=== PATIENT | male | born 1955 | race Caucasian/White ===

== ENCOUNTER 2022-04-21 12:39 | Outpatient (REF) | payer MEDICARE, SELFPAY ==
[2022-04-21 13:05] LABS: MANUAL DIFF FLAG NO
[2022-04-21 13:15] LABS: Basophils Percent Auto 0.6 % (0-2); Eosinophils Absolute Auto 0.2 X10*3/uL (0.0-0.4); Eosinophils Percent Auto 2.7 % (0-4); Hematocrit 45.9 % (42.0-52.0); Hemoglobin 15.6 g/dl (14.0-18.0); Imm Gran Abs Auto 0.03 X10*3/uL (0.00-0.03); Imm Gran Pct Auto 0.4 % (0.0-0.4); Lymphocytes Absolute Auto 1.9 X10*3/uL (1.2-4.9); Lymphocytes Percent Auto 27.5 % (20-40); Mean Corpuscular Hemoglobin 31.9 pg (27.0-33.0); Mean Corpuscular Volume 93.9 fL (80.0-98.0); Monocytes Absolute Auto 0.7 X10*3/uL (0.1-1.2); Monocytes Percent Auto 10.5 % (2-11); Neutrophils Absolute Auto 4.1 x10*3/uL (2.0-8.3); Neutrophils Percent Auto 58.3 % (45-73); Platelet Count 181 X10*3/uL (160-400); Red Blood Count 4.89 X10*6/uL (4.60-5.80)
[2022-04-21 13:58] LABS: Appearance Urine CLEAR; Color Urine YELLOW; Glucose Urine UA NEG (NEG); Leukocyte Esterase Urine NEG (NEG); Nitrite Urine NEG (NEG); UACC Culture Trigger NO; Urine Blood 2+ (NEG); Urine Ketones NEG (NEG); Urine Protein NEG (NEG-TRACE)
[2022-04-21 14:40] LABS: Squamous Epithelial Cell Urine 1+ /LPF
[2022-04-21 14:41] LABS: WBC Urine 0-2 /HPF (0-4)
[2022-04-21 14:42] LABS: Bacteria Urine TRACE /LPF
[2022-04-21 14:48] LABS: Vitamin B12 496 pg/mL (200-900)
[2022-04-21 16:07] LABS: Alanine Aminotransferase 44 U/L (0-40); Albumin Level 4.4 g/dL (3.5-5.0); Alkaline Phosphatase 78 U/L (39-117); Anion Gap 11 (12-20); Aspartate Amino Transferase 30 U/L (5-37); Bilirubin Total 0.7 mg/dL (0.0-1.0); Blood Urea Nitrogen 21 mg/dL (9-16); Calcium 9.1 mg/dL (8.4-10.2); Carbon Dioxide 23 mmol/L (22-29); Chloride 108 mmol/L (96-108); Cholesterol 191 mg/dL; Estimated Glomerular Filt Rate > 60; Glucose Fasting 98 mg/dL (60-99); HDL Cholesterol 37 mg/dL; LDL Cholesterol Calculated 129 mg/dl; Potassium 4.1 mmol/L (3.3-5.1); Sodium 138 mmol/L (135-145); Total Protein 7.1 g/dL (6.5-8.0); Triglycerides 126 mg/dL
[2022-04-21 16:20] LABS: Prostate Specific Antigen 36.33 ng/mL (<0.05-4.0); TSH reflex Free T4 2.73 uIU/mL (0.32-4.0); Vitamin D 25-OH Total 18.3 ng/mL (>30)
[2022-04-22 06:52] LABS: Cortisol Random 9.5 ug/dL
[2022-04-23 00:08] LABS: DHEA Sulfate 71 mcg/dL (20-217)
[2022-04-27 15:47] LABS: Testosterone, Free 52.8 pg/mL (35.0-155.0); Testosterone, Total 372 ng/dL (250-1100)
[2022-04-27 19:41] LABS: Progesterone 0.1 ng/mL
[2022-04-28 23:01] LABS: Dihydrotestosterone 31 ng/dL (12-65)
[2022-05-01 05:16] LABS: Estradiol Free 0.62 pg/mL; Estradiol, Ultrasensitive 29 pg/mL (< OR = 29)
== END 2022-04-21 12:40 | disposition home or self-care (01) ==
LOC: HO.LAB 12:39
PROVIDERS: Visit Provider Nurse Practitioner Family
DX: Z13.220 Encounter for screening for lipoid disorders (principal); Z13.29 Encounter for screening for other suspected endocrine disorder; Z12.5 Encounter for screening for malignant neoplasm of prostate; C61 Malignant neoplasm of prostate; E55.9 Vitamin D deficiency, unspecified; R31.9 Hematuria, unspecified; Z76.89 Persons encountering health services in other specified circumstances
CPT/HCPCS: 36415; 80053; 80061; 81001; 81003; 82306; 82533; 82607; 82627; 82642; 82670; 82681; 82746; 84144; 84153; 84402; 84403; 84443; 85025

== ENCOUNTER → 2022-05-21 12:43 | Outpatient (BNVA) | payer MEDICARE, SELFPAY | PROVIDERS: PCP Internal Medicine; Visit Provider Urology | DX: C61 Malignant neoplasm of prostate (principal) | CPT/HCPCS: 99202 ==

== ENCOUNTER → 2022-06-11 15:09 | Outpatient (BNVA) | payer MEDICARE, SELFPAY | PROVIDERS: PCP Internal Medicine; Visit Provider Urology | DX: C61 Malignant neoplasm of prostate (principal) | CPT/HCPCS: Q3014 ==

== ENCOUNTER 2022-10-29 11:00 | Outpatient (REF) | payer MEDICARE, SELFPAY ==
[2022-10-29 14:45] LABS: Prostate Specific Antigen 36.34 ng/mL (<0.05-4.0)
== END 2022-10-29 11:01 | disposition home or self-care (01) ==
LOC: HO.HMGCLDS 11:00
PROVIDERS: PCP Nurse Practitioner Family; Visit Provider Nurse Practitioner Primary Care
DX: Z12.5 Encounter for screening for malignant neoplasm of prostate (principal); C61 Malignant neoplasm of prostate
CPT/HCPCS: 36415; 84153

== ENCOUNTER 2022-12-01 09:32 | Outpatient (REF) | payer MEDICARE, SELFPAY ==
[2022-12-01 12:54] LABS: Prostate Specific Antigen 34.88 ng/mL (<0.05-4.0)
== END 2022-12-01 09:33 | disposition home or self-care (01) ==
LOC: HO.HMGCLDS 09:32
PROVIDERS: PCP Nurse Practitioner Family; Visit Provider Family Medicine
DX: Z12.5 Encounter for screening for malignant neoplasm of prostate (principal); C61 Malignant neoplasm of prostate
CPT/HCPCS: 36415; 84153

== ENCOUNTER 2023-01-01 10:37 | Outpatient (REF) | payer MEDICARE, SELFPAY ==
[2023-01-01 12:36] LABS: Prostate Specific Antigen 40.01 ng/mL (<0.05-4.0)
== END 2023-01-01 10:38 | disposition home or self-care (01) ==
LOC: HO.HMGCLR 10:37
PROVIDERS: PCP Family Medicine; Visit Provider Family Medicine
DX: Z12.5 Encounter for screening for malignant neoplasm of prostate (principal); C61 Malignant neoplasm of prostate
CPT/HCPCS: 36415; 84153

== ENCOUNTER 2023-02-01 10:38 | Outpatient (REF) | payer MEDICARE, SELFPAY ==
[2023-02-01 15:45] LABS: Prostate Specific Antigen 38.38 ng/mL (<0.05-4.0)
== END 2023-02-01 10:39 | disposition home or self-care (01) ==
LOC: HO.HMGCLR 10:38
PROVIDERS: PCP Family Medicine; Visit Provider Family Medicine
DX: Z12.5 Encounter for screening for malignant neoplasm of prostate (principal); C61 Malignant neoplasm of prostate
CPT/HCPCS: 36415; 84153

== ENCOUNTER 2023-03-08 11:45 | Outpatient (REF) | payer MEDICARE, SELFPAY ==
[2023-03-08 14:33] LABS: Prostate Specific Antigen 45.72 ng/mL (<0.05-4.0)
== END 2023-03-08 11:46 | disposition home or self-care (01) ==
LOC: HO.HMGCLR 11:45
PROVIDERS: PCP Family Medicine; Visit Provider Family Medicine
DX: Z12.5 Encounter for screening for malignant neoplasm of prostate (principal); C61 Malignant neoplasm of prostate
CPT/HCPCS: 36415; 84153

== ENCOUNTER 2023-04-08 11:00 | Outpatient (REF) | payer MEDICARE, MEDICAID, SELFPAY ==
[2023-04-08 14:13] LABS: Prostate Specific Antigen 46.35 ng/mL (<0.05-4.0)
== END 2023-04-08 11:01 | disposition home or self-care (01) ==
LOC: HO.HMGCLR 11:00
PROVIDERS: PCP Family Medicine; Visit Provider Family Medicine
DX: Z12.5 Encounter for screening for malignant neoplasm of prostate (principal); C61 Malignant neoplasm of prostate
CPT/HCPCS: 36415; 84153

== ENCOUNTER 2023-08-17 13:35 | Outpatient (REF) | payer OTHER, MEDICARE, SELFPAY ==
[2023-08-17 15:56] LABS: MANUAL DIFF FLAG NO
[2023-08-17 16:05] LABS: Basophils Percent Auto 0.3 % (0-2); Eosinophils Absolute Auto 0.2 X10*3/uL (0.0-0.4); Eosinophils Percent Auto 2.7 % (0-4); Hematocrit 44.6 % (42.0-52.0); Hemoglobin 15.1 g/dl (14.0-18.0); Imm Gran Abs Auto 0.04 X10*3/uL (0.00-0.03); Imm Gran Pct Auto 0.5 % (0.0-0.4); Lymphocytes Absolute Auto 2.3 X10*3/uL (1.2-4.9); Lymphocytes Percent Auto 26.4 % (20-40); Mean Corpuscular HGB Conc 33.9 g/dl (31.0-36.0); Mean Corpuscular Hemoglobin 32.2 pg (27.0-33.0); Mean Corpuscular Volume 95.1 fL (80.0-98.0); Mean Platelet Volume 9.9 fL (9.4-12.4); Monocytes Absolute Auto 0.8 X10*3/uL (0.1-1.2); Monocytes Percent Auto 9.2 % (2-11); Neutrophils Absolute Auto 5.2 x10*3/uL (2.0-8.3); Neutrophils Percent Auto 60.9 % (45-73); Platelet Count 182 X10*3/uL (160-400); Red Blood Count 4.69 X10*6/uL (4.60-5.80); Red Cell Distribution Width 12.2 % (11.0-16.0); White Blood Count 8.6 X10*3/uL (4.8-10.8)
[2023-08-17 16:12] LABS: Alanine Aminotransferase 17 U/L (0-40); Alkaline Phosphatase 60 U/L (39-117); Anion Gap 9 (12-20); Aspartate Amino Transferase 16 U/L (5-37); Bilirubin Total 0.4 mg/dL (0.0-1.0); Blood Urea Nitrogen 30 mg/dL (9-16); Calcium 9.6 mg/dL (8.4-10.2); Carbon Dioxide 28 mmol/L (22-29); Chloride 107 mmol/L (96-108); Estimated Glomerular Filt Rate > 60; Glucose Random 103 mg/dL (60-115); Phosphorus 3.2 mg/dL (2.7-4.5); Potassium 3.9 mmol/L (3.3-5.1); Sodium 140 mmol/L (135-145); Total Protein 6.8 g/dL (6.5-8.0); Uric Acid 6.3 mg/dL (3.4-7.0)
== END 2023-08-17 13:36 | disposition home or self-care (01) ==
LOC: HO.HMGCLDS 13:35
PROVIDERS: PCP Family Medicine; Visit Provider Nurse Practitioner Primary Care
DX: C61 Malignant neoplasm of prostate (principal)
CPT/HCPCS: 36415; 80053; 84100; 84550; 85025

== ENCOUNTER 2023-08-27 10:24 | Outpatient (AMB) | payer OTHER, SELFPAY ==
--- NOTE | 2023-08-27 10:31 | MHC.OFFVIS ---
Intake Intake Visit Reasons: Prostate cancer- follow up Intake Note: Patient is Present for Follow Up Prostate Cancer/Bladder Disorder? Urology Medication:None Antibiotic Allergies:none Blood Thinners: None Compliants: PSA Current 03/2023 46.35 Patient states that there is a growth/mass in bladder that has been seen in Imaging done my primary physician Allergies Seasonal Allergies Allergy (Verified 08/27/23 10:41) Runny Nose HPI HPI Comments History of Present Illness Details Víctor is a pleasant male. He is a patient of Dr. Roman. He seen for the following urologic conditions - prostate cancer - bladder lesion Patient had received treatment in [place] with targeted chemotherapy. Apparently this is based on response determined by blood test panel run against susceptibilities. I discussed with the patient that this was a strategy used to chemotherapy in the 1960s to give high-dose single agent therapy. Bladder scan studies showed this was inferior to combination chemotherapy at sub maximal dosage. Subsequent trials have not shown superiority to standard combination care. He has subsequently started SOT therapy - this is a form of oligonucleotide therapy using antisense RNA derived from circulating DNA fragments. Recent imaging 04/18 prostate MRI prostate manages 65 mL. Diffusely heterogeneous transitional zone with median lobe hypertrophy projecting into the bladder. 3.8 cm T2 hypointense lesion left lateral peripheral zone from base to apex. Daily arterial enhancement. Lesions stable compared to last year. No extracapsular extension. PI-RADS 5. Increased polypoid inferior bladder mass now measuring 4.5 cm in maximal sagittal dimension. On discussion with patient would recommend cystoscopy with TURBT of bladder lesion as well as prostate biopsy it to see if this treatment effect. 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 Large median lobe prostate. 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 [facility] Medical History Encounter to establish care Screening for diabetes mellitus Screening for hyperlipidemia Screening for hypothyroidism Surgical History No pertinent past surgical history Family History Mother Heart valve problem Father Medical history unknown Social History Housing: House Alcohol intake: never Patient Tobacco Use Status: Current everyday Tobacco user Tobacco use type: Cigarette Cigarette Packs Per Day: 0.5 Cigarettes Per Day: 10 e-Cigarette/Vaping Use: Never Used Second Hand Smoke Exposure: Yes service: Yes Current occupational status: employed Cognitive needs: No Hearing needs: No Vision needs: Yes (reading) Review of Systems Const Denies chills and Denies fever(s) Card Reports no additional complaints and Denies syncope Resp Denies cough GI Denies abdominal pain and Denies heartburn Reports as per HPI and Denies change in libido Neuro Denies syncope Psych Denies change in libido Endo Denies change in libido Physical Exam Const General: cooperative, healthy appearing, comfortable and no acute distress Orientation/consciousness: patient oriented x3 HEENT Face and sinus: Yes normal facial exam Mouth: moist mucous membranes Neck Neck: Yes normal visual inspection, Yes full ROM and Yes trachea midline Chest Chest palpation & inspection: normal inspection of the chest Resp Effort & Inspection: normal respiratory effort, able to speak in complete sentences and no respiratory distress GI Inspection: Yes normal to inspection Back/Spine/Pelvis Cervical Spine: normal cervical lordosis Thoracic/Lumbar Spine: thoracic and lumbar spine normal to inspection Skin General skin exam: no rashes or lesions noted Neuro General: patient oriented x3, gait normal, tone normal and moves all extremities Extrem General: Yes normal to inspection and Yes capillary refill normal Assessment & Plan Assessment & Plan (1) Prostate cancer: Comment: Followed by Dr. Brown - [facility] (cancer center) in [facility], will have immunotherapy and chemotherapy - Grade Group 4 Code(s): C61 - Malignant neoplasm of prostate (2) Bladder mass: Code(s): N32.89 - Other specified disorders of bladder Plan Risks, benefits and alternatives to therapy were discussed. These include but are not limited to infection, bleeding, damage to local organs and tissues, need for further interventions. Anesthetic risks regarding cardiac arrhythmia, blood clots, and potential mortality were discussed. The patient understands the typical recovery time and the outpatient nature of the procedure. After consideration of these risks the patient gives full informed consent and they wish to move ahead with the procedure. With TURBT and prostate biopsy Patient Instructions: Imaging studies, laboratory and physical exam results were discussed and reviewed in detail. No major barriers to patient understanding were identified. An opportunity to ask questions regarding the treatment plan was provided. All questions were answered. The patient expressed understanding and agreement with the above treatment plan. The patient is aware they should contact our office by phone for worsening of their current condition or the appearance of new urologic symptoms. Compliance is encouraged with any medications and followup testing that is ordered. It is a privilege to participate in the urologic care of your patient. If you have any questions or concerns regarding treatment for the above conditions, or other urologic issues, please do not hesitate to contact me. The office telephone contact is [phone]. This note is constructed using voice recognition software. While every effort has been made to ensure accuracy journal entry audit clerk errors may have been included. Yours sincerely, Dr Javier Collins MD, [facility] - Urology Providers of Expert, Compassionate Care for the Genitourinary System Coding Level of Care Code Est Pt Level 4 (83707) Diagnoses Prostate cancer C61 Bladder mass N32.89
== END 2023-08-27 11:18 | disposition home or self-care (01) ==
PROVIDERS: PCP Family Medicine; Visit Provider Urology
DX: C61 Malignant neoplasm of prostate (principal); N32.89 Other specified disorders of bladder
CPT/HCPCS: 99214

== ENCOUNTER → 2023-08-27 10:24 | Outpatient (BNVA) | payer OTHER, MEDICARE, SELFPAY | PROVIDERS: PCP Family Medicine; Visit Provider Urology | DX: C61 Malignant neoplasm of prostate (principal); N32.89 Other specified disorders of bladder | CPT/HCPCS: 99212 ==

== ENCOUNTER 2023-12-22 09:56 | Outpatient (AMB) | payer OTHER, SELFPAY ==
--- NOTE | 2023-12-22 09:58 | A.OFFVIS_ITS ---
Intake Intake Visit Reasons: H&P TURBT w Fulguration/Prostate bx Allergies Seasonal Allergies Allergy (Verified 08/27/23 10:41) Runny Nose Medication List - Last Reconciled 12/22/23 by Javier Collins MD cholecalciferol (vitamin D3) 25 mcg PO DAILY HPI HPI Comments History of Present Illness Details Víctor is a pleasant male. He is a patient of Dr. Roman. He seen for the following urologic conditions - prostate cancer - bladder lesion Telemedicine Evaluation 15 min Consultation [employer] Miranda Video attempted On discussion today recommended was repeat biopsy. He states he has improved symptoms and does not think a procedure would be helpful Repeat imaging is suggested and he does want to proceed with this He understands that his non standard management may have significant impact on life expectancy Patient had received experimental treatment in [place] with targeted chemotherapy. Apparently this is based on response determined by blood test panel run against susceptibilities. I discussed with the patient that this was a strategy used to chemotherapy in the 1960s to give high-dose single agent therapy. He has subsequently started SOT therapy - this is a form of oligonucleotide therapy using antisense RNA derived from circulating DNA fragments. This is a highly experimental treatment with low probability for management. Bladder scan studies showed this was inferior to combination chemotherapy at sub maximal dosage. Subsequent trials have not shown superiority to standard combination care. Recent imaging 04/18 prostate MRI prostate manages 65 mL . Diffusely heterogeneous transitional zone with median lobe hypertrophy projecting into the bladder. 3.8 cm T2 hypointense lesion left lateral peripheral zone from base to apex. Daily arterial enhancement. Lesions stable compared to last year. No extracapsular extension. PI-RADS 5. Increased polypoid inferior bladder mass now measuring 4.5 cm in maximal sagittal dimension. 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 Large median lobe prostate. 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 [facility] Medical History Encounter to establish care Screening for diabetes mellitus Screening for hyperlipidemia Screening for hypothyroidism Surgical History No pertinent past surgical history Family History Mother Heart valve problem Father Medical history unknown Social History Housing: House Alcohol intake: never Patient Tobacco Use Status: Current everyday Tobacco user Tobacco use type: Cigarette Cigarette Packs Per Day: 0.5 Cigarettes Per Day: 10 e-Cigarette/Vaping Use: Never Used Second Hand Smoke Exposure: Yes service: Yes Current occupational status: employed Cognitive needs: No Hearing needs: No Vision needs: Yes (reading) Review of Systems Const All systems reviewed & are unremarkable except as noted in HPI and below Reports no additional complaints Resp Reports no additional complaints GI Reports no additional complaints Reports as per HPI Musc Reports no additional complaints Physical Exam Telemedicine evaluation Appropriate responses Regular breathing rate and rhythm HEENT Head: Yes normal to inspection Ears: hearing grossly normal bilaterally Eyes General: appearance normal, both eyes and all related structures Neck Neck: Yes normal visual inspection Chest Chest palpation & inspection: normal inspection of the chest Resp Effort & Inspection: normal respiratory effort and able to speak in complete sentences Assessment & Plan Assessment & Plan (1) Prostate cancer: Comment: Followed by Dr. Brown - [facility] (cancer center) in [facility], will have immunotherapy and chemotherapy - Grade Group 4 Code(s): C61 - Malignant neoplasm of prostate Plan MRI Three-month follow-up Orders: Orders Creatinine Today C61 - Malignant neoplasm of prostate, R39.15 - Urgency of urination Blood Urea Nitrogen Today C61 - Malignant neoplasm of prostate, R39.15 - Urgency of urination MR pelvis wo/w con Today C61 - Malignant neoplasm of prostate Patient Instructions: Imaging studies, laboratory and physical exam results were discussed and reviewed in detail. No major barriers to patient understanding were identified. An opportunity to ask questions regarding the treatment plan was provided. All questions were answered. The patient expressed understanding and agreement with the above treatment plan. The patient is aware they should contact our office by phone for worsening of their current condition or the appearance of new urologic symptoms. Compliance is encouraged with any medications and followup testing that is ordered. It is a privilege to participate in the urologic care of your patient. If you have any questions or concerns regarding treatment for the above conditions, or other urologic issues, please do not hesitate to contact me. The office telephone contact is [phone]. This note is constructed using voice recognition software. While every effort has been made to ensure accuracy utilities equipment repairer errors may have been included. Yours sincerely, Dr Javier Collins MD, [facility] - Urology Providers of Expert, Compassionate Care for the Genitourinary System Telehealth Telehealth Location of provider rendering services: practice address Location of patient: address on file Patient Identification confirmed using: Name, : Yes Telehealth method: video Patient verbally consented to treatment: Yes Patient verbally consented to billing insurance company: Yes Patient informed of any privacy concerns related to visit: Yes Coding Level of Care Code Tele Est Pt Level 3 (08981) Diagnoses Prostate cancer C61
== END 2023-12-22 10:16 | disposition home or self-care (01) ==
LOC: HO.HUSH 09:56
PROVIDERS: PCP Family Medicine; Visit Provider Urology
DX: C61 Malignant neoplasm of prostate (principal)
CPT/HCPCS: 99213

== ENCOUNTER → 2023-12-22 09:56 | Outpatient (BNVA) | payer OTHER, SELFPAY | PROVIDERS: PCP Family Medicine; Visit Provider Urology ==

== ENCOUNTER 2024-02-28 09:59 | Outpatient (REF) | payer OTHER, SELFPAY ==
[2024-02-28 12:17] LABS: Basophils Percent Auto 0.5 % (0-2); Eosinophils Absolute Auto 0.2 X10*3/uL (0.0-0.4); Eosinophils Percent Auto 3.2 % (0-4); Hematocrit 47.4 % (42.0-52.0); Imm Gran Abs Auto 0.03 X10*3/uL (0.00-0.03); Imm Gran Pct Auto 0.5 % (0.0-0.4); Lymphocytes Absolute Auto 1.9 X10*3/uL (1.2-4.9); Lymphocytes Percent Auto 31.1 % (20-40); MANUAL DIFF FLAG NO; Mean Corpuscular HGB Conc 33.8 g/dl (31.0-36.0); Mean Corpuscular Hemoglobin 32.9 pg (27.0-33.0); Mean Corpuscular Volume 97.3 fL (80.0-98.0); Mean Platelet Volume 10.1 fL (9.4-12.4); Monocytes Absolute Auto 0.6 X10*3/uL (0.1-1.2); Monocytes Percent Auto 9.6 % (2-11); Neutrophils Absolute Auto 3.4 x10*3/uL (2.0-8.3); Neutrophils Percent Auto 55.1 % (45-73); Platelet Count 158 X10*3/uL (160-400); Red Blood Count 4.87 X10*6/uL (4.60-5.80); White Blood Count 6.2 X10*3/uL (4.8-10.8)
[2024-02-28 12:20] LABS: Appearance Urine Clear; Color Urine Yellow; Glucose Urine UA Negative (Negative); Leukocyte Esterase Urine Negative (Negative); Nitrite Urine Negative (Negative); PH 6.5 (5.0-9.0); Urine Blood Negative (Negative); Urine Ketones Negative (Negative); Urine Protein Negative (Neg-Trace)
[2024-02-28 12:21] LABS: Fibrinogen 553 MG/DL (259-690)
[2024-02-28 12:23] LABS: D Dimer High Sensitivity 201 NG/ML
[2024-02-28 12:29] LABS: Estimated Average Glucose 103 mg/dL; Hemoglobin A1c % 5.2 % (<6.0)
[2024-02-28 12:55] LABS: Alanine Aminotransferase 17 U/L (0-40); Albumin Level 4.4 g/dL (3.5-5.0); Alkaline Phosphatase 65 U/L (39-117); Anion Gap 14 (12-20); Aspartate Amino Transferase 19 U/L (5-37); Bilirubin Total 0.6 mg/dL (0.0-1.0); Blood Urea Nitrogen 29 mg/dL (9-16); C Reactive Protein 0.45 mg/dL (< or = 0.50); Calcium 9.8 mg/dL (8.4-10.2); Carbon Dioxide 24 mmol/L (22-29); Chloride 108 mmol/L (96-108); Cholesterol 180 mg/dL (<200); Estimated Glomerular Filt Rate > 60; Glucose Random 90 mg/dL (60-115); HDL Cholesterol 39 mg/dL (>40); Iron 99 mcg/dL (45-160); LDL Cholesterol Calculated 125 mg/dL (<100); Percent Iron Saturation 37 % (15-50); Potassium 3.8 mmol/L (3.3-5.1); Sodium 142 mmol/L (135-145); Total Iron Binding Capacity 265 mcg/dL (228-428); Total Protein 7.4 g/dL (6.5-8.0); Triglycerides 84 mg/dL (<150); Unsaturated Iron Binding 166 ug/dL; Uric Acid 6.5 mg/dL (3.4-7.0)
[2024-02-28 13:06] LABS: Cortisol Random 8.6 ug/dL
[2024-02-28 13:13] LABS: Ferritin 325 ng/mL (20-250); Insulin 7 uU/mL (2-29); Thyroid Stimulating Hormone 2.22 uIU/mL (0.32-4.0); Vitamin D 25-OH Total 53.1 ng/mL (>30)
[2024-02-28 13:21] LABS: Folate 13.1 ng/mL (> or = 4.0); Vitamin B12 820 pg/mL (200-900)
[2024-03-01 01:58] LABS: Triiodothyronine T3 Free 3.3 pg/mL (2.3-4.2)
[2024-03-01 03:53] LABS: Thyroid Peroxidase Antibodies 1 IU/mL (<9)
[2024-03-02 15:19] LABS: Iodine, Serum/Plasma 403 mcg/L (52-109)
[2024-03-02 16:13] LABS: Copper, serum 80 mcg/dL (70-175)
[2024-03-03 04:49] LABS: Apolipoprotein B 101 mg/dL (<90)
[2024-03-03 15:43] LABS: IGF-1 (Somatomedin C) 106 ng/mL (34-245)
[2024-03-03 15:54] LABS: Triiodothyronine T3 Reverse 23 ng/dL (8-25)
[2024-03-03 16:58] LABS: Testosterone, Free 35.8 pg/mL (30.0-135.0); Testosterone, Total 328 ng/dL (250-1100)
[2024-03-06 01:18] LABS: Estradiol Ultra Sensitive 27 pg/mL (< OR = 29)
[2024-03-06 01:59] LABS: Progesterone <0.1 ng/mL
[2024-03-06 23:52] LABS: Lipoprotein A 241 nmol/L (<75)
[2024-03-07 03:13] LABS: Dihydrotestosterone 28 ng/dL (12-65)
[2024-03-07 06:28] LABS: Thyroglobulin Antibodies 1 IU/mL (< or = 1)
[2024-03-07 10:38] LABS: DHEA Sulfate 59 mcg/dL (3-225)
[2024-03-07 20:54] LABS: Homocysteine 8.3 umol/L (<11.4)
[2024-03-08 12:57] LABS: Ceruloplasmin 23 mg/dL (14-30)
== END 2024-02-28 10:00 | disposition home or self-care (01) ==
LOC: HO.HMGCLDS 09:59
PROVIDERS: Visit Provider Family Medicine
DX: Z00.00 Encounter for general adult medical examination without abnormal findings (principal); C61 Malignant neoplasm of prostate; E78.5 Hyperlipidemia, unspecified; Z92.21 Personal history of antineoplastic chemotherapy
CPT/HCPCS: 36415; 80053; 80061; 81003; 82172; 82306; 82390; 82525; 82533; 82607; 82627; 82642; 82670; 82728; 82746; 83036; 83090; 83525; 83540; 83695; 83789; 84144; 84305; 84402; 84403; 84436; 84443; 84481; 84482; 84550; 85025; 85379; 85384; 86140; 86376; 86800

== ENCOUNTER 2024-03-23 10:24 | Outpatient (AMB) | payer OTHER, SELFPAY ==
--- NOTE | 2024-03-23 11:21 | MHC.OFFVIS ---
Intake Visit Reasons: 3m/MRI(02/09) Intake Note: Patient is present for 3 month f/u Urology Medication:none Antibiotic Allergy:none Blood Thinner:none Prospecting Driller Required: No Allergies Seasonal Allergies Allergy (Verified 03/23/24 11:26) Runny Nose HPI Comments Details: Víctor is a pleasant male. He is a patient of Dr. Roman. He seen for the following urologic conditions - prostate cancer - bladder lesion Discussed imaging findings All things considered progression of disease on imaging appears to be relatively slow PSA not done on last blood work Will do today and in 4 months 03/20 T 325 No PSA done Imaging MRI - irregular region of decreased signal in left lateral and posterior lateral peripheral zone. Region is expanded from prior imaging. Maximal dimension 3.0 x 1.7 cm. Slight increase from evaluation 04/15/2023. Region shows avid enhancement PI-RADS 5. Irregular frondlike mass extending along lateral base of anterior bladder. 12/18 On discussion today recommended was repeat biopsy. He states he has improved symptoms and does not think a procedure would be helpful Repeat imaging is suggested and he does want to proceed with this He understands that his non standard management may have significant impact on life expectancy Patient had received experimental treatment in [place] with targeted chemotherapy. Apparently this is based on response determined by blood test panel run against susceptibilities. I discussed with the patient that this was a strategy used to target chemotherapy in the 1960s to give high-dose single agent therapy. He has subsequently started SOT therapy - this is a form of oligonucleotide therapy using antisense RNA derived from circulating DNA fragments. This is a highly experimental treatment with low probability for management- there is little data supporting the correlation between circulating DNA and actual predominant tumor DNA Bladder scan studies showed this was inferior to combination chemotherapy at sub maximal dosage. Subsequent trials have not shown superiority to standard combination care. 04/18 PSA 46 prostate MRI prostate manages 65 mL. Diffusely heterogeneous transitional zone with median lobe hypertrophy projecting into the bladder. 3.8 cm T2 hypointense lesion left lateral peripheral zone from base to apex. Daily arterial enhancement. Lesions stable compared to last year. No extracapsular extension. PI-RADS 5. Increased polypoid inferior bladder mass now measuring 4.5 cm in maximal sagittal dimension. 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 Large median lobe prostate. 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 [facility] Medical History Encounter to establish care Screening for diabetes mellitus Screening for hyperlipidemia Screening for hypothyroidism Surgical History No pertinent past surgical history Family History Mother Heart valve problem Father Medical history unknown Social History Housing: House Alcohol intake: never Patient Tobacco Use Status: Current everyday Tobacco user Tobacco use type: Cigarette Cigarette Packs Per Day: 0.5 Cigarettes Per Day: 10 e-Cigarette/Vaping Use: Never Used Second Hand Smoke Exposure: Yes service: Yes Current occupational status: employed Cognitive needs: No Hearing needs: No Vision needs: Yes (reading) Review of Systems Const Denies chills and Denies fever(s) Card Reports no additional complaints and Denies syncope Resp Denies cough GI Denies abdominal pain and Denies heartburn Reports as per HPI and Denies change in libido Neuro Denies syncope Psych Denies change in libido Endo Denies change in libido Physical Exam Const General: cooperative, healthy appearing, comfortable and no acute distress Orientation/consciousness: patient oriented x3 HEENT Face and sinus: Yes normal facial exam Mouth: moist mucous membranes Neck Neck: Yes normal visual inspection, Yes full ROM and Yes trachea midline Chest Chest palpation & inspection: normal inspection of the chest Resp Effort & Inspection: normal respiratory effort, able to speak in complete sentences and no respiratory distress GI Inspection: Yes normal to inspection Back/Spine/Pelvis Cervical Spine: normal cervical lordosis Thoracic/Lumbar Spine: thoracic and lumbar spine normal to inspection Skin General skin exam: no rashes or lesions noted Neuro General: patient oriented x3, gait normal, tone normal and moves all extremities Extrem General: Yes normal to inspection and Yes capillary refill normal Assessment & Plan Assessment & Plan (1) Prostate cancer: Comment: Followed by Dr. Brown - [facility] (cancer center) in [facility], will have immunotherapy and chemotherapy - Grade Group 4 Code(s): C61 - Malignant neoplasm of prostate Category: Medical Plan Four month follow-up PSA Orders: Orders PSA,Total (Free>4and<10) 4 Months C61 - Malignant neoplasm of prostate PSA,Total (Free>4and<10) Today C61 - Malignant neoplasm of prostate, E11.69 - Type 2 diabetes mellitus with other specified complication, N52.1 - Erectile dysfunction due to diseases classified elsewhere Patient Instructions: Imaging studies, laboratory and physical exam results were discussed and reviewed in detail. No major barriers to patient understanding were identified. An opportunity to ask questions regarding the treatment plan was provided. All questions were answered. The patient expressed understanding and agreement with the above treatment plan. The patient is aware they should contact our office by phone for worsening of their current condition or the appearance of new urologic symptoms. Compliance is encouraged with any medications and followup testing that is ordered. It is a privilege to participate in the urologic care of your patient. If you have any questions or concerns regarding treatment for the above conditions, or other urologic issues, please do not hesitate to contact me. The office telephone contact is [phone]. This note is constructed using voice recognition software. While every effort has been made to ensure accuracy double end tenoner setter errors may have been included. Yours sincerely, Dr Javier Collins MD, [facility] - Urology Providers of Expert, Compassionate Care for the Genitourinary System Coding Level of Care Code Est Pt Level 3 (27138) Diagnoses Prostate cancer C61
== END 2024-03-23 11:39 | disposition home or self-care (01) ==
PROVIDERS: PCP Family Medicine; Referring Provider Family Medicine; Visit Provider Urology
DX: C61 Malignant neoplasm of prostate (principal)
CPT/HCPCS: 99213

== ENCOUNTER 2024-03-23 10:24 | Outpatient (REF) | payer OTHER, SELFPAY ==
[2024-03-23 13:29] LABS: Blood Urea Nitrogen 33 mg/dL (9-16); Estimated Glomerular Filt Rate > 60
[2024-03-23 13:38] LABS: PSA,Total (Free>4and<10) 46.37 ng/mL (0.00-4.00)
== END 2024-03-23 10:25 | disposition home or self-care (01) ==
LOC: HO.LAB 10:24
PROVIDERS: PCP Family Medicine; Visit Provider Urology
DX: C61 Malignant neoplasm of prostate (principal); E11.69 Type 2 diabetes mellitus with other specified complication; N52.1 Erectile dysfunction due to diseases classified elsewhere; R39.15 Urgency of urination; Z12.5 Encounter for screening for malignant neoplasm of prostate
CPT/HCPCS: 36415; 82565; 84153; 84520; 99212

== ENCOUNTER 2024-07-14 12:25 | Outpatient (REF) | payer OTHER, SELFPAY ==
[2024-07-14 17:07] LABS: Prostate Specific Antigen 51.99 ng/mL (<0.05-4.0)
== END 2024-07-14 12:26 | disposition home or self-care (01) ==
LOC: HO.HMGCLDS 12:25
PROVIDERS: PCP Internal Medicine; Visit Provider Urology
DX: C61 Malignant neoplasm of prostate (principal); Z12.5 Encounter for screening for malignant neoplasm of prostate
CPT/HCPCS: 36415; 84153

== ENCOUNTER 2024-10-26 11:27 | Outpatient (REF) | payer OTHER, SELFPAY ==
[2024-10-26 13:03] LABS: MANUAL DIFF FLAG NO
[2024-10-26 13:10] LABS: Basophils Percent Auto 0.4 % (0-2); Eosinophils Absolute Auto 0.3 X10*3/uL (0.0-0.4); Eosinophils Percent Auto 3.5 % (0-4); Hematocrit 42.8 % (42.0-52.0); Hemoglobin 14.4 g/dl (14.0-18.0); Imm Gran Abs Auto 0.03 X10*3/uL (0.00-0.03); Imm Gran Pct Auto 0.4 % (0.0-0.4); Lymphocytes Absolute Auto 1.6 X10*3/uL (1.2-4.9); Lymphocytes Percent Auto 21.7 % (20-40); Mean Corpuscular HGB Conc 33.6 g/dl (31.0-36.0); Mean Corpuscular Hemoglobin 32.4 pg (27.0-33.0); Mean Corpuscular Volume 96.4 fL (80.0-98.0); Mean Platelet Volume 9.9 fL (9.4-12.4); Monocytes Absolute Auto 0.9 X10*3/uL (0.1-1.2); Monocytes Percent Auto 12.4 % (2-11); Neutrophils Absolute Auto 4.4 x10*3/uL (2.0-8.3); Neutrophils Percent Auto 61.6 % (45-73); Platelet Count 161 X10*3/uL (160-400); Red Blood Count 4.44 X10*6/uL (4.60-5.80); Red Cell Distribution Width 12.1 % (11.0-16.0); White Blood Count 7.2 X10*3/uL (4.8-10.8)
[2024-10-26 13:57] LABS: Alanine Aminotransferase 19 U/L (0-40); Albumin Level 3.9 g/dL (3.5-5.0); Alkaline Phosphatase 59 U/L (39-117); Anion Gap 8 (12-20); Aspartate Amino Transferase 25 U/L (5-37); Bilirubin Total 0.5 mg/dL (0.0-1.0); Blood Urea Nitrogen 28 mg/dL (9-16); Calcium 8.8 mg/dL (8.4-10.2); Carbon Dioxide 24 mmol/L (22-29); Chloride 113 mmol/L (96-108); Estimated Glomerular Filt Rate > 60; Glucose Random 94 mg/dL (60-115); Phosphorus 2.9 mg/dL (2.7-4.5); Potassium 4.4 mmol/L (3.3-5.1); Sodium 141 mmol/L (135-145); Total Protein 6.9 g/dL (6.5-8.0)
[2024-10-26 14:09] LABS: Uric Acid 8.2 mg/dL (3.4-7.0)
--- OUTSIDE RECORDS SUMMARY | 2024-10-26 15:30 | XMS_ITS | Encounter Summary ---
Author Name [facility] [place] [facility] [place] [facility] [place] Address [address] [place] [id number] Care Team Providers Care Speech Language Pathologist Name Role Phone MO ALMARAZ Primary Care Provider Unavailab le Insurance Providers: All historical and current Section Date Range: From patient's date of to the date document was created. This section includes the names of all active insurance providers for the patient. Insurance Provider Type of Coverage Plan Name Start of Policy Coverage End of Policy Coverage Group Number Member ID Insurance Provider's Telephone Number Policy Rucker's Name Patient's Relationship to Policy Rucker MEDICAID MEDICAID MYRIAM JONNY LILIAM ANIRUDH Nov 30, 2019 MEDICAI D [id number] Catrina LEE PATIENT MEDICARE (WNR) MEDICARE (M) PART A January 25, 2018 PART A [id number] Catrina LEE PATIENT MEDICARE (WNR) MEDICARE (M) PART B January 25, 2018 PART B [id number] Catrina LEE PATIENT Selected Encounter This section includes the information on record at [place] for the Encounter. Date/Time Encounter Type Encounter Description Reason Provider Source Nov 08, 2023 02:00 PM OFFICE O/P EST MOD 30 MIN PRIMARY CARE/MEDICINE ICD-10-CM I10 Essential (primary) hypertension MARVIN,APOL INARIO IHE Encounter Template Text not used by [place] Assessments - Encounter Diagnoses This section includes the primary and secondary diagnoses documented for the Encounter. Date/Time Primary/Secondary Diagnosis Diagnosis Name Provider Source Nov 17, 2023 08:21 AM PRIMARY Essential (primary) hypertension JOVANA WONG [facility] Nov 17, 2023 08:21 AM SECONDARY Other sleep apnea JOVANA WONG [place] Plan of Treatment: Future Appointments (+ 6 months) and Future Tests (+/- 45 days) The Plan of Treatment section includes future care activities for the patient from all [place] treatmentfacilities. This section includes future appointments and future orders which are active, pending or scheduled. Future Appointments This section includes appointments that were scheduled to occur 6 months from the date of the Encounter, up to a maximum of 20 appointments. The data comes from all [place] treatment facilities. Appointment Date/Time Appointment Type Appointme nt Facility Name Nov 17, 2023 02:00 PM AMBULATORY - REHAB MEDICIN [facility] [place] [facility] Dec 08, 2023 09:20 AM AMBULATORY - MEDICINE [place] [facility] [place] [facility] February 01, 2024 03:00 PM AMBULATORY - MEDICINE [place] [facility] [place] [facility] February 15, 2024 01:00 PM AMBULATORY - MEDICINE [place] [facility] [place] [facility] Feb 28, 2024 09:00 AM AMBULATORY - MEDICINE [place] [facility] [place] [facility] Mar 17, 2024 11:00 AM AMBULATORY - PSYCHIATRY [facility] Mar 23, 2024 10:30 AM AMBULATORY - MEDICINE [place] [facility] [place] [facility] Mar 24, 2024 09:30 AM AMBULATORY - MEDICINE [place] [facility] [place] [facility] Mar 29, 2024 11:00 AM AMBULATORY - PSYCHIATRY [facility] Apr 17, 2024 11:00 AM AMBULATORY - MEDICINE [place] [facility] [place] [facility] Apr 24, 2024 11:00 AM AMBULATORY - MEDICINE [place] [facility] [place] [facility] Apr 28, 2024 01:00 PM AMBULATORY - MEDICINE [place] [facility] [place] [facility] May 01, 2024 11:00 AM AMBULATORY - MEDICINE [place] [facility] [place] [facility] Lab Results: +/- 30 days of the encounter This section includes the Chemistry and Hematology Lab Results on record with [place] for the patient. Radiology Reports and Pathology Reports are provided separately, in subsequent sections. Lab Results This section contains the Chemistry/Hematology Results that were resulted 30 days before or 30 daysafter the date of the Encounter. Date/Time Source Result Type Result - Unit Interpretation Reference Range Comment Nov 11, 2023 09:08 AM [facility] [employer] [facility] LIPOPROTEIN (a) Specimen Type: SERUM Comment: REFERENCE RANGE: <75 nmol/L THIS RESULT HAS BEEN VERIFIED BY REPEAT ANALYSIS. Risk Category Optimal < 75 nmol/L Moderate 75 - 125 nmol/L High > 125 nmol/L Cardiovascular event risk category cut points (optimal, moderate, high) are based on Gary Musa [facility] 2017;69:692-711 . Test Performed by [email or web address], [facility], [address] [place] [address] Danielito Harris M.D., Ph.D., Director of Laboratories , [place] [id number] TEST PERFORMED AT: , Ordering Provider: BLANCA WONG Report Released Date/Time: Nov 08, 2023 02:37 PM Reporting Lab: [facility] [address] [address] Performing Lab: [facility] [place] [id number] [address] LIPOPROTEIN (a) 213 nmol/L H SEE BELOW Nov 11, 2023 09:08 AM [facility] LIPID PANEL FASTING Specimen Type: SERUM No comment entered. Ordering Provider: BLANCA WONG Report Released Date/Time: Nov 08, 2023 02:37 PM Reporting Lab: [facility] [address] [address] Performing Lab: [facility] [address] [address] CHOLESTEROL 189 mg/dL TRIGLYCERIDE 127 mg/dL 0-150 LDL calculated 120 mg/dL 0-129 CHOL/HDL 4.3 HDL CHOLESTEROL 44 mg/dL 40-60 Nov 11, 2023 09:08 AM [facility] LIVER FUNCTION Specimen Type: SERUM No comment entered. Ordering Provider: BLANCA WONG Report Released Date/Time: Nov 08, 2023 02:37 PM Reporting Lab: [address] [address] Performing Lab: [address] [address] PROTEIN,TOTAL 7.0 g/dL 6.0-8.3 ALBUMIN 4.1 g/dL 3.5-5.0 ALKALINE PHOSPHATASE 65 U/L 40-150 AST 15 U/L 5-34 ALT 20 U/L BILIRUBIN, TOTAL 0.7 mg/dL 0.2-1.2 Nov 11, 2023 09:08 AM [facility] BASIC METABOLIC PANEL (fasting) Specimen Type: SERUM No comment entered. Ordering Provider: BLANCA WONG Report Released Date/Time: Nov 08, 2023 02:37 PM Reporting Lab: [address] [address] Performing Lab: [address] [address] UREA NITROGEN 26 mg/dL H 7-25 GLUCOSE 100 mg/dL 65-100 SODIUM 144 mmol/L 135-145 POTASSIUM 4.0 mmol/L 3.5-5.0 CHLORIDE 107 mmol/L 100-110 CO2 29 meq/L 20-30 CREATININE, Serum 1.11 mg/dL 0.50-1.40 eGFR(CKD-EPI 2020) 71 mL/min >60 Nov 11, 2023 09:08 AM [facility] HEMOGLOBIN A1C PANEL Specimen Type: BLOOD Comment: Values obtained from A1C measurements can vary. For atypical A1C assays, a reported value of 7.0 could actually be between 6.72 and 7.28 if measured by a reference method. A reported value of 9.0 could actually be between 8.73 and 9.27. Ref: http://www.ngsp .org/CAPdata.as p Ordering Provider: BLANCA WONG Report Released Date/Time: Nov 08, 2023 02:37 PM Reporting Lab: [facility] [place] [facility] [address] [address] Performing Lab: [facility] [address] [address] HEMOGLOBIN A1C 5.1 4.0-5.6 Nov 11, 2023 09:08 AM [facility] TSH Specimen Type: SERUM No comment entered. Ordering Provider: BLANCA WONG Report Released Date/Time: Nov 08, 2023 02:37 PM Reporting Lab: [facility] [address] [address] Performing Lab: [facility] [address] [address] TSH 3.02 u[IU]/mL 0.35-5.00 Nov 11, 2023 09:08 AM [facility] MICROALBUMIN CREATININE RATIO PANEL Specimen Type: URINE No comment entered. Ordering Provider: BLANCA WONG Report Released Date/Time: Nov 08, 2023 02:37 PM Reporting Lab: [facility] [address] [address] Performing Lab: [facility] [address] [address] MICROALBUMIN/ CREATININE RATIO 54.6 mg/g H 0-29.9 MICROALBUMIN, QUANTITATIVE 4.1 mg/dL RR UNAVAIL CREATININE URINE 75.10 mg/dL Nov 11, 2023 09:08 AM [facility] PSA Specimen Type: SERUM No comment entered. Ordering Provider: BLANCA WONG Report Released Date/Time: Nov 08, 2023 02:37 PM Reporting Lab: [facility] [address] [address] Performing Lab: [facility] [address] PSA 47.97 ng/mL H 0.00-4.00 Nov 11, 2023 09:08 AM [facility] CBC AND DIFF (AUTO) Specimen Type: BLOOD No comment entered. Ordering Provider: BLANCA WONG Report Released Date/Time: Nov 08, 2023 02:37 PM Reporting Lab: [facility] [address] [address] Performing Lab: [facility] [address] [address] WBC 6.88 10*3/uL 4.50-11.00 RBC 4.91 10*6/uL 4.23-5.66 HGB 15.8 g/dL 12.8-17 HCT 47.0 39.2-50.4 MCV 95.7 fL 82-99 MCHC 33.6 g/dL 30.8-35.1 PLT 146 10*3/uL 140-360 RDW-CV 12.4 12.0-16.0 Buchanan, Abs 0.67 10*3/uL 0.30-1.10 MCH 32.2 pg 26.2-32.6 Neut % 60.4 43.7-75.8 Lymph % 25.9 14.0-42.3 Buchanan % 9.7 5.1-13.7 Eos % 3.2 0.4-6.8 Baso % 0.4 0.1-2.0 Neut, Abs 4.15 10*3/uL 2.20-7.60 Lymph, Abs 1.78 10*3/uL 1.00-3.20 Eos, Abs 0.22 10*3/uL 0.03-0.44 Baso, Abs 0.03 10*3/uL 0.01-0.13 Immature Gran % 0.4 0.0-0.7 Immature Gran, Abs 0.03 10*3/uL 0.00-0.06 Nov 11, 2023 09:08 AM [facility] VITAMIN B12 Specimen Type: SERUM No comment entered. Ordering Provider: BLANCA WONG Report Released Date/Time: Nov 08, 2023 02:37 PM Reporting Lab: [facility] [address] [address] Performing Lab: [address] [address] VITAMIN B12 664 pg/mL 200-900 Social History: Smoking Status (Most current) and Tobacco Use (All prior to encounter date) This section includes the most current, and the historical, smoking and tobacco- related health factors from the [place] facility where the Encounter took place. Current Smoking Status This section includes the most current smoking, or tobacco-related health factor, from the [place] facility where the Encounter took place. Date/Time Current Smoking Status Comment Facil ity Apr 27, 2023 01:30 PM VA-TOBACCO USER EVERY DAY [place] Tobacco Use History This section includes a history of the smoking, or tobacco-related health factors, that were collected on or before the date of the Encounter. The data comes from the [place] facility where the Encounter took place. 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 Apr 27, 2023 01:30 PM VA-TOBACCO USE MED 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 Jan 23, 2021 10:30 AM VA-TOBACCO USE MED [facility] Jan 23, 2021 10:30 AM VA-TOBACCO USE WI 30 MIN OF WAKEUP [place] Jan 23, 2021 10:30 AM VA-TOBACCO USER EVERY DAY [place] Oct 25, 2017 03:23 PM CUR[facility] Oct 25, 2017 03:23 PM V1-PT NOT INTEREST ED IN QUIT TOBACCO USE [place] Dec 15, 2016 10:59 AM CURRENT SMOKER [facility] Dec 15, 2016 10:59 AM V1-PT DECLINES REF TO TOBACCO CESS [facility] Dec 15, 2016 10:59 AM V1-PT THINKING ABO UT QUIT TOBACCO USE [place] Jun 16, 2016 08:30 AM V1-PT DECLINES REF TO TOBACCO CESS [facility] Jun 16, 2016 08:30 AM V1-PT DECLINES TOB ACCO CESSATION MEDS [place] Jun 16, 2016 08:30 AM V1-PT THINKING ABO UT QUIT TOBACCO USE [place] Dec 17, 2015 09:00 AM CURRENT SMOKER smokes about one ppd of cigaretts. [place] Dec 17, 2015 09:00 AM V1-PT THINKING ABO UT QUIT TOBACCO USE [place] Encounter Notes: All associated encounter notes This section contains the clinical notes associated to the Encounter. Date/Time Encounter Note(s) Provider Source Nov 08, 2023 02:14 PM PREVENTIVE MEDICIN E NURSING NOTE: LOCAL TITLE: CLINICAL REMINDERS/NURSING STANDARD TITLE: PREVENTIVE MEDICINE NURSING NOTE DATE OF NOTE: NOV 08, 2023@14:14 ENTRY DATE: NOV 08, 2023@14:14:57 AUTHOR: ALAN ALONSO EXP COSIGNER: URGENCY: STATUS: COMPLETED Pneumococcal Conjugate Vaccine (PCV15/PCV20): Refuses PCV vaccine Immunization: PNEUMOCOCCAL CONJUGATE, UNSPECIFIED FORMULATION Refusal Reason: PATIENT DECISION Patient refuses all immunization(s) in the PneumoPCV group Date Documented: 11/08/23 14:19 Influenza Immunization: The patient declines to receive the recommended dose of seasonal influenza vaccine. Immunization: INFLUENZA, UNSPECIFIED FORMULATION Refusal Reason: PATIENT DECISION Patient refuses the INFLUENZA, UNSPECIFIED FORMULATION immunization Date Documented: 11/08/23 14:19 COVID-19 Immunization: Refused Moderna Monovalent COVID-19 vaccine Immunization: COVID-19 (MODERNA), MRNA, LNP-S, PF, 50 MCG/0.5 ML (AGES 12 + YEARS) Refusal Reason: PATIENT DECISION Patient refuses the COVID-19 (MODERNA), MRNA, LNP-S, PF, 50 MCG/0.5 ML (AGES 12+ YEARS) immunization Date Documented: 11/08/23 14:19 Tdap Immunization: The patient declines to receive the recommended dose of Tdap vaccine. Immunization: TDAP Refusal Reason: PATIENT DECISION Patient refuses the TDAP immunization Date Documented: 11/08/23 14:20 Herpes Zoster (Shingles) Vaccine: The patient declines to receive the recommended dose of zoster (shingles) vaccine. Immunization: ZOSTER RECOMBINANT Refusal Reason: PATIENT DECISION Patient refuses the ZOSTER RECOMBINANT immunization Date Documented: 11/08/23 14:20 RHS Screen: RHS Screen Session Format: Face to Face Environmental Check Upon inquiry, the individual reports that the environment is safe to proceed. Informed Consent to Screen and Document The individual consents to proceed with screening. RHS screen was conducted with the individual's consent utilizing a standardized copyrighted tool. Education and resources/referrals provided as needed. EDUCATION: The individual indicated readiness to learn. Education offered during this session as noted above. The individual indicated understanding by asking relevant questions and making appropriate comments. No barriers to learning were observed or identified. 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 Discussed risk factors and mitigation measures including BP control, LSM. Followed by [facility] prostate CA and bladder tumour, HCM Patient has disenrolled from [facility] drug protocol for prostate CA Patient stopped taking BP medication; Problem list and medications reviewed. Last Labs: March 2023; recommended to update labs Active problems - Computerized Problem List is the source for the followin. Prostate cancer [facility] Drug protocol 2. HT - Hypertension change to Lis/HCTZ 21 Nov 2020 3. Osteoarthritis 4. Nicotine dependence 5. Tobacco user PPD 6. Anxiety 7. Sleep apnea (November 2021) trial on APAP 11-18 cm H2 8. Elevated PSA PSA 8.February2013 had negative prostate biopsy 9. 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 Interim removal of bladder mass (he cannot recall dx), with no treatment for HTN in setting of findngs of retinal artery occlusion. Patient amenable to discuss more with vascular surgery. HTN - discussed various determinants ncluding sleep, stress, tobacco. Wants to self monitor for now. Will call if he decides to restart medications. Hyperlipidemia - recommend recheck with LpA Collection DT Spec CHOL HDL CHO/HDL LDL-c TRIG 04/22/2023 08:24 SERUM 190 44 4.3 130 H 81 03/23/2017 11:10 SERUM 178 37 L 4.8 118 117 03/05/2016 08:41 SERUM 165 34 L 4.9 99 161 H GERTRUDIS on PAP; requesting assistance with equipment Smoker h/o prostate CA Chronic issues reviewed briefly; no changes to management unless specified above. RTC on completion of labs, 6mo as requested TIME ATTESTATION: Time spent directly with the patient was ( x ) 30 minutes More than 50% of the time spent with the patient included counselling regarding the admission Medical Review, History and Physical Examination, discussion of the findings, both remote and local data in the medical record, management, and patient education for the annotated medical conditions above. Discussed with patient and agrees to plan. VA and Non VA meds were reconciled. Today's documentation was made using voice recognition software. This note may contain spelling/grammatical errors secondary to this software. Patient provided copies of labs/studies and medication list. Upcoming Appointments: 11/08/2023 14:00 CWM/SO/PACT 9 11/17/2023 14:00 CWM/NO/AUDIOLOGY/HAF D 04/28/2024 13:00 CWM/SO/PACT 9 07/31/2024 13:30 NHM/OPTOMETRY/[place] Med Reconciliation: Active Outpatient Medications (including Supplies): Active Outpatient Medications (including Supplies): No Medications Found Medication (Local) Status No local medications found. Medication (Remote) Status No remote medications found. /alfred/ CATHIE WONG MD PHYSICIAN Signed: 11/17/2023 08:21 CATHIE WONG [place]
--- OUTSIDE RECORDS SUMMARY | 2024-10-26 15:31 | XMS_ITS | Encounter Summary ---
Author Name [facility] [place] Organization [facility] [place] Address [address] [place] [address] Care Team Providers Care Precision Lens Technician Name Role Phone MO ALMARAZ Primary Care Provider Unavail le Insurance Providers: All historical and current [...] Relationship to Policy R[place] MEDICAID MEDICAID MYRIAM LILIYA OLEARY Nov 30, 2019 MEDICAI D [id number] Catrina LEE PATIENT MEDICARE (WNR) MEDICARE (M) PART A January 25, 2018 PART A [id number] Catrina LEE PATIENT MEDICARE (WNR) MEDICARE (M) PART B January 25, 2018 PART B [id number] Catrina LEE PATIENT Selected Encounter This section includes the information on record at [place] for the Encounter. Date/Time Encounter Type Encounter Description Reason Provider Source Oct 24, 2024 03:00 PM CASE MANAGEMENT [facility] - IND ICD-10-CM F41.9 Anxiety disorder, unspecified TIERNEY ADKINS Encounter Template Text not used by [place] Assessments - Encounter Diagnoses This section includes the primary and secondary diagnoses documented for the Encounter. Date/Time Primary/Secondary Diagnosis Diagnosis Name Provider Source Oct 24, 2024 03:12 PM PRIMARY Anxiety disorder, unspecified LUCILLE,KHALIF RHYS Oct 24, 2024 03:12 PM SECONDARY Insomnia, unspecified LUCILLE,WENDY RHYS Plan of Treatment: Future Appointments (+ 6 months) and Future Tests (+/- 45 days) The Plan of Treatment section includes future care activities for the patient from all [place] treatmentfacilst[facility]. This section includes future appointments and future orders which are active, pending or scheduled. Future Appointments This section includes appointments that were scheduled to occur 6 months from the date of the Encounter, up to a maximum of 20 appointments. The data comes from all [place] treatment facilities. Appointment Date/Time Appointment Type Appointme nt Facility Name Oct 30, 2024 09:00 AM AMBULATORY - PSYCHIATRY [facility] Nov 14, 2024 11:30 AM AMBULATORY - MEDICINE [facility] Mar 23, 2025 09:00 AM AMBULATORY - MEDICINE [place] [facility] [place] [facility] Active, Pending, and Scheduled Orders This section includes a listing of several types of active, pending, and scheduled orders, including clinic medications orders, diagnostic test orders, procedure orders and consult orders; where the start date of the order is 45 days before the date of the Encounter or 45 days after the date of theEncounter. The data comes from all [place] treatment facilities. Test Date/Time Test Type Test Details Facility Name Oct 04, 2024 01:16 PM Consult Order MENTAL HEA LTH SERVICES BHIP/SPOPC OUTPT Cons Electromechanical Equipment Assembler's Choice [facility] Oct 04, 2024 01:19 PM Consult Order PSYCHIATRI C MEDICATION SOPC OUTPT Cons Electromechanical Equipment Assembler[facility] Social History: Smoking Status (Most current) and Tobacco Use (All prior to encounter date) This section includes the most current, and the historical, smoking and tobacco- related health factors from the [place] facility where the Encounter took place. Current Smoking Status This section includes the most current smoking, or tobacco-related health factor, from the VA facility where the Encounter took place. Date/Time Current Smoking Status Comment Dannie negrete Apr 28, 2024 01:00 PM VA-TOBACCO USER EVERY DAY [facility] Tobacco Use History This section includes a history of the smoking, or tobacco-related health factors, that were collected on or before the date of the Encounter. The data comes from the [place] facility where the Encounter took place. 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 PROCESSING SUPERVISOR NO [facility] Apr 27, 2023 01:30 PM VA-TOBACCO USE MED NO [facility] Apr 27, 2023 01:30 PM VA-TOBACCO USER EVERY DAY [facility] Jan 23, 2021 10:30 AM VA-TOBACCO USE 30 YEARS OR MORE [facility] Jan 23, 2021 10:30 AM VA-TOBACCO USE ADVICE [facility] Jan 23, 2021 10:30 AM VA-TOBACCO USE 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 PROCESSING 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 NO [facility] Jan 23, 2021 10:30 AM VA-TOBACCO USE MED NO [facility] Jan 23, 2021 10:30 AM VA-TOBACCO USE WI 30 MIN OF [facility] Jan 23, 2021 10:30 AM VA-TOBACCO USER EVERY DAY [facility] Oct 25, 2017 03:23 PM CURRENT SMOKER [facility] Oct 25, 2017 03:23 PM V1-PT NOT INTEREST ED IN QUIT TOBACCO USE [facility] Dec 15, 2016 10:59 AM CURRENT SMOKER [facility] Dec 15, 2016 10:59 AM V1-PT DECLINES REF TO TOBACCO CESS [facility] Dec 15, 2016 10:59 AM V1-PT THINKING ABO UT QUIT TOBACCO USE [facility] Jun 16, 2016 08:30 AM V1-PT DECLINES REF TO TOBACCO CESS [facility] Jun 16, 2016 08:30 AM V1-PT DECLINES TOB ACCO CESSATION [facility] Jun 16, 2016 08:30 AM V1-PT THINKING ABO UT QUIT TOBACCO USE [facility] Dec 17, 2015 09:00 AM CURRENT SMOKER smokes about one ppd of cigaretts. [facility] Dec 17, 2015 09:00 AM V1-PT THINKING ABO UT QUIT TOBACCO USE [facility] Encounter Notes: All associated encounter notes This section contains the clinical notes associated to the Encounter. Date/Time Encounter Note(s) Provider Source Oct 24, 2024 03:07 PM MENTAL HEALTH CONS ULT: LOCAL TITLE: CONSULT REPORT/CRANIAL ELECTROTHERAPY STIMULATION STANDARD TITLE: MENTAL HEALTH CONSULT DATE OF NOTE: OCT 24, 2024@15:07 ENTRY DATE: OCT 24, 2024@15:07:12 AUTHOR: KHALIF ADKINS EXP COSIGNER: URGENCY: STATUS: COMPLETED F: Alpha-Stim Trial arrived at clinic re: Alpha-Stim Trial # 2 and issued his personal Alpha-Stim. [place] is known to brief writer and identified himself by name and date of . Eva is alert and oriented to person, place, time, and situation. Eva denies SI/HI, and or the use of any alcohol or illicit drugs. Blood Pressure: 170/80 (10/02/2024 15:31) Pain: 0 (08/21/2024 14:34) Patient Height: 65 in [165.1 cm] (10/02/2024 15:31) Patient Weight: 174 lb. [78.93 kg] (10/02/2024 15:31) Pulse: 60 (10/02/2024 15:31) Respiration: 17 (10/02/2024 15:31) Temperature: 96.8 F [36.0 C] (08/21/2024 14:34) D: Active problems - Computerized Problem List is the source for the followin. Diverticular disease of colon 2. History of polyp of colon 3. Prostate cancer 4. HT - Hypertension 5. Osteoarthritis 6. Nicotine dependence 7. Tobacco user 8. Anxiety 9. Sleep apnea Active Outpatient Medications (including Supplies): Active Outpatient Medications Status ====== 1) BETAMETHASONE DIPROPIONATE 0.05% OINT APPLY SMALL AMOUNT ACTIVE TOPICALLY TWICE DAILY NEEDED FOR ITCHING/RASH Indication: FOR ATOPIC DERMATITIS 2) METOPROLOL SUCCINATE 25MG SA TAB TAKE ONE TABLET BY MOUTH ACTIVE ONCE DAILY FOR BLOOD PRESSURE/HEART Indication: FOR HIGH BLOOD PRESSURE A/P: [place] is utilizing Alpha-Stim for the diagnoses of anxiety and insomnia. Eva reports finding benefit after his utilization of the Alpha-Stim and is hopeful that daily use will be even more beneficial. Eva was oriented to his personal Alpha-Stim and was observed setting it up without difficulty. Eva is excited by the potential for having reduced depression and anxiety as well as improved sleep in a non-pharmacological way with use of his own Alpha-Stim. Eva was encouraged to remain mindful of anything he notes good or bad after using the Alpha-Stim and is aware that he may contact brief writer to discuss as needed. Upcoming Appointments: 10/30/2024 09:00 CWM/SO/MHC/[facility] 11/14/2024 11:30 CWM/SO/VVC/PACT NURSING 03/23/2025 09:00 CWM/SO/PACT 9 07/31/2025 11:00 [facility] OPTOMETRY 4 [place] understands how to utilize the Veterans Crisis Line (9-8-8 option 1) and urged to call that number at any time if they have thoughts about suicide and, or to call 911 or go to nearest E.R. if they have suicidal thoughts. RTC 10/30/2024, however is aware that he can call or walk-in at anytime prior to next appointment. was provided with the date/time of next appointment as well as brief writer's contact information for use as needed. No barriers; Patient understands and agrees to current treatment plan. If [place] has any questions, concerns, or changes in current health status will call or come in to the VA. 15 minutes spent in patient care and education. /alfred/ KHALIF ADKINS, MSN, RN, CNL MENTAL HEALTH NURSE PARK AIDE Signed: 10/24/2024 15:12 KHALIF ADKINS
--- OUTSIDE RECORDS SUMMARY | 2024-10-26 15:31 | XMS_ITS | Encounter Summary ---
Author Name [facility] [place] Organization [facility] [place] Address [address] [place] [id number] Care Team Providers Care Brewery Technician Name Role Phone MO ALMARAZ Primary [...] Policy Rucker MEDICAID MEDICAID MYRIAM JONNY LILIAM OLEARY Nov 30, 2019 MEDICAI D [id number] Catrina LEE PATIENT MEDICARE (WNR) MEDICARE (M) PART A January 25, 2018 PART A [id number] Catrina LEE PATIENT MEDICARE (WNR) MEDICARE (M) PART B January 25, 2018 PART B [id number] Catrina LEE PATIENT Selected Encounter This section includes the information on record at [place] for the Encounter. Date/Time Encounter Type Encounter Description Reason Provider Source Aug 21, 2024 02:30 PM OFFICE O/P EST MOD 30 MIN PRIMARY CARE/MEDICINE ICD-10-CM I10 Essential (primary) hypertension MARVIN,APOL INARIO IHE Encounter Template Text not used by [place] Assessments - Encounter Diagnoses This section includes the primary and secondary diagnoses documented for the Encounter. Date/Time Primary/Secondary Diagnosis Diagnosis Name Provider Source Sep 22, 2024 03:30 PM PRIMARY Essential (primary) hypertension JOVANA WONG [place] Sep 22, 2024 03:30 PM SECONDARY Anxiety disorder, unspecified MARVIN,JOVANA RIOS [place] Sep 22, 2024 03:30 PM SECONDARY Other sleep apnea JOVANA WONG [facility] Plan of Treatment: Future Appointments (+ 6 months) and Future Tests (+/- 45 days) The Plan of Treatment section includes future care activities for the [facility] [place] [facility] This section includes future appointments and future orders which are active, pending or scheduled. Future Appointments This section includes appointments that were scheduled to occur 6 months from the date of the Encounter, up to a maximum of 20 appointments. The data comes from all [facility]. Appointment Date/Time Appointment Type Appointme nt Facility Name Sep 14, 2024 07:30 AM AMBULATORY - NONE [place] [facility] [place] [facility] Oct 02, 2024 10:00 AM AMBULATORY - MEDICINE [place] [facility] Oct 04, 2024 08:00 AM AMBULATORY - PSYCHIATRY [facility] Oct 17, 2024 03:00 PM AMBULATORY - PSYCHIATRY [facility] Oct 24, 2024 10:00 AM [facility] Oct 24, 2024 10:00 AM AMBULATORY - MEDICINE [facility] [place] [facility] Oct 24, 2024 03:00 PM AMBULATORY - PSYCHIATRY [facility] Oct 30, 2024 09:00 AM AMBULATORY - PSYCHIATRY [facility] Nov 14, 2024 11:30 AM AMBULATORY - MEDICINE [facility] Active, Pending, and Scheduled Orders This section includes a listing of several types of active, pending, and scheduled orders, including clinic medications orders, diagnostic test orders, procedure orders and consult orders; where the start date of the order is 45 days before the date of the Encounter or 45 days after the date of theEncounter. The data comes from all [facility]. Test Date/Time Test Type Test Details Facility Name Aug 16, 2024 10:18 AM Consult Order CVT HOME S LEEP STUDY IFC WHAV Cons Search Engine Marketing Specialist's Choice [facility] Oct 04, 2024 01:16 PM Consult Order MENTAL HEA LTH SERVICES BHIP/SPOPC OUTPT Cons [employer] Engine Marketing Specialist's Choice [place] Oct 04, 2024 01:19 PM Consult Order PSYCHIATRI C MEDICATION SOPC OUTPT Cons Search Engine Marketing Specialist's Choice [place] Social History: Smoking Status (Most current) and Tobacco Use (All prior to encounter date) This section includes the most current, and the historical, smoking and tobacco- related health factors from the [place] facility where the Encounter took place. Current Smoking Status This section includes the most current smoking, or tobacco-related health factor, from the [place] facility where the Encounter took place. Date/Time Current Smoking Status Comment Facil ity Apr 28, 2024 01:00 PM VA-TOBACCO USER EVERY DAY [place] Tobacco Use History This section includes a history of the smoking, or tobacco-related health factors, that were collected on or before the date of the Encounter. The data comes from the [place] facility where the Encounter took place. Date/Time Smoking Status/Tobacco Use Comment F acility Apr 28, 2024 01:00 PM VA-TOBACCO USE ADVICE [place] Apr 28, 2024 01:00 PM VA-TOBACCO USE BULK COOLER INSTALLER NO [place] Apr 28, 2024 01:00 PM VA-TOBACCO USE MED NO [place] Apr 28, 2024 01:00 PM VA-TOBACCO USE WI 30 MIN OF [place] Apr 28, 2024 01:00 PM VA-TOBACCO USER EVERY DAY [place] Apr 27, 2023 01:30 PM VA-TOBACCO DOESNT USE WI 30 MIN [facility] Apr 27, 2023 01:30 PM VA-TOBACCO USE 30 YEARS OR MORE [place] Apr 27, 2023 01:30 PM VA-TOBACCO USE ADVICE [place] Apr 27, 2023 01:30 PM VA-TOBACCO USE BULK COOLER INSTALLER NO [place] Apr 27, 2023 01:30 PM VA-TOBACCO USE MED NO [place] Apr 27, 2023 01:30 PM VA-TOBACCO USER EVERY DAY [place] Jan 23, 2021 10:30 AM VA-TOBACCO USE 30 YEARS OR MORE [place] Jan 23, 2021 10:30 AM VA-TOBACCO USE ADVICE [place] Jan 23, 2021 10:30 AM VA-TOBACCO USE BULK COOLER INSTALLER NO [place] Jan 23, 2021 10:30 AM VA-TOBACCO USE MED NO [place] Jan 23, 2021 10:30 AM VA-TOBACCO USE WI 30 MIN OF WAKEUP [place] Jan 23, 2021 10:30 AM VA-TOBACCO USER EVERY DAY [place] Oct 25, 2017 03:23 PM CURRENT SMOKER [facility] Oct 25, 2017 03:23 PM V1-PT NOT INTEREST ED IN QUIT TOBACCO USE [place] Dec 15, 2016 10:59 AM CURRENT SMOKER [facility] Dec 15, 2016 10:59 AM V1-PT DECLINES REF [facility] Dec 15, 2016 10:59 AM V1-PT THINKING ABO UT QUIT TOBACCO USE [place] Jun 16, 2016 08:30 AM V1-PT DECLINES REF TO [facility]ACCO CESS [facility] Jun 16, 2016 08:30 AM V1-PT DECLINES TOB ACCO CESSATION [facility] [place] Jun 16, 2016 08:30 AM V1-PT THINKING ABO UT QUIT TOBACCO USE [place] Dec 17, 2015 09:00 AM CURRENT SMOKER smokes about one ppd of cigaretts. [place] Dec 17, 2015 09:00 AM V1-PT THINKING ABO UT QUIT TOBACCO USE [place] Encounter Notes: All associated encounter notes This section contains the clinical notes associated to the Encounter. 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 Of note the patient has sought alternative care treatment for his prostate cancer (dire prognosis with intial diagnosist). He credits the alternative medicine clinic for helping it controlled and although still present doing chemotherapy he would like to continue with the immunotherapy related to the cancer. The patient has had improvements with his sleep with initiation over the modifications with his CPAP machine and he is quite happy with it. He denies any overt clinical symptoms but overall he feels that his stress levels still continue to be high. 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 He does still have pending legal issues with the [employer]. Problem list and medications reviewed. 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 Patient reports improvement in his disposition with use of medication. We did discuss the idea of quitting smoking for which he is now ready. A referral for hypnosis is made in behalf HTN -remains an issue given his active smoking GERTRUDIS -has stopped using his CPAP recently in the last year. Whether this set him up for increased anxiety is unclear. I did encourage him to work with respiratory to look into the mask if you. Smoker -referral to home health/hypnosis. Declines smoking cessation counseling. Active problems - Computerized Problem List is the source for the followin. Diverticular disease of colon 2. History of polyp of colon tubular adenomas with surveillance endoscopy by [facility] 3. Prostate cancer 4. HT - Hypertension change to Lis/HCTZ 21 Nov 2020 5. Osteoarthritis 6. Nicotine dependence 7. Tobacco user PPD 8. Anxiety 9. 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 The patient was initially thought that his sleep was a big factor as well as his other stressors for the change in his blood pressure control up. It does appear that even with initiation of CPAP the patient's blood pressure remains quite elevated. We did discuss other alternatives but certainly is prudent to just use the medicine in the short-term to manage the blood pressure. Because of the also anxiety generated by his stressors a beta-sammie was chosen to help with both issues. We will initiate a low-dose and titrate up. Team nurse will make an appointment in the months to check on the progress and if necessary adjust the dose up. He will be returning this soon to [place] to continue with his immunotherapy. He would like to coordinate his care to return here in 4 months. Plan of care discussed with patient who articulates understanding. Chronic issues reviewed briefly; no changes to management unless specified above. RTC 1 month with nurse; 3-4 months with new primary care TIME ATTESTATION: Time spent directly with the [...] of labs/studies and medication list. Upcoming Appointments: 09/14/2024 07:30 NHM DENTAL DMD 2 03/23/2025 09:00 CWM/SO/PACT 9 08/03/2025 11:00 NHM/OPTOMETRY/[place] Med Reconciliation: Active Outpatient Medications (including Supplies): No Medications Found Medication (Local) Status LORAZEPAM 1MG TAB Directions: TAKE ONE TABLET BY MOUTH TWICE DAILY NEEDED FOR ANXIETY Quantity: 12 for 30 days Provider: CATHIE WONG Expires: 05/28/24 Status: Medication (Remote) Status No remote medications found. /alfred/ CATHIE WONG MD PHYSICIAN Signed: 09/22/2024 15:30 CATHIE WONG [place] Aug 21, 2024 02:35 PM PREVENTIVE MEDICIN E NURSING NOTE: LOCAL TITLE: CLINICAL REMINDERS/NURSING STANDARD TITLE: PREVENTIVE MEDICINE NURSING NOTE DATE OF NOTE: AUG 21, 2024@14:35 ENTRY DATE: AUG 21, 2024@14:35:24 AUTHOR: ALAN ALONSO EXP COSIGNER: URGENCY: STATUS: COMPLETED Home Telehealth (CCHT) Referral: [facility]. Pneumococcal Conjugate Vaccine (PCV15/PCV20): Defer due to a PRECAUTION Influenza Immunization: Deferral / Refusal The patient declines to receive the recommended dose of seasonal influenza vaccine. Immunization: INFLUENZA, UNSPECIFIED FORMULATION Refusal Reason: PATIENT DECISION Patient refuses all immunization(s) in the FLU group Date Documented: 08/21/24 14:36 COVID-19 Immunization: Refused Moderna Monovalent COVID-19 vaccine Immunization: COVID-19 (MODERNA), MRNA, LNP-S, PF, 50 MCG/0.5 ML (AGES 12 + YEARS) Refusal Reason: PATIENT DECISION Patient refuses all immunization(s) in the COVID-19 group Date Documented: 08/21/24 14:37 Tdap Immunization: The patient declines to receive the recommended dose of Tdap vaccine. Immunization: TDAP Refusal Reason: PATIENT DECISION Patient refuses all immunization(s) in the TDAP group Date Documented: 08/21/24 14:37 Herpes Zoster (Shingles) Vaccine: The patient declines to receive the recommended dose of zoster (shingles) vaccine. Immunization: ZOSTER RECOMBINANT Refusal Reason: PATIENT DECISION Patient refuses all immunization(s) in the ZOSTER group Date Documented: 08/21/24 14:37 MED REC COMPLETED BY PROVIDER DURING THE VISIT. /alfred/ ALAN ALONSO LPN LPN Signed: 08/21/2024 14:38 ALAN ALONSO
--- OUTSIDE RECORDS SUMMARY | 2024-10-26 15:31 | XMS_ITS ---
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 Date/Time Encounter Type Encounter Description Reason Provider Source Jul 31, 2024 01:30 PM COMPRE OPH EXAM EST PT 1/> OPTOMETRY ICD-10-CM H25.813 Combined forms of age-related cataract, bilateral FRANCESCA BLAS E Encounter Template Text not used by [place] Assessments - Encounter Diagnoses This section includes the primary and secondary diagnoses documented for the Encounter. Date/Time Primary/Secondary Diagnosis Diagnosis Name Provider Source Jul 31, 2024 05:11 PM PRIMARY Combined forms of age-related cataract, bilateral FRANCESCA BLAS [place] [facility] [place] [facility] Jul 31, 2024 05:11 PM SECONDARY Presbyopia FRANCESCA BLAS [facility] [place] [facility] Plan of Treatment: Future Appointments (+ 6 months) and Future Tests (+/- 45 days) The Plan of Treatment section includes [facility] the [facility] [place] [facility] This section includes future appointments and future orders which are active, pending or scheduled. Future Appointments This section includes appointments that were scheduled to occur 6 months from the date of the Encounter, up to a maximum of 20 appointments. The data comes from all [place] treatment facilities. Appointment Date/Time Appointment Type Appointme nt Facility Name Aug 16, 2024 08:00 AM [facility] NONE [facility] [place] [facility] Aug 21, 2024 02:30 PM [facility]ULATORY [facility] [place] [facility] Sep 14, 2024 07:30 AM AMBULATORY - NONE [facility] [place] [facility] Oct 02, 2024 10:00 AM AMBULATORY [facility] [place] [facility] Oct 04, 2024 08:00 AM AMBULATORY - PSYCHIATRY [facility] Oct 17, 2024 03:00 PM AMBULATORY - PSYCHIATRY [facility] Oct 24, 2024 10:00 AM AMBULATORY - NONE [facility] [place] [facility] Oct 24, 2024 10:00 AM AMBULATORY - [facility]ICINE [facility] [place] [facility] Oct 24, 2024 03:00 PM AMBULATORY - PSYCHIATRY [facility] Oct 30, 2024 09:00 AM AMBULATORY - PSYCHIATRY [facility] Nov 14, 2024 11:30 AM AMBULATORY - MEDICINE [facility] Active, Pending, and Scheduled Orders This section includes a listing of several types of active, pending, and scheduled orders, including clinic medications orders, diagnostic test orders, procedure orders and consult orders; where the start date of the order is 45 days before the date of the Encounter or 45 days after the date of theEncounter. The data comes from all [place] treatment facilities. Test Date/Time Test Type Test Details Facility Name Aug 16, 2024 10:18 AM Consult Order CVT HOME S LEEP STUDY IFC WH[facility] Cons Social Service Agency Director's Choice [facility] [place] [facility] Encounter Notes: All associated encounter notes This section contains the clinical notes associated to the Encounter. 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 11/17/2023 MARVIN,CATHIE HT - Hypertension I10. 10/30/2021 MARVIN,CATHIE Osteoarthritis M19.049 03/29/2017 MARISSA-GRACE LY Nicotine dependence F17.210 01/09/2016 BRIDGETTE PHELAN Tobacco user Z72.0 12/17/2015 CHIP MONTEMAYOR Anxiety F41.9 12/17/2015 CHIP MONTEMAYOR Sleep apnea G47.39 12/14/2021 CHIP MONTEAMYOR Medications ([facility]): Active Outpatient Medications (including Supplies): No Medications Found Allergies: Patient has answered NKA S: 69-year-old male is in for annual follow-up with a history retinal tear OS S/P laser treatment. He wears reading glasses only and denies any eye injury or disease since his last exam. Family ocular health is negative for cataracts, glaucoma, macular degeneration, and lazy eyes. ABRAHAM: 07/26/2023 (-) Pain: (-) KIRKPATRICK: (-) Diplopia: (-) Flashes: (-) Floaters: (-) Amaurosis Fugax/Tia's: (-) Eye Injury: (-) Eye Surgery: (-) TBI O: Visual acuity without correction was 20/20 - OU. Pupils were equal and round and reactive to light with no afferent defect. Extraocular muscles were intact and facial confrontation schmid were full OU. Lids and lashes were clear both eyes. Corneas and conjunctiva were clear both eyes. Anterior chambers were deep clear and quiet with open angles. Iris was flat both eyes. Grade 2 nuclear sclerotic and cortical cataracts were seen both eyes. current Rx OD +1.00 -0.50 x 075 OS -0.50-0.50 x 085 +2.25 Intraocular pressures at 1:35 PM were 15 mmHg both eyes. Dilating Drops: 1GTT 1 % Tropicamide OU & 1GTT 2.5% Phenylephrine OU (Pt. ed. on side effects, dilation warning given and verbal consent obtained) Patient advised not to drive if they feel they have any symptoms which could affect their ability to drive safely. Patient advised not to engage in any activities which could put themselves or others at risk if they feel they have any symptoms which could affect their ability to perform those activities safely. Vitreous floaters both eyes. Approximately 40% horizontal and vertical cupping was seen OD and 50% horizontal and vertical cupping OS with healthy rims and margins and no notches or hemorrhages both eyes. Normal pigmentary architecture of the macula was seen with a two third artery to vein ratio. Retinal peripheries were intact in all quadrants both eyes. A: 1. Mixed cataracts OU 2. History of ocular migraine with visual aura 3. Posterior Vitreous Detachment OU 4. Hx of retinal tear OS 5. Presbyopia OU 6. 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 The patient will return in 12 months or sooner if any problems arise. [place] Education: After discussion and answering all 's questions, [place] demonstrated and verbalized understanding of diagnosis and treatment. Yes [x] No [ ] Education: Reemphasis and education of the patient regarding acute signs and symptoms of retinal tears or detachments by raising patient awareness on any new occurance of flashes of light or substantial new floaters in vision and necessity to seek immediate medical attention in such event. Monitor annualy otherwise. Medication Reconciliation: Outpatient: Has the patient been taking medications as documented in the EMLR? YES: The patient has been taking medications as documented in the EMLR. Essential Medication List for Review used to complete this medication reconciliation. INCLUDED IN THIS LIST: Alphabetical list of active outpatient prescriptions dispensed from this [facility] (local) and dispensed from another [place] or [facility] facility (remote) as well as inpatient orders (local, pending and active), local clinic medications, locally documented non-VA medications, and local prescriptions that have or been discontinued in the past 90 days. - All changes in medications, including all non-VA/Herbal/OTC medications were entered into CPRS. - If there were any medications the patient should no longer take, they were discontinued. - The patient/caregiver was instructed to update this list, discard old lists, and take this list to the next appointment, whether with a VA or non-VA provider. 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
--- OUTSIDE RECORDS SUMMARY | 2024-10-26 15:31 | XMS_ITS | Encounter Summary ---
Author Name [facility] [place] [facility] [place] Address [address] [place] [id number] Care Team Providers Care Archives Director Name Role Phone MO ALMARAZ Primary Care [...] Patient's Relationship to Policy Rucker MEDICAID MEDICAID MYRIAMChery OLEARY Nov 30, 2019 MEDICAI D [id number] Catrina LEE PATIENT MEDICARE (WNR) MEDICARE (M) PART A January 25, 2018 PART A [id number] Catrian LEE PATIENT MEDICARE (WNR) MEDICARE (M) PART B January 25, 2018 PART B [id number] Catrina LEE PATIENT Selected Encounter This section includes the information on record at [place] for the Encounter. Date/Time Encounter Type Encounter Description Reason Provider Source Apr 17, 2024 11:00 AM BIOFEEDBACK TRAIN ANY [facility] TREATMENT ICD-10-CM F41.9 Anxiety disorder, unspecified ALEM DELUNA Encounter Template Text not used by [facility] Assessments - Encounter Diagnoses This section includes the primary and secondary diagnoses documented for the Encounter. Date/Time Primary/Secondary Diagnosis Diagnosis Name Provider Source Apr 17, 2024 03:35 PM PRIMARY Anxiety disorder, unspecified DIANE DELUNA Plan of Treatment: Future Appointments (+ 6 months) and Future Tests (+/- 45 days) The Plan of Treatment section includes future care activities for the patient [facility] [place] [facility] This section includes future appointments and future orders which are active, pending or scheduled. Future Appointments This section includes appointments that were scheduled to occur 6 months from the date of the Encounter, up to a maximum of 20 appointments. The data comes from all [place] treatment facilities. Appointment Date/Time Appointment Type Appointme nt Facility Name Apr 24, 2024 11:00 AM AM[place]ATORY [place] [facility] [place] [facility] Apr 28, 2024 01:00 PM [facility]UL[facility] [place] [facility] [place] [facility] May 01, 2024 11:00 AM AM[place]ULATORY [place] [facility] [place] [facility] May 11, 2024 07:30 AM AMBULATORY - NONE [facility] [place] [facility] May 30, 2024 11:00 AM AMBULATORY [facility] [place] [facility] Jun 21, 2024 01:30 PM AM[place]UL[place]ORY [place] [facility] [place] [facility] Jun 29, 2024 07:30 AM AMBULATORY - NONE [facility] [place] [facility] Jul 31, 2024 01:30 PM AM[facility]ULATORY [facility] [place] [facility] [place] [facility] Aug 16, 2024 08:00 AM AMBULATORY - NONE [facility] [place] [facility] Aug 21, 2024 02:30 PM AM[place]ULATORY [place] [facility] [place] [facility] Sep 14, 2024 07:30 AM AMBULATORY - NONE [facility] [place] [facility] Oct 02, 2024 10:00 AM AM[place]ULATORY [place] [facility] [place] [facility] Oct 04, 2024 08:00 AM AMBULATORY - PSYCHIATRY [facility] Oct 17, 2024 03:00 PM AMBULATORY - PSYCHIATRY [facility] Social History: Smoking Status (Most current) and Tobacco Use (All prior to encounter date) This section includes the most current, and the historical, smoking and tobacco- related health factors from the [place] facility where the Encounter took place. Current Smoking Status This section includes the most current smoking, or tobacco-related health factor, from the [place] facility where the Encounter took place. Date/Time Current Smoking Status Comment Dannie ity Apr 27, 2023 01:30 PM VA-TOBACCO USER EVERY DAY [place] Tobacco Use History This section includes a history of the smoking, or tobacco-related health factors, that were collected on or before the date of the Encounter. The data comes from the [place] facility where the Encounter took place. 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 [place] Jan 23, 2021 10:30 AM VA-TOBACCO USE MED NO [place] Jan 23, 2021 10:30 AM VA-TOBACCO USE WI 30 MIN OF WAKEUP [place] Jan 23, 2021 10:30 AM VA-TOBACCO USER EVERY DAY [place] Oct 25, 2017 03:23 PM CURRENT SMOKER DENISE [facility] Oct 25, 2017 03:23 PM V1-PT NOT INTEREST ED IN QUIT TOBACCO USE [place] Dec 15, 2016 10:59 AM CURRENT SMOKER MUKESHI [facility] Dec 15, 2016 10:59 AM V1-PT DECLINES REF TO TOBACCO CESS [facility] Dec 15, 2016 10:59 AM V1-PT THINKING ABO UT QUIT TOBACCO USE [place] Jun 16, 2016 08:30 AM V1-PT [facility]CLINES [facility] Jun 16, 2016 08:30 AM V1-PT DECLINES TOB ACCO CESSATION MEDS [place] Jun 16, 2016 08:30 AM V1-PT THINKING ABO UT QUIT TOBACCO USE [place] Dec 17, 2015 09:00 AM CURRENT SMOKER smokes about one ppd of cigaretts. [place] Dec 17, 2015 09:00 AM V1-PT THINKING ABO UT QUIT TOBACCO USE [place] Encounter Notes: All associated encounter notes This section contains the clinical notes associated to the Encounter. Date/Time Encounter Note(s) Provider Source Apr 20, 2024 07:19 AM CONSULT: LOCAL TITLE: CONSULT/BIOFEEDBACK STANDARD TITLE: CONSULT DATE OF NOTE: APR 20, 2024@07:19:31 ENTRY DATE: APR 20, 2024@07:19:31 AUTHOR: LAINE DELUNA EXP COSIGNER: URGENCY: STATUS: COMPLETED Assessments were sent to the [place] via text/email. These assessments were completed by EVA LEE on their own device on 04/17/2024 10:26:01 AM. GENERAL ANXIETY DISORDER-7 (TIMOTHY-7) Patient reported being bothered by the following over the last two weeks: 1. Feeling nervous, anxious or on edge: More than half the days 2. Not being able to stop or control worrying: More than half the days 3. Worrying too much about different things: More than half the days 4. Trouble relaxing: Several days 5. Feeling restless (hard to sit still): Several days 6. Becoming easily annoyed or irritable: Several days 7. Afraid as if something awful might happen: Several days TIMOTHY-7 total score = 10 0-4=minimal symptoms 5-9=mild symptoms 10-14=moderate symptoms 15-21=severe symptoms The patient stated that the anxiety symptoms made it somewhat difficult to work, take care of things at home, or get along with others. PERCEIVED STRESS SCALE (PSS) The patient reported the following feelings and thoughts during the last month: 1. Upset because of something that happened unexpectedly: Almost never 2. Unable to control the important things in life: Fairly often 3. Nervous and stressed : Very often 4. Confident about ability to handle personal problems: Almost never 5. Rudolph that things were going your way: Sometimes 6. Could not cope with all the things you had to do: Fairly often 7. Able to control irritations in life: Sometimes 8. On top of things: Almost never 9. Angered by things outside your control: Fairly often 10. Difficulties piling up so high that could not overcome them: Fairly often PSS Total Score: 27 PSS scores range from 0-40. A higher score indicates more stress. DIFFICULTIES IN EMOTION REGULATION SCALE-36 (DERS-36) The patient reported that the following statements apply to them as indicated: 1. I am clear about my feelings: About half the time (36-65%) 2. I pay attention to how I feel: About half the time (36-65%) 3. I experience my emotions as overwhelming and out of control: About half the time (36-65%) 4. I have no idea how I am feeling: Sometimes (11-35%) 5. I have difficulty making sense out of my feelings: About half the time (36-65%) 6. I am attentive to my feelings: About half the time (36-65%) 7. I know exactly how I am feeling: About half the time (36-65%) 8. I care about what I am feeling: About half the time (36-65%) 9. I am confused about how I feel: About half the time (36-65%) 10. When I'm upset, I acknowledge my emotions: Most of the time (66 - 90%) 11. When I'm upset, I become angry with myself for feeling that way: About half the time (36-65%) 12. When I'm upset, I become embarrassed for feeling that way: Sometimes (11-35%) 13. When I'm upset, I have difficulty getting work done: About half the time (36-65%) 14. When I'm upset, I become out of control: Almost never (0-10%) 15. When I'm upset, I believe that I will remain that way for a long time: Almost never (0-10%) 16. When I'm upset, I believe that I'll end up feeling very depressed: Almost never (0-10%) 17. When I'm upset, I believe that my feelings are valid and important: Sometimes (11-35%) 18. When I'm upset, I have difficulty focusing on other things: Most of the time (66 - 90%) 19. When I'm upset, I feel out of control: Almost never (0-10%) 20. When I'm upset, I can still get things done: Sometimes (11-35%) 21. When I'm upset, I feel ashamed with myself for feeling that way: Almost never (0-10%) 22. When I'm upset, I know that I can find a way to eventually feel better: Almost never (0-10%) 23. When I'm upset, I feel like I am weak: Almost never (0-10%) 24. When I'm upset, I feel like I can remain in control of my behaviors: Most of the time (66 - 90%) 25. When I'm upset, I feel guilty for feeling that way: Almost never (0-10%) 26. When I'm upset, I have difficulty concentrating: About half the time (36-65%) 27. When I'm upset, I have difficulty controlling my behaviors: Almost never (0-10%) 28. When I'm upset, I believe there is nothing I can do to make myself feel better: About half the time (36-65%) 29. When I'm upset, I become irritated with myself for feeling that way: Sometimes (11-35%) 30. When I'm upset, I start to feel very bad about myself: Almost never (0-10%) 31. When I'm upset, I believe that wallowing in it is all I can do: Almost never (0-10%) 32. When I'm upset, I lose control over my behaviors: Almost never (0-10%) 33. When I'm upset, I have difficulty thinking about anything else: Sometimes (11-35%) 34. When I'm upset, I take time to figure out what I'm really feeling: Sometimes (11-35%) 35. When I'm upset, it takes me a long time to feel better: Sometimes (11-35%) 36. When I'm upset, my emotions feel overwhelming: Sometimes (11-35%) Total Score (range: 36-180): 84 Nonacceptance of emotional responses (6-30): 10 Difficulty engaging in Goal-directed behavior (5-25): 16 Impulse control difficulties (6-30): 9 Lack of emotional awareness (6-30): 19 Limited access to emotion regulation strategies (8-40): 16 Lack of emotional clarity (5-25): 14 Higher scores indicate greater problems with emotion regulation. /alfred/ Laine Deluna, PhD Clinical Psychologist Signed: 04/20/2024 08:32 LAINE DELUNA [place] Apr 17, 2024 03:40 PM ADDENDUM: LOCAL TITLE: Addendum STANDARD TITLE: ADDENDUM DATE OF NOTE: APR 17, 2024@15:40:50 ENTRY DATE: APR 17, 2024@15:40:50 AUTHOR: LAINE DELUNA EXP COSIGNER: URGENCY: STATUS: COMPLETED alerting amsa to rtc in chart. f2f /alfred/ Laine Deluna, PhD Clinical Psychologist Signed: 04/17/2024 15:41 Receipt Acknowledged By: 04/18/2024 09:05 /alfred/ PETE GIPSON AMSA --- Original Document --- 04/17/24 BEHAVIORAL MEDICINE - GROUP TREATMENT: Heart Math Biofeedback Group DATE: 04/17/24 LENGTH OF SESSION: 60 min NUMBER OF VETS IN GROUP: 5 CPT: 28762 MODALITY OF CARE: (x) Group visit In-person REASON FOR ENCOUNTER: attended session 1 of 5 of the biofeedback group. INFORMED CONSENT: Veterans were provided information about the purpose of psychophysiological training and that participation is voluntary. Risk and benefits and limits of confidentiality were discussed during the shared decision-making process, and [place] voluntarily agreed to group participation. Additional overview of biofeedback purpose, procedures, and techniques was provided, and [place] offered verbal consent. Orientation to equipment including placement of sensors was reviewed. MEDICAL NECESSITY: is actively engaged in healthcare treatment through this [place] and elects to engage in this group to support overall health improvement. understands this group is not intended to replace standard treatment practices. BIOFEEDBACK TRAINING EQUIPMENT: A portable biofeedback device and software was used to measure, analyze, and record biofeedback data from week to week. (x ) Inner Balance and HeartMath SESSION CONTENT: Session #1: The theme today is: Heart Health The purpose/agenda of the group was shared at the outset of the group. Veterans are given a chance to introduce themselves, describe their reasons for attending and what they hope to learn during this class. Empathy, validation of concerns, and supportive listening are offered. Veterans are introduced to the BFB equipment and use of technology for measurement of their psychophysiological state. Time was spent outlining course materials and the expectations for in- class and at-home practice using smart phone apps. [place] engaged in First Guided Practice in the inner balance indira. Risk Assessment: No report or indication of thoughts, intent, or plan of harming self or others today. No imminent risk identified. MSE: [place] sounded alert, oriented, and engaged. Euthymic with appropriate affect expression; Concentration appeared WNL x3, no perceptual, behavioral or thought concerns reported or observed. IMPRESSIONS: [place] was engaged in session. [place] engaged in breathing practice during session. PLAN: 1) [place] will attend Session 2 next week on 04/24. 2) At Home Practice: will engage in practicing with inner balance indira and aim for good coherence. DX: Anxiety /es/ Laine Deluna, PhD Clinical Psychologist Signed: 04/17/2024 15:37 04/18/2024 ADDENDUM STATUS: COMPLETED Supervisor [employer] sp appt on 04/24/24 @ 11:00 am 60 mins f2f. /alfred/ PETE GROSSEY ELIZA Signed: 04/18/2024 09:05 LAINE DELUNA MARIOLA [place] Apr 17, 2024 03:28 PM GROUP COUNSELING N OTE: LOCAL TITLE: BEHAVIORAL MEDICINE - GROUP TREATMENT STANDARD TITLE: GROUP COUNSELING NOTE DATE OF NOTE: APR 17, 2024@15:28 ENTRY DATE: APR 17, 2024@15:28:12 AUTHOR: LAINE DELUNA EXP COSIGNER: URGENCY: STATUS: COMPLETED BEHAVIORAL MEDICINE - GROUP TREATMENT Has ADDENDA Heart Math Biofeedback Group DATE: 04/17/24 LENGTH OF SESSION: 60 min NUMBER OF VETS IN GROUP: 5 CPT: 55488 MODALITY OF CARE: (x) Group visit In-person REASON FOR ENCOUNTER: attended session 1 of 5 of the biofeedback group. INFORMED CONSENT: Veterans were provided information about the purpose of psychophysiological training and that participation is voluntary. Risk and benefits and limits of confidentiality were discussed during the shared decision-making process, and voluntarily agreed to group participation. Additional overview of biofeedback purpose, procedures, and techniques was provided, and offered verbal consent. Orientation to equipment including placement of sensors was reviewed. MEDICAL NECESSITY: is actively engaged in healthcare treatment through this [place] and elects to engage in this group to support overall health improvement. [place] understands this group is not intended to replace standard treatment practices. BIOFEEDBACK TRAINING EQUIPMENT: A portable biofeedback device and software was used to measure, analyze, and record biofeedback data from week to week. (x ) Inner Balance and HeartMath SESSION CONTENT: Session #1: The theme today is: Heart Health The purpose/agenda of the group was shared at the outset of the group. Veterans are given a chance to introduce themselves, describe their reasons for attending and what they hope to learn during this class. Empathy, validation of concerns, and supportive listening are offered. Veterans are introduced to the BFB equipment and use of technology for measurement of their psychophysiological state. Time was spent outlining course materials and the expectations for in- class and at-home practice using smart phone apps. [place] engaged in First Guided Practice in the inner balance indira. Risk Assessment: No report or indication of thoughts, intent, or plan of harming self or others today. No imminent risk identified. MSE: [place] sounded alert, oriented, and engaged. Euthymic with appropriate affect expression; Concentration appeared WNL x3, no perceptual, behavioral or thought concerns reported or observed. IMPRESSIONS: was engaged in session. engaged in breathing practice during session. PLAN: 1) [place] will attend Session 2 next week on 04/24. 2) At Home Practice: [place] will engage in practicing with inner balance indira and aim for good coherence. DX: Anxiety /alfred/ Laine Deluna, PhD Clinical Psychologist Signed: 04/17/2024 15:37 04/17/2024 ADDENDUM STATUS: COMPLETED alerting eliza to rtc in chart. f2carlos /alfred/ Laine Deluna, PhD Clinical Psychologist Signed: 04/17/2024 15:41 Receipt Acknowledged By: 04/18/2024 09:05 /aaliyah KAY 04/18/2024 ADDENDUM STATUS: COMPLETED Supervisor [employer] sceduled appt on 04/24/24 @ 11:00 am 60 mins f2carlos. /aaliyah KAY Signed: 04/18/2024 09:05 LAINE DELUNA
--- OUTSIDE RECORDS SUMMARY | 2024-10-26 15:31 | XMS_ITS | Encounter Summary ---
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 Date/Time Encounter Type Encounter Description Reason Pro vider Source Oct 24, 2024 10:00 AM Outpatient Encounter SLEEP MEDICINE [facility] Encounter Template Text not used by [facility] Plan of Treatment: Future Appointments (+ 6 months) and Future Tests (+/- 45 days) The Plan of Treatment section includes [facility] This section includes future appointments and future orders which are active, pending or scheduled. Future Appointments This section includes appointments that were scheduled to occur 6 months from the date of the Encounter, up to a maximum of 20 appointments. The data comes from all [place] treatment facilities. Appointment Date/Time Appointment Type Appointme nt Facility Name Oct 30, 2024 09:00 AM AMBULATORY - [facility]ATRY [facility] Nov 14, 2024 11:30 AM AM[facility]ULATORY - MEDICINE [facility] Mar 23, 2025 09:00 AM [place] [facility] [place] [facility] Active, Pending, [...] of theEncounter. The data comes from all [place] treatment [facility]. Test Date/Time Test Type Test Details Facility Name Oct 04, 2024 01:16 PM Consult Order MENTAL HEA LTH SERVICES BHIP/SPOPC OUTPT Cons [facility] Oct 04, 2024 01:19 PM Consult Order PSYCHIATRI C MEDICATION [facility] OUTPT Cons [facility]
--- OUTSIDE RECORDS SUMMARY | 2024-10-26 15:31 | XMS_ITS | Encounter Summary ---
Author Name [facility] [place] [facility] [place] [facility] [place] Address [address] [place] [id number] Care Team Providers Care Stereotype Molder Name Role Phone [place] ALMARAZ Primary Care [...] Patient's Relationship to Policy [place] MEDICAID MEDICAID [facility] JONNY LILIAM OLEARY Nov 30, 2019 MEDICAI D [id number] Catrina LEE PATIENT MEDICARE (WNR) MEDICARE (M) PART A January 25, 2018 PART A [id number] Catrina LEE PATIENT MEDICARE (WNR) MEDICARE (M) PART B January 25, 2018 PART B [id number] Catrina LEE PATIENT Selected Encounter This section includes the information on record at [place] for the Encounter. Date/Time Encounter Type Encounter Description Reason Provider Source Mar 17, 2024 11:00 AM PSYTX W PT 45 MINUTES PCMHI INDIV ICD-10-CM F43.0 Acute stress reaction BRIDGETTE PHELAN Encounter Template Text not used by [facility] Assessments - Encounter Diagnoses This section includes the primary and secondary diagnoses documented for the Encounter. Date/Time Primary/Secondary Diagnosis Diagnosis Name Provider Source Apr 18, 2024 02:43 PM PRIMARY Acute stress reaction BRIDGETTE PHELAN [place] Apr 18, 2024 02:43 PM SECONDARY Anxiety disorder, unspecified BRIDGETTE PHELAN RHYS Apr 18, 2024 02:43 PM SECONDARY Malignant neoplasm of prostate BRIDGETTE PHELAN [place] Plan of Treatment: Future Appointments (+ 6 months) and Future Tests (+/- 45 days) The Plan of Treatment section includes future care activities for the patient from all [place] [facility] [place] This section includes future appointments and future orders which are active, pending or scheduled. Future Appointments This section includes appointments that were scheduled to occur 6 months from the date of the Encounter, up to a maximum of 20 appointments. The data comes from all [place] treatment facilities. Appointment Date/Time Appointment Type Appointme nt Facility Name Mar 23, 2024 10:30 AM AMBULATORY [facility] MEDICINE [facility] [place] [facility] Mar 24, 2024 09:30 AM AMBULATORY - MEDICINE [facility] [place] [facility] Mar 29, 2024 11:00 AM AMBULATORY - PSYCHIATRY [facility] Apr 17, 2024 11:00 AM AMBULATORY [facility] MEDICINE [facility] [place] [facility] Apr 24, 2024 11:00 AM AMBULATORY - MEDICINE [facility] [place] [facility] Apr 28, 2024 01:00 PM AMBULATORY - MEDICINE [facility] [place] [facility] May 01, 2024 11:00 AM AMBULATORY - MEDICINE [facility] [place] [facility] May 11, 2024 07:30 AM AMBULATORY - NONE [facility] [place] [facility] May 30, 2024 11:00 AM AMBULATORY - MEDICINE [facility] [place] [facility] Jun 21, 2024 01:30 PM AMBULATORY - MEDICINE [facility] [place] [facility] Jun 29, 2024 07:30 AM AMBULATORY - NONE [facility] [place] [facility] Jul 31, 2024 01:30 PM AMBULATORY - MEDICINE [facility] [place] [facility] Aug 16, 2024 08:00 AM AMBULATORY - NONE [facility] [place] [facility] Aug 21, 2024 02:30 PM AM[facility]UL[facility]ORY [facility] MEDICINE [facility] Sep 14, 2024 07:30 AM [facility] Social History: Smoking Status (Most current) and [...] 2023 01:30 PM VA-TOBACCO USER EVERY DAY [place] Tobacco Use History This section includes a history of the smoking, or tobacco-related health factors, that were collected on or before the date of the Encounter. The data comes from the [place] facility where the Encounter took place. 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 Oct 25, 2017 03:23 PM V1-PT NOT INTEREST ED IN QUIT TOBACCO USE [facility] Dec 15, 2016 10:59 AM CURRENT SMOKER [facility] Dec 15, 2016 10:59 AM V1-PT DECLINES REF TO TOBACCO CESS [facility] Dec 15, 2016 10:59 AM V1-PT THINKING ABO UT QUIT TOBACCO USE [facility] Jun 16, 2016 08:30 AM V1-PT DECLINES REF TO TOBACCO CESS [facility] Jun 16, 2016 08:30 AM V1-PT DECLINES TOB ACCO CESSATION MEDS [facility] Jun 16, 2016 08:30 AM V1-PT THINKING ABO UT QUIT TOBACCO USE [facility] Dec 17, 2015 09:00 AM CURRENT SMOKER smokes about one ppd of cigaretts. [facility] Dec 17, 2015 09:00 AM V1-PT THINKING ABO UT QUIT TOBACCO USE [facility] Encounter Notes: All associated encounter notes This section contains the clinical notes associated to the Encounter. Date/Time Encounter Note(s) Provider Source Mar 17, 2024 02:31 PM [facility] NOTE: LOCAL TITLE: PRIMARY MENTAL HEALTH OUTPATIENT FOLLOW UP NOTE STANDARD TITLE: MENTAL HEALTH OUTPATIENT NOTE DATE OF NOTE: MAR 17, 2024@14:31 ENTRY DATE: MAR 17, 2024@14:31:43 AUTHOR: BRIDGETTE PHELAN EXP COSIGNER: URGENCY: STATUS: COMPLETED VISIT DURATION: 45 min VISIT TYPE: Individual, [id number]-[id number]-ymqo, follow-up visit PCP: CATHIE WONG DIAGNOSIS: Acute Stress Prostate Cancer Anxiety Disorder, unspecified REASON FOR FOLLOW UP: Stress and Anxiety VET'S STATEMENT OF GOAL AND CONCERNS: I am super stressed . The [place] reports he has been having a difficult time and it feels like too much, too fast . 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 He is also worried about his health, as he is being treated for advanced prostate cancer and recently learned he has a brain aneurysm. He states his goal is to deal with these issues and buy a beach house in [place]. So much is out of my control . Symptoms: Jittery, panicked feeling, hypertensive, difficulty sleeping Coping: walking, self-guided meditation and breathing INTERVENTION: ACT interventions We discussed setting aside time to chip away at the things he can control, remembering that his sense of responsibility and efforts to control the problems around him is a choice and he can choose to acknowledge what is out of his control and let things go. Discussed referral to Biofeedback for Anxiety group - [place] is agreeable. Consult placed. DIAGNOSTIC IMPRESSIONS/PLAN: is a 69-year-old man self-referred back to [facility] for acute stress related to his health, family, and business. is open to ACT interventions and referral to Biofeedback for Anxiety Group. Plan for [facility] follow-up visit. CURRENT IMPRESSION OF LETHALITY RISK / PLAN FOR RISK MANAGEMENT: [place] presents at low risk of harm to self or others at this time. INTERDICIPLINARY TREATMENT PLANNING INVOLVING: PACT PLAN FOR FOLLOW-UP: Return to [facility] in 2 weeks, f2f. /alfred/ BRIDGETTE PHELAN PSYD CLINICAL PSYCHOLOGIST Signed: 04/18/2024 14:44 BRIDGETTE PHELAN
--- OUTSIDE RECORDS SUMMARY | 2024-10-26 15:31 | XMS_ITS ---
Author Name [facility] [place] [facility] [place] Address [address] [place] [address] Care Team Providers Care Client Development Director Name Role Phone [place] ALMARAZ Primary [...] Patient's Relationship to Policy Rucker MEDICAID MEDICAID [facility] [place] Nov 30, 2019 MEDICAI D [id number] Catrina LEE PATIENT MEDICARE (WNR) MEDICARE (M) PART A January 25, 2018 PART A [id number] Catrina LEE PATIENT MEDICARE (WNR) MEDICARE (M) PART B January 25, 2018 PART B [id number] Catrina LEE PATIENT Selected Encounter This section includes the information on record at [place] for the Encounter. Date/Time Encounter Type Encounter Description Reason Provider Source February 01, 2024 03:00 PM OFFICE O/P EST SF 10 MIN GENERAL INTERNAL MEDICINE ICD-10-CM M54.50 Low back pain, unspecified JAIME ALEXANDER Encounter Template Text not used by [place] Assessments - Encounter Diagnoses This section includes the primary and secondary diagnoses documented for the Encounter. Date/Time Primary/Secondary Diagnosis Diagnosis Name Provider Source February 01, 2024 03:21 PM PRIMARY Low back pain, unspecified JAIME ALEXANDER [place] [facility] [place] [facility] Plan of Treatment: Future Appointments (+ 6 months) and Future Tests (+/- 45 days) The Plan of Treatment section includes future care activities for the patient from all [place] treatmentfacilities. This section includes future appointments and future orders which are active, pending or scheduled. Future Appointments This section includes appointments that were scheduled to occur 6 months from the date of the Encounter, up to a maximum of 20 appointments. The data comes from all [place] treatment facilities. Appointment Date/Time Appointment Type Appointme nt Facility Name February 15, 2024 01:00 PM AMBULATORY - MEDICINE [place] [facility] [place] [facility] Feb 28, 2024 09:00 AM AMBULATORY - MEDICINE [place] [facility] [place] [facility] Mar 17, 2024 11:00 AM AMBULATORY - PSYCHIATRY [facility] Mar 23, 2024 10:30 AM AMBULATORY - MEDICINE [place] [facility] [place] [facility] Mar 24, 2024 09:30 AM AMBULATORY - MEDICINE [place] [facility] [place] [facility] Mar 29, 2024 11:00 AM AMBULATORY - PSYCHIATRY [facility] Apr 17, 2024 11:00 AM AMBULATORY - MEDICINE [place] [facility] [place] [facility] Apr 24, 2024 11:00 AM AMBULATORY - MEDICINE [place] [facility] [place] [facility] Apr 28, 2024 01:00 PM AMBULATORY - MEDICINE [place] [facility] [place] [facility] May 01, 2024 11:00 AM AMBULATORY - MEDICINE [facility] [place] [facility] May 11, 2024 07:30 AM AMBULATORY - NONE [facility] [place] [facility] May 30, 2024 11:00 AM AMBULATORY - MEDICINE [place] [facility] [place] [facility] Jun 21, 2024 01:30 PM AMBULATORY - MEDICINE [facility] [place] [facility] Jun 29, 2024 07:30 AM AMBULATORY - NONE [facility] [place] [facility] Jul 31, 2024 01:30 PM AMBULATORY - MEDICINE [place] [facility] [place] [facility] Encounter Notes: All associated encounter notes This section contains the clinical notes associated to the Encounter. Date/Time Encounter Note(s) Provider Source February 01, 2024 02:53 PM TELEHEALTH NOTE: LOCAL TITLE: TELE EMERGENCY CARE NOTE STANDARD TITLE: TELEHEALTH NOTE DATE OF NOTE: FEBRUARY 01, 2024@14:53 ENTRY DATE: FEBRUARY 01, 2024@14:53:47 AUTHOR: JAIME ALEXANDER COSIGNER: URGENCY: STATUS: COMPLETED This is a tele-emergency care visit to address acute/urgent issues. Definitive care on chronic medical issues will be deferred to routine Primary Care appointment/provider. Consult Origin: Referral from the Clinical Contact Center/Call Center Type of Visit: Video Visit: Telehealth Disclosure: Visit conducted by synchronous telehealth. Patient verbal consent obtained. Location/emergency number confirmed. Environment surveyed and all participants identified. Virtual conference room locked. Emergency contact information was obtained as follows: Patient's current address [address] [place] [id number] Patient's Phone Number:PATIENT PHONE - PHONE NUMBER [CELLULAR] - Primary NOK: ROSACALLY Relation: UNRELATED FRIEND/ [address] [place] [address] [place], [place] [address] Subjective: low back pain x 7 days,constant dull pain ,more pain with certain movements at back.says today pain is a lot better.no fall or trauma. says he had h/o back issues 20 yrs ago and at that time seen by ortho and was given 3 cortisone shots.since then he used to get once a while mild low back pain,but this time it is different in severity. pain radiates down to left upper leg.no tingling or numbness.no incontinence. no weakness. no cp or sob.no problem walking. says took ibuprofen and it helped the pain,did not require it for past 2 days. using old back brace and it helps. 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 Prostate cancer ([facility] [id number]) I10. HT - Hypertension ([facility] [id number]) M19.049 Osteoarthritis ([facility] [id number]) F17.210 Nicotine dependence ([facility] [id number]) Z72.0 Tobacco user ([facility] [id number]) F41.9 Anxiety ([facility] [id number]) G47.39 Sleep apnea ([facility] [id number]) ALLERGIES/ADR: Patient has answered NKA Active Outpatient Medications (including Supplies): No Medications Found Current medications reviewed with patient/caregiver and reconciliation of medications related to today's visit completed, including non-VA medications and discrepancies, if identified, were addressed. Medication changes and the importance of medication management were reviewed with the patient/caregiver today based on individual needs. Patient/caregiver acknowledged understanding of instructions as stated. Objective: sitting comfortably,not in distress.tlaking full sentences. movements at back in normal range,says has mild discomfort at back with movements Reason for Referral: Musculoskeletal Assessment/Impression: chronic low back pain with exacerbation Plan: discussed about management. discussed about getting x-rays and PT etc. If pain do not improve completely,patient will call in the next 1-2 weeks to get x-rays and PT. told to go to ER if any worsening of hsi pain or any weakness etc.discussed about red flags - incontinence of BM or urine etc. patient has prostate cancer - told to inform his urologist and oncologist regarding his exacerbation of back pain(if any work up need to be done),patient agrees to inform them soon. Issue resolved with Tele Urgent Care appointment Discharge instructions were reviewed Patient verbalizes understanding of the care plan Time spent in telephone/video visit: Minutes: 15 minutes /alfred/ JAIME ALEXANDER MD ATTENDING, [facility] Signed: 02/01/2024 15:22 Receipt Acknowledged By: 02/29/2024 05:31 /alfred/ KALEB CHU MD Primary Care Physician for CATHIE MARVIN 02/01/2024 15:29 /alfred/ SAM CHAVEZN,RN-BC REGISTERED NURSE (RN) JAIME ALEXANDER [facility]
--- OUTSIDE RECORDS SUMMARY | 2024-10-26 15:31 | XMS_ITS | Continuity of Care Document ---
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 It does not include entries that were removed or entered in error. Problem Status Onset Date Problem Type Date of Resolution Comments Source Anxiety Active Condition [place] Diverticular disease of colon Active Condition [facility] History of polyp of colon Active Condition Nov 17, 2023 Entered By: BLANCA WONG Comment: tubular adenomas with surveillance endoscopy by ORAL Mauro [place] HT - Hypertension Active Condition 2021 Entered By: BLANCA WONG Comment: change to Lis/HCTZ 21 Nov 2020 [facility] Nicotine dependence Active Condition [facility] Osteoarthritis Active Condition [facility] Prostate cancer Active Condition Nov 17, 2023 Entered By: BLANCA WONG Comment: [facility] Sleep apnea Active Condition Dec 14, 2021 Entered By: BLANCA WONG Comment: (November 2021) trial on APAP 11-18 cm H2 [place] Tobacco user Active Condition Dec 17, 2015 Entered By: FARHAD MONTEMAYOR Comment: PPD [place] Diagnosis: ICD-10-CM F41.9 Anxiety disorder, unspecified Active Diagnosis [place] Diagnosis: ICD-10-CM Z71.89 Other specified counseling Active Diagnosis [place] Diagnosis: ICD-10-CM I10 Essential (primary) hypertension Active Diagnosis [place] Diagnosis: ICD-10-CM K08.421 Partial loss of teeth due to periodontal diseases, class I Active Diagnosis [facility] Diagnosis: ICD-10-CM G47.39 Other sleep apnea Active Diagnosis [facility] Diagnosis: ICD-10-CM Z46.0 Encounter for fit/adjst of spectacles and contact lenses Active Diagnosis [facility] Diagnosis: ICD-10-CM H25.813 Combined forms of age-related cataract, bilateral Active Diagnosis [facility] Diagnosis: ICD-10-CM K03.1 Abrasion of teeth Active Diagnosis [facility] Diagnosis: ICD-10-CM Z63.79 Other stressful life events affecting family and household Active Diagnosis [place] Diagnosis: ICD-10-CM F43.0 Acute stress reaction Active Diagnosis [place] Diagnosis: ICD-10-CM G47.33 Obstructive sleep apnea (adult) (pediatric) Active Diagnosis [facility] Diagnosis: ICD-10-CM M54.50 Low back pain, unspecified Active Diagnosis [facility] Diagnosis: ICD-10-CM Z46.1 Encounter for fitting and adjustment of hearing aid Active Diagnosis [facility] Diagnosis: ICD-10-CM H90.3 Sensorineural hearing loss, bilateral Active Diagnosis [facility] Diagnosis: ICD-10-CM F43.89 Other reactions to severe stress Active Diagnosis [facility] Diagnosis: ICD-10-CM Z00.01 Encounter for general adult medical exam w abnormal findings Active Diagnosis [place] Medications Combined list of outpatient medications from Department of Defense and Veterans Affairs facilities.Medications provided include 1) outpatient medications from the last 15 months, and 2) patient-reported medications. Medication Details Route Status Patient Instructions Prescription Expires Prescription Number Last Dispense Date Ordering Provider Order Date Order Qty Source BETAMETHASO NE DIPROPIONAT E 0.05% OINT,TOP APPLY SMALL AMOUNT TOPICALL Y TWICE DAILY NEEDED FOR ITCHING/ RASH TOPICA L ACTIVE 08/22/2025 [id number] 5 MARVIN APOLINARI O 2023 15 IELD LORAZEPAM 1MG TAB TAKE ONE TABLET BY MOUTH TWICE DAILY NEEDED FOR ANXIETY ORAL 05/28/2024 [id number] 4 MARVIN, APOLINARI O 2023 12 IELD METOPROLOL SUCCINATE 25MG TAB,SA TAKE ONE TABLET BY MOUTH ONCE DAILY FOR BLOOD PRESSURE /HEART ORAL ACTIVE 08/22/2025 [id number] 5 ASHLYN WONGSHILOHARI O 2023 60 [place] Immunizations Combined list of available immunizations from the Department of Defense and Veterans Affairs facilities. Immunization Series Date Given Administered By Site Reaction Lot Number CVX Code Drug Retail Loan Originator Assistant Status Comments Source COVID-19 (MODERNA), MRNA, LNP-S, PF, 100 MCG/0.5 ML DOSE 2 2020 207 complet ed MOD; [id number]; 1 [place] COVID-19 (MODERNA), MRNA, LNP-S, PF, 100 MCG/0.5 ML DOSE 1 2020 207 complet ed MOD; [id number]; 1 [place] PNEUMOCOCCAL POLYSACCHARID E PPV23 2015 33 complet ed [place] (HISTORICAL) 2015 121 complet ed [place] Results Combined list of recent chemistry, hematology and other laboratory results from Department of Defense and Veterans Affairs, ranging from 15 months to all on record, depending upon the facility. Order Name Results Value Reference Range Date Interpretation Specimen Comments Source BASIC METABOLIC PANEL (fasting) UREA NITROGEN [MASS/VOLUM E] IN SERUM OR PLASMA 26 mg/dL 7 - 25 11/11 H Specimen Type: SERUM No comment entered. Ordering Provider: MAGO WONG Report Released Date/Time: Nov 08, 2023 02:37 PM Reporting Lab: [facility] [address] [facility] [address] Performing Lab: [facility] KiptronicUSENY[facility] [address] [facility] [address] [facility] BASIC METABOLIC PANEL (fasting) GLUCOSE [MASS/VOLUM E] IN SERUM OR PLASMA 100 mg/dL 65 - 100 11/11 Specimen Type: SERUM No comment entered. Ordering Provider: MAGO WONG Report Released Date/Time: Nov 08, 2023 02:37 PM Reporting Lab: [facility] [address] [facility] [address] Performing Lab: [facility] [address]USE[address] [address] [facility] [place] [facility] BASIC METABOLIC PANEL (fasting) SODIUM [MOLES/VOLU ME] IN SERUM OR PLASMA 144 mmol/L 135 - 145 11/11 Specimen Type: SERUM No comment entered. Ordering Provider: MAGO WONG Report Released Date/Time: Nov 08, 2023 02:37 PM Reporting Lab: [facility] [place] [address] [address] Performing Lab: [facility] [place] [facility] [address] [facility] [address] [facility] [place] [facility] BASIC METABOLIC PANEL (fasting) POTASSIUM [MOLES/VOLU ME] IN SERUM OR PLASMA 4.0 mmol/L 3.5 - 5.0 11/11 Specimen Type: SERUM No comment entered. Ordering Provider: MAGO WONG Report Released Date/Time: Nov 08, 2023 02:37 PM Reporting Lab: [facility] [place] [address] [address] Performing Lab: [facility] [place] [address] [address] [facility] [place] [facility] BASIC METABOLIC PANEL (fasting) CHLORIDE [MOLES/VOLU ME] IN SERUM OR PLASMA 107 mmol/L 100 - 110 11/11 Specimen Type: SERUM No comment entered. Ordering Provider: MAGO WONG Report Released Date/Time: Nov 08, 2023 02:37 PM Reporting Lab: [facility] [place] [facility] [address] [facility] [address] Performing Lab: [facility] [place] [address] [address] [facility] [place] [facility] BASIC METABOLIC PANEL (fasting) CARBON DIOXIDE, TOTAL [MOLES/VOLU ME] IN SERUM OR PLASMA 29 meq/L 20 - 30 11/11 Specimen Type: SERUM No comment entered. Ordering Provider: MAGO WONG Report Released Date/Time: Nov 08, 2023 02:37 PM Reporting Lab: [facility] [place] [facility] [address] [facility] [address] Performing Lab: [facility] [place] [facility] [address] [facility] [address] [facility]ITALRL W[facility]N [facility] BASIC METABOLIC PANEL (fasting) CREATININE [MASS/VOLUM E] IN SERUM OR PLASMA 1.11 mg/dL 0.50 - 1.40 11/11 Specimen Type: SERUM No comment entered. Ordering Provider: MAGO WONG Report Released Date/Time: Nov 08, 2023 02:37 PM Reporting Lab: [facility]N [facility] [address] [facility] [address] Performing Lab: [place] [facility] [address] [facility] [address] [facility]OSPITALRL TRN [facility]ITALSUSE [facility] BASIC METABOLIC PANEL (fasting) GLOMERULAR FILTRATION RATE/1.73 SQ M.PREDICTED [VOLUME RATE/AREA] IN SERUM, PLASMA OR BLOOD BY CREATININE- BASED FORMULA (CKD-EPI 2020) 71 mL/min 60 11/11 Specimen Type: SERUM No comment entered. Ordering Provider: MAGO WONG Report Released Date/Time: Nov 08, 2023 02:37 PM Reporting Lab: [facility]ITALRL W[facility]N [facility] [address] [facility] [address] Performing Lab: [facility]ITALRL WSTRN [facility]ITALSUSE[address] [address] [facility]ITALRL [facility]N [facility]ITALSU[facility] CBC AND DIFF (AUTO) LEUKOCYTES [#/VOLUME] IN BLOOD BY AUTOMATED COUNT 6.88 10*3/u L 4.50 - 11.00 11/11 Specimen Type: BLOOD No comment entered. Ordering Provider: MAGO WONG Report Released Date/Time: Nov 08, 2023 02:37 PM Reporting Lab: [facility] [place] [facility] [address] [facility] [address] Performing Lab: [place] [facility] [address] [address] [facility]ITALRL [facility]N [facility]ITALSUSE [facility] CBC AND DIFF (AUTO) ERYTHROCYTE S [#/VOLUME] IN BLOOD BY AUTOMATED COUNT 4.91 10*6/u L 4.23 - 5.66 11/11 Specimen Type: BLOOD No comment entered. Ordering Provider: MAGO WONG Report Released Date/Time: Nov 08, 2023 02:37 PM Reporting Lab: [facility] [place] [facility] [address] [facility] [address] Performing Lab: [facility] [place] [facility] [address] [facility] [address] [facility] [place] [facility] CBC AND DIFF (AUTO) HEMOGLOBIN [MASS/VOLUM E] IN BLOOD 15.8 g/dL 12.8 - 17 11/11 Specimen Type: BLOOD No comment entered. Ordering Provider: MAGO WONG Report Released Date/Time: Nov 08, 2023 02:37 PM Reporting Lab: [facility] [place] [address] [address] Performing Lab: [facility] [place] [address] [address] [facility]ITALRL W[facility]N [place] [facility] CBC AND DIFF (AUTO) HEMATOCRIT [VOLUME FRACTION] OF BLOOD BY AUTOMATED COUNT 47.0 39.2 - 50.4 11/11 Specimen Type: BLOOD No comment entered. Ordering Provider: MAGO WONG Report Released Date/Time: Nov 08, 2023 02:37 PM Reporting Lab: [facility] [place] [address] [address] Performing Lab: [place] [facility] [place] [facility] [address] [facility] [address] [facility]ITALRL [facility]N [place] [facility] CBC AND DIFF (AUTO) MCV [ENTITIC VOLUME] BY AUTOMATED COUNT 95.7 fL 82 - 99 11/11 Specimen Type: BLOOD No comment entered. Ordering Provider: MAGO WONG Report Released Date/Time: Nov 08, 2023 02:37 PM Reporting Lab: [facility] [place] [address] [address] Performing Lab: [facility] [address] [facility] [address] [facility] [place] [facility] CBC AND DIFF (AUTO) MCHC [MASS/VOLUM E] BY AUTOMATED COUNT 33.6 g/dL 30.8 - 35.1 11/11 Specimen Type: BLOOD No comment entered. Ordering Provider: MAGO WONG Report Released Date/Time: Nov 08, 2023 02:37 PM Reporting Lab: [facility] [place] [facility] [address] [facility] [address] Performing Lab: [facility] [place] [facility] [address] [facility] [address] [facility] [place] [facility] CBC AND DIFF (AUTO) PLATELETS [#/VOLUME] IN BLOOD BY AUTOMATED COUNT 146 10*3/u L 140 - 360 11/11 Specimen Type: BLOOD No comment entered. Ordering Provider: MAGO WONG Report Released Date/Time: Nov 08, 2023 02:37 PM Reporting Lab: [facility] [place] [facility] [address] [facility] [address] Performing Lab: [facility] [place] [facility] [address] [facility] [address] [facility]ITALRL TRN [place] [facility] CBC AND DIFF (AUTO) ERYTHROCYTE DISTRIBUTIO N WIDTH [RATIO] BY AUTOMATED COUNT 12.4 12.0 - 16.0 11/11 Specimen Type: BLOOD No comment entered. Ordering Provider: MAGO WONG Report Released Date/Time: Nov 08, 2023 02:37 PM Reporting Lab: [facility] [place] [facility] [address] [facility] [address] Performing Lab: [facility] [place] [facility] [address] [facility] [address] [facility] [place] [facility] CBC AND DIFF (AUTO) MONOCYTES [#/VOLUME] IN BLOOD BY AUTOMATED COUNT 0.67 10*3/u L 0.30 - 1.10 11/11 Specimen Type: BLOOD No comment entered. Ordering Provider: MAGO WONG Report Released Date/Time: Nov 08, 2023 02:37 PM Reporting Lab: [facility] [address] [facility] [address] Performing Lab: [facility] [address] [facility] [address] [facility] CBC AND DIFF (AUTO) MCH [ENTITIC MASS] BY AUTOMATED COUNT 32.2 pg 26.2 - 32.6 11/11 Specimen Type: BLOOD No comment entered. Ordering Provider: MAGO WONG Report Released Date/Time: Nov 08, 2023 02:37 PM Reporting Lab: [facility] [place] [facility] [address] [facility] [address] Performing Lab: [facility] [place] [facility] [address] [facility] [address] [facility] [place] [facility] CBC AND DIFF (AUTO) NEUTROPHILS /100 LEUKOCYTES IN BLOOD BY AUTOMATED COUNT 60.4 43.7 - 75.8 11/11 Specimen Type: BLOOD No comment entered. Ordering Provider: MAGO WONG Report Released Date/Time: Nov 08, 2023 02:37 PM Reporting Lab: [facility] [place] [facility] [address] [facility] [address] Performing Lab: [facility] [place] [facility] [address] [facility] [address] [facility] [place] [facility] CBC AND DIFF (AUTO) LYMPHOCYTES /100 LEUKOCYTES IN BLOOD BY AUTOMATED COUNT 25.9 14.0 - 42.3 11/11 Specimen Type: BLOOD No comment entered. Ordering Provider: MAGO WONG Report Released Date/Time: Nov 08, 2023 02:37 PM Reporting Lab: [facility] [address] [facility] [address] Performing Lab: [facility] [address] [facility] [address] [facility] [place] [facility] CBC AND DIFF (AUTO) MONOCYTES/1 00 LEUKOCYTES IN BLOOD BY AUTOMATED COUNT 9.7 5.1 - 13.7 11/11 Specimen Type: BLOOD No comment entered. Ordering Provider: MAGO WONG Report Released Date/Time: Nov 08, 2023 02:37 PM Reporting Lab: [facility] [address] [facility] [address] Performing Lab: [facility] [address] [facility] [address] [facility] [place] CBC AND DIFF (AUTO) EOSINOPHILS /100 LEUKOCYTES IN BLOOD BY AUTOMATED COUNT 3.2 0.4 - 6.8 11/11 Specimen Type: BLOOD No comment entered. Ordering Provider: MAGO WONG Report Released Date/Time: Nov 08, 2023 02:37 PM Reporting Lab: [facility] [address] [facility] [address] Performing Lab: [facility] [place] [address] [address] [facility] [place] [facility] CBC AND DIFF (AUTO) BASOPHILS/1 00 LEUKOCYTES IN BLOOD BY AUTOMATED COUNT 0.4 0.1 - 2.0 11/11 Specimen Type: BLOOD No comment entered. Ordering Provider: MAGO WONG Report Released Date/Time: Nov 08, 2023 02:37 PM Reporting Lab: [facility] [place] [facility] [address] [facility] [address] Performing Lab: [facility] [place] [address] [address] [facility] CBC AND DIFF (AUTO) NEUTROPHILS [#/VOLUME] IN BLOOD BY AUTOMATED COUNT 4.15 10*3/u L 2.20 - 7.60 11/11 Specimen Type: BLOOD No comment entered. Ordering Provider: MAGO WONG Report Released Date/Time: Nov 08, 2023 02:37 PM Reporting Lab: [facility] [place] [facility] [address] [facility] [address] Performing Lab: [facility] [address] [place] [address] [facility] [place] [facility] CBC AND DIFF (AUTO) LYMPHOCYTES [#/VOLUME] IN BLOOD BY AUTOMATED COUNT 1.78 10*3/u L 1.00 - 3.20 11/11 Specimen Type: BLOOD No comment entered. Ordering Provider: MAGO WONG Report Released Date/Time: Nov 08, 2023 02:37 PM Reporting Lab: [facility] [place] [address] [address] Performing Lab: [facility] [address] [facility] [address] [facility] [place] CBC AND DIFF (AUTO) EOSINOPHILS [#/VOLUME] IN BLOOD BY AUTOMATED COUNT 0.22 10*3/u L 0.03 - 0.44 11/11 Specimen Type: BLOOD No comment entered. Ordering Provider: MAGO WONG Report Released Date/Time: Nov 08, 2023 02:37 PM Reporting Lab: [facility] [place] [address] [address] Performing Lab: [facility] [place] [facility] [address] [facility] [address] [facility] [place] [facility] CBC AND DIFF (AUTO) BASOPHILS [#/VOLUME] IN BLOOD BY AUTOMATED COUNT 0.03 10*3/u L 0.01 - 0.13 11/11 Specimen Type: BLOOD No comment entered. Ordering Provider: AMGO WONG Report Released Date/Time: Nov 08, 2023 02:37 PM Reporting Lab: [facility] [place] [address] [address] Performing Lab: [facility] [place] [address] [address] [facility] CBC AND DIFF (AUTO) IMMATURE GRANULOCYTE S/100 LEUKOCYTES IN BLOOD BY AUTOMATED COUNT 0.4 0.0 - 0.7 11/11 Specimen Type: BLOOD No comment entered. Ordering Provider: MAGO WONG Report Released Date/Time: Nov 08, 2023 02:37 PM Reporting Lab: [facility] [address] [facility] [address] Performing Lab: [facility] HOSPITALRRED BAY HOSPITALTRN [facility]ALSUSETS [facility] [address] [facility] [address] [facility] HOSPITALRSEARCY HOSPITALN [facility]ITALSUSE [facility] CBC AND DIFF (AUTO) IMMATURE GRANULOCYTE S [#/VOLUME] IN BLOOD 0.03 10*3/u L 0.00 - 0.06 11/11 Specimen Type: BLOOD No comment entered. Ordering Provider: MAGO WONG Report Released Date/Time: Nov 08, 2023 02:37 PM Reporting Lab: [facility]ITALRL TRN [facility]ITALSUSENY[facility] [address] [facility] [address] Performing Lab: [facility] HOSPITALRRED BAY HOSPITALTRN [facility]ITALSUSE[address] [address] [facility]N [facility]ITALSUSE [facility] HEMOGLOBI N A1C PANEL HEMOGLOBIN A1C/HEMOGLO BIN.TOTAL IN BLOOD BY HPLC 5.1 4.0 - 5.6 11/11 Specimen Type: BLOOD Comment: Values obtained from A1C measurement s can vary. For atypical A1C assays, a reported value of 7.0 could actually be between 6.72 and 7.28 if measured by a reference method. A reported value of 9.0 could actually be between 8.73 and 9.27. Ref: http://www. ngsp.org/[place] Pdata.asp Ordering Provider: MAGO WONG Report Released Date/Time: Nov 08, 2023 02:37 PM Reporting Lab: [facility] HOSPITALRSEARCY HOSPITALN [facility] [address] Performing Lab: [facility] HOSPITALRSEARCY HOSPITALN [facility] [address] [facility] LIPID PANEL FASTING CHOLESTEROL [MASS/VOLUM E] IN SERUM OR PLASMA 189 mg/dL 11/11 Specimen Type: SERUM No comment entered. Ordering Provider: MAGO WONG Report Released Date/Time: Nov 08, 2023 02:37 PM Reporting Lab: [facility] HOSPITALRSEARCY HOSPITALN [facility] [address] Performing Lab: [facility] [place] [facility] [address] [facility] [address] [facility] HOSPITALRL WSTRN MASSUSE [facility] LIPID PANEL FASTING TRIGLYCERID E [MASS/VOLUM E] IN SERUM OR PLASMA 127 mg/dL 0 - 150 11/11 Specimen Type: SERUM No comment entered. Ordering Provider: MAGO WONG Report Released Date/Time: Nov 08, 2023 02:37 PM Reporting Lab: [facility]OSPITALRL WSTRN [place] [facility] [address] [facility] [address] Performing Lab: [facility]ITALRL WSTRN [facility] [address] [facility] [address] [facility]RL TRN [facility]ITALSUSE [facility] LIPID PANEL FASTING CHOLESTEROL IN LDL [MASS/VOLUM E] IN SERUM OR PLASMA BY CALCULATION 120 mg/dL 0 - 129 11/11 Specimen Type: SERUM No comment entered. Ordering Provider: MAGO WONG Report Released Date/Time: Nov 08, 2023 02:37 PM Reporting Lab: [facility]OSPITALRL TRN [place] [facility] [address] [facility] [address] Performing Lab: [facility]ITALRL WSTRN [facility]ITALSUSETS [facility] [address] [facility] [address] [facility]RL TRN [facility]ITALSUSE [facility] LIPID PANEL FASTING CHOLESTEROL .TOTAL/CHOL ESTEROL IN HDL [MASS RATIO] IN SERUM OR PLASMA 4.3 11/11 Specimen Type: SERUM No comment entered. Ordering Provider: MAGO WONG Report Released Date/Time: Nov 08, 2023 02:37 PM Reporting Lab: [facility]ITALRL [facility]N [place] [facility] [address] [facility] [address] Performing Lab: [facility]PITALRL WSTRN [facility]ITALSUSETS [facility] [address] [facility] [address] [facility]RL TRN [facility]ITALSUSE [facility] LIPID PANEL FASTING CHOLESTEROL IN HDL [MASS/VOLUM E] IN SERUM OR PLASMA 44 mg/dL 40 - 60 11/11 Specimen Type: SERUM No comment entered. Ordering Provider: MAGO WONG Report Released Date/Time: Nov 08, 2023 02:37 PM Reporting Lab: [facility] [address] [facility] [address] Performing Lab: [facility] W[facility]N [facility] [address] [facility] [address] [facility] LIPOPROTE IN (a) LIPOPROTEIN FRACTIONS [INTERPRETA TION] IN SERUM OR PLASMA 213 nmol/L 11/11 H Specimen Type: SERUM Comment: REFERENCE RANGE: <75 nmol/L THIS RESULT HAS BEEN VERIFIED BY REPEAT ANALYSIS. Risk Category Optimal < 75 nmol/L Moderate 75 - 125 nmol/L High > 125 nmol/L Cardiovascu lar event risk category cut points (optimal, moderate, high) are based on Gary Musa [facility] 2017;[id number]. Test Performed by [facility], [facility], [address] [place] [address] Danielito Harris M.D., Ph.D., Director of Laboratorie s , CLIA [id number] TEST PERFORMED AT: , Ordering Provider: MAGO WONG Report Released Date/Time: Nov 08, 2023 02:37 PM Reporting Lab: [facility] [address] [facility] [address] Performing Lab: [facility] [facility] [address] [address] [facility] LIVER FUNCTION PROTEIN [MASS/VOLUM E] IN SERUM OR PLASMA 7.0 g/dL 6.0 - 8.3 11/11 Specimen Type: SERUM No comment entered. Ordering Provider: MAGO WONG Report Released Date/Time: Nov 08, 2023 02:37 PM Reporting Lab: [facility] [place] [address] [facility] [address] Performing Lab: [facility]N [facility] [place] [address] [facility] [address] [facility] LIVER FUNCTION ALBUMIN [MASS/VOLUM E] IN SERUM OR PLASMA 4.1 g/dL 3.5 - 5.0 11/11 Specimen Type: SERUM No comment entered. Ordering Provider: MAGO WONG Report Released Date/Time: Nov 08, 2023 02:37 PM Reporting Lab: [facility] [address] [facility] [address] Performing Lab: [facility] [address] [facility] [address] [facility] LIVER FUNCTION ALKALINE PHOSPHATASE [ENZYMATIC ACTIVITY/VO LUME] IN SERUM OR PLASMA 65 U/L 40 - 150 11/11 Specimen Type: SERUM No comment entered. Ordering Provider: MAGO WONG Report Released Date/Time: Nov 08, 2023 02:37 PM Reporting Lab: [facility] [place] [facility] [address] [facility] [address] Performing Lab: [facility] [address] [address] [facility] [facility] LIVER FUNCTION ASPARTATE AMINOTRANSF ERASE [ENZYMATIC ACTIVITY/VO LUME] IN SERUM OR PLASMA 15 U/L 5 - 34 11/11 Specimen Type: SERUM No comment entered. Ordering Provider: MAGO WONG Report Released Date/Time: Nov 08, 2023 02:37 PM Reporting Lab: [facility] [place] [facility] [address] [facility] [address] Performing Lab: [facility] [place] [facility] [address] [facility] [address] [facility] [facility] LIVER FUNCTION ALANINE AMINOTRANSF ERASE [ENZYMATIC ACTIVITY/VO LUME] IN SERUM OR PLASMA 20 U/L 11/11 Specimen Type: SERUM No comment entered. Ordering Provider: MAGO WONG Report Released Date/Time: Nov 08, 2023 02:37 PM Reporting Lab: [facility] [place] [facility] [address] [facility] [address] Performing Lab: [facility] [place] [facility] [address] [facility] [address] [facility] [place] [facility] LIVER FUNCTION BILIRUBIN.T OTAL [MASS/VOLUM E] IN SERUM OR PLASMA 0.7 mg/dL 0.2 - 1.2 11/11 Specimen Type: SERUM No comment entered. Ordering Provider: MAGO WONG Report Released Date/Time: Nov 08, 2023 02:37 PM Reporting Lab: [facility] [address] [address] Performing Lab: [facility] [address] [address] [facility] [place] [facility] MICROALBU MIN CREATININ E RATIO PANEL MICROALBUMI N/CREATININ E [MASS RATIO] IN URINE 54.6 mg/g 0 - 29.9 11/11 H Specimen Type: URINE No comment entered. Ordering Provider: MAGO WONG Report Released Date/Time: Nov 08, 2023 02:37 PM Reporting Lab: [facility] [address] [address] Performing Lab: [facility] [address] [address] [place] [facility] [place] [facility] MICROALBU MIN CREATININ E RATIO PANEL MICROALBUMI N [MASS/VOLUM E] IN URINE 4.1 mg/dL 11/11 Specimen Type: URINE No comment entered. Ordering Provider: MAGO WONG Report Released Date/Time: Nov 08, 2023 02:37 PM Reporting Lab: [facility] [address] [address] Performing Lab: [facility] [place] [address] [address] [facility] [place] [facility] MICROALBU MIN CREATININ E RATIO PANEL CREATININE [MASS/VOLUM E] IN URINE 75.10 mg/dL 11/11 Specimen Type: URINE No comment entered. Ordering Provider: MAGO WONG Report Released Date/Time: Nov 08, 2023 02:37 PM Reporting Lab: [facility] [address] [address] Performing Lab: [facility] [place] [facility] [address] [facility] [address] [facility] PSA PROSTATE SPECIFIC AG [MASS/VOLUM E] IN SERUM OR PLASMA 47.97 ng/mL 0.00 - 4.00 11/11 H Specimen Type: SERUM No comment entered. Ordering Provider: MAGO WONG Report Released Date/Time: Nov 08, 2023 02:37 PM Reporting Lab: [facility] [place] [facility] [address] [facility] [address] Performing Lab: [facility] [place] [facility] [address] [facility] [address] [facility] [place] [facility] TSH THYROTROPIN [UNITS/VOLU ME] IN SERUM OR PLASMA 3.02 u[IU]/ mL 0.35 - 5.00 11/11 Specimen Type: SERUM No comment entered. Ordering Provider: MAGO WONG Report Released Date/Time: Nov 08, 2023 02:37 PM Reporting Lab: [facility] [place] [facility] [address] [facility] [address] Performing Lab: [facility] [place] [facility] [address] [facility] [address] [facility] VITAMIN B12 COBALAMIN (VITAMIN B12) [MASS/VOLUM E] IN SERUM OR PLASMA 664 pg/mL 200 - 900 11/11 Specimen Type: SERUM No comment entered. Ordering Provider: MAGO WONG Report Released Date/Time: Nov 08, 2023 02:37 PM Reporting Lab: [facility] [place] [facility] [address] [facility] [address] Performing Lab: [place] [facility] [place] [facility] [address] [facility] [address] [facility] Vital Signs Combined list of inpatient and outpatient Vital Signs from Department of Defense and Veterans Affairs, ranging from 12 months to all on record, depending upon the facility. Vital Sign Value Date Comments Source SYSTOLIC BLOOD PRESSURE 168 10/02/19 25 15:26:00 [facility] DIASTOLIC BLOOD PRESSURE 79 025 15:26:00 [facility] SYSTOLIC BLOOD PRESSURE 157 08/21/20 24 14:34:16 [facility] DIASTOLIC BLOOD PRESSURE 72 024 14:34:16 [facility] PULSE OXIMETRY 96 08/21/2024 14:34:16 [facility] WEIGHT 170 08/21/2024 14:34:16 [facility] BMI 28kg/m2 08/21/2024 14:34:16 [facility] PAIN 0 08/21/2024 14:34:16 [facility] HEIGHT 65 08/21/2024 14:34:16 [facility] TEMPERATURE 96.8 08/21/2024 14:34:16 [facility] PULSE 76 08/21/2024 14:34:16 [facility] RESPIRATION 20 08/21/2024 14:34:16 [facility] SYSTOLIC BLOOD PRESSURE 169 06/21/20 24 13:35:14 [facility] DIASTOLIC BLOOD PRESSURE 71 024 13:35:14 [facility] WEIGHT 166.8 06/21/2024 13:35:14 [facility] BMI 28kg/m2 06/21/2024 13:35:14 [facility] PAIN 0 06/21/2024 13:35:14 [facility] HEIGHT 65 06/21/2024 13:35:14 [facility] RESPIRATION 20 06/21/2024 13:35:14 [facility] SYSTOLIC BLOOD PRESSURE 151 04/28/20 24 13:21:35 [facility] DIASTOLIC BLOOD PRESSURE 80 024 13:21:35 [facility] PULSE OXIMETRY 95 04/28/2024 13:21:35 [facility] WEIGHT 168.4 04/28/2024 13:21:35 [facility] BMI 28kg/m2 04/28/2024 13:21:35 [facility] PAIN 0 04/28/2024 13:21:35 [facility] HEIGHT 65 04/28/2024 13:21:35 [facility] TEMPERATURE 96.6 04/28/2024 13:21:35 [facility] PULSE 72 04/28/2024 13:21:35 [facility] RESPIRATION 20 04/28/2024 13:21:35 [facility] SYSTOLIC BLOOD PRESSURE 196 03/24/20 09:41:58 [facility] DIASTOLIC BLOOD PRESSURE 67 024 09:41:58 [facility] PULSE OXIMETRY 97 03/24/2024 09:41:58 [facility] WEIGHT 169.2 03/24/2024 09:41:58 [facility] BMI 28kg/m2 03/24/2024 09:41:58 [facility] PAIN 0 03/24/2024 09:41:58 [facility] HEIGHT 65 03/24/2024 09:41:58 [facility] TEMPERATURE 97.3 03/24/2024 09:41:58 [facility] PULSE 63 03/24/2024 09:41:58 [facility] RESPIRATION 20 03/24/2024 09:41:58 [facility] [place] [facility] Encounters Combined list of: 1) Encounters from Department of Veterans Affairs facilities going back up to thelast 18 months. 2) Encounters from the Department of Defense facilities going back up to 280 months. Location Location Details Encounter Type Encounter Number Reason For Visit Attending Provider ADM Date DC Date Status Disposition Source [facility] OFFICE O/P EST MOD 30-39 MIN [id number] Diagnos is: ICD-10- CM Z00.01 Encount er for general adult medical exam w abnorma l finding s
Cammie WONG POLINARIO 04/27 [facility] [place] [facility] [facility] Outpatient Encounter [id number] 05/06 [place] [facility] [facility] PSYTX W PT 30 MINUTES [id number] Diagnos is: ICD-10- CM F43.89 Other reactio ns to severe stress< br/> Princess PHELAN ILL M 05/12 [facility] [place] [facility] [place] [facility] Outpatient Encounter [id number] 06/21 [facility] [place] [place] [facility] Outpatient Encounter [id number] 06/22 [place] [facility] [facility] [place] [facility] EYE EXAM&TX ESTAB PT 1/>VST [id number] Diagnos is: ICD-10- CM H25.813 Combine d forms of age-rel ated catarac t, bilater al
EVA BLAS 07/26 [place] [facility] [place] [facility] [place] [facility] FIT SPECTACLES MONOFOCAL [id number] Diagnos is: ICD-10- CM Z46.0 Encount er for fit/adj st of spectac les and contact lenses< br/> EVA BLAS 07/26 [facility] En[facility] [id number] 08/27 [facility] [place] Encounter [id number] 09/09 [facility] [place] Outpatient Encounter [id number] 09/30 [place] [facility] HEARING AID EXAM BOTH EARS [id number] Diagnos is: ICD-10- CM H90.3 Sensori neural hearing loss, bilater al
SENIOR,ADRIA OLE L 10/21 [facility] En[facility] [id number] 11/01 [facility] [place] Encounter [id number] 11/04 [facility] [place]P EST MOD 30 MIN [id number] Diagnos is: ICD-10- CM I10 Essenti al (primar y) hyperte nsion<b r/> Cammie WONG 11/08 [place] [facility] Out[facility] Encounter [id number] 11/11 [facility] HEARING SERVICE [id number] Diagnos is: ICD-10- CM Z46.1 Encount er for fitting and adjustm ent of hearing aid<br/ > RAS KONG 11/17 [facility] Out[facility] Encounter [id number] Cammie WONG 11/17 [facility] [place] Encounter [id number] 12/07 [facility] [place] Encounter [id number] 12/27 [facility] [place] Out[facility] Encounter [id number] 01/26 [facility] [place] Out[facility] Encounter [id number] JASE ACEVEDO 01/30 [facility] [place] Encounter [id number] JOHNNY SWANN 01/31 [facility] OFFICE O/P EST SF 10 MIN [id number] Diagnos is: ICD-10- CM M54.50 Low back pain, unspeci fied
JAIME ALEXANDER 01/31 [facility] En[facility] [id number] 02/14 [facility] [place] Encounter [id number] 02/14 [facility] SELF-MGMT EDUC & TRAIN 1 [place] [id number] Diagnos is: ICD-10- CM G47.33 Obstruc tive sleep apnea (adult) ([facility])
EVERETT,FREDE ABBY 02/27 [facility] [place] [facility] [place] [facility] SLEEP STUDY UNATT&RESP EFFT [id number] Diagnos is: ICD-10- CM G47.33 Obstruc tive sleep apnea (adult) ([facility])
EVERETT,FREDE ABBY 03/08 [facility] [place] [facility] [place] [facility] Outpatient Encounter [id number] [facility] [place] [facility] [place] [facility] Outpatient Encounter [id number] [facility] [place] [facility] [place] PSYTX W PT 45 MINUTES [id number] Diagnos is: ICD-10- CM F43.0 Acute stress reactio n
VINASIM,J ILL M 03/17 [facility] UNATT&RESP EFFT [id number] Diagnos is: ICD-10- CM G47.33 Obstruc tive sleep apnea (adult) ([facility])
CURIOSO-UY ,MELANIE 03/17 [facility] [place] [facility] Outpatient Encounter [id number] 03/23 [facility] [place] [place] [facility] [place] [facility] Outpatient Encounter [id number] 03/24 [facility] [place] [facility] [place] OFFICE O/P EST MOD 30 MIN [id number] Diagnos is: ICD-10- CM I10 Essenti al (primar y) hyperte nsion<b r/> MARVIN,A POLINARIO 03/24 [place] [facility] [place] [facility] Outpatient Encounter [id number] 03/24 [facility] [place] [facility] [place] PSYTX W PT 30 MINUTES [id number] Diagnos is: ICD-10- CM F43.0 Acute stress reactio n
VINOCOUR,J ILL M 03/29 [place] BIOFEEDBAC K TRAIN ANY METH [id number] Diagnos is: ICD-10- CM F41.9 Anxiety disorde r, unspeci fied
LAINE DELUNAN 04/17 [place] BIOFEEDBAC K TRAIN ANY METH [id number] Diagnos is: ICD-10- CM F41.9 Anxiety disorde r, unspeci fied
LAINE DELUNAN 04/24 [place] OFFICE O/P EST MOD 30 MIN [id number] Diagnos is: ICD-10- CM I10 Essenti al (primar y) hyperte nsion<b r/> MARVIN,A POLINARIO 04/28 [place] BIOFEEDBAC K TRAIN ANY METH [id number] 1BY. 80 Diagnos is: ICD-10- CM F41.9 Anxiety disorde r, unspeci fied
LAINE DELUNAN 05/01 [place] [facility] [place] [facility] Outpatient Encounter [id number] 05/10 [facility] [place] [place] [facility] [place] [facility] INTRAORAL FULL IMAGE SERIES [id number] 1. Diagnos is: ICD-10- CM K08.421 Partial loss of teeth due to periodo ntal disease s, class I
SONIA BARCLAY 05/11 [place] [facility] [place] [place] [facility] Outpatient Encounter [id number] [facility] EST MOD 30 MIN [id number] Diagnos is: ICD-10- CM Z63.79 Other stressf ul life events affecti ng family and househo
MARVIN,A POLINARIO 06/21 [place] [facility] En[facility] [id number] 1.06/28 [facility] REMOVABLE PROSTHODON TIC PROC [id number] 1. Diagnos is: ICD-10- CM K03.1 Abrasio n of teeth<b r/> GEOFFREYZIBRANDONSONIA 06/29 [facility] [place] En[facility] [id number] 1.07/14 [facility] [place] Encounter [id number] 07/26 [facility] [place] Out[facility] Encounter [id number] 07/26 [facility] [place] [id number] Diagnos is: ICD-10- CM H25.813 Combine d forms of age-rel ated catarac t, bilater al
EVA BLAS WILL E 07/31 [facility] FIT SPECTACLES MONOFOCAL [id number] Diagnos is: ICD-10- CM Z46.0 Encount er for fit/adj st of spectac les and contact lenses< br/> EVA BLAS E 07/31 [facility] [place] [facility] [place] [facility] Outpatient Encounter [id number] 08/14 [facility] [place] [facility] PT EDUCATION NOC INDIVID [id number] 1BY. Diagnos is: ICD-10- CM G47.39 Other sleep apnea<b r/> ST AMTYRNOE E P 08/16 [facility] O[facility]P EST MOD 30 MIN [id number] Diagnos is: ICD-10- CM I10 Essenti al (primar y) hyperte nsion<b r/> Cammie WONG 08/21 [facility] [place] [facility] [place] [facility] COLLJ & INTERPJ DATA EA 30 D [id number] Diagnos is: ICD-10- CM G47.39 Other sleep apnea<b r/> ST AMTYRONE ROUSE E P 09/06 [facility] [place] [place] [facility] Out[facility] En[facility] [id number] 09/10 [facility] En[facility] [id number] 09/13 [facility] [place] [place] [facility] [place] [facility] MANDIBULAR PART DENTURE FLEX [id number] 1. Diagnos is: ICD-10- CM K08.421 Partial loss of teeth due to periodo ntal disease s, class I
SONIA BARCLAY 09/14 [facility] [place] [place] [facility] [place] [facility] Outpatient Encounter [id number] 09/22 [facility] [place] [place] [facility] [place] OFF/OP EST JANUARY X REQ PHY/QHP [id number] 1BY. 72 Diagnos is: ICD-10- CM I10 Essenti al (primar y) hyperte nsion<b r/> VIRIL CHARISMA H 10/02 [facility]OP EST JANUARY X REQ PHY/QHP [id number] Diagnos is: ICD-10- CM Z71.89 Other specifi ed work counselor ing<br/ > AILIN ABERNATHY 10/04 [facility] CASE MANAGEMENT [id number] Diagnos is: ICD-10- CM F41.9 Anxiety disorde r, unspeci fied
LUCILLE,W REGINA 10/17 [facility] En[facility] [id number] 10/24 [facility] CASE MANAGEMENT [id number] Diagnos is: ICD-10- CM F41.9 Anxiety disorde r, unspeci fied
LUCILLE,W REGINA 10/24 [facility] Social History Combined list of available smoking, tobacco, and other social history from Department of Defense and Veterans Affairs facilities. Social History Type Response Date Comment Sourc e Tobacco smoking status NHIS VA-TOBACCO USER EVERY DAY 04/28/2024 [facility] History of tobacco use VA-TOBACCO USE WI 30 MIN OF WAKEUP 04/28/2024 [facility] History of tobacco use VA-TOBACCO USER EVERY DAY 04/27/2023 [facility] History of tobacco use VA-TOBACCO USER EVERY DAY 01/23/2021 [facility] History of tobacco use CURRENT SMOKER 10/25/2017 [facility] History of tobacco use CURRENT SMOKER 12/15/2016 [facility] History of tobacco use V1-PT DECLINES TOBACCO CESSATION MEDS 06/16/2016 [facility] History of tobacco use CURRENT SMOKER 12/17/2015 smokes about one ppd of cigaretts. [facility] Plan of Care List of future care activities from [facility] facilities. Additional future care activities may be listed in the Assessment and Plan section. Date/Time Care Activity Care Activity Detail Facili ty 10/30/2024 AMBULATORY - PSYCHIATRY AMBULATORY - PSYC HIATRY [facility] 11/14/2024 AMBULATORY - MEDICINE AMBULATORY - MEDICI NE [facility] 03/23/2025 AMBULATORY - MEDICINE AMBULATORY - [place]ICI [place] [facility] [place] [facility] 10/04/2024 Consult Order MENTAL HEALTH SE RVICES BHIP/SPOPC OUTPT Cons Multimedia Teacher's Choice [facility] 10/04/2024 Consult Order PSYCHIATRIC MEDI CATION [facility] OUTPT Cons Multimedia Teacher's Choice [facility]
--- OUTSIDE RECORDS SUMMARY | 2024-10-26 15:32 | XMS_ITS | Encounter Summary ---
Author Name [facility] [place] [facility] [place] Address [address] [place] [id number] Care Team Providers Care Facilities Engineer Name Role Phone MO ALMARAZ Primary Care [...] Relationship to Policy [place] MEDICAID MEDICAID [facility] LILIAM ANIRUDH Nov 30, 2019 MEDICAI D [id number] Catrina LEE PATIENT MEDICARE (WNR) MEDICARE (M) PART A January 25, 2018 PART A [id number] Catrina LEE PATIENT MEDICARE (WNR) MEDICARE (M) PART B January 25, 2018 PART B [id number] Catrina LEE PATIENT Selected Encounter This section includes the information on record at [place] for the Encounter. Date/Time Encounter Type Encounter Description Reason Provider Source Oct 02, 2024 10:00 AM OFF/OP EST JANUARY X REQ PHY/QHP PRIMARY CARE/MEDICINE ICD-10-CM I10 Essential (primary) hypertension VIRI,MINA A H IHE Encounter Template Text not used by [place] Assessments - Encounter Diagnoses This section includes the primary and secondary diagnoses documented for the Encounter. Date/Time Primary/Secondary Diagnosis Diagnosis Name Provider Source Oct 02, 2024 03:59 PM PRIMARY Essential (primary) hypertension SHIRIN MEREDITH [place] Plan of Treatment: Future Appointments (+ 6 months) and Future Tests (+/- 45 days) The Plan of Treatment section includes future care activities for the patient from all [place] [facility] This section includes future appointments and future orders which are active, pending or scheduled. Future Appointments This section includes appointments that were scheduled to occur 6 months from the date of the Encounter, up to a maximum of 20 appointments. The data comes from all [facility]. Appointment Date/Time Appointment Type Appointme nt Facility Name Oct 04, 2024 08:00 AM AMBULATORY - PSYCHIATRY [facility] Oct 17, 2024 03:00 PM AMBULATORY - PSYCHIATRY [facility] Oct 24, 2024 10:00 AM AMBULATORY - NONE [place] [facility] [place] [facility] Oct 24, 2024 10:00 AM AM[facility]ULATORY - MEDICINE [facility] Oct 24, 2024 03:00 PM AMBULATORY - PSYCHIATRY [facility] Oct 30, 2024 09:00 AM AMBULATORY - PSYCHIATRY [facility] Nov 14, 2024 11:30 AM AMBULATORY - MEDICINE [facility] Mar 23, 2025 09:00 AM AM[place]ULATORY - [place]ICINE [place] [facility] Active, Pending, and Scheduled Orders This section includes a listing of several types of active, pending, and scheduled orders, including clinic medications orders, diagnostic test orders, procedure orders and consult orders; where the start date of the order is 45 days before the date of the Encounter or 45 days after the date of theEncounter. The data comes from all [facility]. Test Date/Time Test Type Test Details Facility Name Oct 04, 2024 01:16 PM Consult Order MENTAL HEA LTH SERVICES BHIP/SPOPC OUTPT Cons Gravity Prospecting Operator [facility] Choice [place] Oct 04, 2024 01:19 PM Consult Order PSYCHIATRI C MEDICATION SOPC OUTPT Cons [employer] Operator [facility] Social History: Smoking Status (Most current) and Tobacco Use (All prior to encounter date) This section includes the most current, and the historical, smoking and tobacco- related health factors from the [place] facility where the Encounter took place. Current Smoking Status This section includes the most current smoking, or tobacco-related health factor, from the [place] facility where the Encounter took place. Date/Time Current Smoking Status Comment Dannie ity Apr 28, 2024 01:00 PM VA-TOBACCO USER EVERY DAY [place] Tobacco Use History This section includes a history of the smoking, or tobacco-related health factors, that were collected on or before the date of the Encounter. The data comes from the [place] facility where the Encounter took place. Date/Time Smoking Status/Tobacco Use Comment F acility Apr 28, 2024 01:00 PM VA-TOBACCO USE ADVICE [place] Apr 28, 2024 01:00 PM VA-TOBACCO USE SYSTEM SUPPORT TECHNICIAN NO [place] Apr 28, 2024 01:00 PM VA-TOBACCO USE MED NO [place] Apr 28, 2024 01:00 PM VA-TOBACCO USE WI 30 MIN OF WAKEUP [place] Apr 28, 2024 01:00 PM VA-TOBACCO USER EVERY DAY [place] Apr 27, 2023 01:30 PM VA-TOBACCO DOESNT USE WI 30 MIN ELBERTAUP [place] Apr 27, 2023 01:30 PM VA-TOBACCO USE 30 YEARS OR MORE [place] Apr 27, 2023 01:30 PM VA-TOBACCO USE ADVICE [place] Apr 27, 2023 01:30 PM VA-TOBACCO USE SYSTEM SUPPORT TECHNICIAN NO [place] Apr 27, 2023 01:30 PM VA-TOBACCO USE MED NO [place] Apr 27, 2023 01:30 PM VA-TOBACCO USER EVERY DAY [place] Jan 23, 2021 10:30 AM VA-TOBACCO USE 30 YEARS OR MORE [place] Jan 23, 2021 10:30 AM VA-TOBACCO USE ADVICE [place] Jan 23, 2021 10:30 AM VA-TOBACCO USE SYSTEM SUPPORT TECHNICIAN NO [place] Jan 23, 2021 10:30 AM VA-TOBACCO USE MED NO [place] Jan 23, 2021 10:30 AM VA-TOBACCO USE WI 30 MIN OF ELBERTAUP [place] Jan 23, 2021 10:30 AM VA-TOBACCO USER EVERY DAY [place] Oct 25, 2017 03:23 PM CURRENT SMOKER DENISE [facility] Oct 25, 2017 03:23 PM V1-PT NOT INTEREST ED IN QUIT TOBACCO USE [place] Dec 15, 2016 10:59 AM CURRENT SMOKER MUKESHI [facility] Dec 15, 2016 10:59 AM V1-PT DECLINES REF TO TOBACCO CESS PRGM [place] Dec 15, 2016 10:59 AM V1-PT THINKING ABO UT QUIT TOBACCO USE [place] Jun 16, 2016 08:30 AM V1-PT DECLINES REF TO TOBACCO CESS PRGM [place] Jun 16, 2016 08:30 AM V1-PT DECLINES TOB ACCO CESSATION MEDS [place] Jun 16, 2016 08:30 AM V1-PT THINKING ABO UT QUIT TOBACCO USE [place] Dec 17, 2015 09:00 AM CURRENT SMOKER smokes about one ppd of cigaretts. [place] Dec 17, 2015 09:00 AM V1-PT THINKING ABO UT QUIT TOBACCO USE [place] Encounter Notes: All associated encounter notes This section contains the clinical notes associated to the Encounter. Date/Time Encounter Note(s) Provider Source Oct 02, 2024 03:23 PM NURSING NOTE: LOCAL TITLE: PRIMARY CARE NURSE NOTE STANDARD TITLE: NURSING NOTE DATE OF NOTE: OCT 02, 2024@15:23 ENTRY DATE: OCT 02, 2024@15:23:12 AUTHOR: SHIRIN MEREDITH EXP COSIGNER: URGENCY: STATUS: COMPLETED F: ===== EVA LEE is a 69 yo who presents to the clinic for a BP check per MO ALMARAZ for diagnosis of HTN. Pt states takes blood pressure medications every morning. D: ===== Pt. has a history of: Active problems - Computerized Problem List is the source for the followin. Diverticular disease of colon 2. History of polyp of colon 3. Prostate cancer 4. HT - Hypertension 5. Osteoarthritis 6. Nicotine dependence 7. Tobacco user 8. Anxiety 9. Sleep apnea Issue Date Status Last Fill Active Outpatient Medications Refills Expiration 1) BETAMETHASONE DIPROPIONATE 0.05% OINT Qty: ACTIVE Issue: 08/21/24 15 for 30 days Sig: APPLY SMALL AMOUNT Refills: 1 Last: 08/21/24. TOPICALLY TWICE DAILY NEEDED FOR Expr: 08/22/25. ITCHING/RASH Indication: FOR ATOPIC DERMATITIS 2) METOPROLOL SUCCINATE 25MG SA TAB Qty: 60 for ACTIVE Issue: 08/21/24 60 days Sig: TAKE ONE TABLET BY MOUTH ONCE Refills: 1 Last: 08/21/24. DAILY FOR BLOOD PRESSURE/HEART Expr: 08/22/25 Indication: FOR HIGH BLOOD PRESSURE HTN MANAGEMENT Date Vital Measurement Qualifiers 10/02/2024 15:31 Pulse 60 Respir 17 BP 170/80 Ht in (cm) 65 (165.10) Wt. lbs. (kg)[BMI] 174 (78.93) [29*] POx (L/Min) (%) 97 At Rest Manual BP: Left Arm 168/79 HR 55 Symptoms REPORTED: None Symptoms DENIED: CP, SOB, KIRKPATRICK, DZ, or palpitations, Edema, visual changes, fatigue, cough, Orthostasis, syncope Chest pain/pressure, Orthopnea, Palpitations, Racing heart, Lower extremity swelling, Sudden weight gain, Diaphoresis. Arm Pain and Jaw Pain Educated re: alcohol use, diet, physical activity, tobacco use/cessation, weight management (lose) and Disease process/procedures. Methods: Verbal and [place] High Blood pressure and your Health handout A/P: ===== Entered consults for: Prosthetic for Blood pressure cuff and monitor. Patient declined MOVE and Nutrition consult. The patient has been under a lot of stress because of his stage 4 prostate cancer and states he gets anxiety when he comes in for his doctor's visits. The patient reports experiencing anxiety related to his disease, in addition to difficulty sleeping. According to the , he plans to request medicine for anxiety and sleep aids during his Wednesday appointment with mental health. 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 is currently eating Paleo diet which was recommended by his oncologist. He endorse eating a lot of salt. Patient was advised he can do many things to help control his blood pressure at home, including potassium and fiber, and drinking plenty of water, exercise regularly at least 30 minutes of aerobic exercise a day to help ease his stress, limiting the amount of sodium he eats and encouraged him to aim for less than 2000 mg per day. The patient currently consumes 1-2 cups of wine twice a week and smokes roughly five cigarettes per day. Dr. Abraham and I talked about the case. We won't be changing any medications at this time. We'll wait until meets with on Wednesday to see if he will be prescribed anxiety and sleeping medications. Patient will monitor blood pressure and internal communications writer will discuss readings during our VVC appt. on 11/14/2023. R: RTC 1 month, Visit Type: VVC Upcoming Appointments: 10/04/2024 08:00 CWM/SO/MHC/MICHELA 10/24/2024 10:00 CWM/NO/VVC/SLEEP STUDY/AD 11/14/2024 11:30 CWM/SO/VVC/PACT NURSING 03/23/2025 09:00 CWM/SO/PACT 9 07/31/2025 11:00 NHM/OPTOMETRY/BORASKI No barriers: Patient understands and agrees to current treatment plan. If pt. has any questions, concerns, or changes in current health status he will call or come into the [facility]. 30 minutes spent in patient care and education. CLINICAL REMINDERS Home Telehealth (CCHT) Referral: Patient declines participation in CCHT Program currently. Influenza Immunization: Deferral / Refusal The patient declines to receive the recommended dose of seasonal influenza. vaccine. Immunization: INFLUENZA, UNSPECIFIED FORMULATION Refusal Reason: PATIENT DECISION Patient refuses all immunization(s) in the FLU group. Date Documented: 10/02/24 15:23 COVID-19 Immunization: Refused Moderna Monovalent COVID-19 vaccine. Immunization: COVID-19 (MODERNA), MRNA, LNP-S, PF, 50 MCG/0.5 ML (AGES 12+ YEARS) Refusal Reason: PATIENT DECISION Patient refuses all immunization(s) in the COVID-19 group. Date Documented: 10/02/24 15:24 Tdap Immunization: The patient declines to receive the recommended dose of Tdap vaccine. Immunization: TDAP Refusal Reason: PATIENT DECISION Patient refuses all immunization(s) in the TDAP group. Date Documented: 10/02/24 15:24 Herpes Zoster (Shingles) Vaccine: The patient declines to receive the recommended dose of zoster (shingles) vaccine. Immunization: ZOSTER RECOMBINANT Refusal Reason: PATIENT DECISION Patient refuses all immunization(s) in the ZOSTER group. Date Documented: 10/02/24 15:26 HTN Assess for Elevated BP>=140/90: Repeat blood pressure: 168/79 The patient was counseled on the importance of regular exercise and/or physical activity in the control of blood pressure. The patient was instructed to try to participate in 120 minutes of aerobic exercise per week if possible and that any increase in physical activity may be useful in controlling blood pressure. The patient was counseled on the importance of diet and weight loss/ control in the regulation of blood pressure. The patient was counseled to reduce their weight to within 10 percent. of their ideal body weight. The possible improvement in blood pressure control with even 5 to 10 pounds of weight loss was reviewed. The contribution of dietary sodium to elevated blood pressure was. reviewed. The patient was counseled to have a goal sodium intake of 1500mg per day, with no more than 2300mg per day. The patient was counseled that a diet low in dietary saturated and trans fats are beneficial in lowering blood pressure. The patient was counseled that a diet rich in fresh fruits, vegetables. and whole grains is beneficial in lowering blood pressure. The patient was counseled to limit alcohol intake to no more than 2 drinks per day for men and 1 drink per day for women. /alfred/ CAROLINA CHAVEZ,RN-BC REGISTERED NURSE (RN) Signed: 10/02/2024 16:00 SHIRIN MEREDITH
--- OUTSIDE RECORDS SUMMARY | 2024-10-26 15:32 | XMS_ITS | Encounter Summary ---
Author Name [facility] [place] Organization [place] Address [address] [place] [address] Care Team Providers Care Car Repossessor Name Role Phone MO ALMARAZ Primary Care [...] LILIYA OLEARY Nov 30, 2019 MEDICAI D [id number] Catrina LEE PATIENT MEDICARE (WNR) MEDICARE ([place]) PART A January 25, 2018 PART A [id number] Catrina LEE PATIENT MEDICARE (WNR) MEDICARE (M) PART B January 25, 2018 PART B [id number] Catrina LEE PATIENT Selected Encounter This section includes the information on record at [place] for the Encounter. Date/Time Encounter Type Encounter Description Reason Provider Source Oct 17, 2024 03:00 PM CASE MANAGEMENT [facility] - [place] ICD-10-CM F41.9 Anxiety disorder, unspecified TIERNEY ADKINS Encounter Template Text not used by [place] Assessments - Encounter Diagnoses This section includes the primary and secondary diagnoses documented for the Encounter. Date/Time Primary/Secondary Diagnosis Diagnosis Name Provider Source Oct 17, 2024 03:36 PM PRIMARY Anxiety disorder, unspecified KHALIF ADKINS [facility] Oct 17, 2024 03:36 PM SECONDARY Insomnia, unspecified KHALIF ADKINS [place] Plan of Treatment: Future Appointments (+ 6 months) and Future Tests (+/- 45 days) The Plan of Treatment section includes future care activities for the patient from all [place] treatmentfacilities. This section includes future appointments and future orders which are active, pending or scheduled. Future Appointments This section includes appointments that were scheduled to occur 6 months from the date of the Encounter, up to a maximum of 20 appointments. The data comes from all [place] treatment facilities. Appointment Date/Time Appointment Type Appointme nt Facility Name Oct 24, 2024 10:00 AM AMBULATORY - NONE [place] [facility] [place] [place] [facility] Oct 24, 2024 10:00 AM [facility] Oct 24, 2024 03:00 PM AMBULATORY - PSYCHIATRY [facility] Oct 30, 2024 09:00 AM AMBULATORY - PSYCHIATRY [facility] Nov 14, 2024 11:30 AM AMBULATORY - MEDICINE [facility] Mar 23, 2025 09:00 AM [facility] Active, Pending, and Scheduled Orders This section includes a listing of several types of active, pending, and scheduled orders, including clinic medications orders, diagnostic test orders, procedure orders and consult orders; where the start date of the order is 45 days before the date of the Encounter or 45 days after the date of theEncounter. The data comes from all [place] treatment [facility]. Test Date/Time Test Type Test Details Facility Name Oct 04, 2024 01:16 PM Consult Order MENTAL HEA LT SERVICES BHIP/SPOPC OUTPT Cons [facility] Oct 04, 2024 01:19 PM Consult Order PSYCHIATRI C MEDICATION SOPC OUTPT Cons [facility] Social History: Smoking Status (Most current) and Tobacco Use (All prior to encounter date) This section includes the most current, and the historical, smoking and tobacco- related health factors from the [place] facility where the Encounter took place. Current Smoking Status This section includes the most current smoking, or tobacco-related health factor, from the [place] facility where the Encounter took place. Date/Time Current Smoking Status Comment Dannie ity Apr 28, 2024 01:00 PM VA-TOBACCO USER EVERY DAY [place] Tobacco Use History This section includes a history of the smoking, or tobacco-related health factors, that were collected on or before the date of the Encounter. The data comes from the [place] facility where the Encounter took place. Date/Time Smoking Status/Tobacco Use Comment F acility Apr 28, 2024 01:00 PM VA-TOBACCO USE ADVICE [place] Apr 28, 2024 01:00 PM VA-TOBACCO USE SAUSAGE GRINDER NO [place] Apr 28, 2024 01:00 PM VA-TOBACCO USE MED NO [facility] Apr 28, 2024 01:00 PM VA-TOBACCO USE WI 30 MIN OF [facility] Apr 28, 2024 01:00 PM VA-TOBACCO USER EVERY DAY [facility] Apr 27, 2023 01:30 PM VA-TOBACCO DOESNT USE WI 30 MIN [facility] Apr 27, 2023 01:30 PM VA-TOBACCO USE 30 YEARS OR MORE [facility] Apr 27, 2023 01:30 PM VA-TOBACCO USE ADVICE [facility] Apr 27, 2023 01:30 PM VA-TOBACCO USE SAUSAGE GRINDER NO [place] Apr 27, 2023 01:30 PM VA-TOBACCO USE MED NO [facility] 01, 2023 01:30 PM VA-TOBACCO USER EVERY DAY [facility] Jan 23, 2021 10:30 AM VA-TOBACCO USE 30 YEARS OR MORE [facility] Jan 23, 2021 10:30 AM VA-TOBACCO USE ADVICE [facility] Jan 23, 2021 10:30 AM VA-TOBACCO USE SAUSAGE GRINDER [facility] Jan 23, 2021 10:30 AM VA-TOBACCO USE MED [facility] Jan 23, 2021 10:30 AM VA-TOBACCO USE WI 30 MIN OF [facility] Jan 23, 2021 10:30 AM VA-TOBACCO USER EVERY DAY [facility] Oct 25, 2017 03:23 PM CURRENT SMOKER SPR[facility] Oct 25, 2017 03:23 PM V1-PT NOT INTEREST ED IN QUIT TOBACCO USE [facility] Dec 15, 2016 10:59 AM CURRENT [facility]ER [facility] Dec 15, 2016 10:59 AM V1-PT DECLINES REF TO TOBACCO CESS [facility] Dec 15, 2016 10:59 AM V1-PT THINKING ABO UT QUIT TOBACCO USE [facility] Jun 16, 2016 08:30 AM V1-PT DECLINES REF TO TOBACCO CESS [facility] Jun 16, 2016 08:30 AM V1-PT DECLINES TOB ACCO CESSATION MEDS [facility] Jun 16, 2016 08:30 AM V1-PT THINKING ABO UT QUIT TOBACCO USE [facility] Dec 17, 2015 09:00 AM CURRENT SMOKER smokes about one ppd of cigaretts. [facility] Dec 17, 2015 09:00 AM V1-PT THINKING ABO UT QUIT TOBACCO USE [facility] Encounter Notes: All associated encounter notes This section contains the clinical notes associated to the Encounter. Date/Time Encounter Note(s) Provider Source Oct 17, 2024 03:23 PM MENTAL HEALTH CONS ULT: LOCAL TITLE: CONSULT REPORT/CRANIAL ELECTROTHERAPY STIMULATION STANDARD TITLE: MENTAL HEALTH CONSULT DATE OF NOTE: OCT 17, 2024@15:23 ENTRY DATE: OCT 17, 2024@15:23:59 AUTHOR: KHALIF ADKINS COSIGNER: URGENCY: STATUS: COMPLETED CONSULT REPORT/CRANIAL ELECTROTHERAPY STIMULATION Has ADDENDA F: Alpha-Stim Trial [place] arrived at clinic re: Alpha-Stim Trial # 1 identified himself by name and date of [...] PRESSURE/HEART Indication: FOR HIGH BLOOD PRESSURE A/P: is utilizing Alpha-Stim for the diagnoses of anxiety and insomnia. Initial trial Jennifer Milind suggested that try the Alpha-Stim device for sleep. Eva was informed that the Alpha-Stim is an FDA indicated non-pharmacological therapy that could be helpful for managing/reducing anxiety and depression as well as promoting improved sleep. Eva was also informed that 3 trials are needed prior to being issued an Alpha-Stim device of his own, Eva agrees to trials. Assistant Accounting Manager explained what to expect, demonstrated how to set-up, and utilize the Alpha-Stim. Eva utilized the Alpha-Stim for 20 minutes and reports he noted almost instant benefit. Eva reports feeling more relaxed and experiencing a sense of calm while using the device. Eva is excited by the potential for having reduced depression and anxiety as well as improved sleep in a non-pharmacological way and made a second appointment with sheet writer to trial the Alpha-Stim again. Eva was encouraged to be mindful of anything he notes good or bad after using the Alpha-Stim and is aware that he may contact sheet writer to discuss and or we will discuss at next trial. Assistant Accounting Manager will order Eva his personal device if he continues to find therapeutic benefit and remains interest in acquiring his own Alpha-Stim after the second trial is completed. Eva will be contacted and oriented to his personal Alpha-Stim once it has arrived in the clinic. Upcoming Appointments: 10/24/2024 10:00 CWM/NO/VVC/SLEEP STUDY/AD 10/24/2023 15:00 CWM/SO/MHC/[place] 10/30/2024 09:00 CWM/SO/MHC/KERWIN 11/14/2024 11:30 CWM/SO/VVC/PACT NURSING 03/23/2025 09:00 CWM/SO/PACT 9 07/31/2025 11:00 NHM/OPTOMETRY/ITZASKI [place] understands how to utilize the Veterans Crisis Line (9-8-8 option 1) and urged to call that number at any time if they have thoughts about suicide and, or to call 911 or go to nearest E.R. if they have suicidal thoughts. RTC 10/24/2024, however [place] is aware that he can call or walk-in at anytime prior to next appointment. [place] was provided with the date/time of next appointment as well as sheet writer's contact information for use as needed. No barriers; Patient understands and agrees to current treatment plan. If has any questions, concerns, or changes in current health status will call or come in to the [facility]. 30 minutes spent in patient care and education. /alfred/ YOKO LARRY, RN, CNL MENTAL HEALTH NURSE VARNISH MIXER Signed: 10/17/2024 15:48 10/20/2024 ADDENDUM STATUS: COMPLETED [place] contacted sheet writer reporting finding the Alpha-Stim beneficial and is requesting to continue the process of obtaining his own Alpha-Stim. /alfred/ KHALIF ADKINS MSN, RN, CNL MENTAL HEALTH NURSE VARNISH MIXER Signed: 10/20/2024 09:17 KHALIF ADKINS
--- OUTSIDE RECORDS SUMMARY | 2024-10-26 15:32 | XMS_ITS | Encounter Summary ---
Author Name [facility] [place] [facility] [place] [facility] [place] Address [address] [place] [id number] Care Team Providers Care It Application Architect Name Role Phone MO ALMARAZ Primary Care [...] Patient's Relationship to Policy [place] MEDICAID MEDICAID [facility] JONNY LILIAM OLEARY Nov 30, 2019 MEDICAI D [id number] Catrina LEE PATIENT MEDICARE (WNR) MEDICARE (M) PART A January 25, 2018 PART A [id number] Catrina LEE PATIENT MEDICARE (WNR) MEDICARE (M) PART B January 25, 2018 PART B [id number] Catrina LEE PATIENT Selected Encounter This section includes the information on record at [place] for the Encounter. Date/Time Encounter Type Encounter Description Reason Provider Source Mar 29, 2024 11:00 AM PSYTX W PT 30 MINUTES PCMHI INDIV ICD-10-CM F43.0 Acute stress reaction BRIDGETTE PHELAN Encounter Template Text not used by [facility] Assessments - Encounter Diagnoses This section includes the primary and secondary diagnoses documented for the Encounter. Date/Time Primary/Secondary Diagnosis Diagnosis Name Provider Source Apr 25, 2024 10:03 PM PRIMARY Acute stress reaction BRIDGETTE PHELAN Apr 25, 2024 10:03 PM SECONDARY Anxiety disorder, unspecified BRIDGETTE PHELAN Apr 25, 2024 10:03 PM SECONDARY Malignant neoplasm of prostate BRIDGETTE PHELAN Plan of Treatment: Future Appointments (+ 6 months) and Future Tests (+/- 45 days) The Plan of Treatment section includes future care activities for the patient from [facility] [place] [facility] This section includes future appointments and future orders which are active, pending or scheduled. Future Appointments This section includes appointments that were scheduled to occur 6 months from the date of the Encounter, up to a maximum of 20 appointments. The data comes from all [place] treatment facilities. Appointment Date/Time Appointment Type Appointme nt Facility Name Apr 17, 2024 11:00 AM AM[place]ULATORY [place]ICINE [place] [facility] [place] [facility] Apr 24, 2024 11:00 AM AM[place]ULATORY [place]IC[place] [facility] [place] [facility] Apr 28, 2024 01:00 PM AMBULATORY - MEDICINE [facility] [place] [facility] May 01, 2024 11:00 AM AMBULATORY - MEDICINE [facility] [place] [facility] May 11, 2024 07:30 AM AMBULATORY - NONE [facility] [place] [facility] May 30, 2024 11:00 AM AMBULATORY - MEDICINE [place] [facility] [place] [facility] Jun 21, 2024 01:30 PM AMBULATORY - MEDICINE [facility] [place] [facility] Jun 29, 2024 07:30 AM AMBULATORY - NONE [facility] [place] [facility] Jul 31, 2024 01:30 PM AMBULATORY - MEDICINE [facility] [place] [facility] Aug 16, 2024 08:00 AM AMBULATORY - NONE [facility] [place] [facility] Aug 21, 2024 02:30 PM AMBULATORY - MEDICINE [facility] [place] [facility] Sep 14, 2024 07:30 AM AMBULATORY - NONE [facility] [place] [facility] Social History: Smoking Status (Most current) and Tobacco Use (All prior to encounter date) This section includes the most current, and the historical, smoking and tobacco- related health factors from the [place] facility where the Encounter took place. Current Smoking Status This section includes the most current smoking, or tobacco-related health factor, from the [place] facility where the Encounter took place. Date/Time Current Smoking Status Comment Dannie negrete Apr 27, 2023 01:30 PM VA-TOBACCO USER EVERY DAY [place] Tobacco Use History This section includes a history of the smoking, or tobacco-related health factors, that were collected on or before the date of the Encounter. The data comes from the [place] facility where the Encounter took place. Date/Time Smoking Status/Tobacco Use Comment F acility Apr 27, 2023 01:30 PM VA-TOBACCO USE 30 YEARS OR MORE [facility] Apr 27, 2023 01:30 PM VA-TOBACCO USE ADVICE [facility] Apr 27, 2023 01:30 PM VA-TOBACCO USE MANAGER STRATEGIC PARTNERSHIPS NO [facility] Apr 27, 2023 01:30 PM VA-TOBACCO USE MED NO [place] Apr 27, 2023 01:30 PM VA-TOBACCO USER EVERY DAY [facility] Jan 23, 2021 10:30 AM VA-TOBACCO USE 30 YEARS OR MORE [facility] Jan 23, 2021 10:30 AM VA-TOBACCO USE ADVICE [place] Jan 23, 2021 10:30 AM VA-TOBACCO USE MANAGER STRATEGIC PARTNERSHIPS NO [place] Jan 23, 2021 10:30 AM VA-TOBACCO USE MED NO [place] Jan 23, 2021 10:30 AM VA-TOBACCO USE WI 30 MIN OF WAKEUP [facility] Jan 23, 2021 10:30 AM VA-TOBACCO USER EVERY DAY [place] Oct 25, 2017 03:23 PM [facility] Oct 25, 2017 03:23 PM V1-PT NOT INTEREST ED IN QUIT TOBACCO USE [facility] Dec 15, 2016 10:59 AM [facility] Dec 15, 2016 10:59 AM V1-PT DECLINES REF TO TOBACCO CESS [facility] Dec 15, 2016 10:59 AM V1-PT THINKING ABO UT QUIT TOBACCO USE [facility] Jun 16, 2016 08:30 AM V1-PT DECLINES REF TO TOBACCO CESS [facility] Jun 16, 2016 08:30 AM V1-PT DECLINES TOB ACCO CESSATION MEDS [facility] Jun 16, 2016 08:30 AM V1-PT THINKING ABO UT QUIT TOBACCO USE [facility] Dec 17, 2015 09:00 AM CURRENT SMOKER smokes about one ppd of cigaretts. [facility] Dec 17, 2015 09:00 AM V1-PT THINKING ABO UT QUIT TOBACCO USE [facility] Encounter Notes: All associated encounter notes This section contains the clinical notes associated to the Encounter. Date/Time Encounter Note(s) Provider Source Mar 29, 2024 11:00 AM MENTAL HEALTH OUTP ATIENT NOTE: LOCAL TITLE: PRIMARY MENTAL HEALTH OUTPATIENT FOLLOW UP NOTE STANDARD TITLE: MENTAL HEALTH OUTPATIENT NOTE DATE OF NOTE: MAR 29, 2024@11:00 ENTRY DATE: MAR 29, 2024@11:18:33 AUTHOR: BRIDGETTE PHELAN EXP COSIGNER: URGENCY: STATUS: COMPLETED VISIT DURATION: 30 min VISIT TYPE: Individual, [id number], follow-up visit PCP: CATHIE WONG DIAGNOSIS: Acute Stress Prostate Cancer Anxiety Disorder, unspecified REASON FOR FOLLOW UP: Stress and Anxiety VET'S STATEMENT OF GOAL AND CONCERNS: The [place] reports that since previous [facility] visit he has done a lot of thinking. He shares that he received positive news at appointments with his PCP and his urologist and that has alleviated some of his concerns. The states he has been trying to remind himself of what he cannot control. When I get emotionally worked up, it affects me physically . The reports his sleep is somewhat improved, energy and motivation are okay . 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 INTERVENTION: Reviewed progress with use of mindful acceptance to let go of some of the stress related to his sense of responsibility and desire for control in situations that are beyond his control. Provided handouts on '5 Senses Grounding Exercise' and 'Challenging Negative Thoughts' The is scheduled to attend the biofeedback for anxiety group. He will call as needed for a future [facility] appt. DIAGNOSTIC IMPRESSIONS/PLAN: is a 69-year-old man self-referred back to [facility] for acute stress related to his health, family, and business. [place] appears to be benefitting from CBT interventions and is agreeable to referral to Biofeedback for Anxiety Group. CURRENT IMPRESSION OF LETHALITY RISK / PLAN FOR RISK MANAGEMENT: [place] presents at low risk of harm to self or others at this time. INTERDICIPLINARY TREATMENT PLANNING INVOLVING: PACT PLAN FOR FOLLOW-UP: [place] will follow-up with the Biofeedback for Anxiety group and call for [facility] follow-up visit as needed. /alfred/ BRIDGETTE PHELAN PSYD CLINICAL PSYCHOLOGIST Signed: 04/25/2024 22:03 BRIDGETTE PHELAN
--- OUTSIDE RECORDS SUMMARY | 2024-10-26 15:32 | XMS_ITS | Encounter Summary ---
Author Name [facility] [place] [facility] [place] Address [address] [place] [id number] Care Team Providers Care Resource Recovery Engineer Name Role Phone MO ALMARAZ Primary [...] LILIAM OLEARY Nov 30, 2019 MEDICAI D [id number] Catrina LEE PATIENT MEDICARE (WNR) MEDICARE (M) PART A January 25, 2018 PART A [id number] Catrina LEE PATIENT MEDICARE (WNR) MEDICARE (M) PART B January 25, 2018 PART B [id number] Catrina LEE PATIENT Selected Encounter This section includes the information on record at [place] for the Encounter. Date/Time Encounter Type Encounter Description Reason Provider Source Mar 24, 2024 09:30 AM OFFICE O/P EST MOD 30 MIN PRIMARY CARE/MEDICINE ICD-10-CM I10 Essential (primary) hypertension MARVIN,APOL INARIO IHE Encounter Template Text not used by [place] Assessments - Encounter Diagnoses This section includes the primary and secondary diagnoses documented for the Encounter. Date/Time Primary/Secondary Diagnosis Diagnosis Name Provider Source May 24, 2024 02:15 PM PRIMARY Essential (primary) hypertension JOVANA WONG [facility] [place] May 24, 2024 02:15 PM SECONDARY Tobacco use JOVANA WONG [place] Plan of Treatment: Future Appointments (+ 6 months) and Future Tests (+/- 45 days) The Plan of Treatment section includes future care activities for the patient from all [place] treatmentfacilities. This section includes future appointments and future orders which are active, pending or scheduled. Future Appointments This section includes appointments that were scheduled to occur 6 months from the date of the Encounter, up to a maximum of 20 appointments. The data comes from all [place] treatment facilities. Appointment Date/Time Appointment Type Appointme nt Facility Name Mar 29, 2024 11:00 AM AMBULATORY - PSYCHIATRY [facility] Apr 17, 2024 11:00 AM AM[facility]ORY [facility]IC[facility] [place] [facility] Apr 24, 2024 11:00 AM AMBULATORY - MEDICINE [facility] [place] [facility] Apr 28, 2024 01:00 PM AMBULATORY - MEDICINE [facility] [place] [facility] May 01, 2024 11:00 AM AMBULATORY - MEDICINE [facility] [place] [facility] May 11, 2024 07:30 AM AMBULATORY - NONE [facility] [place] [facility] May 30, 2024 11:00 AM AMBULATORY - MEDICINE [facility] [place] [facility] Jun 21, 2024 01:30 PM AMBULATORY - MEDICINE [facility] [place] [facility] Jun 29, 2024 07:30 AM AMBULATORY - NONE [facility] [place] [facility] Jul 31, 2024 01:30 PM AMBULATORY - MEDICINE [facility] [place] [facility] Aug 16, 2024 08:00 AM AMBULATORY - NONE [facility] [place] [facility] Aug 21, 2024 02:30 PM AMBULATORY - MEDICINE [facility] [place] [facility] Sep 14, 2024 07:30 AM AMBULATORY - NONE [facility] [place] [facility] Social History: Smoking Status (Most current) [...] 2023 01:30 PM VA-TOBACCO USER EVERY DAY [place] [place] Tobacco Use History This section includes a history of the smoking, or tobacco-related health factors, that were collected on or before the date of the Encounter. The data comes from the [place] facility where the Encounter took place. 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 [place] Jan 23, 2021 10:30 AM VA-TOBACCO USE MED NO [place] Jan 23, 2021 10:30 AM VA-TOBACCO USE WI 30 MIN OF WAKEUP [facility] [place] Jan 23, 2021 10:30 AM VA-TOBACCO USER EVERY DAY [place] [place] Oct 25, 2017 03:23 PM CURRENT SMOKER [facility] Oct 25, 2017 03:23 PM V1-PT NOT INTEREST ED IN QUIT TOBACCO USE [place] [place] Dec 15, 2016 10:59 AM CURRENT SMOKER [facility] Dec 15, 2016 10:59 AM V1-PT DECLINES REF TO TOBACCO CESS [facility] Dec 15, 2016 10:59 AM V1-PT THINKING ABO UT QUIT TOBACCO USE [facility] [place] Jun 16, 2016 08:30 AM V1-PT DECLINES REF TO TOBACCO CESS [facility] Jun 16, 2016 08:30 AM V1-PT DECLINES TOB ACCO CESSATION MEDS [place] Jun 16, 2016 08:30 AM V1-PT THINKING ABO UT QUIT TOBACCO USE [facility] [place] Dec 17, 2015 09:00 AM CURRENT SMOKER smokes about one ppd of cigaretts. [facility] Dec 17, 2015 09:00 AM V1-PT THINKING ABO UT QUIT TOBACCO USE [facility] [place] Encounter Notes: All associated encounter notes This section contains the clinical notes associated to the Encounter. Date/Time Encounter Note(s) Provider Source Mar 24, 2024 09:46 AM ADDENDUM: LOCAL TITLE: Addendum STANDARD TITLE: ADDENDUM DATE OF NOTE: MAR 24, 2024@09:46:42 ENTRY DATE: MAR 24, 2024@09:46:43 AUTHOR: ALAN ALONSO EXP COSIGNER: URGENCY: STATUS: COMPLETED Please request last visit note from: Dr. Trevon Brown M.D Address: [address] [place] [address] Thanks! /es/ ALAN ALONSO LPN LPN Signed: 03/24/2024 09:47 Receipt Acknowledged By: 03/24/2024 10:20 /es/ PETE GIPSON AMSA --- Original Document --- 03/24/24 CLINICAL REMINDERS/NURSING: Avg Risk Colorectal Cancer Screen: AVERAGE RISK colorectal cancer screening is due based on information available to this clinical reminder Patient declined screening/surveillance. REPORTS HIS CANCER DRKwaku RECOMMENDS NOT GETTING ANY MORE COLONOSCOPIES. RECORDS REQUESTED. Pneumococcal Conjugate Vaccine (PCV15/PCV20): Refuses PCV vaccine Immunization: PNEUMOCOCCAL CONJUGATE, UNSPECIFIED FORMULATION Refusal Reason: PATIENT DECISION Patient refuses all immunization(s) in the PneumoPCV group Date Documented: 03/24/24 09:43 Influenza Immunization: No influenza vaccination was received during the recent influenza season. COVID-19 Immunization: Refused Moderna Monovalent COVID-19 vaccine Immunization: COVID-19 (MODERNA), MRNA, LNP-S, PF, 50 MCG/0.5 ML (AGES 12+ YEARS) Refusal Reason: PATIENT DECISION Patient refuses all immunization(s) in the COVID-19 group Date Documented: 03/24/24 09:43 Tdap Immunization: The patient declines to receive the recommended dose of Tdap vaccine. Immunization: TDAP Refusal Reason: PATIENT DECISION Patient refuses all immunization(s) in the TDAP group Date Documented: 03/24/24 09:43 HTN Assess for Elevated BP>=140/90: The patient was counseled on the importance of regular exercise and/or physical activity in the control of blood pressure. The patient was counseled on the importance of diet and weight loss/ control in the regulation of blood pressure. Herpes Zoster (Shingles) Vaccine: The patient declines to receive the recommended dose of zoster (shingles) vaccine. Immunization: ZOSTER RECOMBINANT Refusal Reason: PATIENT DECISION Patient refuses all immunization(s) in the ZOSTER group Date Documented: 03/24/24 09:43 MED REC COMPLETED BY PROVIDER DURING VISIT. /alfred/ ALAN ALONSO LPN LPN Signed: 03/24/2024 09:46 03/24/2024 ADDENDUM STATUS: COMPLETED Supervisor [employer] requested last office note from Dr. Brown. /alfred/ [facility]SON [facility] Signed: 03/24/2024 10:20 ALAN ALONSO [facility] Mar 24, 2024 09:42 AM PREVENTIVE MEDICIN E NURSING NOTE: LOCAL TITLE: CLINICAL REMINDERS/NURSING STANDARD TITLE: PREVENTIVE MEDICINE NURSING NOTE DATE OF NOTE: MAR 24, 2024@09:42 ENTRY DATE: MAR 24, 2024@09:42:49 AUTHOR: ALAN ALONSO EXP COSIGNER: URGENCY: STATUS: COMPLETED CLINICAL REMINDERS/NURSING Has ADDENDA Avg Risk Colorectal Cancer Screen: AVERAGE RISK colorectal cancer screening is due based on information available to this clinical reminder Patient declined screening/surveillance. REPORTS HIS CANCER DRKwaku RECOMMENDS NOT GETTING ANY MORE COLONOSCOPIES. RECORDS REQUESTED. Pneumococcal Conjugate Vaccine (PCV15/PCV20): Refuses PCV vaccine Immunization: PNEUMOCOCCAL CONJUGATE, UNSPECIFIED FORMULATION Refusal Reason: PATIENT DECISION Patient refuses all immunization(s) in the PneumoPCV group Date Documented: 03/24/24 09:43 Influenza Immunization: No influenza vaccination was received during the recent influenza season. COVID-19 Immunization: Refused Moderna Monovalent COVID-19 vaccine Immunization: COVID-19 (MODERNA), MRNA, LNP-S, PF, 50 MCG/0.5 ML (AGES 12+ YEARS) Refusal Reason: PATIENT DECISION Patient refuses all immunization(s) in the COVID-19 group Date Documented: 03/24/24 09:43 Tdap Immunization: The patient declines to receive the recommended dose of Tdap vaccine. Immunization: TDAP Refusal Reason: PATIENT DECISION Patient refuses all immunization(s) in the TDAP group Date Documented: 03/24/24 09:43 HTN Assess for Elevated BP>=140/90: The patient was counseled on the importance of regular exercise and/or physical activity in the control of blood pressure. The patient was counseled on the importance of diet and weight loss/ control in the regulation of blood pressure. Herpes Zoster (Shingles) Vaccine: The patient declines to receive the recommended dose of zoster (shingles) vaccine. Immunization: ZOSTER RECOMBINANT Refusal Reason: PATIENT DECISION Patient refuses all immunization(s) in the ZOSTER group Date Documented: 03/24/24 09:43 MED REC COMPLETED BY PROVIDER DURING VISIT. /alfred/ ALAN ALONSO LPN LPN Signed: 03/24/2024 09:46 03/24/2024 ADDENDUM STATUS: COMPLETED Please request last visit note from: Dr. Trevon Brown M.D Address: [address] [place] [address] Thanks! /aaliyah ALNOSO LPN LPN Signed: 03/24/2024 09:47 Receipt Acknowledged By: 03/24/2024 10:20 /aaliyah KAY 03/24/2024 ADDENDUM STATUS: COMPLETED Supervisor [employer] requested last office note from Dr. Brown. 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 I am super stressed . The reports he has been having a difficult [...] issues and buy a beach house in [place]. So much is out of my control . Feeling much better abd receiving good supoprt and treatment with MH. Discussed results of last HST (severe GERTRUDIS). 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 Reviewed Dr. Collins (Urology) notes on plans for monitoring PSA in four months. Problem list and medications reviewed. 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 Continues to smoke, stressed. Continue to follow with . HTN - return in one week; discussed findings of sever GERTRUDIS as well as other factors which are contirbuting to higher elevations. Thus far asx. Plan of care discussed with patient who articulates understanding. Chronic issues reviewed briefly; no changes to management unless specified above. RTC one week TIME ATTESTATION: Time spent directly with the [...] of labs/studies and medication list. Upcoming Appointments: 04/28/2024 13:00 CWM/SO/PACT 9 05/01/2024 11:00 CWM/SO/BIOFEEDBACK GRP 05/11/2024 07:30 [facility] DMD 2 06/21/2024 13:30 CWM/SO/PACT 9 07/31/2024 13:30 [place]/OPTOMETRY/[place] 03/23/2025 09:00 CWM/SO/PACT 9 Med Reconciliation: Active Outpatient Medications (including Supplies): No Medications Found Medication (Local) Status No local medications found. Medication (Remote) Status No remote medications found. /alfred/ CATHIE WONG MD PHYSICIAN Signed: 05/24/2024 14:15 CATHIE WONG [facility] [place]
--- OUTSIDE RECORDS SUMMARY | 2024-10-26 15:32 | XMS_ITS | Encounter Summary ---
Author Name [facility] [facility] [place] [facility] [place] Address [address] [place] [address] Care Team Providers Care Betting Clerks Name Role Phone MO ALMARAZ Primary Care Provider [facility] Insurance Providers: All historical and current [...] Patient's Relationship to Policy Rucker MEDICAID MEDICAID [facility] LILIAM ANIRUDH Nov 30, 2019 MEDICAI D [id number] Catrina LEE PATIENT MEDICARE (WNR) MEDICARE (M) PART A January 25, 2018 PART A [id number] aCtrina LEE PATIENT MEDICARE (WNR) MEDICARE (M) PART B January 25, 2018 PART B [id number] Catrina LEE PATIENT Selected Encounter This section includes the information on record at [place] for the Encounter. Date/Time Encounter Type Encounter Description Reason Pro vider Source May 15, 2024 11:00 AM Outpatient Encounter [facility] TREATMENT IHE Encounter Template Text not used by VA Plan of Treatment: Future Appointments (+ 6 months) and Future Tests (+/- 45 days) The Plan of Treatment section includes future care activities for the patient from all VA treatmentfacilities. This section includes future appointments and future orders which are active, pending or scheduled. Future Appointments This section includes appointments that were scheduled to occur 6 months from the date of the Encounter, up to a maximum of 20 appointments. The data comes from all [place] treatment facilities. Appointment Date/Time Appointment Type Appointme nt Facility Name May 30, 2024 11:00 AM AMBULATORY - MEDICINE [place] [facility] [place] [facility] Jun 21, 2024 01:30 PM AMBULATORY - MEDICINE [place] [facility] [place] [facility] Jun 29, 2024 07:30 AM AMBULATORY - NONE [facility] [place] [facility] Jul 31, 2024 01:30 PM AMBULATORY - MEDICINE [place] [facility] [place] [facility] Aug 16, 2024 08:00 AM AMBULATORY - NONE [facility] [place] [facility] Aug 21, 2024 02:30 PM AMBULATORY - MEDICINE [place] [facility] [place] [facility] Sep 14, 2024 07:30 AM AMBULATORY - NONE [place] [facility] [place] [facility] Oct 02, 2024 10:00 AM AMBULATORY - MEDICINE [place] [facility] [place] [facility] Oct 04, 2024 08:00 AM AMBULATORY - PSYCHIATRY [facility] Oct 17, 2024 03:00 PM AMBULATORY - PSYCHIATRY [facility] Oct 24, 2024 10:00 AM AMBULATORY - NONE [place] [facility] [place] [facility] Oct 24, 2024 10:00 AM AMBULATORY - MEDICINE [facility] Oct 24, 2024 03:00 PM AMBULATORY - PSYCHIATRY [facility] Oct 30, 2024 09:00 AM AMBULATORY - PSYCHIATRY [facility] Nov 14, 2024 11:30 AM AMBULATORY - MEDICINE [facility] Social History: Smoking Status (Most current) and Tobacco Use (All prior to encounter date) This section includes the most current, and the historical, smoking and tobacco- related health factors from the [place] facility where the Encounter took place. Current Smoking Status This section includes the most current smoking, or tobacco-related health factor, from the [place] facility where the Encounter took place. Date/Time Current Smoking Status Simon negrete Apr 28, 2024 01:00 PM VA-TOBACCO USER EVERY DAY [facility] Tobacco Use History This section includes a history of the smoking, or tobacco-related health factors, that were collected on or before the date of the Encounter. The data comes from the [place] facility where the Encounter took place. Date/Time Smoking Status/Tobacco Use Comment F acility Apr 28, 2024 01:00 PM VA-TOBACCO USE ADVICE [facility] Apr 28, 2024 01:00 PM VA-TOBACCO USE IV RN NO [facility] Apr 28, 2024 01:00 PM VA-TOBACCO USE MED NO [facility] Apr 28, 2024 01:00 PM VA-TOBACCO USE [place] 30 MIN OF WAKEUP [facility] Apr 28, 2024 01:00 PM VA-TOBACCO USER EVERY DAY [facility] Apr 27, 2023 01:30 PM VA-TOBACCO DOES[place] [address] [facility] Apr 27, 2023 01:30 PM VA-TOBACCO USE 30 YEARS OR MORE [facility] Apr 27, 2023 01:30 PM VA-TOBACCO USE ADVICE [facility] Apr 27, 2023 01:30 PM VA-TOBACCO USE IV RN NO [facility] Apr 27, 2023 01:30 PM VA-TOBACCO USE MED NO [facility] Apr 27, 2023 01:30 PM VA-TOBACCO USER EVERY DAY [facility] Jan 23, 2021 10:30 AM VA-TOBACCO USE 30 YEARS OR MORE [facility] Jan 23, 2021 10:30 AM VA-TOBACCO USE ADVICE [facility] Jan 23, 2021 10:30 AM VA-TOBACCO USE IV RN NO [facility] Jan 23, 2021 10:30 AM VA-TOBACCO USE MED [facility] Jan 23, 2021 10:30 AM VA-TOBACCO [place] [address] [facility] Jan 23, 2021 10:30 AM VA-TOBACCO USER EVERY DAY [facility] Oct 25, 2017 03:23 PM CURRENT [facility]MOKER [facility] Oct 25, 2017 03:23 PM V1-PT NOT INTEREST ED IN QUIT TOBACCO USE [facility] Dec 15, 2016 10:59 AM CURRENT SMOKER [facility] Dec 15, 2016 10:59 AM V1-PT DECLINES REF TO TOBACCO CESS [facility] Dec 15, 2016 10:59 AM V1-PT THINKING ABO UT QUIT TOBACCO USE [facility] Jun 16, 2016 08:30 AM V1-PT DECLINES REF TO TOBACCO CESS [facility] Jun 16, 2016 08:30 AM V1-PT DECLINES TOB ACCO CESSATION MEDS [facility] Jun 16, 2016 08:30 AM V1-PT THINKING ABO UT QUIT TOBACCO USE [facility] Dec 17, 2015 09:00 AM CURRENT SMOKER smokes about one ppd of cigaretts. [facility] Dec 17, 2015 09:00 AM V1-PT THINKING ABO UT QUIT TOBACCO USE [facility] Encounter Notes: All associated encounter notes This section contains the clinical notes associated to the Encounter. Date/Time Encounter Note(s) Provider Source May 16, 2024 11:15 AM ADDENDUM: LOCAL TITLE: Addendum STANDARD TITLE: ADDENDUM DATE OF NOTE: MAY 16, 2024@11:15:40 ENTRY DATE: MAY 16, 2024@11:15:41 AUTHOR: LAINE DELUNA EXP COSIGNER: URGENCY: STATUS: COMPLETED Spoke with he can not make next group on Wednesday. Therefore will meet individually on 05/30 at 11am. alerting eliza to rtc in chart. /alfred/ Laine Deluna, PhD Clinical Psychologist Signed: 05/16/2024 12:25 Receipt Acknowledged By: 05/16/2024 12:40 /aaliyah KAY --- Original Document --- 05/15/24 ADMINISTRATIVE NOTE: ELIZA spoke with the . Appt for today 05/15/24 with Biofeedback group has been cancelled by the clinic. Informed that someone will be calling him back to reschedule. /alfred/ NICHOLAS KAY Signed: 05/15/2024 08:58 05/16/2024 ADDENDUM STATUS: COMPLETED Doctor Chiropractic scheduled appt on 05/30/24 f2f 60 mins @ 11:00 am. /alfred/ PETE KAY Signed: 05/16/2024 12:40 LAINE DELUNA [facility] May 15, 2024 08:57 AM ADMINISTRATIVE NOT E: LOCAL TITLE: ADMINISTRATIVE NOTE STANDARD TITLE: ADMINISTRATIVE NOTE DATE OF NOTE: MAY 15, 2024@08:57 ENTRY DATE: MAY 15, 2024@08:57:39 AUTHOR: NICHOLAS MONTERO EXP COSIGNER: URGENCY: STATUS: COMPLETED ADMINISTRATIVE NOTE Has ADDENDA ELIZA spoke with the . Appt for today 05/15/24 with Biofeedback group has been cancelled by the clinic. Informed that someone will be calling him back to reschedule. /alfred/ NICHOLAS KAY Signed: 05/15/2024 08:58 05/16/2024 ADDENDUM STATUS: COMPLETED Spoke with [facility] he can not make next group on Wednesday. Therefore will meet individually on 05/30 at 11am. alerting eliza to rtc in chart. /es/ Laine Deluna, PhD Clinical Psychologist Signed: 05/16/2024 12:25 Receipt Acknowledged By: 05/16/2024 12:40 /alfred/ PETE KAY 05/16/2024 ADDENDUM STATUS: COMPLETED Doctor Chiropractic scheduled appt on 05/30/24 f2f 60 mins @ 11:00 am. /alfred/ PETE KAY Signed: 05/16/2024 12:40 NICHOLAS MONTERO [facility]
--- OUTSIDE RECORDS SUMMARY | 2024-10-26 15:32 | XMS_ITS | Encounter Summary ---
Author Name [facility] [place] [facility] [place] Address [address] [place] [id number] Care Team Providers Care Facepiece Line Supervisor Name Role Phone MO ALMARAZ Primary Care [...] Rucker MEDICAID MEDICAID [facility] LILIAM ANIRUDH Nov 30, 2019 MEDICAI D [id number] Catrina LEE PATIENT MEDICARE (WNR) MEDICARE (M) PART A January 25, 2018 PART A [id number] Catrina LEE PATIENT MEDICARE (WNR) MEDICARE (M) PART B January 25, 2018 PART B [id number] Catrina LEE PATIENT Selected Encounter This section includes the information on record at [place] for the Encounter. Date/Time Encounter Type Encounter Description Reason Provider Source Oct 04, 2024 08:00 AM OFF/OP EST JANUARY X REQ PHY/QHP [facility] - IND ICD-10-CM Z71.89 Other specified counseling PRISCA ABERNATHY Encounter Template Text not used by [place] Assessments - Encounter Diagnoses This section includes the primary and secondary diagnoses documented for the Encounter. Date/Time Primary/Secondary Diagnosis Diagnosis Name Provider Source Oct 04, 2024 01:51 PM PRIMARY Other specified counseling PRISCA ABERNATHY Plan of Treatment: Future Appointments (+ 6 months) and Future Tests (+/- 45 days) The Plan of Treatment section includes future care activities for the patient from all [place] treatmentfacilities. This section includes future appointments and future orders which are active, pending or scheduled. Future Appointments This section includes appointments that were scheduled to occur 6 months from the date of the Encounter, up to a maximum of 20 appointments. The data comes from all [place] treatment [facility]. Appointment Date/Time Appointment Type Appointme nt Facility Name Oct 17, 2024 03:00 PM AMBULATORY - PSYCHIATRY [facility] Oct 24, 2024 10:00 AM AMBULATORY - NONE [place] [facility] [place] [place] [facility] Oct 24, 2024 10:00 AM AMBULATORY - MEDICINE [facility] Oct 24, 2024 03:00 PM AMBULATORY - PSYCHIATRY [facility] Oct 30, 2024 09:00 AM AMBULATORY - PSYCHIATRY [facility] Nov 14, 2024 11:30 AM AMBULATORY - MEDICINE [facility] Mar 23, 2025 09:00 AM AMBULATORY [facility] Active, Pending, and Scheduled Orders This section includes a listing of several types of active, pending, and scheduled orders, including clinic medications orders, diagnostic test orders, procedure orders and consult orders; where the start date of the order is 45 days before the date of the Encounter or 45 days after the date of theEncounter. The data comes from all [facility]. Test Date/Time Test Type Test Details Facility Name Oct 04, 2024 01:16 PM Consult Order MENTAL HEA LTH SERVICES BHIP/SPOPC OUTPT Cons [facility] Oct 04, 2024 01:19 PM Consult Order PSYCHIATRI C MEDICATION SOPC OUTPT Cons [facility] [employer] [facility] Social History: Smoking Status (Most current) and Tobacco Use (All prior to encounter date) This section includes the most current, and the historical, smoking and tobacco- related health factors from the [place] facility where the Encounter took place. Current Smoking Status This section includes the most current smoking, or tobacco-related health factor, from the [place] facility where the Encounter took place. Date/Time Current Smoking Status Comment Facil ity Apr 28, 2024 01:00 PM VA-TOBACCO USER EVERY DAY [place] Tobacco Use History This section includes a history of the smoking, or tobacco-related health factors, that were collected on or before the date of the Encounter. The data comes from the [place] facility where the Encounter took place. Date/Time Smoking Status/Tobacco Use Comment F acility Apr 28, 2024 01:00 PM VA-TOBACCO USE ADVICE [place] Apr 28, 2024 01:00 PM VA-TOBACCO USE DIRECTOR OF RETAIL OPERATIONS NO [place] Apr 28, 2024 01:00 PM VA-TOBACCO USE MED [facility] Apr 28, 2024 01:00 PM VA-TOBACCO USE [place] [facility] Apr 28, 2024 01:00 PM VA-TOBACCO USER EVERY DAY [place] Apr 27, 2023 01:30 PM VA-TOBACCO DOESNT USE WI 30 MIN [facility] Apr 27, 2023 01:30 PM VA-TOBACCO USE 30 YEARS OR MORE [place] Apr 27, 2023 01:30 PM VA-TOBACCO USE ADVICE [place] Apr 27, 2023 01:30 PM VA-TOBACCO USE DIRECTOR OF RETAIL OPERATIONS NO [place] Apr 27, 2023 01:30 PM VA-TOBACCO USE MED NO [place] Apr 27, 2023 01:30 PM VA-TOBACCO USER EVERY DAY [place] Jan 23, 2021 10:30 AM VA-TOBACCO USE 30 YEARS OR MORE [place] Jan 23, 2021 10:30 AM VA-TOBACCO USE ADVICE [place] Jan 23, 2021 10:30 AM VA-TOBACCO USE DIRECTOR OF RETAIL OPERATIONS NO [place] Jan 23, 2021 10:30 AM VA-TOBACCO USE MED NO [place] Jan 23, 2021 10:30 AM VA-TOBACCO USE WI 30 MIN OF [facility] Jan 23, 2021 10:30 AM VA-TOBACCO USER EVERY DAY [place] Oct 25, 2017 03:23 PM CURRENT [facility]ER [facility] Oct 25, 2017 03:23 PM V1-PT NOT INTEREST ED IN QUIT TOBACCO USE [place] Dec 15, 2016 10:59 AM CURRENT SMOKER [facility] Dec 15, 2016 10:59 AM V1-PT DECLINES REF TO TOBACCO CESS [facility] Dec 15, 2016 10:59 AM V1-PT THINKING ABO UT QUIT TOBACCO USE [place] Jun 16, 2016 08:30 AM V1-PT DECLINES REF TO TOBACCO CESS [facility] Jun 16, 2016 08:30 AM V1-PT DECLINES TOB ACCO CESSATION MEDS [place] Jun 16, 2016 08:30 AM V1-PT THINKING ABO UT QUIT TOBACCO USE [place] Dec 17, 2015 09:00 AM CURRENT SMOKER smokes about one ppd of cigaretts. [place] Dec 17, 2015 09:00 AM V1-PT THINKING ABO UT QUIT TOBACCO USE [place] Encounter Notes: All associated encounter notes This section contains the clinical notes associated to the Encounter. Date/Time Encounter Note(s) Provider Source Oct 04, 2024 01:21 PM SOCIAL WORK NOTE: LOCAL TITLE: SOCIAL WORK NOTE STANDARD TITLE: SOCIAL WORK NOTE DATE OF NOTE: OCT 04, 2024@13:21 ENTRY DATE: OCT 04, 2024@13:21:47 AUTHOR: PRISCA ABERNATHY EXP COSIGNER: URGENCY: STATUS: COMPLETED Avalon is seen at his initiation. 69 y/o, w/m, , retired, AF, VN . He is rated 100% for prostate cancer. He was diagnosed w prostate cancer , initially stage 4, aggressive type. He was evaluated by a few large institutions, including [facility]. He didn't agree w any of their treatment options, he then pursued holistic medicine. After extensive research he found a doctor in [place]. At this time he remains under the care of Dr Brown, he is on a maintenance chemotherapy and his cancer is in remission, I haven't felt this good in years . He estimates he has already spent about $75K for his treatments, he has no regrets. 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 He complains of poor sleep, difficulty staying asleep. His BP has become a concern, he wonders if this is related to his poor sleep, along w his anxiety. He wonders if he has PTSD. He would like to discuss medications w a prescriber. was informed of [facility], he is interested, consult placed. Denies any substance use, maintains a Paleo diet. Avalon was cooperative, friendly, slightly anxious, able to express himself well. consults placed. /alfred/ JANE Olvera QUARRY EXTRACTION WORKER Signed: 10/04/2024 13:51 PRISCA ABERNATHY [place]
--- OUTSIDE RECORDS SUMMARY | 2024-10-26 15:32 | XMS_ITS | Encounter Summary ---
Author Name [facility] Address [address] [place] [id number] Care Team Providers Care Front Desk Manager Name Role Phone MO ALMARAZ Primary Care [...] LILIAM OLEARY Nov 30, 2019 MEDICAI D [id number] Catrina LEE PATIENT MEDICARE (WNR) MEDICARE (M) PART A January 25, 2018 PART A [id number] Catrina LEE PATIENT MEDICARE (WNR) MEDICARE (M) PART B January 25, 2018 PART B [id number] Catrina LEE PATIENT Selected Encounter This section includes the information on record at [facility] for the Encounter. Date/Time Encounter Type Encounter Description Reason Provider Source Jun 21, 2024 01:30 PM OFFICE O/P EST MOD 30 MIN PRIMARY CARE/MEDICINE ICD-10-CM Z63.79 Other stressful life events affecting family and household JOVANA WONG Encounter Template Text not used by [facility] Assessments - Encounter Diagnoses This section includes the primary and secondary diagnoses documented for the Encounter. Date/Time Primary/Secondary Diagnosis Diagnosis Name Provider Source Jun 22, 2024 04:33 PM PRIMARY Other stressful life events affecting family and household JOVANA WONG [facility] Jun 22, 2024 04:33 PM SECONDARY Essential (primary) hypertension JOVANA WONG [place] Jun 22, 2024 04:33 PM SECONDARY Other sleep apnea JOVANA WONG [place] Jun 22, 2024 04:33 PM SECONDARY Tobacco use JOVANA WONG [facility] Plan of Treatment: Future Appointments (+ 6 months) and Future Tests (+/- 45 days) The Plan of Treatment section includes future care activities for the patient from all [facility]. This section includes future appointments and future orders which are active, pending or scheduled. Future Appointments This section includes appointments that were scheduled to occur 6 months from the date of the Encounter, up to a maximum of 20 appointments. The data comes from all [place] treatment facilities. Appointment Date/Time Appointment Type Appointme nt Facility Name Jun 29, 2024 07:30 AM AMBULATORY - NONE [facility] [place] [facility] Jul 31, 2024 01:30 PM AMBULATORY - MEDICINE [facility] [place] [facility] Aug 16, 2024 08:00 AM AMBULATORY - NONE [facility] [place] [facility] Aug 21, 2024 02:30 PM AMBULATORY - MEDICINE [facility] [place] [facility] Sep 14, 2024 07:30 AM AMBULATORY - NONE [facility] [place] [facility] Oct 02, 2024 10:00 AM AMBULATORY - MEDICINE [facility] [place] [facility] Oct 04, 2024 08:00 AM AMBULATORY - PSYCHIATRY [facility] Oct 17, 2024 03:00 PM AMBULATORY - PSYCHIATRY [facility] Oct 24, 2024 10:00 AM AMBULATORY - NONE [facility] [place] [facility] Oct 24, 2024 10:00 AM AMBULATORY - [place]IC[place] [facility] [place] [facility] Oct 24, 2024 03:00 PM AMBULATORY - PSYCHIATRY [facility] Oct 30, 2024 09:00 AM AMBULATORY - PSYCHIATRY [facility] Nov 14, 2024 11:30 AM AMBULATORY - MEDICINE [place] Social History: Smoking Status (Most current) and Tobacco Use (All prior to encounter date) This section includes the most current, and the historical, smoking and tobacco- related health factors from the [place] facility where the Encounter took place. Current Smoking Status This section includes the most current smoking, or tobacco-related health factor, from the [place] facility where the Encounter took place. Date/Time Current Smoking Status Comment Facil ity Apr 28, 2024 01:00 PM VA-TOBACCO USER EVERY DAY [facility] Tobacco Use History This section includes a history of the smoking, or tobacco-related health factors, that were collected on or before the date of the Encounter. The data comes from the [place] facility where the Encounter took place. Date/Time Smoking Status/Tobacco Use Comment F acility Apr 28, 2024 01:00 PM VA-TOBACCO USE ADVICE [facility] Apr 28, 2024 01:00 PM VA-TOBACCO USE SENIOR SECURITY ANALYST NO [facility] Apr 28, 2024 01:00 PM VA-TOBACCO USE MED NO [facility] Apr 28, 2024 01:00 PM VA-TOBACCO USE [place] 30 MIN OF [facility] Apr 28, 2024 01:00 PM VA-TOBACCO USER EVERY DAY [facility] Apr 27, 2023 01:30 PM VA-TOBACCO DOESNT USE WI 30 MIN [facility] Apr 27, 2023 01:30 PM VA-TOBACCO USE 30 YEARS OR MORE [facility] Apr 27, 2023 01:30 PM VA-TOBACCO USE ADVICE [facility] Apr 27, 2023 01:30 PM VA-TOBACCO USE SENIOR SECURITY ANALYST NO [facility] Apr 27, 2023 01:30 PM VA-TOBACCO USE MED NO [facility] Apr 27, 2023 01:30 PM VA-TOBACCO USER EVERY DAY [facility] Jan 23, 2021 10:30 AM VA-TOBACCO USE 30 YEARS OR MORE [facility] Jan 23, 2021 10:30 AM VA-TOBACCO USE ADVICE [facility] Jan 23, 2021 10:30 AM VA-TOBACCO USE SENIOR SECURITY ANALYST NO [facility] Jan 23, 2021 10:30 AM VA-TOBACCO USE MED NO [facility] Jan 23, 2021 10:30 AM VA-TOBACCO USE [place] 30 MIN OF [facility] Jan 23, 2021 10:30 AM VA-TOBACCO USER EVERY DAY [facility] Oct 25, 2017 03:23 PM CURRENT SMOKER DENISE ELIER Oct 25, 2017 03:23 PM V1-PT NOT INTEREST ED IN QUIT TOBACCO USE [facility] Dec 15, 2016 10:59 AM CURRENT SMOKER [facility] Dec 15, 2016 10:59 AM V1-PT DECLINES REF TO TOBACCO CESS [facility] Dec 15, 2016 10:59 AM V1-PT THINKING ABO UT QUIT TOBACCO USE [facility] Jun 16, 2016 08:30 AM V1-PT DECLINES REF TO TOBACCO CESS [facility] Jun 16, 2016 08:30 AM V1-PT DECLINES TOB ACCO CESSATION [facility]S [facility] Jun 16, 2016 08:30 AM V1-PT THINKING ABO UT QUIT TOBACCO USE [facility] Dec 17, 2015 09:00 AM CURRENT SMOKER smokes about one ppd of cigaretts. [facility] Dec 17, 2015 09:00 AM V1-PT THINKING ABO UT QUIT TOBACCO USE [facility] Encounter Notes: All associated encounter notes This section contains the clinical notes associated to the Encounter. Date/Time Encounter Note(s) Provider Source Jun 21, 2024 01:36 PM PREVENTIVE MEDICIN E NURSING NOTE: LOCAL TITLE: CLINICAL REMINDERS/NURSING STANDARD TITLE: PREVENTIVE MEDICINE NURSING NOTE DATE OF NOTE: JUN 21, 2024@13:36 ENTRY DATE: JUN 21, 2024@13:36:04 AUTHOR: ALAN ALONSO EXP COSIGNER: URGENCY: STATUS: COMPLETED Home Telehealth ([facility]) Referral: Patient declines participation [facility] at this time. Pneumococcal Conjugate Vaccine (PCV15/PCV20): Refuses PCV vaccine Immunization: PNEUMOCOCCAL CONJUGATE, UNSPECIFIED FORMULATION Refusal Reason: PATIENT DECISION Patient refuses the PNEUMOCOCCAL CONJUGATE, UNSPECIFIED FORMULATION immunization Date Documented: 06/21/24 13:36 Influenza Immunization: Deferral / Refusal The patient declines to receive the recommended dose of seasonal influenza vaccine. Immunization: INFLUENZA, UNSPECIFIED FORMULATION Refusal Reason: PATIENT DECISION Patient refuses all immunization(s) in the FLU group Date Documented: 06/21/24 13:36 COVID-19 Immunization: Refused Moderna Monovalent COVID-19 vaccine Immunization: COVID-19 (MODERNA), MRNA, LNP-S, PF, 50 MCG/0.5 ML (AGES 12 + YEARS) Refusal Reason: PATIENT DECISION Patient refuses the COVID-19 (MODERNA), MRNA, LNP-S, PF, 50 MCG/0.5 ML (AGES 12+ YEARS) immunization Date Documented: 06/21/24 13:36 Tdap Immunization: The patient declines to receive the recommended dose of Tdap vaccine. Immunization: TDAP Refusal Reason: PATIENT DECISION Patient refuses all immunization(s) in the TDAP group Date Documented: 06/21/24 13:37 Herpes Zoster (Shingles) Vaccine: The patient declines to receive the recommended dose of zoster (shingles) vaccine. Immunization: ZOSTER RECOMBINANT Refusal Reason: PATIENT DECISION Patient refuses all immunization(s) in the ZOSTER group Date Documented: 06/21/24 13:37 MED REC COMPLETED BY PROVIDER DURING THE VISIT. 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 Patient has been dealing with multiple stressors for which he reports have not changed but feels that he is able to management. In particular ascribes to change from medication music. Still smoking Problem list and medications reviewed. Last Labs: October 2023 Active problems - Computerized Problem List is the source for the followin. Diverticular disease of colon 2. History of polyp of colon tubular adenomas with surveillance endoscopy by ORAL Mauro 3. Prostate cancer 4. HT - Hypertension change to Lis/HCTZ 21 Nov 2020 5. Osteoarthritis 6. Nicotine dependence 7. Tobacco user PPD 8. Anxiety 9. 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 Patient [...] to home health/hypnosis. Declines smoking cessation counseling. Plan of care discussed with patient who articulates understanding. Chronic issues reviewed briefly; no changes to management unless specified above. RTC as per orders TIME ATTESTATION: Time spent directly with the [...] of labs/studies and medication list. Upcoming Appointments: 06/21/2024 13:30 CWM/SO/PACT 9 06/29/2024 07:30 NHM DENTAL DMD 2 07/27/2024 07:30 NHM DENTAL DMD 2 07/31/2024 13:30 NHM/OPTOMETRY/[place] 03/23/2025 09:00 CWM/SO/PACT 9 Med Reconciliation: Active Outpatient Medications (including Supplies): No Medications Found Medication (Local) Status LORAZEPAM 1MG TAB Directions: TAKE ONE TABLET BY MOUTH TWICE DAILY NEEDED FOR ANXIETY Quantity: 12 for 30 days Provider: CATHIE WONG Expires: 05/28/24 Status: Medication (Remote) Status No remote medications found. /alfred/ CATHIE WONG MD PHYSICIAN Signed: 06/22/2024 16:33 CATHIE WONG [facility]
== END 2024-10-26 11:28 | disposition home or self-care (01) ==
LOC: HO.HMGCLDS 11:27
PROVIDERS: Visit Provider Nurse Practitioner Primary Care
DX: C61 Malignant neoplasm of prostate (principal)
CPT/HCPCS: 36415; 80053; 84100; 84550; 85025

== ENCOUNTER 2024-11-02 09:17 | Outpatient (REF) | payer OTHER, SELFPAY ==
--- OUTSIDE RECORDS SUMMARY | 2024-11-02 09:22 | XMS_ITS | Encounter Summary ---
Author Name [facility] [place] [facility] [facility] [place] Address [address] [place] [id number] Care Team Providers Care Mud Analysis Well Logging Captain Name Role Phone MO ALMARAZ Primary Care [...] LILIAM ANIRUDH Nov 30, 2019 MEDICAI D [id number] Catrina LEE PATIENT MEDICARE (WNR) MEDICARE (M) PART A January 25, 2018 PART A [id number] Catrina LEE PATIENT MEDICARE (WNR) MEDICARE (M) PART B January 25, 2018 PART B [id number] Catrina LEE PATIENT Selected Encounter This section includes the information on record at [place] for the Encounter. Date/Time Encounter Type Encounter Description Reason Provider Source Apr 28, 2024 01:00 PM OFFICE O/P EST MOD 30 MIN PRIMARY CARE/MEDICINE ICD-10-CM I10 Essential (primary) hypertension MARVIN,APOL INARIO IHE Encounter Template Text not used by [place] Assessments - Encounter Diagnoses This section includes the primary and secondary diagnoses documented for the Encounter. Date/Time Primary/Secondary Diagnosis Diagnosis Name Provider Source May 24, 2024 02:21 PM PRIMARY Essential (primary) hypertension JOVANA BRUSH [facility] [facility] May 24, 2024 02:21 PM SECONDARY Anxiety disorder, unspecified MARVINJOVANA Bonds [place] May 24, 2024 02:21 PM SECONDARY Other sleep apnea JOVANA BRUSH [facility] Plan of Treatment: Future Appointments (+ 6 months) and Future Tests (+/- 45 days) The Plan of Treatment section includes future care activities for the patient from [facility] [place] [facility]. This section includes future appointments and future orders which are active, pending or scheduled. Future Appointments This section includes appointments that were scheduled to occur 6 months from the date of the Encounter, up to a maximum of 20 appointments. The data comes from all [place] treatment facilities. Appointment Date/Time Appointment Type Appointme nt Facility Name May 01, 2024 11:00 AM AMBULATORY - MEDICINE [facility] [place] [facility] May 11, 2024 07:30 AM AMBULATORY - NONE [facility] [place] [facility] May 30, 2024 11:00 AM AMBULATORY - MEDICINE [facility] [place] [facility] Jun 21, 2024 01:30 PM AMBULATORY - MEDICINE [facility] [place] [facility] Jun 29, 2024 07:30 AM AMBULATORY - NONE [facility] [place] [facility] Jul 31, 2024 01:30 PM AMBULATORY - MEDICINE [facility] [place] [facility] Aug 16, 2024 08:00 AM AMBULATORY - NONE [facility] [place] [facility] Aug 21, 2024 02:30 PM AMBULATORY - MEDICINE [facility] [place] [facility] Sep 14, 2024 07:30 AM AMBULATORY - NONE [facility] [place] [facility] Oct 02, 2024 10:00 AM AMBULATORY - MEDICINE [facility] [place] [facility] Oct 04, 2024 08:00 AM AMBULATORY - PSYCHIATRY [facility] Oct 17, 2024 03:00 PM AMBULATORY - PSYCHIATRY [facility] Oct 24, 2024 10:00 AM AMBULATORY - NONE [facility] [place] [facility] Oct 24, 2024 10:00 AM AM[facility]ULATORY - [facility]IC[facility] [place] [place] [facility] Oct 24, 2024 03:00 PM AMBULATORY - PSYCHIATRY [facility] Social History: Smoking Status (Most current) and Tobacco Use (All prior to encounter date) This section includes the most current, and the historical, smoking and tobacco- related health factors from the [place] facility where the Encounter took place. Current Smoking Status This section includes the most current smoking, or tobacco-related health factor, from the [place] facility where the Encounter took place. Date/Time Current Smoking Status Comment Facil ity Apr 28, 2024 01:00 PM VA-TOBACCO USER EVERY DAY [facility] Tobacco Use History This section includes a history of the smoking, or tobacco-related health factors, that were collected on or before the date of the Encounter. The data comes from the [place] facility where the Encounter took place. 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 [place] Apr 28, 2024 01:00 PM VA-TOBACCO USE MED [facility] Apr 28, 2024 01:00 PM VA-TOBACCO USE [place] 30 MIN OF [facility] Apr 28, 2024 01:00 PM VA-TOBACCO USER EVERY DAY [place] Apr 27, 2023 01:30 PM VA-TOBACCO DOESNT USE WI 30 MIN [facility] Apr 27, 2023 01:30 PM VA-TOBACCO USE 30 YEARS OR MORE [place] Apr 27, 2023 01:30 PM VA-TOBACCO USE ADVICE [place] Apr 27, 2023 01:30 PM VA-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 USE 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 [place] Apr 27, 2023 01:30 PM VA-TOBACCO USE MED [facility] Apr 27, 2023 01:30 PM VA-TOBACCO USER EVERY DAY [place] Jan 23, 2021 10:30 AM VA-TOBACCO USE 30 YEARS OR MORE [place] Jan 23, 2021 10:30 AM VA-TOBACCO USE ADVICE [place] Jan 23, 2021 10:30 AM VA-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 USE 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 [place] Jan 23, 2021 10:30 AM VA-TOBACCO USE MED [facility] Jan 23, 2021 10:30 AM VA-TOBACCO USE [place] 30 MIN OF [place] Jan 23, 2021 10:30 AM VA-TOBACCO USER EVERY DAY [place] Oct 25, 2017 03:23 PM CURRENT SMOKER DENISE THAPA Oct 25, 2017 03:23 PM V1-PT NOT INTEREST ED IN QUIT TOBACCO USE [place] Dec 15, 2016 10:59 AM CURRENT SMOKER DENISE [facility] Dec 15, 2016 10:59 AM V1-PT DECLINES REF TO TOBACCO CESS PRGM [place] Dec 15, 2016 10:59 AM V1-PT THINKING ABO UT QUIT TOBACCO USE [place] Jun 16, 2016 08:30 AM V1-PT DECLINES REF TO TOBACCO CESS PRGM [place] Jun 16, 2016 08:30 AM V1-PT DECLINES TOB ACCO CESSATION MEDS [place] Jun 16, 2016 08:30 AM V1-PT THINKING ABO UT QUIT TOBACCO USE [place] Dec 17, 2015 09:00 AM CURRENT SMOKER smokes about one ppd of cigaretts. [place] Dec 17, 2015 09:00 AM V1-PT THINKING ABO UT QUIT TOBACCO USE [place] Encounter Notes: All associated encounter notes This section contains the clinical notes associated to the Encounter. Date/Time Encounter Note(s) Provider Source Apr 28, 2024 01:47 PM ACCOUNTING OF DISC LOSURES NOTE: LOCAL TITLE: STATE PRESCRIPTION DRUG MONITORING PROGRAM STANDARD TITLE: ACCOUNTING OF DISCLOSURES NOTE DATE OF NOTE: APR 28, 2024@13:47:26 ENTRY DATE: APR 28, 2024@13:47:26 AUTHOR: CATHIE BRUSH EXP COSIGNER: URGENCY: STATUS: COMPLETED This PDMP query was submitted by Cathie Brush MD. The clinical justification for this PDMP query is to review controlled substances prescribed outside of the [facility], and any additional information that may become available, as an important component of standard clinical care, and in accordance with [facility] policy. Patient information was shared with the PDMP [place]. No prescription(s) for controlled substances outside the [facility] were found in the last 90 days. /alfred/ CATHIE BRUSH MD PHYSICIAN Signed: 04/28/2024 13:47 CATHIE BRUSH [place] Apr 28, 2024 01:22 PM PREVENTIVE MEDICIN E NURSING NOTE: LOCAL TITLE: CLINICAL REMINDERS/NURSING STANDARD TITLE: PREVENTIVE MEDICINE NURSING NOTE DATE OF NOTE: APR 28, 2024@13:22 ENTRY DATE: APR 28, 2024@13:23:06 AUTHOR: ALAN ALONSO EXP COSIGNER: URGENCY: STATUS: COMPLETED Advance Directive Screen MH AD: Patient does not have a completed advance directive on file at any facility, [place] or outside. S/he is not interested in completing one at this time. The patient received education about Advance Directives and written notification of his/her rights. Suicide Screen: C-SSRS Screening [place] Suicide Severity Rating Scale (C-SSRS) screener 1. Over the past month, have you wished you were or wished you could go to sleep and not wake up? No 2. Over the past month, have you had any actual thoughts of killing yourself? No 3. Over the past month, have you been thinking about how you might do this? Response not required due to responses to other questions. 4. Over the past month, have you had these thoughts and had some intention of acting on them? Response not required due to responses to other questions. 5. Over the past month, have you started to work out or worked out the details of how to kill yourself? Response not required due to responses to other questions. 6. If yes, at any time in the past month did you intend to carry out this plan? Response not required due to responses to other questions. 7. In your lifetime, have you ever done anything, started to do anything, or prepared to do anything to end your life (for example, collected pills, obtained a gun, gave away valuables, went to the roof but didn't jump)? No 8. If YES, was this within the past 3 months? Response not required due to responses to other questions. Homelessness/Food Insecurity Screen: In the past 2 months, have you been living in stable housing that you own, rent, or stay in as part of a household? Yes - Living in stable housing. Are you worried or concerned that in the next 2 months you may NOT have stable housing that you own, rent, or stay in as part of a household? No - Not worried about housing near future [facility] [place] reports the following: Within the past 12 months, you worried whether your food would run out before you got money to buy more. Never true Within the past 12 months, the food you bought just didn't last and you didn't have money to get more. Never true Depression Screening: Perform PHQ-2 A PHQ-2 screen was performed. The score was 0 which is a negative screen for depression. Over the past two weeks, how often have you been bothered by the following problems? 1. Little interest or pleasure in doing things Not at all 2. Feeling down, depressed, or hopeless Not at all Pneumococcal Conjugate Vaccine (PCV15/PCV20): Refuses PCV vaccine Immunization: PNEUMOCOCCAL CONJUGATE, UNSPECIFIED FORMULATION Refusal Reason: PATIENT DECISION Patient refuses all immunization(s) in the PneumoPCV group Date Documented: 04/28/24 13:27 Tobacco Use Screening: The patient uses tobacco every day. The patient uses tobacco within 30 minutes of waking up. The patient has been smoking or using tobacco for thirty years or more. Patient was advised to quit smoking and/or using tobacco. Discussion with patient included: - Quitting smoking or tobacco use is one of the most important things you can do to protect and improve your health and [place] has the resources to support you. - Set a quit date when you are ready to quit. - Get support from your family and friends. - Review any past quit attempts- What helped? What didn't? - On the day you plan to quit, get rid of all cigarettes and tobacco products from your home, car or work. - Using a combination of behavioral counseling or other support strategies and FDA-approved cessation medications is the most effective way to ensure success in quitting. Patient was offered Behavioral Counseling and other support strategies to assist with quitting. Discussion with patient included: - Behavioral counseling or other support strategies greatly increases your chances of successfully quitting smoking or tobacco use by helping you develop a quit plan and providing support and other strategies to make behavioral changes to help you quit. - [place] has a number of behavioral counseling options to help you with quitting, including: * Provide information about the facility smoking or tobacco use treatment options or clinics * [place]'s national quitline, 0-821-ASIL-VET, with counseling available Wednesday-Wednesday The patient was not interested in receiving additional information about how to use the treatment options discussed. Patient was offered FDA-approved cessation medications. Discussion with patient included: - Medications for Nicotine replacement therapy such as the patch, gum or lozenge, and other medications such as varenicline or bupropion, can play an important role in the initial weeks and months after you quit smoking or tobacco use. - Medications help with cravings and withdrawal symptoms and they greatly increase your chances of successfully quitting. The patient was not interested in a prescription for tobacco cessation medications. Alcohol Use Screen (AUDIT-C): Alcohol Screen: SCREEN FOR ALCOHOL (AUDIT-C) An alcohol screening test (AUDIT-C) was negative (score=1). 1. How often did you have a drink containing alcohol in the past year? Consider a drink to be a 12 ounce can or bottle of regular beer, 8 ounces of malt liquor, a 5 ounce glass of table wine, or a 1.5 ounce shot of liquor (like scotch, gin, or vodka). Monthly or less 2. How many drinks containing alcohol did you have on a typical day when you were drinking in the past year? One or two drinks 3. How often did you have six or more drinks on one occasion in the past year? Never COVID-19 Immunization: Refused Moderna Monovalent COVID-19 vaccine Immunization: COVID-19 (MODERNA), MRNA, LNP-S, PF, 50 MCG/0.5 ML (AGES 12+ YEARS) Refusal Reason: PATIENT DECISION Patient refuses all immunization(s) in the COVID-19 group Date Documented: 04/28/24 13:29 Tdap Immunization: The patient declines to receive the recommended dose of Tdap vaccine. Immunization: TDAP Refusal Reason: PATIENT DECISION Patient refuses all immunization(s) in the TDAP group Date Documented: 04/28/24 13:30 Herpes Zoster (Shingles) Vaccine: The patient declines to receive the recommended dose of zoster (shingles) vaccine. Immunization: ZOSTER RECOMBINANT Refusal Reason: PATIENT DECISION Patient refuses all immunization(s) in the ZOSTER group Date Documented: 04/28/24 13:30 Sexual Orientation: The patient thinks of their sexual orientation as: Straight or Heterosexual MED REC COMPLETED BY PROVIDER DURING VISIT. 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 Discussed need to contiue cutting back on smoking. HE seems to be doing better but he anticipates more stressful event to come. Discuss use of mild anxiolytics. Aware of potential for dependence. Other aspects of safety use discussed at [facility] on this TMEPORARY medication (not subject to refills). 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 As above use of anxiolytic with extreme stressful triggers and situations. Plan of care discussed with patient who articulates understanding. Chronic issues reviewed briefly; no changes to management unless specified above. RTC PRN TIME ATTESTATION: Time spent directly with the [...] of labs/studies and medication list. Upcoming Appointments: 05/30/2024 11:00 CWM/SO/BIOFEEDBACK 06/21/2024 13:30 CWM/SO/PACT 9 06/29/2024 07:30 NHM DENTAL DMD 2 07/27/2024 07:30 NHM DENTAL DMD 2 07/31/2024 13:30 NHM/OPTOMETRY/BORASKI 03/23/2025 09:00 CWM/SO/PACT 9 Med Reconciliation: Active Outpatient Medications (including Supplies): Active Outpatient Medications Status 1) LORAZEPAM 1MG TAB TAKE ONE TABLET BY MOUTH TWICE ACTIVE DAILY NEEDED FOR ANXIETY Medication (Local) Status No local medications found. Medication (Remote) Status No remote medications found. /alfred/ CATHIE BRUSH MD PHYSICIAN Signed: 05/24/2024 14:21 CATHIE BRUSH [place]
--- OUTSIDE RECORDS SUMMARY | 2024-11-02 09:22 | XMS_ITS | Continuity of Care Document ---
Author Name [facility] Organization 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 Unavailable Unavailable Problems Combined list of problems from Department of Defense and Veterans Affairs facilities. It does not include entries that were removed or entered in error. Problem Status Onset Date Problem Type Date of Resolution Comments Source Anxiety Active Condition [place] Diverticular disease of colon Active Condition [facility] History of polyp of colon Active Condition Nov 17, 2023 Entered By: BLANCA WONG Comment: tubular adenomas with surveillance endoscopy by ORAL Mauro [place] HT - Hypertension Active Condition 2021 Entered [...] 2021) trial on APAP 11-18 cm H2 [place] Tobacco user Active Condition Dec 17, 2015 Entered By: FARHAD MONTEMAYOR Comment: PPD [place] Diagnosis: ICD-10-CM F41.9 Anxiety disorder, unspecified Active Diagnosis [place] Diagnosis: ICD-10-CM Z71.89 Other specified counseling Active Diagnosis [place] Diagnosis: ICD-10-CM I10 Essential (primary) hypertension Active Diagnosis [place] Diagnosis: ICD-10-CM K08.421 Partial loss of teeth [...] cataract, bilateral [facility] Diagnosis: ICD-10-CM K03.1 Abrasion of teeth Active [facility] Diagnosis: ICD-10-CM Z63.79 Other stressful life events affecting family and household Active Diagnosis [place] Diagnosis: ICD-10-CM F43.0 Acute stress reaction Active Diagnosis [place] Diagnosis: ICD-10-CM G47.33 Obstructive sleep apnea (adult) (pediatric) Active Diagnosis [facility] Diagnosis: ICD-10-CM M54.50 Low back pain, unspecified Active Diagnosis [facility] Diagnosis: ICD-10-CM Z46.1 Encounter for fitting and adjustment of hearing aid Active Diagnosis [facility] Diagnosis: ICD-10-CM H90.3 Sensorineural hearing loss, bilateral Active Diagnosis [facility] Diagnosis: ICD-10-CM F43.89 Other reactions to severe stress Active Diagnosis [facility] Medications Combined list of outpatient medications from [...] FOR ITCHING/ RASH TOPICA L ACTIVE 08/22/2025 [id number] 5 MARVINASHLYNLINARI O 2023 15 [place] LORAZEPAM 1MG TAB TAKE ONE TABLET BY MOUTH TWICE DAILY NEEDED FOR ANXIETY ORAL 05/28/2024 [id number] 4 MARVINBLANCA WONGARI O 2023 12 [place] METOPROLOL SUCCINATE 25MG TAB,SA TAKE ONE TABLET BY MOUTH ONCE DAILY FOR BLOOD PRESSURE /HEART ORAL ACTIVE 08/22/2025 [id number] 5 MARVIN APOLINARI O 2023 60 [place] Immunizations Combined list of available immunizations from the Department of Defense and Veterans Affairs facilities. 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 Order Name Results Value Reference Range Date Interpretation Specimen Comments Source LIPOPROTE IN (a) LIPOPROTEIN FRACTIONS [INTERPRETA TION] IN SERUM OR PLASMA 213 nmol/L 11/11 H Specimen Type: SERUM Comment: REFERENCE RANGE: <75 nmol/L THIS RESULT HAS BEEN VERIFIED BY REPEAT ANALYSIS. Risk Category Optimal < 75 nmol/L Moderate 75 - 125 nmol/L High > 125 nmol/L Cardiovascu lar event risk category cut points (optimal, moderate, high) are based on Gary Musa [facility] 2017;[id number] -[id number]. Test Per[facility] by [facility], [facility], [address] [place] [address] Danielito Harris M.D., Ph.D., Director of Laboratorie s , CLIA [id number] TEST PERFORMED AT: , Ordering Provider: MAGO WNOG Report Released Date/Time: Nov 08, 2023 02:37 PM Reporting Lab: [facility] [address] [facility] [address] Performing Lab: [facility] [address] [address] [facility] [place] [facility] LIPID PANEL FASTING CHOLESTEROL [MASS/VOLUM E] IN SERUM OR PLASMA 189 mg/dL 11/11 Specimen Type: SERUM No comment entered. Ordering Provider: MAGO WONG Report Released Date/Time: Nov 08, 2023 02:37 PM Reporting Lab: [facility] [place] [facility] [address] [facility] [address] Performing Lab: [facility]ITALTRN [facility] [address] [facility] [address] [facility] TR[facility] [place] [facility] LIPID PANEL FASTING TRIGLYCERID E [MASS/VOLUM E] IN SERUM OR PLASMA 127 mg/dL 0 - 150 11/11 Specimen Type: SERUM No comment entered. Ordering Provider: MAGO WONG Report Released Date/Time: Nov 08, 2023 02:37 PM Reporting Lab: [facility] [address] Performing Lab: [facility]ITALTRN [facility] [address] [facility]ERRH[facility] SERVICESN [facility]OSPITALUSE [facility] LIPID PANEL FASTING CHOLESTEROL IN LDL [MASS/VOLUM E] IN SERUM OR PLASMA BY CALCULATION 120 mg/dL 0 - 129 11/11 Specimen Type: SERUM No comment entered. Ordering Provider: MAGO WONG Report Released Date/Time: Nov 08, 2023 02:37 PM Reporting Lab: [facility]ITALTRN [place] [address] [address] Performing Lab: [facility] TRN [place] [address] [address] [facility]ITALTR[facility] [place] [facility] LIPID PANEL FASTING CHOLESTEROL .TOTAL/CHOL ESTEROL IN HDL [MASS RATIO] IN SERUM OR PLASMA 4.3 11/11 Specimen Type: SERUM No comment entered. Ordering Provider: MAGO WONG Report Released Date/Time: Nov 08, 2023 02:37 PM Reporting Lab: [facility]PITALTRN [facility] [address] [facility] [address] Performing Lab: [facility]D.[facility]OSPITALTRN [facility] HOSPITALUSE10 [place] [address] [facility] WSTRN [place] [facility] LIPID PANEL FASTING CHOLESTEROL IN HDL [MASS/VOLUM E] IN SERUM OR PLASMA 44 mg/dL 40 - 60 11/11 Specimen Type: SERUM No comment entered. Ordering Provider: MAGO WONG Report Released Date/Time: Nov 08, 2023 02:37 PM Reporting Lab: [facility] WSTRN [facility]PITALUSETS [facility] [address] [facility] [address] Performing Lab: [facility]RL WSTRN [facility]OSPITALUSETS [address] [address] [facility]RL [facility]OSPITALSN [facility]OSPITALUSE [facility] BASIC METABOLIC PANEL (fasting) UREA NITROGEN [MASS/VOLUM E] IN SERUM OR PLASMA 26 mg/dL 7 - 25 11/11 H Specimen Type: SERUM No comment entered. Ordering Provider: MAGO WONG Report Released Date/Time: Nov 08, 2023 02:37 PM Reporting Lab: [facility] [place] [address] [address] Performing Lab: [facility]RL WSTRN [facility] [address] [facility]RL TRN [facility] HOSPITALUSE [facility] BASIC METABOLIC PANEL (fasting) GLUCOSE [MASS/VOLUM E] IN SERUM OR PLASMA 100 mg/dL 65 - 100 11/11 Specimen Type: SERUM No comment entered. Ordering Provider: MAGO WONG Report Released Date/Time: Nov 08, 2023 02:37 PM Reporting Lab: [facility] [place] [address] [address] Performing Lab: [facility] [place] [address] [address] [facility] WSTRN [place] [facility] BASIC METABOLIC PANEL (fasting) SODIUM [MOLES/VOLU ME] IN SERUM OR PLASMA 144 mmol/L 135 - 145 11/11 Specimen Type: SERUM No comment entered. Ordering Provider: MAGO WONG Report Released Date/Time: Nov 08, 2023 02:37 PM Reporting Lab: [facility]RL WSTRN MASSUSE[address] [place] [address] Performing Lab: [facility]RL [place] [facility] [address] [facility] [address] [facility]RL WSTRN [facility]OSPITALUSE [facility] BASIC METABOLIC PANEL (fasting) POTASSIUM [MOLES/VOLU ME] IN SERUM OR PLASMA 4.0 mmol/L 3.5 - 5.0 11/11 Specimen Type: SERUM No comment entered. Ordering Provider: MAGO WONG Report Released Date/Time: Nov 08, 2023 02:37 PM Reporting Lab: [facility] [place] [facility] [address] [facility] [address] Performing Lab: [facility]RL WSTRN [facility]PITALUSETS [facility] [address] [facility] [address] [facility] BASIC METABOLIC PANEL (fasting) CHLORIDE [MOLES/VOLU ME] IN SERUM OR PLASMA 107 mmol/L 100 - 110 11/11 Specimen Type: SERUM No comment entered. Ordering Provider: MAGO WONG Report Released Date/Time: Nov 08, 2023 02:37 PM Reporting Lab: [facility]RL TRN [facility]OSPITALUSETS [facility] [address] [facility] [address] Performing Lab: [facility]RL WSTRN [facility]OSPITALUSETS [address] [address] [facility]ERRH[facility] SERVICESN [facility]OSPITALUSE [facility] BASIC METABOLIC PANEL (fasting) CARBON DIOXIDE, TOTAL [MOLES/VOLU ME] IN SERUM OR PLASMA 29 meq/L 20 - 30 11/11 Specimen Type: SERUM No comment entered. Ordering Provider: MAGO WONG Report Released Date/Time: Nov 08, 2023 02:37 PM Reporting Lab: [facility]RL [place] [facility] [address] [facility] [address] Performing Lab: [facility]RL WSTRN [facility]OSPITALUSETS [address] [address] [facility]ENTERRD.[facility]. [facility]OSPITALTRN [facility]OSPITALUSE [facility] BASIC METABOLIC PANEL (fasting) CREATININE [MASS/VOLUM E] IN SERUM OR PLASMA 1.11 mg/dL 0.50 - 1.40 11/11 Specimen Type: SERUM No comment entered. Ordering Provider: MAGO WONG Report Released Date/Time: Nov 08, 2023 02:37 PM Reporting Lab: [address] [address] Performing Lab: [address] [address] [facility] BASIC METABOLIC PANEL (fasting) GLOMERULAR FILTRATION RATE/1.73 SQ M.PREDICTED [VOLUME RATE/AREA] IN SERUM, PLASMA OR BLOOD BY CREATININE- BASED FORMULA (CKD-EPI 2020) 71 mL/min 60 11/11 Specimen Type: SERUM No comment entered. Ordering Provider: MAGO WONG Report Released Date/Time: Nov 08, 2023 02:37 PM Reporting Lab: [address] [address] Performing Lab: [address] [address] [facility] HEMOGLOBI N A1C PANEL HEMOGLOBIN A1C/HEMOGLO BIN.TOTAL [...] Nov 08, 2023 02:37 PM Reporting Lab: [address] [address] Performing Lab: [address] [address] [facility] TSH THYROTROPIN [UNITS/VOLU ME] IN SERUM OR PLASMA 3.02 u[IU]/ mL 0.35 - 5.00 11/11 Specimen Type: SERUM No comment entered. Ordering Provider: MAGO WONG Report Released Date/Time: Nov 08, 2023 02:37 PM Reporting Lab: [facility] [place] [facility] [address] [facility] [address] Performing Lab: [facility] [place] [facility] [address] [facility] [address] [facility] [place] [facility] LIVER FUNCTION PROTEIN [MASS/VOLUM E] IN SERUM OR PLASMA 7.0 g/dL 6.0 - 8.3 11/11 Specimen Type: SERUM No comment entered. Ordering Provider: MAGO WONG Report Released Date/Time: Nov 08, 2023 02:37 PM Reporting Lab: [facility] [place] [facility] [address] [facility] [address] Performing Lab: [place] [facility] [place] [address] [address] [facility] [place] [facility] LIVER FUNCTION ALBUMIN [MASS/VOLUM E] IN SERUM OR PLASMA 4.1 g/dL 3.5 - 5.0 11/11 Specimen Type: SERUM No comment entered. Ordering Provider: MAGO WONG Report Released Date/Time: Nov 08, 2023 02:37 PM Reporting Lab: [facility] [place] [address] [address] Performing Lab: [facility] [place] [facility] [address] [facility] [address] [facility] [place] [facility] LIVER FUNCTION ALKALINE PHOSPHATASE [ENZYMATIC ACTIVITY/VO LUME] IN SERUM OR PLASMA 65 U/L 40 - 150 11/11 Specimen Type: SERUM No comment entered. Ordering Provider: MAGO WONG Report Released Date/Time: Nov 08, 2023 02:37 PM Reporting Lab: [facility] [place] [facility] [address] [facility] [address] Performing Lab: [facility] [place] [address] [address] [facility] [place] [facility] LIVER FUNCTION ASPARTATE AMINOTRANSF ERASE [ENZYMATIC ACTIVITY/VO LUME] IN SERUM OR PLASMA 15 U/L 5 - 34 11/11 Specimen Type: SERUM No comment entered. Ordering Provider: MAGO WONG Report Released Date/Time: Nov 08, 2023 02:37 PM Reporting Lab: [facility] [place] [place] [facility] [address] [facility] [address] Performing Lab: [facility] [place] [place] [address] [address] [facility] [place] [facility] LIVER FUNCTION ALANINE AMINOTRANSF ERASE [ENZYMATIC ACTIVITY/VO LUME] IN SERUM OR PLASMA 20 U/L 11/11 Specimen Type: SERUM No comment entered. Ordering Provider: MAGO WONG Report Released Date/Time: Nov 08, 2023 02:37 PM Reporting Lab: [facility] [place] [address] [address] Performing Lab: [facility] [place] [address] [address] [facility] [place] [facility] LIVER FUNCTION BILIRUBIN.T OTAL [MASS/VOLUM E] IN SERUM OR PLASMA 0.7 mg/dL 0.2 - 1.2 11/11 Specimen Type: SERUM No comment entered. Ordering Provider: MAGO WONG Report Released Date/Time: Nov 08, 2023 02:37 PM Reporting Lab: [facility] [place] [address] [address] Performing Lab: [facility] [place] [address] [address] [facility] [place] [facility] PSA PROSTATE SPECIFIC AG [MASS/VOLUM E] IN SERUM OR PLASMA 47.97 ng/mL 0.00 - 4.00 11/11 H Specimen Type: SERUM No comment entered. Ordering Provider: MAGO WONG Report Released Date/Time: Nov 08, 2023 02:37 PM Reporting Lab: [facility] [place] [place] [address] [address] Performing Lab: [facility] [place] [facility] [address] [facility] [address] [facility] [place] [facility] MICROALBU MIN CREATININ E RATIO PANEL MICROALBUMI N/CREATININ E [MASS RATIO] IN URINE 54.6 mg/g 0 - 29.9 11/11 H Specimen Type: URINE No comment entered. Ordering Provider: MAGO WONG Report Released Date/Time: Nov 08, 2023 02:37 PM Reporting Lab: [facility] [place] [facility] [address] [facility] [address] Performing Lab: [facility] [place] [facility] [address] [facility] [address] [facility] [place] [facility] MICROALBU MIN CREATININ E RATIO PANEL MICROALBUMI N [MASS/VOLUM E] IN URINE 4.1 mg/dL 11/11 Specimen Type: URINE No comment entered. Ordering Provider: MAGO WONG Report Released Date/Time: Nov 08, 2023 02:37 PM Reporting Lab: [facility] [place] [facility] [address] [facility] [address] Performing Lab: [facility] [place] [facility] [address] [facility] [address] [facility] [place] [facility] MICROALBU MIN CREATININ E RATIO PANEL CREATININE [MASS/VOLUM E] IN URINE 75.10 mg/dL 11/11 Specimen Type: URINE No comment entered. Ordering Provider: MAGO WONG Report Released Date/Time: Nov 08, 2023 02:37 PM Reporting Lab: [facility] [place] [facility] [address] [facility] [address] Performing Lab: [facility] [place] [address] [address] [facility] [place] [facility] CBC AND DIFF (AUTO) LEUKOCYTES [#/VOLUME] IN BLOOD BY AUTOMATED COUNT 6.88 10*3/u L 4.50 - 11.00 11/11 Specimen Type: BLOOD No comment entered. Ordering Provider: MARVIN,AP OLINARIO Report Released Date/Time: Nov 08, 2023 02:37 PM Reporting Lab: [facility] [place] [facility] [address] [facility] [address] Performing Lab: [facility] [place] [facility] [address] [facility] [address] [facility] [place] [facility] CBC AND DIFF (AUTO) ERYTHROCYTE S [#/VOLUME] IN BLOOD BY AUTOMATED COUNT 4.91 10*6/u L 4.23 - 5.66 11/11 Specimen Type: BLOOD No comment entered. Ordering Provider: MAGO WONG Report Released Date/Time: Nov 08, 2023 02:37 PM Reporting Lab: [facility] [place] [facility] [address] [facility] [address] Performing Lab: [facility] [place] [facility] [address] [facility] [address] [facility] [place] [facility] CBC AND DIFF (AUTO) HEMOGLOBIN [MASS/VOLUM E] IN BLOOD 15.8 g/dL 12.8 - 17 11/11 Specimen Type: BLOOD No comment entered. Ordering Provider: MAGO WONG Report Released Date/Time: Nov 08, 2023 02:37 PM Reporting Lab: [facility] [place] [facility] [address] [facility] [address] Performing Lab: [facility] [place] [place] [facility] [address] [facility] [address] [facility] [place] [facility] CBC AND DIFF (AUTO) HEMATOCRIT [VOLUME FRACTION] OF BLOOD BY AUTOMATED COUNT 47.0 39.2 - 50.4 11/11 Specimen Type: BLOOD No comment entered. Ordering Provider: MAGO WONG Report Released Date/Time: Nov 08, 2023 02:37 PM Reporting Lab: [facility] [place] [facility] [address] [facility] [address] Performing Lab: [facility] [place] [facility] [address] [facility] [address] [facility] [place] CBC AND DIFF (AUTO) MCV [ENTITIC VOLUME] BY AUTOMATED COUNT 95.7 fL 82 - 99 11/11 Specimen Type: BLOOD No comment entered. Ordering Provider: MAGO WONG Report Released Date/Time: Nov 08, 2023 02:37 PM Reporting Lab: [facility] [place] [facility] [address] [facility] [address] Performing Lab: [facility] [place] [facility] [address] [facility] [address] [facility] [place] [facility] CBC AND DIFF (AUTO) MCHC [MASS/VOLUM E] BY AUTOMATED COUNT 33.6 g/dL 30.8 - 35.1 11/11 Specimen Type: BLOOD No comment entered. Ordering Provider: MAGO WONG Report Released Date/Time: Nov 08, 2023 02:37 PM Reporting Lab: [facility] [place] [address] [address] Performing Lab: [facility] [place] [facility] [address] [facility] [address] [facility] [place] [facility] CBC AND DIFF (AUTO) PLATELETS [#/VOLUME] IN BLOOD BY AUTOMATED COUNT 146 10*3/u L 140 - 360 11/11 Specimen Type: BLOOD No comment entered. Ordering Provider: MAGO WONG Report Released Date/Time: Nov 08, 2023 02:37 PM Reporting Lab: [facility] [address] [address] Performing Lab: [facility] [place] [facility] [address] [facility] [address] [facility] [place] [facility] CBC AND DIFF (AUTO) ERYTHROCYTE DISTRIBUTIO N WIDTH [RATIO] BY AUTOMATED COUNT 12.4 12.0 - 16.0 11/11 Specimen Type: BLOOD No comment entered. Ordering Provider: MAGO WONG Report Released Date/Time: Nov 08, 2023 02:37 PM Reporting Lab: [facility] [place] [place] [address] [address] Performing Lab: [facility] [place] [address] [address] [facility] [place] [facility] CBC AND DIFF (AUTO) MONOCYTES [#/VOLUME] IN BLOOD BY AUTOMATED COUNT 0.67 10*3/u L 0.30 - 1.10 11/11 Specimen Type: BLOOD No comment entered. Ordering Provider: MAGO WONG Report Released Date/Time: Nov 08, 2023 02:37 PM Reporting Lab: [facility] [place] [facility] [address] [facility] [address] Performing Lab: [facility] [place] [facility] [address] [facility] [address] [facility] [place] [facility] CBC AND DIFF (AUTO) MCH [ENTITIC MASS] BY AUTOMATED COUNT 32.2 pg 26.2 - 32.6 11/11 Specimen Type: BLOOD No comment entered. Ordering Provider: MAGO WONG Report Released Date/Time: Nov 08, 2023 02:37 PM Reporting Lab: [facility] [place] [address] [address] Performing Lab: [facility] [place] [facility] [address] [facility] [address] [facility] [place] [facility] CBC AND DIFF (AUTO) NEUTROPHILS /100 LEUKOCYTES IN BLOOD BY AUTOMATED COUNT 60.4 43.7 - 75.8 11/11 Specimen Type: BLOOD No comment entered. Ordering Provider: MAGO WONG Report Released Date/Time: Nov 08, 2023 02:37 PM Reporting Lab: [facility] [place] [address] [address] Performing Lab: [facility] [place] [address] [address] [facility] CBC AND DIFF (AUTO) LYMPHOCYTES /100 LEUKOCYTES IN BLOOD BY AUTOMATED COUNT 25.9 14.0 - 42.3 11/11 Specimen Type: BLOOD No comment entered. Ordering Provider: MAGO WONG Report Released Date/Time: Nov 08, 2023 02:37 PM Reporting Lab: [facility] [place] [facility] [address] [facility] [address] Performing Lab: [facility] [place] [facility] [address] [facility] [address] [facility] CBC AND DIFF (AUTO) MONOCYTES/1 00 LEUKOCYTES IN BLOOD BY AUTOMATED COUNT 9.7 5.1 - 13.7 11/11 Specimen Type: BLOOD No comment entered. Ordering Provider: MAGO WONG Report Released Date/Time: Nov 08, 2023 02:37 PM Reporting Lab: [facility] [place] [facility] [address] [facility] [address] Performing Lab: [facility] [place] [facility] [address] [facility] [address] [facility] [place] [facility] CBC AND DIFF (AUTO) EOSINOPHILS /100 LEUKOCYTES IN BLOOD BY AUTOMATED COUNT 3.2 0.4 - 6.8 11/11 Specimen Type: BLOOD No comment entered. Ordering Provider: MAGO WONG Report Released Date/Time: Nov 08, 2023 02:37 PM Reporting Lab: [facility] [place] [facility] [address] [facility] [address] Performing Lab[facility] [place] [facility] [address] [facility] [address] [facility] [place] [facility] CBC AND DIFF (AUTO) BASOPHILS/1 00 LEUKOCYTES IN BLOOD BY AUTOMATED COUNT 0.4 0.1 - 2.0 11/11 Specimen Type: BLOOD No comment entered. Ordering Provider: MAGO WONG Report Released Date/Time: Nov 08, 2023 02:37 PM Reporting Lab: [facility] [place] [facility] [address] [facility] [address] Performing Lab: [facility] [place] [address] [address] [place] [facility] [place] [facility] CBC AND DIFF (AUTO) NEUTROPHILS [#/VOLUME] IN BLOOD BY AUTOMATED COUNT 4.15 10*3/u L 2.20 - 7.60 11/11 Specimen Type: BLOOD No comment entered. Ordering Provider: MAGO WONG Report Released Date/Time: Nov 08, 2023 02:37 PM Reporting Lab: [facility] [place] [facility] [address] [facility] [address] Performing Lab: [facility] [place] [facility] [address] [facility] [address] [facility] [place] [facility] CBC AND DIFF (AUTO) LYMPHOCYTES [#/VOLUME] IN BLOOD BY AUTOMATED COUNT 1.78 10*3/u L 1.00 - 3.20 11/11 Specimen Type: BLOOD No comment entered. Ordering Provider: MAGO WONG Report Released Date/Time: Nov 08, 2023 02:37 PM Reporting Lab: [facility] [place] [facility] [address] [facility] [address] Performing Lab: [facility] [place] [address] [address] [facility] [place] [facility] CBC AND DIFF (AUTO) EOSINOPHILS [#/VOLUME] IN BLOOD BY AUTOMATED COUNT 0.22 10*3/u L 0.03 - 0.44 11/11 Specimen Type: BLOOD No comment entered. Ordering Provider: MAGO WONG Report Released Date/Time: Nov 08, 2023 02:37 PM Reporting Lab: [facility] [place] [address] [address] Performing Lab: [facility] [place] [facility] [address] [facility] [address] [facility] [place] [facility] CBC AND DIFF (AUTO) BASOPHILS [#/VOLUME] IN BLOOD BY AUTOMATED COUNT 0.03 10*3/u L 0.01 - 0.13 11/11 Specimen Type: BLOOD No comment entered. Ordering Provider: MAGO WONG Report Released Date/Time: Nov 08, 2023 02:37 PM Reporting Lab: [facility] [place] [address] [address] Performing Lab: [facility] [place] [address] [address] [facility] [place] [facility] CBC AND DIFF (AUTO) IMMATURE GRANULOCYTE S/100 LEUKOCYTES IN BLOOD BY AUTOMATED COUNT 0.4 0.0 - 0.7 11/11 Specimen Type: BLOOD No comment entered. Ordering Provider: MAGO WONG Report Released Date/Time: Nov 08, 2023 02:37 PM Reporting Lab: [facility] [place] [facility] [address] [facility] [address] Performing Lab: [facility] [place] [facility] [address] [facility] [address] [facility] [place] [facility] CBC AND DIFF (AUTO) IMMATURE GRANULOCYTE S [#/VOLUME] IN BLOOD 0.03 10*3/u L 0.00 - 0.06 11/11 Specimen Type: BLOOD No comment entered. Ordering Provider: MAGO WONG Report Released Date/Time: Nov 08, 2023 02:37 PM Reporting Lab: [facility] [place] [facility] [address] [facility] [address] Performing Lab: [facility] [place] [facility] [address] [facility] [address] [facility] VITAMIN B12 COBALAMIN (VITAMIN B12) [MASS/VOLUM E] IN SERUM OR PLASMA 664 pg/mL 200 - 900 11/11 Specimen Type: SERUM No comment entered. Ordering Provider: MAGO WONG Report Released Date/Time: Nov 08, 2023 02:37 PM Reporting Lab: [facility] [place] [facility] [address] [facility] [address] Performing Lab: [facility]TR[facility] [address] [facility] Vital Signs Combined list of inpatient and outpatient Vital Signs from Department of Defense and Veterans Affairs, ranging from 12 months to all on record, depending upon the facility. Vital Sign Value Date Comments Source SYSTOLIC BLOOD PRESSURE 168 10/02/19 25 15:26:00 [facility] DIASTOLIC BLOOD PRESSURE 79 025 15:26:00 [facility] [place] [facility] SYSTOLIC BLOOD PRESSURE 148 08/21/20 14:42:39 [facility] [place] [facility] DIASTOLIC BLOOD PRESSURE 67 14:42:39 [facility] [place] [facility] SYSTOLIC BLOOD PRESSURE 169 06/21/20 24 13:35:14 [facility] [place] [facility] DIASTOLIC BLOOD PRESSURE 71 024 13:35:14 [facility] [place] [facility] WEIGHT 166.8 06/21/2024 13:35:14 [facility] [place] [facility] BMI 28 kg/m2 06/21/2024 13:35:14 [facility] [place] [facility] PAIN 0 06/21/2024 13:35:14 [facility] [place] [facility] HEIGHT 65 06/21/2024 13:35:14 [facility] [place] [facility] RESPIRATION 20 06/21/2024 13:35:14 [facility] [place] [facility] SYSTOLIC BLOOD PRESSURE 151 04/28/20 13:21:35 [facility] [place] [facility] DIASTOLIC BLOOD PRESSURE 80 024 13:21:35 [facility] [place] [facility] PULSE OXIMETRY 95 04/28/2024 13:21:35 [facility] [place] [facility] WEIGHT 168.4 04/28/2024 13:21:35 [facility] [place] [facility] BMI 28 kg/m2 04/28/2024 13:21:35 [facility] [place] [facility] PAIN 0 04/28/2024 13:21:35 [facility] [place] [facility] HEIGHT 65 04/28/2024 13:21:35 [facility] [place] [facility] TEMPERATURE 96.6 04/28/2024 13:21:35 [facility] [place] [facility] PULSE 72 04/28/2024 13:21:35 [facility] [place] [facility] RESPIRATION 20 04/28/2024 13:21:35 [facility] [place] [facility] SYSTOLIC BLOOD PRESSURE 196 03/24/20 24 09:41:58 [facility] [place] [facility] DIASTOLIC BLOOD PRESSURE 67 024 09:41:58 [facility] [place] [facility] PULSE OXIMETRY 97 03/24/2024 09:41:58 [facility] [place] [facility] WEIGHT 169.2 03/24/2024 09:41:58 [facility] [place] [facility] BMI 28 kg/m2 03/24/2024 09:41:58 [facility] [place] [facility] PAIN 0 03/24/2024 09:41:58 [facility] [place] [facility] HEIGHT 65 03/24/2024 09:41:58 [facility] [place] [facility] TEMPERATURE 97.3 03/24/2024 09:41:58 [facility] [place] [facility] PULSE 63 03/24/2024 09:41:58 [facility] [place] [facility] RESPIRATION 20 03/24/2024 09:41:58 [facility] [place] [facility] Encounters Combined list of: 1) Encounters from Department of Veterans Affairs facilities going backup to the last 18 months, not all VA inpatient encounters are included; 2) Encounters from the Department of Defense facilities going backup to 280 months. Location Location Details Encounter Type Encounter Number Reason For Visit Attending Provider ADM Date DC Date Status Disposition Source [facility] [place] [facility] Encounter [id number] 05/06 [facility] [place] [facility] [place] PS[place] W PT 30 MINUTES [id number] Diagnos is: ICD-10- CM F43.89 Other reactio ns to severe stress Princess PHELAN 05/12 [place] [facility] [place] [facility] Out[facility] Encounter [id number] 06/21 [facility] [place] [facility] [place] [facility] Encounter [id number] 06/22 [facility] [place] [facility] [place] [facility] EYE EXAM&TX ESTAB PT 1/>VST [id number] Diagnos is: ICD-10- CM H25.813 Combine d forms of age-rel ated catarac t, bilater EVA Ardon 07/26 [facility] [place] [facility] [place] FIT SPECTACLES MONOFOCAL [id number] Diagnos is: ICD-10- CM Z46.0 Encount er for fit/adj st of spectac les and contact lenses EVA BLAS 07/26 [facility] [place] [facility] [place] [facility] Out[facility] Encounter [id number] 08/27 [facility] [place] [facility] [place] [facility] Encounter [id number] 09/09 [facility] [place] [facility] [place] Out[place] Encounter [id number] 09/30 [place] [facility] [place] HEARING AID EXAM BOTH EARS [id number] Diagnos is: ICD-10- CM H90.3 Sensori neural hearing loss, quynh al SENIOR,ADRIA OLE L 10/21 [facility] [place] [facility] [place] Encounter [id number] 11/01 [facility] [place] [facility] [place] Out[facility] Encounter [id number] 11/04 [facility] [place] [place] OFF[place] O/P EST MOD 30 MIN [id number] Diagnos is: ICD-10- CM I10 Essenti al (primar y) hyperte nsion MARVIN,Cammie POLINARIO 11/08 [place] [facility] [place] Out[facility] Encounter [id number] 11/11 [facility] [place] [facility] [place] HEARING SERVICE [id number] Diagnos is: ICD-10- CM Z46.1 Encount er for fitting and adjustm ent of hearing aid RAS KONG 11/17 [facility] [place] [facility] [place] Out[facility] Encounter [id number] MARVINCammie POLINAR11/17 [facility] [place] [facility] [place] [facility] Encounter [id number] 12/07 [facility] [place] [facility] [place] [facility] Encounter [id number] 12/27 [facility] [place] [facility] [place] Out[facility] Encounter [id number] 01/26 [facility] [place] [facility] [place] [facility] Out[facility] Encounter [id number] JASE ACEVEDO 01/30 [facility] [place] [facility] [place] [facility] Encounter [id number] JOHNNY SWANN 01/31 [facility] [place] [facility] [place] OFF[facility] O/P EST SF 10 MIN [id number] Diagnos is: ICD-10- CM M54.50 Low back pain, unspeci fied JAIME ALEXANDER 01/31 [facility] [place] [facility] [facility] [place] En[facility] [id number] 02/14 [facility] [place] [facility] [place] Encounter [id number] 02/14 [facility] [place] [facility] [place] SELF-MGMT EDUC & TRAIN 1 PT [id number] Diagnos is: ICD-10- CM G47.33 Obstruc tive sleep apnea (adult) ([facility] [place] [facility] [place] [facility] SLEEP STUDY UNATT&RESP EFFT [id number] Diagnos is: ICD-10- CM G47.33 Obstruc tive sleep apnea (adult) ([facility]) [facility] 03/08 [facility] [place] [facility] [place] Out[facility] Encounter [id number] 03/14 [facility] [place] [facility] [place] [facility] Out[facility] Encounter [id number] 03/14 [facility] [place] [facility] [place] PSYTX W PT 45 MINUTES [id number] Diagnos is: ICD-10- CM F43.0 Acute stress reactio n Princess PHELAN 03/17 [place] [facility] SLEEP STUDY UNATT&RESP EFFT [id number] Diagnos is: ICD-10- CM G47.33 Obstruc tive sleep apnea (adult) ([facility]) CURIOSO-UY ,MELANIE 03/17 [place] [facility] [facility] [place] Out[facility] Encounter [id number] 03/23 [facility] [place] [facility] [place] [facility] Outpatient Encounter [id number] 03/24 [facility] [place] [place] O/P EST MOD 30 MIN [id number] Diagnos is: ICD-10- CM I10 Essenti al (primar y) hyperte nsion MARVIN,A POLINARIO 03/24 [place] [facility] [place] [facility] Outpatient Encounter [id number] 03/24 [facility] [place] [place] W PT 30 MINUTES [id number] Diagnos is: ICD-10- CM F43.0 Acute stress reactio n VINOCOUR,J ILL M 03/29 [place] BIOFEEDBAC K TRAIN ANY METH [id number] Diagnos is: ICD-10- CM F41.9 Anxiety disorde r, unspeci fiLAINE Casanova 04/17 [place] BIOFEEDBAC K TRAIN ANY METH [id number] Diagnos is: ICD-10- CM F41.9 Anxiety disorde r, unspeci fied LAINE DELUNAN 04/24 [place] OFF[place] O/P EST MOD 30 MIN [id number] Diagnos is: ICD-10- CM I10 Essenti al (primar y) hyperte nsion MARVIN,A POLINARIO 04/28 [place] BIOFEEDBAC K TRAIN ANY METH [id number] 1BY. 80 Diagnos is: ICD-10- CM F41.9 Anxiety disorde r, unspeci fied LAINE DELUNA 05[place] [facility] [place] En[facility] [id number] 05/10 [facility] [place] [facility] [place] INTRAORAL FULL IMAGE SERIES [id number] 1. 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 31 05/15 [facility] OFF[facility] O/P EST MOD 30 MIN [id number] Diagnos is: ICD-10- CM Z63.79 Other stressf ul life events affecti ng family and househo ld MARVIN,A POLINARIO 06/21 [facility] [place] En[facility] [id number] 1.06/28 [facility] [place] [place] [facility] REMOVABLE PROSTHODON TIC PROC [id number] Diagnos is: ICD-10- CM K03.1 Abrasio n of teeth SONIA BARCLAY 06/29 [facility] [place] [facility] [place] Out[facility] Encounter [id number] 1.07/14 [facility] [place] [place] Out[facility] Encounter [id number] 07/26 [facility] [place] Out[facility] Encounter [id number] 07/26 [facility] [place] [place] COMPRE OPH EXAM EST PT 1/ [id number] Diagnos is: ICD-10- CM H25.813 Combine d forms of age-rel ated catarac t, bilater al EVA BLAS E 07/31 [facility] [place] [place] FIT SPECTACLES MONOFOCAL [id number] Diagnos is: ICD-10- CM Z46.0 Encount er for fit/adj st of spectac les and contact lenses EVA BLAS E 07/31 [facility] [place] [place] [facility] Outpatient Encounter [id number] 08/14 [facility] [place] [facility] [place] EDUCATION NOC INDIVID [id number] 1BY. 75 Diagnos is: ICD-10- CM G47.[address] AMANT,TYRONE E P 08/16 [place] [facility] MOD 30 MIN [id number] Diagnos is: ICD-10- CM I10 Essenti al (primar y) hyperte nsion MARVIN,A POLINARIO 08/21 [place] [facility] [place] [facility] COLLJ & INTERPJ DATA EA 30 D [id number] Diagnos is: ICD-10- CM G47.[address] AMANT,TYRONE E P 09/06 [facility] [place] En[facility] [id number] 1.09/10 [facility] [place] [facility]counter [id number] 1.09/13 [facility] [place] [facility] [place] [facility] MANDIBULAR PART DENTURE FLEX [id number] Diagnos is: ICD-10- CM K08.421 Partial loss of teeth due to periodo ntal disease s, class I SONIA BARCLAY 09/14 [facility] [place] [facility] [place] [facility] Outpatient Encounter [id number] 09/22 [facility] [place] [facility] [place] OFF/OP EST JANUARY X REQ PHY/QHP [id number] 1BY. 72 Diagnos is: ICD-10- CM I10 Essenti al (primar y) hyperte nsErnestine Marshall CHARISMA H 10/02 [place] OFF/OP EST JANUARY X REQ PHY/QHP [id number] Diagnos is: ICD-10- CM Z71.89 Other specifi ed safety counselor ing AILIN ABERNATHY 10/04 [place]NAGEMENT [id number] Diagnos is: ICD-10- CM F41.9 Anxiety disorde r, unspeci fied Jamel ADKINS REGINA 10/17 [place] [facility] Outpatient Encounter [id number] 10/24 [facility] [place] [id number] Diagnos is: ICD-10- CM F41.9 Anxiety disorde r, unspeci fied Jamel ADKINS REGINA 10/24 [place] PSYCH DIAGNOSTIC EVALUATION [id number] Diagnos is: ICD-10- CM F41.9 Anxiety disorde r, unspeci fied SHAWN SURESH 10/30 [place] [facility] [place] [facility] Outpatient Encounter [id number] SHAWN SURESH 10/30 [place] [facility] [place] [facility] Social History Combined list of available smoking, tobacco, and other social history from Department of Defense and Veterans Affairs facilities. Social History Type Response Date Comment Sourc e Tobacco smoking status NHIS VA-TOBACCO USE EVERY DAY CIGARETTES 10/30/2024 [place] History of tobacco use VA-TOBACCO SCREEN FOLLOW-UP 10/30/2024 [place] History of tobacco use VA-TOBACCO USE WI 30 MIN OF WAKEUP 04/28/2024 [place] History of tobacco use VA-TOBACCO USER EVERY DAY 04/27/2023 [place] History of tobacco use VA-TOBACCO USER EVERY DAY 01/23/2021 [place] History of tobacco use CURRENT SMOKER 10/25/2017 [place] History of tobacco use CURRENT SMOKER 12/15/2016 [place] History of tobacco use V1-PT THINKING ABOUT QUIT TOBACCO USE 06/16/2016 [place] History of tobacco use CURRENT SMOKER 12/17/2015 smokes about one ppd of cigaretts. [place] Plan of Care List of future care activities from Department of Veterans Affairs facilities. Additional future care activities may be listed in the Assessment and Plan section. Date/Time Care Activity Care Activity Detail Facili ty 11/14/2024 AMBULATORY - MEDICINE AMBULATORY - MEDICI NE [place] 03/23/2025 AMBULATORY - MEDICINE AMBULATORY - [facility]ICI [place] [facility] [place] [facility] 10/04/2024 Consult Order MENTAL HEALTH SE RVICES BHIP/SPOPC OUTPT Cons X Ray Equipment Servicer's Choice [place] 10/04/2024 Consult Order PSYCHIATRIC MEDI CATION SOPC OUTPT Cons X [employer] Equipment Servicer's Choice [place] 10/30/2024 Consult Order PSYCHOTHERAPY SO PC OUTPT Cons X Ray Equipment Servicer's Choice [place]
--- OUTSIDE RECORDS SUMMARY | 2024-11-02 09:22 | XMS_ITS | Encounter Summary ---
Author Name [facility] [place] [facility] [place] Organization [facility] [place] Address [address] [place] [address] Care Team Providers Care Environmental Maintenance Worker Name Role Phone MO ALMARAZ Primary Care [...] Relationship to Policy Rucker MEDICAID MEDICAID [facility] Nov 30, 2019 MEDICAI D [id number] Catrina LEE PATIENT MEDICARE (WNR) MEDICARE (M) PART A January 25, 2018 PART A [id number] Catrina LEE PATIENT MEDICARE (WNR) MEDICARE (M) PART B January 25, 2018 PART B [id number] Catrina LEE PATIENT Selected Encounter This section includes the information on record at [place] for the Encounter. Date/Time Encounter Type Encounter Description Reason Provider Source Nov 17, 2023 02:00 PM HEARING SERVICE AUDIOLOGY ICD-10-CM Z46.1 Encounter for fitting and adjustment of hearing aid RENE KONG Encounter Template Text not used by [facility] Assessments - Encounter Diagnoses This section includes the primary and secondary diagnoses documented for the Encounter. Date/Time Primary/Secondary Diagnosis Diagnosis Name Provider Source Nov 17, 2023 02:32 PM PRIMARY Encounter for fitting and adjustment of hearing aid RENE STRICKLAND [place] [facility] [place] [facility] Nov 17, 2023 02:32 PM SECONDARY Sensorineural hearing loss, bilateral RENE STRICKLAND [place] [facility] [place] [facility] Plan of Treatment: Future Appointments (+ 6 months) and Future Tests (+/- 45 days) The Plan of Treatment section includes future care activities for the [facility] [place] [facility] This section includes future appointments and future orders which are active, pending or scheduled. Future Appointments This section includes appointments that were scheduled to occur 6 months from the date of the Encounter, up to a maximum of 20 appointments. The data comes from all [place] treatment facilities. Appointment Date/Time Appointment Type Appointme nt Facility Name Dec 08, 2023 09:20 AM AMBULATORY - [place]ICINE [place] [facility] [place] [facility] February 01, 2024 03:00 PM AM[place]UL[place]ORY - [place]IC[place] [facility] [facility] February 15, 2024 01:00 PM AM[place]ORY - [place]IC[place] [facility] [place] [facility] Feb 28, 2024 09:00 AM [place] - [place] [facility] [facility] Mar 17, 2024 11:00 AM AMBULATORY - PSYCHIATRY [facility] Mar 23, 2024 10:30 AM [place]ORY [place] [facility] [place] [facility] Mar 24, 2024 09:30 AM AM[place]ORY [place] [facility] [facility] Mar 29, 2024 11:00 AM AMBULATORY - PSYCHIATRY [facility] Apr 17, 2024 11:00 AM AM[place]ORY [place] [facility] [place] [facility] Apr 24, 2024 11:00 AM AM[place]ORY [place] [facility] [place] [facility] Apr 28, 2024 01:00 PM [place]ORY [place] [facility] [facility] May 01, 2024 11:00 AM [place] [facility] [facility] May 11, 2024 07:30 AM AMBUL[place]ORY - NONE [place] [facility] [place] [facility] Lab Results: +/- 30 days of the encounter This section includes the Chemistry and Hematology Lab Results on record with [place] for the patient. Radiology Reports and Pathology Reports are provided separately, in subsequent sections. Lab Results This section contains the Chemistry/Hematology Results that were resulted 30 days before or 30 daysafter the date of the Encounter. Date/Time Source Result Type Result - Unit Interpretation Reference Range Comment Nov 11, 2023 09:08 AM [facility] LIPOPROTEIN (a) Specimen Type: SERUM Comment: REFERENCE RANGE: <75 nmol/L THIS RESULT HAS BEEN VERIFIED BY REPEAT ANALYSIS. Risk Category Optimal < 75 nmol/L Moderate 75 - 125 nmol/L High > 125 nmol/L Cardiovascular event risk category cut points (optimal, moderate, high) are based on Gary Musa [facility] 2017;69:692-711 . Test Performed by [facility], [facility], [address] [place] [address] Danielito Harris M.D., Ph.D., Director of Laboratories , [place] [id number] TEST PERFORMED AT: , Ordering Provider: BLANCA WONG Report Released Date/Time: Nov 08, 2023 02:37 PM Reporting Lab: [address] [address] Performing Lab: [address] [address] LIPOPROTEIN (a) 213 nmol/L H SEE BELOW Nov 11, 2023 09:08 AM [facility] LIPID PANEL FASTING Specimen Type: SERUM No comment entered. Ordering Provider: BLANCA WONG Report Released Date/Time: Nov 08, 2023 02:37 PM Reporting Lab: [facility] [address] [facility] [address] Performing Lab: [address] [address] CHOLESTEROL 189 mg/dL TRIGLYCERIDE 127 mg/dL 0-150 LDL calculated 120 mg/dL 0-129 CHOL/HDL 4.3 HDL CHOLESTEROL 44 mg/dL 40-60 Nov 11, 2023 09:08 AM [facility] LIVER FUNCTION Specimen Type: SERUM No comment entered. Ordering Provider: BLANCA WONG Report Released Date/Time: Nov 08, 2023 02:37 PM Reporting Lab: [facility] [address] [facility] [address] Performing Lab: [facility] [address] [facility] [address] PROTEIN,TOTAL 7.0 g/dL 6.0-8.3 ALBUMIN 4.1 g/dL 3.5-5.0 ALKALINE PHOSPHATASE 65 U/L 40-150 AST 15 U/L 5-34 ALT 20 U/L BILIRUBIN, TOTAL 0.7 mg/dL 0.2-1.2 Nov 11, 2023 09:08 AM [facility] BASIC METABOLIC PANEL (fasting) Specimen Type: SERUM No comment entered. Ordering Provider: BLANCA WONG Report Released Date/Time: Nov 08, 2023 02:37 PM Reporting Lab: [facility] [address] [facility] [address] Performing Lab: [address] [address] UREA NITROGEN 26 mg/dL H 7-25 GLUCOSE 100 mg/dL 65-100 SODIUM 144 mmol/L 135-145 POTASSIUM 4.0 mmol/L 3.5-5.0 CHLORIDE 107 mmol/L 100-110 CO2 29 meq/L 20-30 CREATININE, Serum 1.11 mg/dL 0.50-1.40 eGFR(CKD-EPI 2020) 71 mL/min >60 Nov 11, 2023 09:08 AM [facility] HEMOGLOBIN A1C PANEL Specimen Type: BLOOD Comment: [...] Nov 08, 2023 02:37 PM Reporting Lab: [place] [facility] [place] [facility] [address] [facility] [address] Performing Lab: [place] [facility] [place] [facility] [address] [facility] [address] HEMOGLOBIN A1C 5.1 4.0-5.6 Nov 11, 2023 09:08 AM [facility] TSH Specimen Type: SERUM No comment entered. Ordering Provider: BLANCA WONG Report Released Date/Time: Nov 08, 2023 02:37 PM Reporting Lab: [place] [facility] [place] [facility] [address] [facility] [address] Performing Lab: [place] [facility] [place] [facility] [address] [facility] [address] TSH 3.02 u[IU]/mL 0.35-5.00 Nov 11, 2023 09:[address] [facility] MICROALBUMIN CREATININE RATIO PANEL Specimen Type: URINE No comment entered. Ordering Provider: BLANCA WONG Report Released Date/Time: Nov 08, 2023 02:37 PM Reporting Lab: [place] [facility] [place] [facility] [address] [facility] [address] Performing Lab: [facility] [place] [place] [address] [address] MICROALBUMIN/ CREATININE RATIO 54.6 mg/g H 0-29.9 MICROALBUMIN, QUANTITATIVE 4.1 mg/dL RR UNAVAIL CREATININE URINE 75.10 mg/dL Nov 11, 2023 09:08 AM [facility] PSA Specimen Type: SERUM No comment entered. Ordering Provider: BLANCA WONG Report Released Date/Time: Nov 08, 2023 02:37 PM Reporting Lab: [place] [facility] [place] [facility] [address] [facility] [address] Performing Lab: [facility] [address] [address] PSA 47.97 ng/mL H 0.00-4.00 Nov 11, 2023 09:08 AM [facility] VITAMIN B12 Specimen Type: SERUM No comment entered. Ordering Provider: BLANCA WONG Report Released Date/Time: Nov 08, 2023 02:37 PM Reporting Lab: [facility] [address] [facility] [address] Performing Lab: [address] [address] VITAMIN B12 664 pg/mL 200-900 Nov 11, 2023 09:08 AM [facility] CBC AND DIFF (AUTO) Specimen Type: BLOOD No comment entered. Ordering Provider: BLANCA WONG Report Released Date/Time: Nov 08, 2023 02:37 PM Reporting Lab: [facility] [address] [facility] [address] Performing Lab: [address] [address] WBC 6.88 10*3/uL 4.50-11.00 RBC 4.91 10*6/uL 4.23-5.66 HGB 15.8 g/dL 12.8-17 HCT 47.0 39.2-50.4 MCV 95.7 fL 82-99 MCHC 33.6 g/dL 30.8-35.1 PLT 146 10*3/uL 140-360 RDW-CV 12.4 12.0-16.0 [place], Abs 0.67 10*3/uL 0.30-1.10 MCH 32.2 pg 26.2-32.6 Neut % 60.4 43.7-75.8 Lymph % 25.9 14.0-42.3 [place] % 9.7 5.1-13.7 Eos % 3.2 0.4-6.8 Baso % 0.4 0.1-2.0 Neut, Abs 4.15 10*3/uL 2.20-7.60 Lymph, Abs 1.78 10*3/uL 1.00-3.20 Eos, Abs 0.22 10*3/uL 0.03-0.44 Baso, Abs 0.03 10*3/uL 0.01-0.13 Immature Gran % 0.4 0.0-0.7 Immature Gran, Abs 0.03 10*3/uL 0.00-0.06 Encounter Notes: All associated encounter notes This section contains the clinical notes associated to the Encounter. Date/Time Encounter Note(s) Provider Source Nov 17, 2023 07:57 AM AUDIOLOGY E & M NOTE: LOCAL TITLE: AUDIOLOGY CLINIC STANDARD TITLE: AUDIOLOGY E & M NOTE DATE OF NOTE: NOV 17, 2023@07:57 ENTRY DATE: NOV 17, 2023@07:57:52 AUTHOR: RENE KONG COSIGNER: URGENCY: STATUS: COMPLETED AUDIOLOGY CLINIC Has ADDENDA Dx CODE: Z46.1- Encounter for Fitting/Programming Hearing Aid(s); H90.3- Sensorineural Hearing Loss, Bilateral APPOINTMENT TYPE: Hearing Aid Fitting SUBJECTIVE (S): The patient was seen for hearing aid fitting and issuance. He had previously been evaluated and found to exhibit significant hearing loss for which amplification was recommended. How does the patient best learn? Verbal instruction, demonstration Does the patient have any cultural and pentecostal beliefs, emotional barriers, physical or cognitive limitations, and communication barriers which may impact his ability to learn? No Desire and motivation to learn? Good OBJECTIVE (O): Physical fit of hearing aids was good. Patient verified comfort. Verification of an appropriate acoustic response was obtained using Real Ear measurements (speech mapping) and NAL-NL2 targets. The patient reported good subjective benefit as well. Feedback progressive care manager was run. Hearing aids were found to be meeting targets adequately and MPO was not exceeding estimated UCL. Settings stored in HOLLI. ASSESSMENT (A): The following devices were issued: Make: Phonak Model: Audeo L90 RL RICs Right Serial Number: [id number] Left Serial Number: [id number] Battery size: RECHARGEABLE Warranty ends: 11/20/26 Trial Period ends: 04/19/24 Domes/Wax guards: open medium dome, cerustop Kindergartner: size 2 M Program(s): Automatic Button(s): Short press= synchronous VC via rocker switch Long press= on/off Fitting Formula: NAL-NL2 Remote Programming: HAs are capable Counseling was completed throughout todays appointment using a standardized curriculum that includes but is not limited to; realistic expectations with amplification in adverse listening environments, acclimatization to own voice and environmental sounds (following real-ear measurements), the importance of consistent use of amplification, proper insertion/removal, care and maintenance (including wax guards/domes if applicable), signal and alerts of devices, and charging/batteries. The was provided the opportunity to practice in office and reports confidence/understanding in all items reviewed. Time Spent= 20 minutes The patient was informed of and signed/agreed to [place] policy on hearing aid issuance: Yes Users are responsible for the maintenance and security of their devices. Determination of need to replace a hearing aid is made by the [place] software implementation specialist. Hearing aids will not be replaced in cases of neglect, abuse, or excessive loss. Items issued are for personal use only. Prognosis for successful hearing aid use is good. PLAN (P): 1. Follow-up for programming/adjustments as needed. 2. The International Outcome Inventory-Hearing Aids (IOI-KIRKPATRICK) will be mailed to the in four weeks. He was asked to complete and mail back to clinic after completion. Patient Education Education provided on the following topics: Hearing aid use, care, maintenance Education provided to: P Response to Education: ELZA BREAUX, PI Gomez Patient P Family F Significant Other SO Verbalizes Understanding VU Returns Demonstration RD Performs Independently PI Lacks Comprehension LC Refused Education RE Not Applicable NA /alfred/ CATHY CANTU STAFF MANAGER QUALITY COMPLIANCE Signed: 11/17/2023 14:33 01/06/2024 ADDENDUM STATUS: COMPLETED [place] returned IOI-KIRKPATRICK Outcome Measure to the clinic via mail with an overall score of 30 Based on this score: i. No follow-up call is indicated _XX_ ii. Follow-up call is indicated and fitting clinician will be notified __ /es/ IFEANYI STEVEN [facility] Mine Car Dispatcher Signed: 01/06/2024 10:23 RENE KONGRErnestine MORRIS [facility]
--- OUTSIDE RECORDS SUMMARY | 2024-11-02 09:22 | XMS_ITS ---
Author Name [facility] [place] Organization [facility] [place] Address [address] [place] [address] Care Team Providers Care Business Taxes Specialist Name Role Phone MO ALMARAZ Primary Care [...] Patient's Relationship to Policy Rucker MEDICAID MEDICAID [facility] Nov 30, 2019 MEDICAI D [id number] Catrina LEE PATIENT MEDICARE (WNR) MEDICARE (M) PART A January 25, 2018 PART A [id number] Catrina LEE PATIENT MEDICARE (WNR) MEDICARE (M) PART B January 25, 2018 PART B [id number] Catrina LEE PATIENT Selected Encounter This section includes the information on record at [place] for the Encounter. Date/Time Encounter Type Encounter Description Reason Provider Source Oct 30, 2024 09:41 AM Outpatient Encounter PRIMARY CARE/MEDICINE JOSSELIN SOSA Encounter Template Text not used by [facility] Plan of Treatment: Future Appointments (+ 6 months) and Future Tests (+/- 45 days) The Plan of Treatment section includes future care activities for the patient from all [place] treatmentfacilities. This section includes future appointments and future orders which are active, pending or scheduled. Future Appointments This section includes appointments that were scheduled to occur 6 months from the date of the Encounter, up to a maximum of 20 appointments. The data comes from all [place] treatment facilities. Appointment Date/Time Appointment Type Appointme nt Facility Name Nov 14, 2024 11:30 AM AMBULATORY - MEDICINE [facility] Mar 23, 2025 09:00 AM AMBULATORY - [...] The data comes from all [place] treatment [facility]. Test Date/Time Test Type Test Details Facility Name Oct 04, 2024 01:16 PM Consult Order MENTAL HEA LT SERVICES BHIP/SPOPC OUTPT [facility] Parachute Panel [facility] Oct 04, 2024 01:19 PM Consult Order PSYCHIATRI C MEDICATION SOPC OUTPT [facility] Parachute Panel [facility] Oct 30, 2024 10:35 AM Consult Order PSYCHOTHER APY SOPC OUTPT [facility] Encounter Notes: All associated encounter notes This section contains the clinical notes associated to the Encounter. Date/Time Encounter Note(s) Provider Source Oct 30, 2024 09:41 AM MENTAL HEALTH DIAG NOSTIC STUDY NOTE: LOCAL TITLE: MENTAL HEALTH DIAGNOSTIC STUDY STANDARD TITLE: MENTAL HEALTH DIAGNOSTIC STUDY NOTE DATE OF NOTE: OCT 30, 2024@09:41:47 ENTRY DATE: OCT 30, 2024@09:41:47 AUTHOR: JOSSELIN SOSA EXP COSIGNER: URGENCY: STATUS: COMPLETED Generalized Anxiety Disorder, 7 items Date Given: 10/30/2024 Clinician: Josselin Sosa [facility]: [facility]/cc/cm Pc/social security specialist : Víctor Lee Samuel SSN: [id number] : [birth year]) Gender: Male TIMOTHY-7 score: 16 A low score indicates the absence of anxiety, a high score indicates the presence of anxiety symptoms; the range is 0 to 21. A score of 15 or greater is considered clinically significant, meriting active treatment for anxiety. A score of 10 to 14 indicates a condition that should be carefully evaluated. Questions and Answers 1. Feeling nervous, anxious or on edge Nearly every day 2. Not being able to stop or control worrying Nearly every day 3. Worrying too much about different things Nearly every day 4. Trouble relaxing Nearly every day 5. Being so restless that it is hard to sit still More than half the days 6. Becoming easily annoyed or irritable Several days 7. Feeling afraid as if something awful might happen Several days Information contained in this note is based on a self-report assessment and is not sufficient to use alone for diagnostic purposes. Assessment results should be verified for accuracy and used in conjunction with other diagnostic activities and procedures. /alfred/ JOSSELIN SOSA COLLECTION COORDINATOR Sales Promotion Representative Mental Health Signed: 10/30/2024 10:16 JOSSELIN SOSAFIELD
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
[2024-11-02 10:06] LABS: Hematocrit 46.3 % (42.0-52.0); Hemoglobin 15.4 g/dl (14.0-18.0); Mean Corpuscular HGB Conc 33.3 g/dl (31.0-36.0); Mean Corpuscular Volume 96.3 fL (80.0-98.0); Mean Platelet Volume 9.7 fL (9.4-12.4); Platelet Count 174 X10*3/uL (160-400); Red Blood Count 4.81 X10*6/uL (4.60-5.80); Red Cell Distribution Width 11.9 % (11.0-16.0); White Blood Count 7.3 X10*3/uL (4.8-10.8)
[2024-11-02 10:43] LABS: Alanine Aminotransferase 22 U/L (0-40); Albumin Level 4.1 g/dL (3.5-5.0); Alkaline Phosphatase 62 U/L (39-117); Anion Gap 9 (12-20); Aspartate Amino Transferase 20 U/L (5-37); Bilirubin Total 0.5 mg/dL (0.0-1.0); Blood Urea Nitrogen 28 mg/dL (9-16); Calcium 9.7 mg/dL (8.4-10.2); Carbon Dioxide 27 mmol/L (22-29); Chloride 108 mmol/L (96-108); Estimated Glomerular Filt Rate > 60; Glucose Random 104 mg/dL (60-115); Phosphorus 2.6 mg/dL (2.7-4.5); Potassium 4.5 mmol/L (3.3-5.1); Sodium 139 mmol/L (135-145); Total Protein 7.3 g/dL (6.5-8.0); Uric Acid 6.5 mg/dL (3.4-7.0)
== END 2024-11-02 09:18 | disposition home or self-care (01) ==
LOC: HO.HMGCLDS 09:17
PROVIDERS: PCP Internal Medicine; Visit Provider Nurse Practitioner Primary Care
DX: C61 Malignant neoplasm of prostate (principal)
CPT/HCPCS: 36415; 80053; 84100; 84550; 85027

== ENCOUNTER 2025-01-23 11:04 | Outpatient (REF) | payer MEDICARE, SELFPAY ==
[2025-01-23 11:44] LABS: MANUAL DIFF FLAG NO
[2025-01-23 11:57] LABS: Basophils Percent Auto 0.6 % (0-2); Eosinophils Absolute Auto 0.2 X10*3/uL (0.0-0.4); Eosinophils Percent Auto 3.4 % (0-4); Hematocrit 43.8 % (42.0-52.0); Hemoglobin 14.6 g/dl (14.0-18.0); Imm Gran Abs Auto 0.04 X10*3/uL (0.00-0.03); Imm Gran Pct Auto 0.6 % (0.0-0.4); Lymphocytes Absolute Auto 1.7 X10*3/uL (1.2-4.9); Lymphocytes Percent Auto 25.4 % (20-40); Mean Corpuscular HGB Conc 33.3 g/dl (31.0-36.0); Mean Corpuscular Hemoglobin 31.7 pg (27.0-33.0); Mean Corpuscular Volume 95.2 fL (80.0-98.0); Mean Platelet Volume 9.7 fL (9.4-12.4); Monocytes Absolute Auto 0.7 X10*3/uL (0.1-1.2); Monocytes Percent Auto 10.1 % (2-11); Neutrophils Percent Auto 59.9 % (45-73); Platelet Count 167 X10*3/uL (160-400); Red Cell Distribution Width 12.5 % (11.0-16.0); White Blood Count 6.7 X10*3/uL (4.8-10.8)
[2025-01-23 12:08] LABS: Fibrinogen 552 MG/DL (259-690)
[2025-01-23 12:10] LABS: D Dimer High Sensitivity 177 NG/ML
[2025-01-23 12:13] LABS: Estimated Average Glucose 105 mg/dL; Hemoglobin A1C 128.2326 umol/L; Hemoglobin A1c % 5.3 % (<6.0); Total Hemoglobin (HGBA1C) 3767.6794 umol/L
[2025-01-23 12:40] LABS: Appearance Urine Clear; Color Urine Yellow; Glucose Urine UA Negative (Negative); Leukocyte Esterase Urine Small (1+) (Negative); Nitrite Urine Negative (Negative); PH 5.5 (5.0-9.0); Specific Gravity - Urine 1.015 (1.005-1.025); UMIC TRIGGER UA YES; Urine Blood Negative (Negative); Urine Ketones Negative (Negative); Urine Protein 30 (1+) mg/dL (Neg-Trace)
[2025-01-23 12:45] LABS: Bacteria Urine None Seen (None Seen); Hyaline Casts Urine 0-2 /LPF (0-2); RBC Urine 0-2 /HPF (0-2)
[2025-01-23 12:45] LABS: Alanine Aminotransferase 17 U/L (0-40); Anion Gap 13 (12-20); Aspartate Amino Transferase 17 U/L (5-37); Bilirubin Total 0.3 mg/dL (0.0-1.0); Blood Urea Nitrogen 29 mg/dL (9-16); C Reactive Protein 1.21 mg/dL (< or = 0.50); Calcium 8.9 mg/dL (8.4-10.2); Carbon Dioxide 24 mmol/L (22-29); Chloride 112 mmol/L (96-108); Cholesterol 160 mg/dL (<200); Estimated Glomerular Filt Rate > 60; Glucose Random 100 mg/dL (60-115); HDL Cholesterol 40 mg/dL (>40); Iron 78 mcg/dL (45-160); LDL Cholesterol Calculated 109 mg/dL (<100); Percent Iron Saturation 35 % (15-50); Potassium 4.2 mmol/L (3.3-5.1); Sodium 145 mmol/L (135-145); Total Iron Binding Capacity 220 mcg/dL (228-428); Total Protein 6.7 g/dL (6.5-8.0); Triglycerides 58 mg/dL (<150); Unsaturated Iron Binding 142 ug/dL; Uric Acid 6.9 mg/dL (3.4-7.0)
[2025-01-23 12:51] LABS: Alkaline Phosphatase 81 U/L (39-117)
--- OUTSIDE RECORDS SUMMARY | 2025-01-23 13:01 | XMS_ITS | Encounter Summary ---
Author Organization [facility] Address [address] [place] [address] Care Team Providers Care Purchasing Internship Name Role Phone Renee Nogueira MD Primary Care Provider Rochelle vailaChandan Schumacher PA-C Primary Care Provider Unavail able Encounter Details Date Type Department Care Team Description 08/10/2017 Release of Information Medical Records [address] [place] [id number] Abstract, Provider Social History Tobacco Use Types Packs/Day Years Used Date Smoking Tobacco: Some Days Cigarettes 1 48 Alcohol Use Standard Drinks/Week Comments Yes 0 (1 standard drink = 0.6 oz pure alcohol) 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
--- OUTSIDE RECORDS SUMMARY | 2025-01-23 13:01 | XMS_ITS ---
Author Name [facility] [place] Organization [place] Address [address] [place] [address] Care Team Providers Care Inspector Fuel Hose Name Role Phone ASHLEIGH FIELDS Primary Care Provider Unavailable Insurance Providers: All historical and current Section [...] Patient's Relationship to Policy Rucker MEDICAID MEDICAID [facility] ST[facility] ANIRUDH Nov 30, 2019 MEDICAI D [id number] Catrina LEE PATIENT MEDICARE (WNR) MEDICARE (M) PART A January 25, 2018 PART A [id number] Catrina LEE PATIENT MEDICARE (WNR) MEDICARE (M) PART B January 25, 2018 PART B [id number] Catrina LEE PATIENT Selected Encounter This section includes the information on record at CT for the Encounter. Date/Time Encounter Type Encounter Description Reason Provider Source Dec 12, 2024 09:00 AM OFFICE O/P EST MOD 30 MIN PRIMARY CARE/MEDICINE ICD-10-CM I10 Essential (primary) hypertension ASHLEIGH FIELDS Encounter Template Text not used by CT Assessments - Encounter Diagnoses This section includes the primary and secondary diagnoses documented for the Encounter. Date/Time Primary/Secondary Diagnosis Diagnosis Name Provider Source Dec 12, 2024 01:19 PM PRIMARY Essential (primary) hypertension [facility] Dec 12, 2024 01:19 PM SECONDARY Anxiety disorder, unspecified [facility] Dec 12, 2024 01:19 PM SECONDARY Encounter for immunization [facility]INO [facility] Dec 12, 2024 01:19 PM SECONDARY Malignant neoplasm of prostate DIAMONDASHLEIGH [facility] Dec 12, 2024 01:19 PM SECONDARY Occlusion and stenosis of unspecified vertebral artery LOMAXALEJANDRAASHLEIGH [facility] Plan of Treatment: Future Appointments (+ 6 months) and Future Tests (+/- 45 days) The Plan of Treatment section includes future care activities for the [facility] This section includes future appointments and future orders which are active, pending or scheduled. Future Appointments This section includes appointments that were scheduled to occur 6 months from the date of the Encounter, up to a maximum of 20 appointments. The data comes [facility] Appointment Date/Time Appointment Type Appointme nt Facility Name Jan 01, 2025 10:30 AM AMBULATORY - PSYCHIATRY CT CNTR [facility] January 30, 2025 09:30 AM AMBULATORY - MEDICINE [facility] [place] [place] [facility] Mar 19, 2025 10:00 AM [facility] Active, Pending, and Scheduled Orders This section includes a listing of several types of active, pending, and scheduled orders, including clinic medications orders, diagnostic test orders, procedure orders and consult orders; where the start date of the order is 45 days before the date of the Encounter or 45 days after the date of theEncounter. The data comes from [facility]. 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 Radiology Reports and Pathology Reports are provided separately, in subsequent sections. Lab Results This section contains the Chemistry/Hematology Results that were resulted 30 days before or 30 daysafter the date of the Encounter. Date/Time Source Result Type Result - Unit Interpretation Reference Range Specimen Type Comment Dec 07, 2024 02:16 PM [facility] BASIC METABOLIC PANEL (non-fasting) SERUM Spe cimen Type: SERUM No comment entered. Ordering Provider: IZZY ALMARAZ Report Released Date/Time: Dec 06, 2024 09:00 AM Reporting Lab: [facility] [address] [facility] [address] Performing Lab: [address] [address] UREA NITROGEN 36 mg/dL H 7-25 GLUCOSE 90 mg/dL 65-100 SODIUM 140 mmol/L 135-145 POTASSIUM 4.4 mmol/L 3.5-5.0 CHLORIDE 110 mmol/L 100-110 CO2 23 meq/L 20-30 CALCIUM 8.7 mg/dL 8.5-10.2 CREATININE, Serum 1.28 mg/dL 0.50-1.40 eGFR(CKD-EPI 2020) 59 mL/min L >60 Dec 05, 2024 08:05 AM [facility] BASIC METABOLIC PANEL (non-fasting) SERUM Spe cimen Type: SERUM No comment entered. Ordering Provider: IZZY ALMARAZ Report Released Date/Time: Nov 28, 2024 03:13 PM Reporting Lab: [address] [address] Performing Lab: [address] [address] UREA NITROGEN 39 mg/dL H 7-25 GLUCOSE 106 mg/dL H 65-100 SODIUM 143 mmol/L 135-145 POTASSIUM 5.0 mmol/L 3.5-5.0 CHLORIDE 111 mmol/L H 100-110 CO2 24 meq/L 20-30 CALCIUM 9.2 mg/dL 8.5-10.2 CREATININE, Serum 1.51 mg/dL H 0.50-1.40 eGFR(CKD-EPI 2020) 49 mL/min L >60 Nov 28, 2024 11:05 AM [facility] BASIC METABOLIC PANEL (non-fasting) SERUM Spe cimen Type: SERUM No comment entered. Ordering Provider: IZZY ALMARAZ Report Released Date/Time: Nov 21, 2024 11:50 AM Reporting Lab: [address] [address] Performing Lab: [address] [address] UREA NITROGEN 31 mg/dL H 7-25 GLUCOSE 101 mg/dL H 65-100 SODIUM 141 mmol/L 135-145 POTASSIUM 4.7 mmol/L 3.5-5.0 CHLORIDE 110 mmol/L 100-110 CO2 26 meq/L 20-30 CALCIUM 9.5 mg/dL 8.5-10.2 CREATININE, Serum 1.16 mg/dL 0.50-1.40 eGFR(CKD-EPI 2020) 67 mL/min >60 Nov 15, 2024 12:51 PM [facility] HEMOGLOBIN A1C PANEL BLOOD Specimen Type: BLO OD Comment: Values obtained from A1C measurements can vary. For atypical A1C assays, a reported value of 7.0 could actually be between 6.72 and 7.28 if measured by a reference method. A reported value of 9.0 could actually be between 8.73 and 9.27. Ref: http://www.ngsp.org/CAPdata.asp Ordering Provider: IZZY ALMARAZ Report Released Date/Time: Nov 15, 2024 10:22 AM Reporting Lab: [address] [address] Performing [facility]: [facility] [address] [address] HEMOGLOBIN A1C 5.6 4.0-5.6 Nov 15, 2024 12:51 PM [facility] BASIC METABOLIC PANEL (fasting) SERUM Specime n Type: SERUM No comment entered. Ordering Provider: IZZY ALMARAZ Report Released Date/Time: Nov 15, 2024 10:22 AM Reporting Lab: [address] [address] Performing Lab: [address] [address] UREA NITROGEN 33 mg/dL H 7-25 GLUCOSE 89 mg/dL 65-100 SODIUM 144 mmol/L 135-145 POTASSIUM 4.9 mmol/L 3.5-5.0 CHLORIDE 108 mmol/L 100-110 CO2 28 meq/L 20-30 CALCIUM 9.7 mg/dL 8.5-10.2 CREATININE, Serum 1.08 mg/dL 0.50-1.40 eGFR(CKD-EPI 2020) 73 mL/min >60 Nov 15, 2024 12:51 PM [facility] LIPID PANEL FASTING SERUM Specimen Type: SERU M No comment entered. Ordering Provider: IZZY ALMARAZ Report Released Date/Time: Nov 15, 2024 10:22 AM Reporting Lab: [address] [address] Performing Lab: [address] [address] CHOLESTEROL 184 mg/dL TRIGLYCERIDE 131 mg/dL 0-150 LDL calculated 120 mg/dL 0-129 CHOL/HDL 4.8 HDL CHOLESTEROL 38 mg/dL L 40-60 Nov 15, 2024 12:51 PM [facility] LIVER FUNCTION SERUM Specimen Type: SERUM No comment entered. Ordering Provider: IZZY ALMARAZ Report Released Date/Time: Nov 15, 2024 10:22 AM Reporting Lab: [facility] [place] [facility] [address] [facility] [address] Performing Lab: [facility]ITALR[facility]ITALTRN [facility]USUSETS [facility] [address] [facility] [address] PROTEIN,TOTAL 6.8 g/dL 6.0-8.3 ALBUMIN 3.6 g/dL 3.5-5.0 ALKALINE PHOSPHATASE 65 U/L 40-150 AST 14 U/L 5-34 ALT 16 U/L BILIRUBIN, TOTAL 0.4 mg/dL 0.2-1.2 Nov 15, 2024 12:51 PM [facility]USUSE[facility] TSH SERUM Specimen Type: SERUM No comment entered. Ordering Provider: IZZY ALMARAZ Report Released Date/Time: Nov 15, 2024 10:22 AM Reporting Lab: [facility] [place] [place] [address] [address] Performing Lab: [facility] TRN [facility] CAMPUSUSETS [facility] [address] [facility] [address] TSH 1.83 u[IU]/mL 0.35-5.00 Nov 15, 2024 12:51 PM [facility]AMPUSUSETS [facility] CREATININE (eGFR 2020) SERUM Specimen Type: S JALEEL No comment entered. Ordering Provider: IZZY ALMARAZ Report Released Date/Time: Nov 15, 2024 10:22 AM Reporting Lab: [facility] [place] [facility] [address] [facility] [address] Performing Lab: [facility] TRN [facility] CAMPUSUSETS [address] [address] CREATININE, Serum 1.08 mg/dL 0.50-1.40 eGFR(CKD-EPI 2020) 73 mL/min >60 Nov 15, 2024 12:51 PM [facility]PITALRRUSSELL [facility] CENTERN [facility] CAMPUSUSETS [facility] MICROALBUMIN CREATININE RATIO PANEL URINE Spe cimen Type: URINE No comment entered. Ordering Provider: IZZY ALMARAZ Report Released Date/Time: Nov 15, 2024 10:22 AM Reporting Lab: [facility] [address] [facility] [address] Performing Lab: [facility] [address] [facility] [address] MICROALBUMIN/CREATININE RATIO 78.2 mg/g H 0-29.9 MICROALBUMIN,QUANTITATIVE 6.1 mg/dL RR U NAVAIL CREATININE URINE 78.00 mg/dL Nov 15, 2024 12:51 PM [facility] CBC AND DIFF (AUTO) BLOOD Specimen Type: BLOO D No comment entered. Ordering Provider: IZZY ALMARAZ Report Released Date/Time: Nov 15, 2024 10:22 AM Reporting Lab: [facility] [address] [facility] [address] Performing Lab: [address] [address] WBC 6.78 10*3/uL 4.50-11.00 RBC 4.60 10*6/uL 4.23-5.66 HGB 14.6 g/dL 12.8-17 HCT 43.4 39.2-50.4 MCV 94.3 fL 82-99 MCHC 33.6 g/dL 30.8-35.1 PLT 184 10*3/uL 140-360 RDW-CV 12.0 12.0-16.0 MONO, ABS 0.61 10*3/uL 0.30-1.10 MCH 31.7 pg 26.2-32.6 NEUT % 56.6 43.7-75.8 LYMPH % 28.5 14.0-42.3 MONO % 9.0 5.1-13.7 EOS % 4.9 0.4-6.8 BASO % 0.6 0.1-2.0 NEUT, ABS 3.84 10*3/uL 2.20-7.60 LYMPH, ABS 1.93 10*3/uL 1.00-3.20 EOS, ABS 0.33 10*3/uL 0.03-0.44 BASO, ABS 0.04 10*3/uL 0.01-0.13 IMMATURE GRAN % 0.4 0.0-0.7 IMMATURE GRAN, ABS 0.03 10*3/uL 0.00-0.0 6 NRBC % 0.0 0.0-0.0 NRBC, ABS 0.00 10*3/uL 0.00-0.00 Vital Signs: All taken on the encounter date This section contains inpatient and outpatient Vital Signs collected on the date of the Encounter. Date/Time Temperature Pulse Blood Pressure Respiratory Rate SP02 Pain Height Weight Body Mass Index Source Dec 12, 2024 10:41 AM 148/88 [facility] [place] [facility] Dec 12, 2024 08:51 AM 97.5 63 158/82 16 97 0 65 175.2 29 [facility] Immunizations: All administered on the encounter date This section contains immunizations associated to the Encounter. Immunization Series Date Issued Administered By Site Reaction Lot Number CVX Code Drug Atomic Physics Professor Comment(s) Source TDAP Dec 12, 2024 JEREMIAH PATINO LEFT DELTO ID [id number] [facility] Completed Series, ADMINISTERE D AT CT, [facility] Encounter Notes: All associated encounter notes This section contains the clinical notes associated to the Encounter. Date/Time Encounter Note(s) Provider Source Dec 12, 2024 09:01 AM PHYSICIAN ALLEY TENDER NOTE: LOCAL TITLE: MICKI NOTE STANDARD TITLE: PHYSICIAN ALLEY TENDER NOTE DATE OF NOTE: DEC 12, 2024@09:01 ENTRY DATE: DEC 12, 2024@09:01:40 AUTHOR: SARA FIELDS COSIGNER: URGENCY: STATUS: COMPLETED EVA LEE is a 69 year old WHITE MALE who is being seen today in primary care; establishing care w/ new PCP. === CARE TEAM === Community Primary Care Provider: No CT Specialists: Mental Health Community Specialists: Oncology: Clinic in [facility] Vascular === HISTORY === PERIOD OF SERVICE - [place] [facility] CONNECTED % - 100 === HISTORY OF PRESENT ILLNESS === Patient presents today for HTN FU and repeat labs. Establishing care with new PCP, previously seen by Dr Brush in [facility]. Has been struggling w/ HTN control. Seen by Izzy last month, started on lisinopril, had to d/c due to diarrhea which progressively worsened with increasing dose of lisinopril. Was up 20 mg lisinopril; and diarrhea was signif; caused mild dehyration and had mild incr in Creatinine to 1.5. With fluids, labs repeated and now normal. HTN hx: started treatment in 2022- metoprolol. Tolerates well , no side effects. Had EKG & TTE (10/2024): Moderate LVH. No valvular dz. EF 55-60% GERTRUDIS: is using CPAP , now sleeping well and tolerating Cpap after recent start of new med for insomnia (trazadone started Oct 2024); slept 6 hrs last night, a miracle Anxiety: Mental Health: in care since [id number] for 'severe stress'. Started sertraline 10/2024 taking 50 mg (one half 100 mg tab), not sure it's helping, but trazadone is very helpful for insomnia. Has had one appt thus far. Dtr is struggling with mental health in past few yrs. Chart review: Carotid stenosis:per U/S, then MRA in Nov 2023; no clinically signf stenosis. Saw [facility] who recommended observation. Consider ASA And statin. Aneurysm, 2 mm RIGTH paraclinoid ICA. MRA confirms, small , non surgical. Consulted w. [facility], Dr Perez [facility]. Recommended MRA in one yr, due Spring 2024. Prostate CA: (dxd 2015) Vandana 9. Sought several opinions with Oncology and felt frustrated by differing opinions. [facility] recommended radical prostatectomy. Sought consult at [facility], dxd St4 & also recommended rad prostatectomy. Chose alternative treatment ; now under care of [facility], Dr Ward, [place], [place]. Undergone target Chemotherapy, ozone therapy, hyperbaric O2 therapy; most recently started SOT treatment started 2022 (via infusion); gets q 6 mo PET scans and MRIs. === Active problems - Computerized Problem List is the source for the following: RELEVANT PAST MEDICAL HISTORY 1. 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 Asx. 1 yr MRA recommend per Dr Perez [facility] 2. Vertebral artery stenosis without infarction No clinically signif stenosis. Focal High gr stenosis of R verteb artery/ Vascular [facility] recommends observation. MRA done 11/2023 3. Diverticular disease of colon 4. History of polyp of colon Colnoscopy 01/12/2022 Tubular adenoma x4, rpt 3 yrs, 2024 tubular adenomas with surveillance endoscopy by ORAL Mauro 5. Prostate cancer : Stage 4 (electing alternative treatment in [place]) 6. HT - Hypertension change to Lis/HCTZ 21 Nov 202010/2024 TTE Mod LVH. EF 60% 7. Osteoarthritis 8. Nicotine dependence 9. Tobacco user PPD 10. Anxiety 11. Sleep apnea (November 2021) trial on APAP 11-18 cm H2 === === PAST SURGICAL HISTORY === not discussed === FAMILY HISTORY === Mother: Father: Siblings: === SOCIAL HISTORY === Background: born and raised in [place] (moved to [place] after [employer]) Marital Status: Children: 5 children Lives with: 3 adult children in [place] Employment Status: Retired [employer] Alcohol Use: rare Tobacco Use: cig 2/day Pack Year: Drug Use: Mobility: Full Exercise: walks === ALLERGIES === Patient has answered NKA === MEDICATIONS === Active and Recently Outpatient Medications (excluding Supplies): Active Outpatient Medications Status Active and Recently Outpatient Medications (excluding Supplies): Active Outpatient Medications Status 1) BETAMETHASONE DIPROPIONATE 0.05% OINT APPLY SMALL AMOUNT ACTIVE TOPICALLY TWICE DAILY NEEDED FOR ITCHING/RASH Indication: FOR ATOPIC DERMATITIS 2) LISINOPRIL 10MG TAB TAKE ONE TABLET BY MOUTH ONCE DAILY TO ACTIVE CONTROL BLOOD PRESSURE Indication: FOR HEART ATTACK 3) METOPROLOL SUCCINATE 50MG SA TAB TAKE ONE TABLET BY MOUTH ACTIVE ONCE DAILY FOR BLOOD PRESSURE/HEART Indication: FOR HIGH BLOOD PRESSURE 4) SERTRALINE HCL 100MG TAB TAKE ONE-HALF TABLET BY MOUTH ONCE ACTIVE DAILY Indication: FOR ANXIETY 5) TRAZODONE HCL 100MG TAB TAKE ONE TABLET BY MOUTH AT BEDTIME ACTIVE Indication: FOR INSOMNIA ASSOCIATED WITH DEPRESSION === REVIEW OF SYMPTOMS === POSITIVE FOR: urinary freq/nocturia NEGATIVE FOR: CONSTITUTION: no weight loss/gain, fatigue, fevers, night sweats HEENT: no vision problems, hearing loss,swallowing difficulties, sinus pain CV: no chest pain, palpitations, dyspnea on exertion, orthopnea RESP: no cough, shortness of breath, wheezing GI: no abdominal pain, N/V/D, constipation, blood in stool, normal appetite : hematuria MUSC: no joint pain, joint swelling, muscle aches NEURO: no headaches, dizziness, memory loss, tremor, weakness PSYCH: suicidal or homicidal thoughts SKIN: no rash, new skin lesions === PHYSICAL EXAM === Vitals: Date Vital Measurement Qualifiers 12/12/2024 08:51 Temp F (C) 97.5 (36.4) Pulse 63 Respir 16 BP 158/82 R Arm, Sitting, Cuff- Manual Ht in (cm) 65 (165.10) Wt lbs (kg)[BMI] 175.2 (79.47)[29*] Pain 0 POx (L/Min)(%) 97 At Rest Exam: Gen.: Alert, no acute distress, sitting comfortably. Eyes: Noninjected. No facial swelling or asymmetry. No icterus. HEENT: Normocephalic, atraumatic. No nasal drainage. Hearing grossly intact Neck: Good range of motion/No masses CV: RRR, JAN 2/6 heard, no radiation. No carotid bruits. No LE Edema Respiratory: No conversational dyspnea. No audible wheezing stridor or cough. Skin: No obvious rashes. Neuro: Cranial nerves II-XII grossly intact Psych: Normal affect, cooperative. Intact judgment and insight. A&O x3. === RECENT LABS === BMP (FASTING) Collection DT Specimen Test Name Result Units Ref Range 12/07/2024 14:16 SERUM UREA NITROGEN 36 H mg/dL 7 - 12/07/2024 14:16 SERUM GLUCOSE 90 mg/dL 65 - 100 12/07/2024 14:16 SERUM SODIUM 140 mmol/L 135 - 145 12/07/2024 14:16 SERUM POTASSIUM 4.4 mmol/L 3.5 - 5.0 12/07/2024 14:16 SERUM CHLORIDE 110 mmol/L 100 - 110 12/07/2024 14:16 SERUM CO2 23 mEq/L 20 - 12/07/2024 14:16 SERUM CREATININE, Serum 1.28 mg/dL 0.50 - 1.40 03/23/2017 11:10 SERUM eGFR (IDMS) >60 Ref: >=60 LIVER PANEL TREND Collection DT Spec AST ALT T BILI ALK SANA T. PROT ALBUMIN 11/15/2024 12:51 SERUM 14 16 0.4 65 6.8 3.6 11/11/2023 09:08 SERUM 15 20 0.7 65 7.0 4.1 04/22/2023 08:24 SERUM 21 23 0.7 69 6.7 4.1 03/23/2017 11:10 SERUM 19 25 0.9 73 6.7 4.0 03/05/2016 08:41 SERUM 19 28 0.4 96 6.6 3.9 LIPID PANEL TREND Collection DT Spec CHOL HDL CHO/HDL LDL-c TRIG 11/15/2024 12:51 SERUM 184 38 L 4.8 120 131 11/11/2023 09:08 SERUM 189 44 4.3 120 127 04/22/2023 08:24 SERUM 190 44 4.3 130 H 81 03/23/2017 11:10 SERUM 178 37 L 4.8 118 117 03/05/2016 08:41 SERUM 165 34 L 4.9 99 161 H CBC TREND Collection DT Spec WBC RBC HGB HCT MCV MCH PLT 11/15/2024 12:51 BLOOD 6.78 4.60 14.6 43.4 94.3 31.7 184 11/11/2023 09:08 BLOOD 6.88 4.91 15.8 47.0 95.7 32.2 146 04/22/2023 08:24 BLOOD 6.78 4.83 15.6 45.8 94.8 32.3 153 03/23/2017 11:10 BLOOD 6.32 4.73 15.4 44.8 94.7 32.6 161 03/05/2016 08:41 BLOOD 7.34 4.97 15.8 47.9 96.4 31.8 188 HEMOGLOBIN A1C TREND Collection DT Spec HGBA1c 11/15/2024 12:51 BLOOD 5.6 11/11/2023 09:08 BLOOD 5.1 04/22/2023 08:24 BLOOD 5.1 03/05/2016 08:41 BLOOD 5.4 === ASSESSMENT AND PLAN === HTN: Not at goal. Recheck 148/88. Could not tolerate lisinopril (diarrhea). INCREASE metoprolol from 50 to 100 mg. Continue Remote Monitoring. IF BP >130/80 in the next 30d , would add amlodipine 5mg Mild elev Cr has normalized with fluids. TTE reviewed: showed mild LVH. Discussed importance of continued HTN control. Has ongoing remote BP Monitoring FU 3 mo Prostate CA: Stage 4. Stable. Diagnosed approx 2015? Sought several opinions with Oncology (including [facility] and [facility], and felt frustrated by differing opinions.) Declined radical prostatectomy recommendation and continues treatment with Naturopathic in [place]. Treatments: q 6 mo infusion of SOT (Supportive Oligonucleotide Therapy); gets q 6 mo PET Scans and MRIs. Tubular Adenoma: FIT given today. Was advised by his [place]col[place]ist [place] that colonoscopy was unecessary risk. Had colonoscopy at [facility] 12/2021, recommended re[eat q 3 yrs. Will re-visit this at fu in 3 mo and encourage Colonoscopy. GERTRUDIS: is using CPAP , now sleeping well and tolerating Cpap after recent start of new med for insomnia (trazadone started Oct 2024); slept 6 hrs last night, a miracle Anxiety: Mental Health: in care since [id number] for 'severe stress'. Started sertraline 10/2024 taking 50 mg (one half 100 mg tab), not sure it's helping, but trazadone is very helpful for insomnia. Has had one appt thus far. Dtr is struggling with mental health in past few yrs. 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 MRA ordered by [facility]/ Dr Perez; NO surg intervention indication. Recommended MRA in one yr. Consult placed to FU with Dr Perez at last visit in Oct. R vertebral artery stenosis: noted on US carotid 2023. Vascular consulted/[facility]; recommended FU prn plus ASA and statin (neither was initiated by Vascular) Will discuss starting asa and statin at 3 m fu LEFT hip pain: requested handicap placard. Has known OA. At times, difficult to walk long distances d/t pain. RMV form completed/scanned On this date of the encounter, I spent 50 minutes on some or all of the following: chart review, history, physical examination, treatment planning, education and counseling of the patient/family/direct care counselor, placing orders, communicating with other health care providers and documentation in the electronic health record. === HEALTH MAINTENANCE === Colonoscopy Last done: Oct 2021 tubular adenomas x4; repeat 3 yr recommended. Due every 3 years Tetanus: given 12/12/24 Pneumonia Vacccine: Declines updated Prevnar Flu Vaccine: due yearly/declines Covid Vaccine: due yearly/declines === FOLLOW UP === VISIT TYPE: FU HTN, review colonoscopy results from 2021, ? [facility] follow up and repeat MRA Upcoming Appointments: 01/01/2025 10:30 SPR [facility] PSYTR 1 AM 07/31/2025 11:00 [facility]ETRY 4 /alfred/ ASHLEIGH FIELDS PA-C PA-C Signed: 12/12/2024 13:[address] CNTRL W[facility]N [facility] Dec 12, 2024 08:57 AM PREVENTIVE MEDICINE NURSING NOTE: LOCAL TITLE: CLINICAL REMINDERS/NURSING STANDARD TITLE: PREVENTIVE MEDICINE NURSING NOTE DATE OF NOTE: DEC 12, 2024@08:57 ENTRY DATE: DEC 12, 2024@08:57:43 AUTHOR: SLIME PATINO EXP COSIGNER: URGENCY: STATUS: COMPLETED CLINICAL REMINDERS/NURSING Has ADDENDA RHS Screen: RHS Screen Session Format: Face to Face Environmental Check Upon inquiry, the individual reports that the environment is safe to proceed. Informed Consent to Screen and Document The individual consents to proceed with screening. The individual consents to documentation of responses. PRIMARY SCREEN: In the past 12 months, how often did a current or former intimate partner (e.g., boyfriend, girlfriend, , , sexual partner): 1. Scream or curse at you Never 2. Insult or talk down to you Never 3. Threaten you with harm Never 4. Physically hurt you Never 5. Force or pressure you to have sexual contact against your will, or when you were unable to say no Never ?? The HITS tool (items 1-4 above) is [place] copyright protected by Chaitanya Peace MD, and the user has full rights to use it throughout the [place] system. PRIMARY SCREEN RESULT: The Primary Screen is NEGATIVE. The individual answered never to all forms of IPV above (i.e., answered never to all 5 items) The individual accepts education and/or resources: Other: N/A EDUCATION: Other: N/A (Optional) Whole Health Documentation: What matters the most to you? What motivates you to be healthy? (MAP) Response: I would like to continue living Influenza Immunization: Deferral / Refusal The patient declines to receive the recommended dose of seasonal influenza vaccine. Immunization: INFLUENZA, UNSPECIFIED FORMULATION Refusal Reason: PATIENT DECISION Patient refuses all immunization(s) in the FLU group Date Documented: 12/12/24 09:11 /alfred/ SLIME PATINO LPN LPN Signed: 12/12/2024 09:20 12/12/2024 ADDENDUM STATUS: COMPLETED Influenza Immunization: Deferral / Refusal The patient declines to receive the recommended dose of seasonal influenza vaccine. Immunization: INFLUENZA, UNSPECIFIED FORMULATION Refusal Reason: PATIENT DECISION Patient refuses all immunization(s) in the FLU group Date Documented: 12/12/24 09:21 COVID-19 Immunization: Refused Moderna Monovalent COVID-19 vaccine Immunization: COVID-19 (MODERNA), MRNA, LNP-S, PF, 50 MCG/0.5 ML (AGES 12+ YEARS) Refusal Reason: PATIENT DECISION Patient refuses all immunization(s) in the COVID-19 group Date Documented: 12/12/24 09:21 Herpes Zoster (Shingles) Vaccine: The patient declines to receive the recommended dose of zoster (shingles) vaccine. Immunization: ZOSTER RECOMBINANT Refusal Reason: PATIENT DECISION Patient refuses all immunization(s) in the ZOSTER group Date Documented: 12/12/24 09:22 Pneumococcal Conjugate Vaccine (PCV15/PCV20/PCV21): Refuses PCV vaccine Immunization: PNEUMOCOCCAL CONJUGATE, UNSPECIFIED FORMULATION Refusal Reason: PATIENT DECISION Patient refuses all immunization(s) in the PneumoPCV group Date Documented: 12/12/24 09:22 /alfred/ SLIME PATINO LPN LPN Signed: 12/12/2024 09:22 12/12/2024 ADDENDUM STATUS: COMPLETED Tdap Immunization: Administered: TDAP Date Administered: Dec 12, 2024 09:00 Series: Complete [employer] Professor: [employer] Lot: [id number] Exp Date: Mar 10, [address] [facility]: [phone] Admin Route/Site: INTRAMUSCULAR/LEFT DELTOID Dosage: 0.5mL Vaccine Information Statement(s): TDAP (TETANUS, DIPHTHERIA, PERTUSSIS) VACCINE VIS May 02, 2021 ([place]) Order By: Policy Administered By: Slime Patino Override Reason: patient decision The TETANUS/DIPHTHERIA/PERTUSSI S (TDAP) Vaccine Information Statement (VIS) was reviewed with the patient/caregiver which lists the benefits and risks of the vaccine and the risks of not receiving the Tdap vaccine. The patient/caregiver denied any prior severe reaction to this vaccine or its components or a severe allergic reaction, such as anaphylaxis, to any vaccine or any injectable therapy. The patient/caregiver gave verbal consent to receive the vaccine. /alfred/ SLIME PATINO LPN LPN Signed: 12/12/2024 10:41 SLIME PATINO [facility]
--- OUTSIDE RECORDS SUMMARY | 2025-01-23 13:01 | XMS_ITS | Encounter Summary ---
Author Organization [facility] Address [address] [place] [address] Care Team Providers Care Refueler Name Role Phone Renee Nogueira MD Primary Care Provider Rochelle vailable Chandan Mayorga PA-C Primary Care Provider Unavail able Reason for Referral * EXTERNAL (Urgent) - Authorized/Booked Specialty Diagnoses / Procedures Referred By Aaron patel Referred To Contact Urology Procedures REFERRAL TO UROLOGY Chandan Mayorga PA-C [address] [place] [address] [address] Referral ID Status Reason Start Date Expiration Date V isits Requested Visits Authorized SEE NOTE Authorized/B ooked 07/30/2017 11/02/2017 1 1 Encounter Details Date Type Department Care Team Description 07/30/2017 Orders Only Medicine/Pediatrics - [address] [phone] Chandan Mayorga PA-C Social History Tobacco Use Types Packs/Day Years Used Date Smoking Tobacco: Some Days Cigarettes 1 48 Alcohol Use Standard Drinks/Week Comments Yes 0 (1 standard drink = 0.6 oz pur e alcohol) ocassional wine or beer Sex Assigned at Date Recorded Male 10/20/2021 7:[address] documented as of this encounter Plan of Treatment Not on file documented as of this encounter Visit Diagnoses Not on filedocumented in this encounter Care Teams Refueler Relationship Specialty Start Date End Date Renee Nogueira MD PCP - General Internal Medicine 06/22/17 Chandan Mayorga PA-C PCP - General Med/Peds 08/11/21 documented as of this encounter
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
--- OUTSIDE RECORDS SUMMARY | 2025-01-23 13:01 | XMS_ITS | Continuity of Care Document ---
Author Name [facility] Organization [facility] Care Team Providers Care Speck Dyer Name Role Phone [facility] Unavailable Unavailable Problems Combined list of problems from Department of Defense and Veterans Affairs facilities. It does not include entries that were removed or entered in error. 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 Asx. 1 yr MRA recommend per Dr Perez Neuroendovascul ar[facility] Vertebral artery stenosis without infarction Active 10/28/19 24 Condition Dec 12, 2024 Entered By: ASHLEIGH FIELDS Comment: No clinically signif stenosis. Focal High gr stenosis of R verteb artery/ Vascular [facility] recommends observation. MRA done 11/2023 [facility] Anxiety Active Condition [place] Diverticular disease of colon Active Condition [facility] History of polyp of colon Active Condition Nov 17, 2023 Entered By: BLANCA WONG Comment: tubular adenomas with surveillance endoscopy by [facility] 2024 Entered By: ASHLEIGH FIELDS Comment: Colnoscopy 01/12/2022 Tubular adenoma x4, rpt 3 yrs, 2024 [place] HT - Hypertension Active Condition 2021 Entered By: BLANCA WONG Comment: change to Lis/HCTZ Oct Entered By: ASHLEIGH FIELDS Comment: 10/2024 TTE Mod LVH. EF 60% [facility] Nicotine dependence Active Condition [facility] Osteoarthritis Active Condition [facility] Prostate cancer Active Condition Nov 17, 2023 Entered By: BLANCA WONG Comment: [facility] [place] [facility] Sleep apnea Active Condition Dec 14, 2021 Entered By: BLANCA WONG Comment: (November 2021) trial on APAP 11-18 cm H2 [place] Tobacco user Active Condition Dec 17, 2015 Entered By: FARHAD MONTEMAYOR Comment: PPD [place] Tubular adenoma of colon Active Condition Dec 12, 2024 Entered By: ASHLEIGH FIELDS Comment: per 12/2021 colonoscopy. tubular adenomas x4. Rpt colo 3 [facility] [place] [facility] Diagnosis: ICD-10-CM I10 Essential (primary) hypertension Active Diagnosis [facility] [place] [facility] Diagnosis: ICD-10-CM F41.9 Anxiety disorder, unspecified Active Diagnosis [place] Diagnosis: ICD-10-CM Z13.6 Encounter for screening for cardiovascular disorders Active Diagnosis [facility] Diagnosis: ICD-10-CM R01.1 Cardiac murmur, unspecified Active Diagnosis [place] Diagnosis: ICD-10-CM Z71.89 Other specified counseling Active Diagnosis [place] Diagnosis: ICD-10-CM K08.421 Partial loss of teeth due to periodontal diseases, class I Active Diagnosis [facility] Diagnosis: ICD-10-CM G47.39 Other sleep apnea Active Diagnosis [facility] [place] [facility] Diagnosis: ICD-10-CM Z46.0 Encounter for fit/adjst of spectacles and contact lenses Active Diagnosis [facility] Diagnosis: ICD-10-CM H25.813 Combined forms of age-related cataract, bilateral Active Diagnosis [facility] [place] Diagnosis: ICD-10-CM K03.1 Abrasion of teeth Active Diagnosis [facility] Diagnosis: ICD-10-CM Z63.79 Other stressful life events affecting family and household Active Diagnosis [place] Diagnosis: ICD-10-CM F43.0 Acute stress reaction Active Diagnosis [place] Diagnosis: ICD-10-CM G47.33 Obstructive sleep apnea (adult) (pediatric) Active Diagnosis [facility] Diagnosis: ICD-10-CM M54.50 Low back pain, unspecified Active Diagnosis [facility] Diagnosis: ICD-10-CM Z46.1 Encounter for fitting and adjustment of hearing aid Active Diagnosis [facility] Diagnosis: ICD-10-CM H90.3 Sensorineural hearing loss, bilateral Active Diagnosis [facility] Medications Combined list of outpatient medications from Department of Defense and Veterans Affairs facilities.Medications provided include 1) outpatient medications from the last 15 months, and 2) patient-reported medications. Medication Details Route Status Patient Instructions Prescription Expires Prescription Number Last Dispense Date Ordering Provider Order Date Order Qty Source AMLODIPINE BESYLATE 5MG TAB TAKE ONE TABLET BY MOUTH ONCE DAILY FOR BLOOD PRESSURE /HEART, DO NOT TAKE WITH GRAPEFRU IT JUICE ORAL ACTIVE 01/10/2026 [id number] DARRIUS MEZA 2024 30 [facility] BETAMETHASO NE DIPROPIONAT E 0.05% OINT,TOP APPLY SMALL AMOUNT TOPICALL Y TWICE DAILY NEEDED FOR ITCHING/ RASH TOPICA L ACTIVE 08/22/2025 [id number] ROCHELLE WONG O 2023 15 [place] LISINOPRIL 10MG TAB TAKE ONE TABLET BY MOUTH ONCE DAILY TO CONTROL BLOOD PRESSURE ORAL DISCONT INUED BY PROVIDE R 11/22/2025 [id number] RA TALON ALMARAZ 2024 30 [place] LISINOPRIL 5MG TAB TAKE ONE TABLET BY MOUTH ONCE DAILY TO CONTROL BLOOD PRESSURE ORAL DISCONT INUED (EDIT) 11/16/2025 [id number] 5 RA TALON ALMARAZ 2024 30 [place] LORAZEPAM 1MG TAB TAKE ONE TABLET BY MOUTH TWICE DAILY NEEDED FOR ANXIETY ORAL 05/28/2024 [id number] 4 ROCHELLE WONG O 2023 12 [place] METOPROLOL SUCCINATE 25MG TAB,SA TAKE ONE TABLET BY MOUTH ONCE DAILY FOR BLOOD PRESSURE /HEART ORAL DISCONT INUED BY PROVIDE R 08/22/2025 [id number] 5 ROCHELLE WONG O 2023 60 [place] METOPROLOL SUCCINATE 50MG TAB,SA TAKE ONE TABLET BY MOUTH ONCE DAILY FOR BLOOD PRESSURE /HEART ORAL ACTIVE 12/13/2025 [id number] 5 DARRIUS MEZA 2024 90 [facility] SERTRALINE HCL 100MG TAB TAKE ONE-HALF TABLET BY MOUTH ONCE DAILY FOR ANXIETY ORAL ACTIVE 12/01/2025 [id number] 5 Chandra BURCIAGA G 2024 15 [place] TRAZODONE HCL 100MG TAB TAKE ONE TABLET BY MOUTH AT BEDTIME FOR INSOMNIA ASSOCIAT ED WITH DEPRESSI ON ORAL ACTIVE 12/01/2025 [id number] 5 Chandra BURCIAGA G 2024 30 [place] Allergies, Adverse Reactions, Alerts Combined list of allergies from Department of Defense and Veterans Affairs facilities. It does not include entries that were removed or entered in error. Substance Category Reaction Severity Reaction type Status Date Reported Comments Source LISINOPRIL Propensity to adverse reactions to drug (finding) Diarrhea MODERATE active 5 [facility] [facility] Immunizations Combined list of available immunizations from the Department of Defense and Veterans Affairs facilities. Immunization Series Date Given Administered By Site Reaction Lot Number CVX Code Drug Executive Vice President And Chief Financial Officer Status Comments Source TDAP 2024 JEREMIAH URIOSTEGUI LEFT DELTO ID [id number] complet ed Completed Series, [place], [facility] COVID-19 (MODERNA), MRNA, LNP-S, PF, 100 MCG/0.5 ML DOSE 2 2020 207 complet ed [place]; [id number]; [place] COVID-19 (MODERNA), MRNA, LNP-S, PF, 100 MCG/0.5 ML DOSE 1 2020 207 complet ed MOD; [id number]; [place] PNEUMOCOCCAL POLYSACCHARID E PPV23 07/25/ 2016 33 complet ed [place] ZOSTER (HISTORICAL) 2015 121 complet ed [place] Results Combined list of recent chemistry, hematology and other laboratory results from Department of Defense and Veterans Affairs, ranging from 15 months to all on record, depending upon the facility. Order Name Results Value Reference Range Date Interpretation Specimen Comments Source BASIC METABOLIC PANEL (non-fast ing) UREA NITROGEN [MASS/VOLUM E] IN SERUM OR PLASMA 36 mg/dL 7 - 25 12/07 H Specimen Type: SERUM No comment entered. Ordering Provider: NIKIA ALMARAZ Report Released Date/Time: Dec 06, 2024 09:00 AM Reporting Lab: [address] [address] Performing Lab: [address] [address] [facility] BASIC METABOLIC PANEL (non-fast ing) GLUCOSE [MASS/VOLUM E] IN SERUM OR PLASMA 90 mg/dL 65 - 100 12/07 Specimen Type: SERUM No comment entered. Ordering Provider: NIKIA ALMARAZ Report Released Date/Time: Dec 06, 2024 09:00 AM Reporting Lab: [facility] [address] Performing Lab: [facility] SSD[facility] [address] [facility] BASIC METABOLIC PANEL (non-fast ing) SODIUM [MOLES/VOLU ME] IN SERUM OR PLASMA 140 mmol/L 135 - 145 12/07 Specimen Type: SERUM No comment entered. Ordering Provider: NIKIA ALMARAZ Report Released Date/Time: Dec 06, 2024 09:00 AM Reporting Lab: [facility] [address] [address] Performing Lab: [facility] [address] [address] [facility] BASIC METABOLIC PANEL (non-fast ing) POTASSIUM [MOLES/VOLU ME] IN SERUM OR PLASMA 4.4 mmol/L 3.5 - 5.0 12/07 Specimen Type: SERUM No comment entered. Ordering Provider: NIKAI ALMARAZ Report Released Date/Time: Dec 06, 2024 09:00 AM Reporting Lab: [facility] [place] [facility] [address] [address] Performing Lab: [facility]ITALTRN [place] [facility]USE[facility] [address] [address] [facility] [place] [facility] SSDUSE [facility] BASIC METABOLIC PANEL (non-fast ing) CHLORIDE [MOLES/VOLU ME] IN SERUM OR PLASMA 110 mmol/L 100 - 110 12/07 Specimen Type: SERUM No comment entered. Ordering Provider: NIKIA ALMARAZ Report Released Date/Time: Dec 06, 2024 09:00 AM Reporting Lab: [facility]N [place] [facility] [address] [address] Performing Lab: [facility] [place] [facility] SSDUSETS [facility] [address] [facility] [address] [facility] [place] [facility] BASIC METABOLIC PANEL (non-fast ing) CARBON DIOXIDE, TOTAL [MOLES/VOLU ME] IN SERUM OR PLASMA 23 meq/L 20 - 30 12/07 Specimen Type: SERUM No comment entered. Ordering Provider: NIKIA ALMARAZ Report Released Date/Time: Dec 06, 2024 09:00 AM Reporting Lab: [facility] [place] [facility] [address] [address] [address] Performing Lab: [facility] [place] [facility] SSDUSETS [facility] [address] [address] [facility] BASIC METABOLIC PANEL (non-fast ing) CALCIUM [MASS/VOLUM E] IN SERUM OR PLASMA 8.7 mg/dL 8.5 - 10.2 12/07 Specimen Type: SERUM No comment entered. Ordering Provider: NIKIA ALMARAZ Report Released Date/Time: Dec 06, 2024 09:00 AM Reporting Lab: [facility] [address] [address] Performing Lab: [facility] [place] [facility] [address] [address] [facility] [place] [facility] BASIC METABOLIC PANEL (non-fast ing) CREATININE [MASS/VOLUM E] IN SERUM OR PLASMA 1.28 mg/dL 0.50 - 1.40 12/07 Specimen Type: SERUM No comment entered. Ordering Provider: NIKIA ALMARAZ Report Released Date/Time: Dec 06, 2024 09:00 AM Reporting Lab: [facility] [place] [address] [facility] [address] Performing Lab: [facility]ERR[facility] HOSPITALTRN [address] [address] [facility] BASIC METABOLIC PANEL (non-fast ing) GLOMERULAR FILTRATION RATE/1.73 SQ M.PREDICTED [VOLUME RATE/AREA] IN SERUM, PLASMA OR BLOOD BY CREATININE- BASED FORMULA (CKD-EPI 2020) 59 mL/min 60 12/07 L Specimen Type: SERUM No comment entered. Ordering Provider: NIKIA ALMARAZ Report Released Date/Time: Dec 06, 2024 09:00 AM Reporting Lab: [facility] [place] [facility] [address] [address] Performing Lab: [facility]OSPITALTRN [address] [address] [facility] HOSPITALN [facility] BASIC METABOLIC PANEL (non-fast ing) UREA NITROGEN [MASS/VOLUM E] IN SERUM OR PLASMA 39 mg/dL 7 - 25 12/05 H Specimen Type: SERUM No comment entered. Ordering Provider: NIKIA ALMARAZ Report Released Date/Time: Nov 28, 2024 03:13 PM Reporting Lab: [facility] [place] [address] [facility] [address] Performing Lab: [facility]ITALTRN [place] [facility] SSDUSE[address] [address] [facility]ITALN [facility] BASIC METABOLIC PANEL (non-fast ing) GLUCOSE [MASS/VOLUM E] IN SERUM OR PLASMA 106 mg/dL 65 - 100 12/05 H Specimen Type: SERUM No comment entered. Ordering Provider: NIKIA ALMARAZ Report Released Date/Time: Nov 28, 2024 03:13 PM Reporting Lab: [facility]ITALN [facility] [address] [address] Performing Lab: [facility] [address] [address] [facility] BASIC METABOLIC PANEL (non-fast ing) SODIUM [MOLES/VOLU ME] IN SERUM OR PLASMA 143 mmol/L 135 - 145 12/05 Specimen Type: SERUM No comment entered. Ordering Provider: NIKIA ALMARAZ Report Released Date/Time: Nov 28, 2024 03:13 PM Reporting Lab: [address] [address] Performing Lab: [address] [address] [facility] BASIC METABOLIC PANEL (non-fast ing) POTASSIUM [MOLES/VOLU ME] IN SERUM OR PLASMA 5.0 mmol/L 3.5 - 5.0 12/05 Specimen Type: SERUM No comment entered. Ordering Provider: NIKIA ALMARAZ Report Released Date/Time: Nov 28, 2024 03:13 PM Reporting Lab: [facility]ITALN [address] [address] Performing Lab: [facility]N [address] [address] [facility] BASIC METABOLIC PANEL (non-fast ing) CHLORIDE [MOLES/VOLU ME] IN SERUM OR PLASMA 111 mmol/L 100 - 110 12/05 H Specimen Type: SERUM No comment entered. Ordering Provider: NIKIA ALMARAZ Report Released Date/Time: Nov 28, 2024 03:13 PM Reporting Lab: [facility]ITALN [address] [address] Performing Lab: [facility] [address] [address] [facility] BASIC METABOLIC PANEL (non-fast ing) CARBON DIOXIDE, TOTAL [MOLES/VOLU ME] IN SERUM OR PLASMA 24 meq/L 20 - 30 12/05 Specimen Type: SERUM No comment entered. Ordering Provider: NIKIA ALMARAZ Report Released Date/Time: Nov 28, 2024 03:13 PM Reporting Lab: [address] [address] Performing Lab: [address] [address] [facility] BASIC METABOLIC PANEL (non-fast ing) CALCIUM [MASS/VOLUM E] IN SERUM OR PLASMA 9.2 mg/dL 8.5 - 10.2 12/05 Specimen Type: SERUM No comment entered. Ordering Provider: NIKIA ALMARAZ Report Released Date/Time: Nov 28, 2024 03:13 PM Reporting Lab: [address] [address] Performing Lab: [address] [address] [facility] BASIC METABOLIC PANEL (non-fast ing) CREATININE [MASS/VOLUM E] IN SERUM OR PLASMA 1.51 mg/dL 0.50 - 1.40 12/05 H Specimen Type: SERUM No comment entered. Ordering Provider: NIKIA ALMARAZ Report Released Date/Time: Nov 28, 2024 03:13 PM Reporting Lab: [address] [address] Performing Lab: [address] [address] [facility] BASIC METABOLIC PANEL (non-fast ing) GLOMERULAR FILTRATION RATE/1.73 SQ M.PREDICTED [VOLUME RATE/AREA] IN SERUM, PLASMA OR BLOOD BY CREATININE- BASED FORMULA (CKD-EPI 2020) 49 mL/min 60 12/05 L Specimen Type: SERUM No comment entered. Ordering Provider: NIKIA ALMARAZ Report Released Date/Time: Nov 28, 2024 03:13 PM Reporting Lab: [facility] [place] [facility] SSD[facility]ETS [facility] [address] [facility] [address] Performing Lab: [facility] [place] [facility] SSDUSE[address] [address] [facility] [place] [facility] SSD[facility] BASIC METABOLIC PANEL (non-fast ing) UREA NITROGEN [MASS/VOLUM E] IN SERUM OR PLASMA 31 mg/dL 7 - 25 11/28 H Specimen Type: SERUM No comment entered. Ordering Provider: NIKIA ALMARAZ Report Released Date/Time: Nov 21, 2024 11:50 AM Reporting Lab: [facility]ITALTRN [place] [facility] SSDUSE[address] [address] Performing Lab: [facility] [place] [facility] SSDUSE[address] [address] [facility]N [place] [facility] SSDUSE [facility] BASIC METABOLIC PANEL (non-fast ing) GLUCOSE [MASS/VOLUM E] IN SERUM OR PLASMA 101 mg/dL 65 - 100 11/28 H Specimen Type: SERUM No comment entered. Ordering Provider: NIKIA ALMARAZ Report Released Date/Time: Nov 21, 2024 11:50 AM Reporting Lab: [facility] [place] [address] [address] Performing Lab: [facility] [place] [facility] SSDUSE[address] [address] [facility] [place] [facility] BASIC METABOLIC PANEL (non-fast ing) SODIUM [MOLES/VOLU ME] IN SERUM OR PLASMA 141 mmol/L 135 - 145 11/28 Specimen Type: SERUM No comment entered. Ordering Provider: NIKIA ALMARAZ Report Released Date/Time: Nov 21, 2024 11:50 AM Reporting Lab: [facility]ITALTR[facility] [place] [facility] SSDUSE[address] [address] Performing Lab: [facility] [address] [address] [facility] BASIC METABOLIC PANEL (non-fast ing) POTASSIUM [MOLES/VOLU ME] IN SERUM OR PLASMA 4.7 mmol/L 3.5 - 5.0 11/28 Specimen Type: SERUM No comment entered. Ordering Provider: NIKIA ALMARAZ Report Released Date/Time: Nov 21, 2024 11:50 AM Reporting Lab: [facility]N [place] [facility] [address] [address] Performing Lab: [facility] [address] [facility] [address] [facility] BASIC METABOLIC PANEL (non-fast ing) CHLORIDE [MOLES/VOLU ME] IN SERUM OR PLASMA 110 mmol/L 100 - 110 11/28 Specimen Type: SERUM No comment entered. Ordering Provider: NIKIA ALMARAZ Report Released Date/Time: Nov 21, 2024 11:50 AM Reporting Lab: [facility] [address] [address] Performing Lab: [facility] [address] [facility] [address] [facility] BASIC METABOLIC PANEL (non-fast ing) CARBON DIOXIDE, TOTAL [MOLES/VOLU ME] IN SERUM OR PLASMA 26 meq/L 20 - 30 11/28 Specimen Type: SERUM No comment entered. Ordering Provider: NIKIA ALMARAZ Report Released Date/Time: Nov 21, 2024 11:50 AM Reporting Lab: [facility] [address] [facility] [address] Performing Lab: [address] [address] [facility] BASIC METABOLIC PANEL (non-fast ing) CALCIUM [MASS/VOLUM E] IN SERUM OR PLASMA 9.5 mg/dL 8.5 - 10.2 11/28 Specimen Type: SERUM No comment entered. Ordering Provider: NIKIA ALMARAZ Report Released Date/Time: Nov 21, 2024 11:50 AM Reporting Lab: [facility] [address] [address] Performing Lab: [facility] [address] [address] [facility] BASIC METABOLIC PANEL (non-fast ing) CREATININE [MASS/VOLUM E] IN SERUM OR PLASMA 1.16 mg/dL 0.50 - 1.40 11/28 Specimen Type: SERUM No comment entered. Ordering Provider: NIKIA ALMARAZ Report Released Date/Time: Nov 21, 2024 11:50 AM Reporting Lab: [address] [address] Performing Lab: [address] [address] [facility] BASIC METABOLIC PANEL (non-fast ing) GLOMERULAR FILTRATION RATE/1.73 SQ M.PREDICTED [VOLUME RATE/AREA] IN SERUM, PLASMA OR BLOOD BY CREATININE- BASED FORMULA (CKD-EPI 2020) 67 mL/min 60 11/28 Specimen Type: SERUM No comment entered. Ordering Provider: NIKIA ALMARAZ Report Released Date/Time: Nov 21, 2024 11:50 AM Reporting Lab: [address] [address] Performing Lab: [address] [address] [facility] HEMOGLOBI N A1C PANEL HEMOGLOBIN A1C/HEMOGLO BIN.TOTAL IN BLOOD BY HPLC 5.6 4.0 - 5.6 11/15 Specimen Type: BLOOD Comment: Values obtained from A1C measurement s can vary. For atypical A1C assays, a reported value of 7.0 could actually be between 6.72 and 7.28 if measured by a reference method. A reported value of 9.0 could actually be between 8.73 and 9.27. Ref: http://www. ngsp.org/[place] Pdata.asp Ordering Provider: NIKIA ALMARAZ Report Released Date/Time: Nov 15, 2024 10:22 AM Reporting Lab: [facility] [place] [facility] [address] [facility] [address] Performing Lab: [facility] [place] [facility] [address] [address] [facility] [place] [facility] BASIC METABOLIC PANEL (fasting) UREA NITROGEN [MASS/VOLUM E] IN SERUM OR PLASMA 33 mg/dL 7 - 25 11/15 H Specimen Type: SERUM No comment entered. Ordering Provider: NIKIA ALMARAZ Report Released Date/Time: Nov 15, 2024 10:22 AM Reporting Lab: [facility] [place] [facility] [address] [facility] [address] Performing Lab: [place] [facility] [place] [facility] [address] [facility] [address] [place] [facility] [place] [facility] BASIC METABOLIC PANEL (fasting) GLUCOSE [MASS/VOLUM E] IN SERUM OR PLASMA 89 mg/dL 65 - 100 11/15 Specimen Type: SERUM No comment entered. Ordering Provider: NIKIA ALMARAZ Report Released Date/Time: Nov 15, 2024 10:22 AM Reporting Lab: [facility] [place] [facility] [address] [facility] [address] Performing Lab: [facility] [place] [facility] [address] [facility] [address] [facility] [place] [facility] BASIC METABOLIC PANEL (fasting) SODIUM [MOLES/VOLU ME] IN SERUM OR PLASMA 144 mmol/L 135 - 145 11/15 Specimen Type: SERUM No comment entered. Ordering Provider: NIKIA ALMARAZ Report Released Date/Time: Nov 15, 2024 10:22 AM Reporting Lab: [facility] [place] [facility] [address] [facility] [address] Performing Lab: [facility] [place] [facility] [address] [address] [facility] BASIC METABOLIC PANEL (fasting) POTASSIUM [MOLES/VOLU ME] IN SERUM OR PLASMA 4.9 mmol/L 3.5 - 5.0 11/15 Specimen Type: SERUM No comment entered. Ordering Provider: NIKIA ALMARAZ Report Released Date/Time: Nov 15, 2024 10:22 AM Reporting Lab: [facility] [place] [facility] [address] [id number] Performing Lab: [facility] [place] [facility] [address] [facility] [id number] [facility] [place] [facility] BASIC METABOLIC PANEL (fasting) CHLORIDE [MOLES/VOLU ME] IN SERUM OR PLASMA 108 mmol/L 100 - 110 11/15 Specimen Type: SERUM No comment entered. Ordering Provider: NIKIA ALMARAZ Report Released Date/Time: Nov 15, 2024 10:22 AM Reporting Lab: [facility] [place] [facility] [address] [facility] [address] Performing Lab: [facility] [place] [facility] [address] [facility] [address] [facility] [place] [facility] BASIC METABOLIC PANEL (fasting) CARBON DIOXIDE, TOTAL [MOLES/VOLU ME] IN SERUM OR PLASMA 28 meq/L 20 - 30 11/15 Specimen Type: SERUM No comment entered. Ordering Provider: NIKIA ALMARAZ Report Released Date/Time: Nov 15, 2024 10:22 AM Reporting Lab: [facility] [place] [facility] [address] [facility] [address] Performing Lab: [facility] [place] [address] [address] [facility] [place] [facility] BASIC METABOLIC PANEL (fasting) CALCIUM [MASS/VOLUM E] IN SERUM OR PLASMA 9.7 mg/dL 8.5 - 10.2 11/15 Specimen Type: SERUM No comment entered. Ordering Provider: NIKIA ALMARAZ Report Released Date/Time: Nov 15, 2024 10:22 AM Reporting Lab: [facility] [place] [facility] [address] [facility] [address] Performing Lab: [facility] [place] [facility] [address] [facility] [address] [facility] [place] [facility] BASIC METABOLIC PANEL (fasting) CREATININE [MASS/VOLUM E] IN SERUM OR PLASMA 1.08 mg/dL 0.50 - 1.40 11/15 Specimen Type: SERUM No comment entered. Ordering Provider: NIKIA ALMARAZ Report Released Date/Time: Nov 15, 2024 10:22 AM Reporting Lab: [facility] [place] [facility] [address] [facility] [address] Performing Lab: [facility] [place] [facility] [address] [facility] [address] [facility] [place] [facility] BASIC METABOLIC PANEL (fasting) GLOMERULAR FILTRATION RATE/1.73 SQ M.PREDICTED [VOLUME RATE/AREA] IN SERUM, PLASMA OR BLOOD BY CREATININE- BASED FORMULA (CKD-EPI 2020) 73 mL/min 60 11/15 Specimen Type: SERUM No comment entered. Ordering Provider: NIKIA ALMARAZ Report Released Date/Time: Nov 15, 2024 10:22 AM Reporting Lab: [facility] [place] [facility] [address] [facility] [address] Performing Lab: [facility] [place] [facility] [address] [facility] [address] [facility] [place] [facility] LIPID PANEL FASTING CHOLESTEROL [MASS/VOLUM E] IN SERUM OR PLASMA 184 mg/dL 11/15 Specimen Type: SERUM No comment entered. Ordering Provider: NIKIA ALMARAZ Report Released Date/Time: Nov 15, 2024 10:22 AM Reporting Lab: [facility] [place] [facility] [address] [facility] [address] Performing Lab: [facility] [place] [facility] [address] [facility] [address] [facility] [place] [facility] LIPID PANEL FASTING TRIGLYCERID E [MASS/VOLUM E] IN SERUM OR PLASMA 131 mg/dL 0 - 150 11/15 Specimen Type: SERUM No comment entered. Ordering Provider: NIKIA ALMARAZ Report Released Date/Time: Nov 15, 2024 10:22 AM Reporting Lab: [facility] [place] [facility] [address] [facility] [address] Performing Lab: [facility] [place] [facility] [address] [facility] [address] [facility] [place] [facility] LIPID PANEL FASTING CHOLESTEROL IN LDL [MASS/VOLUM E] IN SERUM OR PLASMA BY CALCULATION 120 mg/dL 0 - 129 11/15 Specimen Type: SERUM No comment entered. Ordering Provider: NIKIA ALMARAZ Report Released Date/Time: Nov 15, 2024 10:22 AM Reporting Lab: [facility] [facility] [address] [facility] [address] Performing Lab: [facility] [facility] [facility] [address] [facility] [address] [facility] [place] [facility] LIPID PANEL FASTING CHOLESTEROL .TOTAL/CHOL ESTEROL IN HDL [MASS RATIO] IN SERUM OR PLASMA 4.8 11/15 Specimen Type: SERUM No comment entered. Ordering Provider: INKIA ALMARAZ Report Released Date/Time: Nov 15, 2024 10:22 AM Reporting Lab: [facility] [facility] [address] [facility] [address] Performing Lab: [facility] [facility] [address] [facility] [address] [facility] [place] [facility] LIPID PANEL FASTING CHOLESTEROL IN HDL [MASS/VOLUM E] IN SERUM OR PLASMA 38 mg/dL 40 - 60 11/15 L Specimen Type: SERUM No comment entered. Ordering Provider: NIKIA ALMARAZ Report Released Date/Time: Nov 15, 2024 10:22 AM Reporting Lab: [facility] [facility] [address] [facility] [address] Performing Lab: [facility] [address] [facility] [address] [facility] [place] [facility] LIVER FUNCTION PROTEIN [MASS/VOLUM E] IN SERUM OR PLASMA 6.8 g/dL 6.0 - 8.3 11/15 Specimen Type: SERUM No comment entered. Ordering Provider: NIKIA ALMARAZ Report Released Date/Time: Nov 15, 2024 10:22 AM Reporting Lab: [facility] [place] [facility] [address] [facility] [address] Performing Lab: [facility] [place] [facility] [address] [facility] [address] [facility] [place] [facility] LIVER FUNCTION ALBUMIN [MASS/VOLUM E] IN SERUM OR PLASMA 3.6 g/dL 3.5 - 5.0 11/15 Specimen Type: SERUM No comment entered. Ordering Provider: NIKIA ALMARAZ Report Released Date/Time: Nov 15, 2024 10:22 AM Reporting Lab: [facility] [place] [facility] [address] [facility] [address] Performing Lab: [facility] [place] [facility] [address] [facility] [address] [facility] [place] [facility] LIVER FUNCTION ALKALINE PHOSPHATASE [ENZYMATIC ACTIVITY/VO LUME] IN SERUM OR PLASMA 65 U/L 40 - 150 11/15 Specimen Type: SERUM No comment entered. Ordering Provider: NIKIA ALMARAZ Report Released Date/Time: Nov 15, 2024 10:22 AM Reporting Lab: [facility] [place] [facility] [address] [facility] [address] Performing Lab: [facility] [place] [facility] [address] [facility] [address] [facility] [place] [facility] LIVER FUNCTION ASPARTATE AMINOTRANSF ERASE [ENZYMATIC ACTIVITY/VO LUME] IN SERUM OR PLASMA 14 U/L 5 - 34 11/15 Specimen Type: SERUM No comment entered. Ordering Provider: NIKIA ALMARAZ Report Released Date/Time: Nov 15, 2024 10:22 AM Reporting Lab: [facility] [place] [facility] [address] [facility] [address] Performing Lab: [facility] [place] [facility] [address] [facility] [address] [facility] [place] [facility] LIVER FUNCTION ALANINE AMINOTRANSF ERASE [ENZYMATIC ACTIVITY/VO LUME] IN SERUM OR PLASMA 16 U/L 11/15 Specimen Type: SERUM No comment entered. Ordering Provider: NIKIA ALMARAZ Report Released Date/Time: Nov 15, 2024 10:22 AM Reporting Lab: [facility] [place] [facility] [address] [facility] [address] Performing Lab: [facility] [place] [facility] [address] [facility] [address] [facility] [place] [facility] LIVER FUNCTION BILIRUBIN.T OTAL [MASS/VOLUM E] IN SERUM OR PLASMA 0.4 mg/dL 0.2 - 1.2 11/15 Specimen Type: SERUM No comment entered. Ordering Provider: NIKIA ALMARAZ Report Released Date/Time: Nov 15, 2024 10:22 AM Reporting Lab: [facility] [place] [facility] [address] [facility] [address] Performing Lab: [facility] [place] [facility] [address] [facility] [address] [facility] [place] [facility] TSH THYROTROPIN [UNITS/VOLU ME] IN SERUM OR PLASMA 1.83 u[IU]/ mL 0.35 - 5.00 11/15 Specimen Type: SERUM No comment entered. Ordering Provider: NIKIA ALMARAZ Report Released Date/Time: Nov 15, 2024 10:22 AM Reporting Lab: [facility] [place] [facility] [address] [facility] [address] Performing Lab: [facility] [place] [facility] [address] [facility] [address] [facility] [place] [facility] CREATININ E (eGFR 2020) CREATININE [MASS/VOLUM E] IN SERUM OR PLASMA 1.08 mg/dL 0.50 - 1.40 11/15 Specimen Type: SERUM No comment entered. Ordering Provider: NIKIA ALMARAZ Report Released Date/Time: Nov 15, 2024 10:22 AM Reporting Lab: [facility] [place] [facility] [address] [facility] [address] Performing Lab: [facility] [place] [facility] [address] [facility] [address] [facility] [place] [facility] CREATININ E (eGFR 2020) GLOMERULAR FILTRATION RATE/1.73 SQ M.PREDICTED [VOLUME RATE/AREA] IN SERUM, PLASMA OR BLOOD BY CREATININE- BASED FORMULA (CKD-EPI 2020) 73 mL/min 60 11/15 Specimen Type: SERUM No comment entered. Ordering Provider: NIKIA ALMARAZ Report Released Date/Time: Nov 15, 2024 10:22 AM Reporting Lab: [facility] [place] [facility] [address] [facility] [address] Performing Lab: [facility] [place] [facility] [address] [facility] [address] [facility] [place] [facility] MICROALBU MIN CREATININ E RATIO PANEL MICROALBUMI N/CREATININ E [MASS RATIO] IN URINE 78.2 mg/g 0 - 29.9 11/15 H Specimen Type: URINE No comment entered. Ordering Provider: NIKIA ALMARAZ Report Released Date/Time: Nov 15, 2024 10:22 AM Reporting Lab: [facility] [place] [facility] [address] [facility] [address] Performing Lab: [facility] [place] [facility] [address] [facility] [address] [facility] [place] [facility] MICROALBU MIN CREATININ E RATIO PANEL MICROALBUMI N [MASS/VOLUM E] IN URINE 6.1 mg/dL 11/15 Specimen Type: URINE No comment entered. Ordering Provider: NIKIA ALMARAZ Report Released Date/Time: Nov 15, 2024 10:22 AM Reporting Lab: [facility] [place] [facility] [address] [facility] [address] Performing Lab: [facility] [place] [facility] [address] [facility] [address] [facility] [place] [facility] MICROALBU MIN CREATININ E RATIO PANEL CREATININE [MASS/VOLUM E] IN URINE 78.00 mg/dL 11/15 Specimen Type: URINE No comment entered. Ordering Provider: NIKIA ALMARAZ Report Released Date/Time: Nov 15, 2024 10:22 AM Reporting Lab: [facility] [place] [facility] [address] [facility] [address] Performing Lab: [facility] [place] [facility] [address] [facility] [address] [facility] [place] [facility] Vital Signs Combined list of inpatient and outpatient Vital Signs from Department of Defense and Veterans Affairs, ranging from 12 months to all on record, depending upon the facility. Vital Sign Value Date Comments Source SYSTOLIC BLOOD PRESSURE 158 12/13/19 25 08:51:55 [facility] [place] [facility] DIASTOLIC BLOOD PRESSURE 82 025 08:51:55 [facility] [place] [facility] PULSE OXIMETRY 97 12/12/2024 08:51:55 [facility] [place] [facility] WEIGHT 175.2 12/12/2024 08:51:55 [facility] [place] [facility] BMI 29 kg/m2 12/12/2024 08:51:55 [facility] [place] [facility] PAIN 0 12/12/2024 08:51:55 [facility] [place] [facility] HEIGHT 65 12/12/2024 08:51:55 [facility] [place] [facility] TEMPERATURE 97.5 12/12/2024 08:51:55 [facility] [place] [facility] PULSE 63 12/12/2024 08:51:55 [facility] [place] [facility] RESPIRATION 16 12/12/2024 08:51:55 [facility] [place] [facility] SYSTOLIC BLOOD PRESSURE 150 12/06/19 25 09:05:00 [facility] [place] [facility] DIASTOLIC BLOOD PRESSURE 72 025 09:05:00 [facility] [place] [facility] PULSE 64 12/05/2024 09:05:00 [facility] [place] [facility] SYSTOLIC BLOOD PRESSURE 180 11/29/19 10:10:00 [facility] [place] [facility] DIASTOLIC BLOOD PRESSURE 70 025 10:10:00 [facility] [place] [facility] PULSE 64 11/28/2024 10:10:00 [facility] [place] [facility] SYSTOLIC BLOOD PRESSURE 154 11/21/19 09:49:29 [facility] [place] [facility] DIASTOLIC BLOOD PRESSURE 78 025 09:49:29 [facility] [place] [facility] PULSE 68 11/21/2024 09:49:29 [facility] [place] [facility] SYSTOLIC BLOOD PRESSURE 190 11/15/19 13:18:01 [facility] [place] [facility] DIASTOLIC BLOOD PRESSURE 80 025 13:18:01 [facility] [place] [facility] PULSE OXIMETRY 98 11/15/2024 13:18:01 [facility] [place] [facility] WEIGHT 175.2 11/15/2024 13:18:01 [facility] [place] [facility] BMI 29 kg/m2 11/15/2024 13:18:01 [facility] [place] [facility] TEMPERATURE 97.1 11/15/2024 13:18:01 [facility] [place] [facility] PULSE 67 11/15/2024 13:18:01 [facility] [place] [facility] RESPIRATION 18 11/15/2024 13:18:01 [facility] [place] [facility] Encounters Combined [...] Disposition Source [facility] [place] [facility] EYE EXAM&TX ESTAB PT 1/>VST [id number] Diagnos is: ICD-10- CM H25.813 Combine d forms of age-rel ated catarac t, bilater al EVA BLAS E 07/26 [facility] FIT SPECTACLES MONOFOCAL [id number] Diagnos is: ICD-10- CM Z46.0 Encount er for fit/adj st of spectac les and contact lenses EVA BLAS E 07/26 [facility] Outpatient Encounter [id number] 08/27 [facility] [place] Encounter [id number] 09/09 [facility] [place] Outpatient Encounter [id number] 09/30 [place] [facility] HEARING AID EXAM BOTH EARS [id number] Diagnos is: ICD-10- CM H90.3 Sensori neural hearing loss, quynh al SENIOR,ADRIA OLE L 10/21 [facility] En[facility] [id number] 11/01 [facility] [place] Encounter [id number] 11/04 [facility] [place] OFF[place] O/P EST MOD 30 MIN [id number] Diagnos is: ICD-10- CM I10 Essenti al (primar y) hyperte nsion MARVIN,A POLINARIO 02/12 /2024 [place] [facility] Encounter [id number] 11/11 [facility] HEARING SERVICE [id number] Diagnos is: ICD-10- CM Z46.1 Encount er for fitting and adjustm ent of hearing aid RAS KONG 11/17 [facility] En[facility] [id number] MARVINCammie 11/17 [facility] En[facility] [id number] 12/07 [facility] [place] Encounter [id number] 12/27 [facility] [place] En[facility] [id number] 01/26 [facility] Encounter [id number] JASE ACEVEDO 01/30 [facility] En[facility] [id number] JOHNNY WSANN 01/31 [facility] OFFICE O/P EST SF 10 MIN [id number] Diagnos is: ICD-10- CM M54.50 Low back pain, unspeci fied JAIME ALEXANDER 01/31 [facility] En[facility] [id number] 02/14 [facility] En[facility] [id number] 02/14 [facility] SELF-MGMT EDUC & TRAIN 1 [place] [id number] Diagnos is: ICD-10- CM G47.33 Obstruc tive sleep apnea (adult) ([facility]) [place] [place] 02/27 [facility] [place] [facility] SLEEP STUDY UNATT&RESP EFFT [id number] Diagnos is: ICD-10- CM G47.33 Obstruc tive sleep apnea (adult) ([facility]) RANJEET FLOYD [facility] 03/08 [facility] Out[facility]counter [id number] 03/14 [facility] Out[facility] Encounter [id number] 03/14 [facility] [place] [facility] [place] PSYTX W PT 45 MINUTES [id number] Diagnos is: ICD-10- CM F43.0 Acute stress reactio n VINOCOUR,J ILL M 03/17 [place] [facility] UNATT&RESP EFFT [id number] Diagnos is: ICD-10- CM G47.33 Obstruc tive sleep apnea (adult) ([facility]) MELAINE MENENDEZ 03/17 [place] [facility] En[facility] [id number] 03/23 [facility] [place] [place] [facility] Outpatient Encounter [id number] 03/24 [facility] [place] OFF[place] O/P EST MOD 30 MIN [id number] Diagnos is: ICD-10- CM I10 Essenti al (primar y) hyperte nsion MARVIN,A POLINARIO 03/24 [place] [facility] Outpatient Encounter [id number] 03/24 [facility] [place] PSYTX W PT 30 MINUTES [id number] Diagnos is: ICD-10- CM F43.0 Acute stress reactio n ZHANEJ ILL M 03/29 [place] BIOFEEDBAC K TRAIN ANY METH [id number] Diagnos is: ICD-10- CM F41.9 Anxiety disorde r, unspeci fied LAINE DELUNA 04/17 [place] BIOFEEDBAC K TRAIN ANY METH [id number] Diagnos is: ICD-10- CM F41.9 Anxiety disorde r, unspeci fied LAINE DELUNA 04/24 [place] OFFICE O/P EST MOD 30 MIN [id number] Diagnos is: ICD-10- CM I10 Essenti al (primar y) hyperte nsion MARVIN,A POLINARIO 04/28 [place] BIOFEEDBAC K TRAIN ANY METH [id number] 1BY. 80 Diagnos is: ICD-10- CM F41.9 Anxiety disorde r, unspeci fied JAMEYMITLAINE Gottlieb 05/01 [place] [facility] Outpatient Encounter [id number] 05/10 [facility] INTRAORAL FULL IMAGE SERIES [id number] 1. Diagnos is: ICD-10- CM K08.421 Partial loss of teeth due to periodo ntal disease s, class I SONIA BARCLAY 05/11 [facility] Outpatient Encounter [id number] 1BY. 31 05/15 [place] [facility] OFFICE O/P EST MOD 30 MIN [id number] Diagnos is: ICD-10- CM Z63.79 Other stressf ul life events affecti ng family and househo ld MARVIN,A POLINARIO 06/21 [place] [facility] Outpatient [facility]counter [id number] 1.06/28 [facility] REMOVABLE PROSTHODON TIC PROC [id number] Diagnos is: ICD-10- CM K03.1 Abrasio n of teeth SONIA BARCLAY 06/29 [facility] Out[facility] Encounter [id number] 1.07/14 [facility] Encounter [id number] 07/26 [facility]counter [id number] 07/26 [facility] COMPRE [place]AM [place] 1/ [id number] [id number] Diagnos is: ICD-10- CM H25.813 Combine d forms of age-rel ated catarac t, bilater al EVA BLAS E 07/31 [facility] FIT SPECTACLES MONOFOCAL [id number] Diagnos is: ICD-10- CM Z46.0 Encount er for fit/adj st of spectac les and contact lenses EVA BLAS E 07/31 [facility] Out[facility] Encounter [id number] 08/14 [facility] PT EDUCATION NOC INDIVID [id number] 1BY. 75 Diagnos is: ICD-10- CM G47.[address] E P 08/16 [facility] OFF[facility] O/P EST MOD 30 MIN [id number] Diagnos is: ICD-10- CM I10 Essenti al (primar y) hyperte nsion Cammie WONG 08/21 [facility] [place] [facility] COLLJ & INTERPJ DATA EA 30 D [id number] Diagnos is: ICD-10- CM G47.39 Other sleep apnea [facility] E P 09/06 [facility] Out[facility] Encounter [id number] 1.09/10 [facility] Encounter [id number] 1.09/13 [facility] MANDIBULAR PART DENTURE FLEX [id number] 1. Diagnos is: ICD-10- CM K08.421 Partial loss of teeth due to periodo ntal disease s, class I SONIA BARCLAY 09/14 [facility] [facility] Outpatient [facility]counter [id number] 09/22 [facility] [place]/OP EST JANUARY X REQ PHY/QHP [id number] 1BY. 72 Diagnos is: ICD-10- CM I10 Essenti al (primar y) hyperte nsion VIRI,L CHARISMA H 10/02 [place]/OP EST JANUARY X REQ PHY/QHP [id number] [id number] Diagnos is: ICD-10- CM Z71.89 Other specifi ed financial services counselor AILIN Joyner 10/04 [facility] [facility] 13295-3.63 [id number] Diagnos is: ICD-10- CM F41.9 Anxiety disorde r, unspeci fiJamel Garcia [facility] [id number] 10/24 [facility] [place] CASE MANAGEMENT [id number] Diagnos is: ICD-10- CM F41.9 Anxiety disorde r, unspeci fied Jamel ADKINS REGINA 10/24 [facility] [id number] Diagnos is: ICD-10- CM F41.9 Anxiety disorde r, unspeci fied SHAWN SURESH 10/30 [place] [facility] [facility] Outpatient Encounter [id number] SHAWN SURESH 10/30 [facility] [place] [facility] [place] [facility] Outpatient Encounter [id number] 11/15 [facility] [place] [facility] Encounter [id number] 11/15 [facility] [place] PH1 ASSMT&MGMT NQHP 11-20 [id number] Diagnos is: ICD-10- CM I10 Essenti al (primar y) hyperte nsion Ernestine MEREDITH CHARISMA H 11/15 [facility] [place] [facility] [place] [facility] OFFICE O/P EST MOD 30 MIN [id number] Diagnos is: ICD-10- CM I10 Essenti al (primar y) hyperte LUKE EliasHRYN 11/15 [facility] [place] [facility] [id number] Diagnos is: ICD-10- CM Z13.6 Encount er for screeni ng for cardiov ascular disorde rs Catrina MICHAEL 11/15 [place] [facility] [place] [facility] OFF/OP EST MAY X REQ PHY/QHP [id number] Diagnos is: ICD-10- CM I10 Essenti al (primar y) hyperte nsion MEREDITH REECE LLWicho L 11/21 [facility] [place] [facility] PH1 ASSMT&MGMT NQHP 5-10 [id number] Diagnos is: ICD-10- CM I10 Essenti al (primar y) hyperte nsCRISTINA Woods A 11/23 [facility] [place] [facility] Outpatient Encounter [id number] 11/27 [facility] [place] [facility] [place] [facility] Outpatient Encounter [id number] 11/27 [facility] [place] [facility] [place] [facility] OFF/OP EST MAY X REQ PHY/QHP [id number] Diagnos is: ICD-10- CM I10 Essenti al (primar y) hyperte nsMEREDITH Cm L 11/28 [facility] [place] [facility] [place] [facility] Outpatient Encounter [id number] 11/30 [facility] [place] [facility] OFF/OP CNSLTJ NEW/EST MOD 40 [id number] Diagnos is: ICD-10- CM F41.9 Anxiety disorde r, unspeci birgit BURCIAGA,ST EVEN G 11/30 [place] [facility] [facility] PH1 ASSMT&MGMT NQHP 21-30 [id number] Diagnos is: ICD-10- CM I10 Essenti al (primar y) hyperte CRISTINA Parry A 11/30 [facility] [place] [facility]LE[facility] FAC[facility] FEE [id number] 1BY. [id number] Diagnos is: ICD-10- CM R01.1 Cardiac murmur, unspeci LAURA Salter 12/01 [place] [facility] W/DOPPLER COMPLETE [id number] Diagnos is: ICD-10- CM Z13.6 Encount er for screeni ng for cardiov ascular disorde rs JOSTIN UREÑA J 12/01 [place] [facility] [place] [facility] Outpatient Encounter [id number] 12/04 [facility] Encounter [id number] 12/04 [facility] [place] OFF/OP EST MAY X REQ PHY/QHP [id number] Diagnos is: ICD-10- CM I10 Essenti al (primar y) hyperte nsion MEREDITH REECE L 12/05 [facility] [place] Encounter [id number] 12/06 [facility] [place] Out[facility] Encounter [id number] 12/12 [facility] [place] [place] [facility] OFFICE O/P EST MOD 30 MIN [id number] Diagnos is: ICD-10- CM I10 Essenti al (primar y) hyperte nsion CHARLENE RAMESH 12/12 [facility] [place] Encounter [id number] 12/12 [facility] [place] Out[facility] Encounter [id number] 12/15 [facility] [place] Out[facility] Encounter [id number] Diagnos is: ICD-10- CM I10 Essenti al (primar y) hyperte nsion CRISTINA BEE A 12/22 [facility] [place] Out[facility] Encounter [id number] 12/26 [facility] [place] [facility] [place] [facility] PH1 ASSMT&MGMT NQHP 5-10 [id number] Diagnos is: ICD-10- CM I10 Essenti al (primar y) hyperte nsion CRISTAL, CRISTINA A 01/01 [facility] [place] [facility] OFFICE O/P EST LOW 20 MIN [id number] Diagnos is: ICD-10- CM F41.9 Anxiety disorde r, unspeci ST MARY Agudelo G 01/01 [facility] [place] [facility] [place] [facility] PH1 ASSMT&MGMT NQHP 5-10 [id number] Diagnos is: ICD-10- CM I10 Essenti al (primar y) hyperte nsion CRISTAL, CRISTINA A 01/08 [place] [facility] [place] [place] [facility] [place] [facility] Outpatient Encounter [id number] 01/19 [facility] [place] [facility] [place] [facility] Outpatient Encounter [id number] Diagnos is: ICD-10- CM I10 Essenti al (primar y) hyperte nsion CRISTAL, CRISTINA A 01/23 [place] [facility] [place] [place] [facility] Social History Combined list of available smoking, tobacco, and other social history from Department of Defense and Veterans Affairs facilities. Social History Type Response Date Comment [facility] e Tobacco smoking status [facility] VA-TOBACCO USE EVERY DAY CIGARETTES 10/30/2024 [place] History of tobacco use [place]-TOBACCO NEVER USED OTHER TYPE 10/30/2024 [place] History of tobacco use VA-TOBACCO USER EVERY DAY 04/28/2024 [place] History of tobacco use VA-TOBACCO USER EVERY DAY 04/27/2023 [place] History of tobacco use VA-TOBACCO USER EVERY DAY 01/23/2021 [place] History of tobacco use CURRENT SMOKER 10/25/2017 [place] History of tobacco use CURRENT SMOKER 12/15/2016 [place] History of tobacco use V1-PT DECLINES TOBACCO CESSATION MEDS 06/16/2016 [place] History of tobacco use CURRENT SMOKER 12/17/2015 smokes about one ppd of cigaretts. [place] Plan of Care List of future care activities from Department of [facility] Affairs facilities. Additional future care activities may be listed in the Assessment and Plan section. Date/Time Care Activity Care Activity Detail Facili ty 01/30/2025 AMBULATORY - MEDICINE AMBULATORY - MEDICI [facility] [place] [facility]
--- OUTSIDE RECORDS SUMMARY | 2025-01-23 13:01 | XMS_ITS ---
Author Name [facility] [place] Address [address] [place] [address] Care Team Providers Care Manager Meat Name Role Phone ASHLEIGH FIELDS Primary Care [...] Patient's Relationship to Policy [place] MEDICAID MEDICAID [facility] Nov 30, 2019 MEDICAI D [id number] Catrina LEE PATIENT MEDICARE (WNR) MEDICARE (M) PART A January 25, 2018 PART A [id number] Catrina LEE PATIENT MEDICARE (WNR) MEDICARE (M) PART B January 25, 2018 PART B [id number] Catrina LEE PATIENT Selected Encounter This section includes the information on record at [place] for the Encounter. Date/Time Encounter Type Encounter Description Reason Provider Source Jul 31, 2024 01:30 PM COMPRE OPH EXAM EST PT 1/> OPTOMETRY ICD-10-CM H25.813 Combined forms of age-related cataract, bilateral FRANCESCA BLAS E Encounter Template Text not used by [place] Assessments - Encounter Diagnoses This section includes the primary and secondary diagnoses documented for the Encounter. Date/Time Primary/Secondary Diagnosis Diagnosis Name Provider Source Jul 31, 2024 05:11 PM PRIMARY Combined forms of age-related cataract, bilateral FRANCESCA BLAS [place] [facility] [place] [facility] Jul 31, 2024 05:11 PM SECONDARY Presbyopia FRANCESCA BLAS [place] [facility] [place] [facility] Plan of Treatment: Future Appointments (+ 6 months) and Future Tests (+/- 45 days) The Plan of Treatment section includes future care activities for the patient from all [place] treatmentfacilities. This section includes future appointments and [...] AMBULATORY - NONE [facility] [place] [facility] Aug 21, 2024 02:30 PM AMBULATORY - MEDICINE [facility] [place] [place] [facility] Sep 14, 2024 07:30 AM AMBULATORY - NONE [facility] [place] [facility] Oct 02, 2024 10:00 AM AMBULATORY - MEDICINE [facility] [place] [facility] Oct 04, 2024 08:00 AM AMBULATORY - PSYCHIATRY [facility] Oct 17, 2024 03:00 PM AMBULATORY - PSYCHIATRY [facility] Oct 24, 2024 10:00 AM AMBULATORY - NONE [place] [facility] [place] [place] [facility] Oct 24, 2024 10:00 AM AMBULATORY - [place]IC[place] [facility] Oct 24, 2024 03:00 PM AMBULATORY - PSYCHIATRY [facility] Oct 30, 2024 09:00 AM AMBULATORY - PSYCHIATRY [facility] Nov 15, 2024 01:00 PM AMBULATORY - MEDICINE [facility] [place] [place] [facility] Nov 21, 2024 09:00 AM AMBULATORY - MEDICINE [facility] [place] [facility] Nov 28, 2024 10:00 AM AMBULATORY - MEDICINE [facility] [place] [facility] Nov 30, 2024 10:30 AM AMBULATORY - PSYCHIATRY [place] [facility] [place] [place] [facility] Dec 01, 2024 11:30 AM AMBULATORY - NONE [place] [facility] [place] [facility] Dec 05, 2024 09:00 AM AMBULATORY - MEDICINE [place] [facility] [place] [facility] Dec 12, 2024 09:00 AM AMBULATORY - MEDICINE [place] [facility] [place] [facility] Jan 01, 2025 10:30 AM AMBULATORY - [place]IAT[place] [facility] Active, Pending, and Scheduled Orders This section includes a listing of several types of active, pending, and scheduled orders, including clinic medications orders, diagnostic test orders, procedure orders and consult orders; where the start date of the order is 45 days before the date of the Encounter or 45 days after the date of theEncounter. The data comes from all [place] treatment facilities. Test Date/Time Test Type Test Details Facility Name Aug 16, 2024 10:18 AM Consult Order CVT HOME S LEEP STUDY IFC WHAV Cons Bed Laborer's Choice [facility] Encounter Notes: All associated encounter notes This [...] [place] Sleep apnea G47.39 12/14/2021 CHIP MONTEMAYOR Medications (VA): Active Outpatient Medications (including Supplies): [...] months or sooner if any problems arise. [place] Education: After discussion and answering all 's questions, [place] demonstrated and verbalized understanding of diagnosis and [...] this VA (local) and dispensed from another VA or DoD facility (remote) as well as [...] non-VA provider. 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
--- OUTSIDE RECORDS SUMMARY | 2025-01-23 13:01 | XMS_ITS | Encounter Summary ---
Author Name [facility] [place] Address [address] [place] [id number] Care Team Providers Care Oil Plant Operator Name Role Phone ASHLEIGH FIELDS Primary Care [...] [facility] Nov 30, 2019 MEDICAI D [id number] Catrina LEE PATIENT MEDICARE (WNR) MEDICARE (M) PART A January 25, 2018 PART A [id number] Catrina LEE PATIENT MEDICARE (WNR) MEDICARE (M) PART B January 25, 2018 PART B [id number] Catrina LEE PATIENT Selected Encounter This section includes the information on record at [place] for the Encounter. Date/Time Encounter Type Encounter Description Reason Provider Source Aug 21, 2024 02:30 PM OFFICE O/P EST MOD 30 MIN PRIMARY CARE/MEDICINE ICD-10-CM I10 Essential (primary) hypertension MARVIN,APOL INARIO IHE Encounter Template Text not used by [place] Assessments - Encounter Diagnoses This section includes the primary and secondary diagnoses documented for the Encounter. Date/Time Primary/Secondary Diagnosis Diagnosis Name Provider Source Sep 22, 2024 03:30 PM PRIMARY Essential (primary) hypertension JOVANA WONG [place] Sep 22, 2024 03:30 PM SECONDARY Anxiety disorder, unspecified MARVIN,JOVANA RIOS [place] Sep 22, 2024 03:30 PM SECONDARY Other sleep apnea [facility]NA WONG [facility] Plan of Treatment: Future Appointments (+ 6 months) and Future Tests (+/- 45 days) The Plan of Treatment section includes future care activities for the patient from all [place] [facility]. This section includes future appointments [...] AMBULATORY - NONE [facility] [place] [place] [facility] Oct 02, 2024 10:00 AM AMBULATORY - MEDICINE [facility] [place] [facility] Oct 04, 2024 08:00 AM AMBULATORY - PSYCHIATRY [facility] Oct 17, 2024 03:00 PM AMBULATORY - PSYCHIATRY [facility] Oct 24, 2024 10:00 AM AMBULATORY - NONE [place] [facility] [place] [facility] Oct 24, 2024 10:00 AM AMBULATORY - MEDICINE [facility] [place] Oct 24, 2024 03:00 PM AMBULATORY - PSYCHIATRY [facility] Oct 30, 2024 09:00 AM AMBULATORY - PSYCHIATRY [facility] Nov 15, 2024 01:00 PM AMBULATORY - MEDICINE [facility] [place] [facility] Nov 21, 2024 09:00 AM AMBULATORY - MEDICINE [facility] [place] [facility] Nov 28, 2024 10:00 AM AMBULATORY - MEDICINE [facility] [place] [facility] Nov 30, 2024 10:30 AM AMBULATORY - PSYCHIATRY [facility] [place] [place] [facility] Dec 01, 2024 11:30 AM AMBULATORY - NONE [facility] [place] [facility] Dec 05, 2024 09:00 AM AMBULATORY - MEDICINE [place] [facility] [place] [facility] Dec 12, 2024 09:00 AM AMBULATORY - MEDICINE [place] C [facility] Jan 01, 2025 10:30 AM AMBULATORY - PS[facility]CHIATRY [facility] January 30, 2025 09:30 AM AMBULATORY - MEDICINE [facility] Active, Pending, and Scheduled Orders This section includes a listing of several types of active, pending, and scheduled orders, including clinic medications orders, diagnostic test orders, procedure orders and consult orders; where the start date of the order is 45 days before the date of the Encounter or 45 days after the date of theEncounter. The data comes from all [place] treatment facilities. 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 Date/Time Current Smoking Status Comment Facil annabelle Apr 28, 2024 01:00 PM VA-TOBACCO USER EVERY DAY [place] Tobacco Use History This section includes a history of the smoking, or tobacco-related health factors, that were collected on or before the date of the Encounter. The data comes from the [place] facility where the Encounter took place. Date/Time Smoking Status/Tobacco Use Comment F acility Apr 28, 2024 01:00 PM VA-TOBACCO USE ADVICE [facility] Apr 28, 2024 01:00 PM VA-TOBACCO USE LEAN FACILITATOR NO [facility] Apr 28, 2024 01:00 PM VA-TOBACCO USE MED NO [place] Apr 28, 2024 01:00 PM VA-TOBACCO USE WI 30 MIN OF WAKEUP [facility] Apr 28, 2024 01:00 PM VA-TOBACCO USER EVERY DAY [facility] Apr 27, 2023 01:30 PM VA-TOBACCO DOESNT USE WI 30 MIN WAKEUP [facility] Apr 27, 2023 01:30 PM VA-TOBACCO USE 30 YEARS OR MORE [facility] Apr 27, 2023 01:30 PM VA-TOBACCO USE ADVICE [place] Apr 27, 2023 01:30 PM VA-TOBACCO USE LEAN FACILITATOR NO [facility] Apr 27, 2023 01:30 PM VA-TOBACCO USE MED NO [place] Apr 27, 2023 01:30 PM VA-TOBACCO USER EVERY DAY [facility] Jan 23, 2021 10:30 AM VA-TOBACCO USE 30 YEARS OR MORE [facility] Jan 23, 2021 10:30 AM VA-TOBACCO USE ADVICE [place] Jan 23, 2021 10:30 AM VA-TOBACCO USE LEAN FACILITATOR NO [facility] Jan 23, 2021 10:30 AM VA-TOBACCO USE MED NO [facility] Jan 23, 2021 10:30 AM VA-TOBACCO USE WI 30 MIN OF WAKEUP [facility] Jan 23, 2021 10:30 AM VA-TOBACCO USER EVERY DAY [facility] Oct 25, 2017 03:23 PM CURRENT SMOKER [facility] Oct 25, 2017 03:23 PM V1-PT NOT INTEREST ED IN QUIT TOBACCO USE [place] Dec 15, 2016 10:59 AM CURRENT SMOKER [facility] Dec 15, 2016 10:59 AM V1-PT DECLINES REF TO TOBACCO CESS [facility] Dec 15, 2016 10:59 AM V1-PT THINKING ABO UT QUIT TOBACCO USE [facility] Jun 16, 2016 08:30 AM V1-PT DECLINES REF TO TOBACCO CESS [facility] Jun 16, 2016 08:30 AM V1-PT DECLINES TOB ACCO CESSATION [facility] Jun 16, 2016 08:30 AM V1-PT THINKING ABO UT QUIT TOBACCO USE [place] Dec 17, 2015 09:00 AM CURRENT SMOKER smokes about one ppd of cigaretts. [facility] Dec 17, 2015 09:00 AM V1-PT THINKING ABO UT QUIT TOBACCO USE [facility] Encounter Notes: All associated encounter notes This [...] still have pending legal issues with the [employer]. Problem list and medications reviewed. Last Labs: Oct 2023 Last seen (edited exerpt): ...ASSESSMENT & PLAN: 69 year old MALE SERVICE CONNECTED % - 100 presents for follow-up very stressful summer. Patient [...] SERVICE CONNECTED % - 100 presents for blood pressure monitoring. The patient [...] He will be returning this soon to [place] to continue with his immunotherapy. He would [...] MD PHYSICIAN Signed: 09/22/2024 15:30 CATHIE WONG [place] Aug 21, 2024 02:35 PM PREVENTIVE MEDICIN E NURSING NOTE: LOCAL TITLE: CLINICAL REMINDERS/NURSING STANDARD TITLE: PREVENTIVE MEDICINE NURSING NOTE DATE OF NOTE: AUG 21, 2024@14:35 ENTRY DATE: AUG 21, 2024@14:35:24 AUTHOR: ALAN ALONSO EXP COSIGNER: URGENCY: STATUS: COMPLETED Home Telehealth ([facility]HT) Referral: [facility] at [facility]. Pneumococcal Conjugate Vaccine [...] REC COMPLETED BY PROVIDER DURING THE VISIT. /alferd/ ALAN ALONSO LPN LPN Signed: 08/21/2024 14:38 ALAN ALONSO [place]
--- OUTSIDE RECORDS SUMMARY | 2025-01-23 13:01 | XMS_ITS | Encounter Summary ---
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 Medical Records [address] [place] [id number] Jose Ramon Stovall MD Social History Tobacco Use Types Packs/Day Years Used Date Smoking Tobacco: Some Days Cigarettes 1 48 Smokeless Tobacco: Never Alcohol Use Standard Drinks/Week Comments Yes 0 (1 standard drink = 0.6 oz pure alcohol) 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
[2025-01-23 13:02] LABS: Cortisol Random 10.6 ug/dL
--- OUTSIDE RECORDS SUMMARY | 2025-01-23 13:02 | XMS_ITS | Encounter Summary ---
Author Name [facility] [place] [facility] [place] Address [address] [place] [address] Care Team Providers Care Cord Maker Name Role Phone ASHLEIGH FIELDS Primary Care [...] Patient's Relationship to Policy Rucker MEDICAID MEDICAID [facility] LILIAM ANIRUDH Nov 30, 2019 MEDICAI D [id number] Catrina LEE PATIENT MEDICARE (WNR) MEDICARE (M) PART A January 25, 2018 PART A [id number] Catrina LEE PATIENT MEDICARE (WNR) MEDICARE (M) PART B January 25, 2018 PART B [id number] Catrina LEE PATIENT Selected Encounter This section includes the information on record at [place] for the Encounter. Date/Time Encounter Type Encounter Description Reason Pro vider Source May 15, 2024 11:00 AM Outpatient Encounter [facility] IHE Encounter Template Text not used [...] 20 appointments. The data comes from all [place] treatment facilities. Appointment Date/Time Appointment Type Appointme nt Facility Name May 30, 2024 11:00 AM AMBULATORY - MEDICINE [place] [facility] [facility] [place] [facility] Jun 21, 2024 01:30 PM AMBULATORY - MEDICINE [place] [facility] Jun 29, 2024 07:30 AM AMBULATORY - NONE [place] [facility] [facility] Jul 31, 2024 01:30 PM AMBULATORY - MEDICINE [place] [facility] Aug 16, 2024 08:00 AM AMBULATORY - NONE [place] [facility] [facility] Aug 21, 2024 02:30 PM AMBULATORY - MEDICINE [place] [facility] [facility] [facility] Sep 14, 2024 07:30 AM AMBULATORY - NONE [place] [facility] [facility] Oct 02, 2024 10:00 AM AMBULATORY - MEDICINE [place] [facility] Oct 04, 2024 08:00 AM AMBULATORY - PSYCHIATRY [facility] Oct 17, 2024 03:00 PM AMBULATORY - PSYCHIATRY [facility] Oct 24, 2024 10:00 AM AMBULATORY - NONE [place] [facility] Oct 24, 2024 10:00 AM AMBULATORY - MEDIC[facility] Oct 24, 2024 03:00 PM AMBULATORY - PSYCHIATRY [facility] Oct 30, 2024 09:00 AM AMBULATORY - PSYCHIATRY [facility] Nov 15, 2024 01:00 PM AMBULATORY - MEDICINE [facility] [facility] Social History: Smoking Status (Most current) and Tobacco Use (All prior to encounter date) This section includes the most current, and the historical, smoking and tobacco- related health factors from the [place] facility where the Encounter took place. Current Smoking Status This section includes the most current smoking, or tobacco-related health factor, from the [place] facility where the Encounter took place. Date/Time Current Smoking Status Simon negrete Apr 28, 2024 01:00 PM VA-TOBACCO USER EVERY DAY [place] Tobacco Use History This section includes a history of the smoking, or tobacco-related health factors, that were collected on or before the date of the Encounter. The data comes from the [place] facility where the Encounter took place. Date/Time Smoking Status/Tobacco Use Comment F acility Apr 28, 2024 01:00 PM VA-TOBACCO USE ADVICE [place] Apr 28, 2024 01:00 PM VA-TOBACCO USE CIRCULATION LIBRARIAN NO [place] Apr 28, 2024 01:00 PM VA-TOBACCO USE MED NO [place] Apr 28, 2024 01:00 PM VA-TOBACCO USE WI 30 MIN OF WAKEUP [place] Apr 28, 2024 01:00 PM VA-TOBACCO USER EVERY DAY [place] Apr 27, 2023 01:30 PM VA-TOBACCO DOESNT USE WI 30 MIN [facility] Apr 27, 2023 01:30 PM VA-TOBACCO USE 30 YEARS OR MORE [place] Apr 27, 2023 01:30 PM VA-TOBACCO USE ADVICE [place] Apr 27, 2023 01:30 PM VA-TOBACCO USE CIRCULATION LIBRARIAN NO [place] Apr 27, 2023 01:30 PM VA-TOBACCO USE MED NO [place] Apr 27, 2023 01:30 PM VA-TOBACCO USER EVERY DAY [place] Jan 23, 2021 10:30 AM VA-TOBACCO USE 30 YEARS OR MORE [place] Jan 23, 2021 10:30 AM VA-TOBACCO USE ADVICE [place] Jan 23, 2021 10:30 AM VA-TOBACCO USE CIRCULATION LIBRARIAN NO [place] Jan 23, 2021 10:30 AM VA-TOBACCO USE MED NO [place] Jan 23, 2021 10:30 AM VA-TOBACCO USE WI 30 MIN OF [facility] Jan 23, 2021 10:30 AM VA-TOBACCO USER EVERY DAY [place] Oct 25, 2017 03:23 PM CURRENT SMOKER [facility] Oct 25, 2017 03:23 PM V1-PT NOT INTEREST ED IN QUIT TOBACCO USE [place] Dec 15, 2016 10:59 AM CURRENT SMOKER [facility] Dec 15, 2016 10:59 AM V1-PT DECLINES REF TO TOBACCO CESS [facility] Dec 15, 2016 10:59 AM V1-PT THINKING ABO UT QUIT TOBACCO USE [place] Jun 16, 2016 08:30 AM V1-PT DECLINES REF TO TOBACCO CESS [facility] Jun 16, 2016 08:30 AM V1-PT DECLINES TOB ACCO CESSATION MEDS [place] Jun 16, 2016 08:30 AM V1-PT THINKING ABO UT QUIT TOBACCO USE [place] Dec 17, 2015 09:00 AM CURRENT SMOKER smokes about one ppd of cigaretts. [place] Dec 17, 2015 09:00 AM V1-PT THINKING ABO UT QUIT TOBACCO USE [place] Encounter Notes: All associated encounter notes This [...] 05/15/24 ADMINISTRATIVE NOTE: ELIZA spoke with the [facility]. Appt for today 05/15/24 with Biofeedback group has been cancelled by the clinic. Informed that someone will be calling him back to reschedule. /alfred/ NICHOLAS KAY Signed: 05/15/2024 08:58 05/16/2024 ADDENDUM STATUS: COMPLETED Razor Grinder scheduled appt on 05/30/24 f2f 60 mins @ 11:00 am. /alfred/ PETE KAY Signed: 05/16/2024 12:40 LAINE DELUNA RHYS May 15, 2024 08:57 AM ADMINISTRATIVE NOT E: LOCAL TITLE: ADMINISTRATIVE NOTE STANDARD TITLE: ADMINISTRATIVE NOTE DATE OF NOTE: MAY 15, 2024@08:57 ENTRY DATE: MAY 15, 2024@08:57:39 AUTHOR: NICHOLAS MONTERO EXP COSIGNER: URGENCY: STATUS: COMPLETED ADMINISTRATIVE NOTE Has ADDENDA ELIZA spoke with the [facility]. Appt for today 05/15/24 with Biofeedback group has been cancelled by the clinic. Informed that someone will be calling him back to reschedule. /alfred/ NICHOLAS KAY Signed: 05/15/2024 08:58 05/16/2024 ADDENDUM STATUS: COMPLETED Spoke with [facility] he can not make next group on Wednesday. Therefore will meet individually on 05/30 at 11am. alerting eliza to rtc in chart. /es/ Laine Deluna, PhD Clinical Psychologist Signed: 05/16/2024 12:25 Receipt Acknowledged By: 05/16/2024 12:40 /alfred/ PETE KAY 05/16/2024 ADDENDUM STATUS: COMPLETED Razor Grinder scheduled appt on 05/30/24 f2f 60 mins @ 11:00 am. /alfred/ PETE KAY Signed: 05/16/2024 12:40 NICHOLAS MONTERO [place]
--- OUTSIDE RECORDS SUMMARY | 2025-01-23 13:02 | XMS_ITS | Continuity of Care Document ---
Author Organization [facility] ter Address [address] [place] [address]- Care Team Providers Care Patient Safety Sitter Name Role Phone Jany Brush MD Primary Care Physician Encounter 01/20/25 - 01/21/[address] [address] Attending Physician: Not on Staff, Attending MD Referring Physician: Not on Staff, Referring MD Encounter Type: SMRI Allergies, Adverse Reactions, Alerts Substance Criticality Severity Reaction Reaction Severity Status Dust Active Mold Active Pollen Active Medications Golytely - oral powder for reconstitution See Instructions, Drink 240mL every 15 minutes until gone, # 4,000 mL, 0 Refills, Maintenance, 01/12/22 2:38:00 PM EDT, [facility]/pharmacy #[id number], Partial fill upon patient request if the prescription is fora schedule II opioid drug., Drink 240mL every 15 minutes until gone Start Date: 01/12/22 Status: Ordered Quantity: 4000.0 Unit: mL Repeat number: 1 Problem List Condition Confirmation Course Effective Dates Status Health St [facility] Informant Sleep apnea NOS Confirmed Active Tubular adenoma of colon Confirmed 06/28/16 Active Social History Social History Type Response Smoking Status 10 or more cigarette s (1/2 pack or more)/day in last 30 days entered on: 02/01/19 Sex Sex Representation Male (finding) Patient Care team information Care Team Personnel Name: Jany Brush MD Position: Reference Physician Member Role: PCP Address: [address] [place] [id number]- [place] Telecom: Care Team Related Persons Name: SHARLENEBLAYNEKRISTOPHERON Name: ROSAGORGE Insurance Providers Guarantor name: EVA LAFEVER Health Plan Information #: 1 Payer: [employer] [place] [employer] Member Number: NA Policy Number: NA Group Number: NA Health Plan Information #: 2 Payer: [employer] MEDICARE ADV HMO Member Number: NA Policy Number: NA Group Number: NA
--- OUTSIDE RECORDS SUMMARY | 2025-01-23 13:02 | XMS_ITS | Encounter Summary ---
Author Name [facility] [place] [facility] [place] [facility] [place] Address [address] [place] [address] Care Team Providers Care Supervisor Slate Splitting Name Role Phone ASHLEIGH FIELDS Primary Care [...] Patient's Relationship to Policy Rucker MEDICAID MEDICAID [facility] ANIRUDH Nov 30, 2019 MEDICAI D [id number] Catrina LEE PATIENT MEDICARE (WNR) MEDICARE (M) PART A January 25, 2018 PART A [id number] Catrina LEE PATIENT MEDICARE (WNR) MEDICARE (M) PART B January 25, 2018 PART B [id number] Catrina LEE PATIENT Selected Encounter This section includes the information on record at [place] for the Encounter. Date/Time Encounter Type Encounter Description Reason Provider Source February 01, 2024 03:00 PM OFFICE O/P EST SF 10 MIN GENERAL INTERNAL MEDICINE ICD-10-CM M54.50 Low back pain, unspecified JAIME ALEXANDER Encounter Template Text not used by [place] Assessments - Encounter Diagnoses This section includes the primary and secondary diagnoses documented for the Encounter. Date/Time Primary/Secondary Diagnosis Diagnosis Name Provider Source February 01, 2024 03:21 PM PRIMARY Low back pain, unspecified JAIME ALEXANDER [place] [facility] Plan of Treatment: Future Appointments (+ 6 [...] 15, 2024 01:00 PM AMBULATORY - MEDICINE [place] [facility] Feb 28, 2024 09:00 AM AMBULATORY - MEDICINE [place] [facility] Mar 17, 2024 11:00 AM AMBULATORY - PSYCHIATRY [facility] Mar 23, 2024 10:30 AM AMBULATORY - MEDICINE [place] [facility] Mar 24, 2024 09:30 AM AMBULATORY - MEDICINE [place] [facility] Mar 29, 2024 11:00 AM AMBULATORY - PSYCHIATRY [facility] Apr 17, 2024 11:00 AM AMBULATORY - MEDICINE [place] [facility] Apr 24, 2024 11:00 AM AMBULATORY - MEDICINE [place] [facility] Apr 28, 2024 01:00 PM AMBULATORY - MEDICINE [place] [facility] May 01, 2024 11:00 AM AMBULATORY - MEDICINE [place] [facility] May 11, 2024 07:30 AM AMBULATORY - NONE [place] [facility] [facility] May 30, 2024 11:00 AM AMBULATORY - MEDICINE [place] [facility] Jun 21, 2024 01:30 PM AMBULATORY - MEDICINE [place] [place] [facility] Jun 29, 2024 07:30 AM AMBULATORY - NONE [place] [facility] [place] [facility] Jul 31, 2024 01:30 PM AMBULATORY - MEDICINE [place] [facility] Encounter Notes: All associated encounter notes This [...] was obtained as follows: Patient's current address [address] [place] [id number] Patient's Phone Number:PATIENT PHONE - PHONE NUMBER [CELLULAR] - Primary NOK: ROSACALLY Relation: UNRELATED FRIEND/ [address] [place] [address] [place], [place] [address] Subjective: low back pain x 7 days,constant [...] Code Description 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 Prostate cancer ([facility] [id number]) I10. HT - Hypertension ([facility] [id number]) M19.049 Osteoarthritis ([facility] [id number]) F17.210 Nicotine dependence ([facility] [id number]) Z72.0 Tobacco user ([facility] [id number]) F41.9 Anxiety ([facility] [id number]) G47.39 Sleep apnea ([facility] [id number]) ALLERGIES/ADR: Patient has answered NKA Active Outpatient [...] 15 minutes /alfred/ JAIME ALEXANDER MD ATTENDING, [facility] Signed: 02/01/2024 15:22 Receipt Acknowledged By: 02/29/2024 05:31 /alfred/ KALEB CHU MD Primary Care Physician for CATHIE MARVIN 02/01/2024 15:29 /alfred/ SAM CHAVEZN,RN-BC REGISTERED NURSE (RN) JAIME ALEXANDER [facility]
--- OUTSIDE RECORDS SUMMARY | 2025-01-23 13:02 | XMS_ITS | Encounter Summary ---
Author Name [facility] [place] Address [address] [place] [address] Care Team Providers Care Airplane Pilot Commercial Name Role Phone ASHLEIGH FIELDS Primary Care [...] Patient's Relationship to Policy Rucker MEDICAID MEDICAID [facility] JONNY LILIAM OLEARY Nov 30, 2019 MEDICAI D [id number] Catrina LEE PATIENT MEDICARE (WNR) MEDICARE (M) PART A January 25, 2018 PART A [id number] Catrina LEE PATIENT MEDICARE (WNR) MEDICARE (M) PART B January 25, 2018 PART B [id number] Catrina LEE PATIENT Selected Encounter This section includes the information on record at [place] for the Encounter. Date/Time Encounter Type Encounter [...] 20 appointments. The data comes from all [place] treatment facilities. Appointment Date/Time Appointment Type Appointme nt Facility Name Oct 30, 2024 09:00 AM AMBULATORY - PS[facility]CH[facility]ATRY [facility] Nov 15, 2024 01:00 PM AMBULATORY - [place]ICINE [place] [facility] Nov 21, 2024 09:00 AM AMBULATORY - MEDICINE [place] [facility] Nov 28, 2024 10:00 AM AMBULATORY - MEDICINE [place] [facility] Nov 30, 2024 10:30 AM AMBULATORY - PSYCHIATRY [place] [facility] [place] [facility] Dec 01, 2024 11:30 AM AMBULATORY - NONE [place] [facility] Dec 05, 2024 09:00 AM AMBULATORY - MEDICINE [place] [facility] Dec 12, 2024 09:00 AM AMBULATORY - MEDICINE [place] [facility] Jan 01, 2025 10:30 AM AMBULATORY - PSYCHIATRY [place] [facility] [place] [facility] January 30, 2025 09:30 AM AMBULATORY - MEDICINE [place] [facility] Mar 19, 2025 10:00 AM AMBULATORY - MEDICINE [place] [facility] Active, Pending, and Scheduled Orders This section includes a listing of several types of active, pending, and scheduled orders, including clinic medications orders, diagnostic test orders, procedure orders and consult orders; where the start date of the order is 45 days before the date of the Encounter or 45 days after the date of theEncounter. The data comes from all [place] treatment [facility]. Test Date/Time Test Type Test Details Facility Name Oct 30, 2024 10:35 AM Consult Order PSYCHOTHER APY SOPC OUTPT Cons Licensed Psychologist Manager's Choice [facility] Nov 15, 2024 03:14 PM Consult Order COMMUNITY CARE-NEUROLOGY Cons Licensed Psychologist Manager's Choice [place] [facility] Lab Results: +/- 30 days of the encounter This section includes the Chemistry and Hematology Lab Results on record with [facility] for the patient. Radiology Reports and Pathology Reports are provided separately, in subsequent sections. Lab Results This section contains the Chemistry/Hematology Results that were resulted 30 days before or 30 daysafter the date of the Encounter. Date/Time Source Result Type Result - Unit Interpretation Reference Range Specimen Type Comment Nov 15, 2024 12:51 PM [facility] HEMOGLOBIN A1C PANEL BLOOD Specimen Type: BLOOD Comment: Values obtained from A1C measurements can vary. For atypical A1C assays, a reported value of 7.0 could actually be between 6.72 and 7.28 if measured by a reference method. A reported value of 9.0 could actually be between 8.73 and 9.27. Ref: http://www.ngsp .org/CAPdata.as p Ordering Provider: MO ALMARAZ Report Released Date/Time: Nov 15, 2024 10:22 AM Reporting Lab: [address] [address] Performing Lab: [address] [address] HEMOGLOBIN A1C 5.6 4.0-5.6 Nov 15, 2024 12:51 PM [facility] BASIC METABOLIC PANEL (fasting) SERUM Specime n Type: SERUM No comment entered. Ordering Provider: MO ALMARAZ Report Released Date/Time: Nov 15, 2024 10:22 AM Reporting Lab: [address] [address] Performing Lab: [address] [address] UREA NITROGEN 33 mg/dL H 7-25 GLUCOSE 89 mg/dL 65-100 SODIUM 144 mmol/L 135-145 POTASSIUM 4.9 mmol/L 3.5-5.0 CHLORIDE 108 mmol/L 100-110 CO2 28 meq/L 20-30 CALCIUM 9.7 mg/dL 8.5-10.2 CREATININE, Serum 1.08 mg/dL 0.50-1.40 eGFR(CKD-EPI 2020) 73 mL/min >60 Nov 15, 2024 12:51 PM [facility] LIPID PANEL FASTING SERUM Specimen Type: SERU M No comment entered. Ordering Provider: MO ALMARAZ Report Released Date/Time: Nov 15, 2024 10:22 AM Reporting Lab: [facility] [address] [facility] [address] Performing Lab: [address] [address] CHOLESTEROL 184 mg/dL TRIGLYCERIDE 131 mg/dL 0-150 LDL calculated 120 mg/dL 0-129 CHOL/HDL 4.8 HDL CHOLESTEROL 38 mg/dL L 40-60 Nov 15, 2024 12:51 PM [facility] LIVER FUNCTION SERUM Specimen Type: SERUM No comment entered. Ordering Provider: MO ALMARAZ Report Released Date/Time: Nov 15, 2024 10:22 AM Reporting Lab: [address] [address] Performing Lab: [address] [address] PROTEIN,TOTAL 6.8 g/dL 6.0-8.3 ALBUMIN 3.6 g/dL 3.5-5.0 ALKALINE PHOSPHATASE 65 U/L 40-150 AST 14 U/L 5-34 ALT 16 U/L BILIRUBIN, TOTAL 0.4 mg/dL 0.2-1.2 Nov 15, 2024 12:51 PM [facility] TSH SERUM Specimen Type: SERUM No comment entered. Ordering Provider: MO ALMARAZ Report Released Date/Time: Nov 15, 2024 10:22 AM Reporting Lab: [address] [address] Performing Lab: [address] [address] TSH 1.83 u[IU]/mL 0.35-5.00 Nov 15, 2024 12:51 PM [facility] CREATININE (eGFR 2020) SERUM Specimen Type: S JALEEL No comment entered. Ordering Provider: MO ALMARAZ Report Released Date/Time: Nov 15, 2024 10:22 AM Reporting Lab: [facility] [address] [facility] [address] Performing Lab: [facility] [address] [facility] [address] CREATININE, Serum 1.08 mg/dL 0.50-1.40 eGFR(CKD-EPI 2020) 73 mL/min >60 Nov 15, 2024 12:51 PM [facility] MICROALBUMIN CREATININE RATIO PANEL URINE Spe cimen Type: URINE No comment entered. Ordering Provider: MO ALMARAZ Report Released Date/Time: Nov 15, 2024 10:22 AM Reporting Lab: [facility] [address] [facility] [address] Performing Lab: [address] [address] MICROALBUMIN/CREATININE RATIO 78.2 mg/g H 0-29.9 MICROALBUMIN,QUANTITATIVE 6.1 mg/dL RR U NAVAIL CREATININE URINE 78.00 mg/dL Nov 15, 2024 12:51 PM [facility] CBC AND DIFF (AUTO) BLOOD Specimen Type: BLOO D No comment entered. Ordering Provider: MO ALMARAZ Report Released Date/Time: Nov 15, 2024 10:22 AM Reporting Lab: [facility] [address] [facility] [address] Performing Lab: [address] [address] WBC 6.78 10*3/uL 4.50-11.00 RBC 4.60 10*6/uL [...]
--- OUTSIDE RECORDS SUMMARY | 2025-01-23 13:02 | XMS_ITS | Encounter Summary ---
Author Name [facility] Organization [facility] Address [address] [place] [address] Care Team Providers Care Disability Aide Name Role Phone ASHLEIGH FIELDS Primary Care [...] LILIYA OLEARY Nov 30, 2019 MEDICAI D [id number] Catrina LEE PATIENT MEDICARE (WNR) MEDICARE (M) PART A January 25, 2018 PART A [id number] Catrina LEE PATIENT MEDICARE (WNR) MEDICARE (M) PART B January 25, 2018 PART B [id number] Catrina LEE PATIENT Selected Encounter This section includes the information on record at MD for the Encounter. Date/Time Encounter Type Encounter Description Reason Provider Source Oct 17, 2024 03:00 PM [facility] - IND ICD-10-CM F41.9 Anxiety disorder, unspecified TIERNEY ADKINS Encounter Template Text not used by MD Assessments - Encounter Diagnoses This section includes the primary and secondary diagnoses documented for the Encounter. Date/Time Primary/Secondary Diagnosis Diagnosis Name Provider Source Oct 17, 2024 03:36 PM PRIMARY Anxiety disorder, unspecified KHALIF ADKINS Oct 17, 2024 03:36 PM SECONDARY Insomnia, unspecified KHALIF ADKINS Plan of Treatment: Future Appointments (+ 6 months) and Future Tests (+/- 45 days) The Plan of Treatment section includes future care activities for the [facility] This section includes future appointments and future orders which are active, pending or scheduled. Future Appointments This section includes appointments that were scheduled to occur 6 months from the date of the Encounter, up to a maximum of 20 appointments. The data comes from all MD treatment facilities. Appointment Date/Time Appointment Type Appointme nt Facility Name Oct 24, 2024 10:00 AM AMBULATORY - NONE [facility] [place] [facility] Oct 24, 2024 10:00 AM AMBULATORY - MEDICINE [facility] Oct 24, 2024 03:00 PM AMBULATORY - PSYCHIATRY [facility] Oct 30, 2024 09:00 AM AMBULATORY - PSYCHIATRY [facility] Nov 15, 2024 01:00 PM AMBULATORY - MEDICINE [facility] [place] [facility] Nov 21, 2024 09:00 AM AMBULATORY - MEDICINE [facility] [place] [facility] Nov 28, 2024 10:00 AM AMBULATORY - MEDICINE [facility] [place] [facility] Nov 30, 2024 10:30 AM AMBULATORY - PS[facility]CHIATRY [facility] [place] [facility] Dec 01, 2024 11:30 AM AMBULATORY - NONE [facility] [place] [facility] Dec 05, 2024 09:00 AM AMBULATORY - MEDICINE [facility] [place] [facility] Dec 12, 2024 09:00 AM AMBULATORY - MEDICINE [facility] [place] [facility] Jan 01, 2025 10:30 AM AMBULATORY - PSYCHIATRY [facility] [place] [facility] January 30, 2025 09:30 AM AMBULATORY - MEDICINE [facility] [place] [facility] Mar 19, 2025 10:00 AM AMBULATORY - MEDICINE MD [facility] [place] [facility] Active, Pending, and Scheduled Orders This section includes a listing of several types of active, pending, and scheduled orders, including clinic medications orders, diagnostic test orders, procedure orders and consult orders; where the start date of the order is 45 days before the date of the Encounter or 45 days after the date of theEncounter. The data comes from all MD treatment facilities. Test Date/Time Test Type Test Details Facility Name Oct 30, 2024 10:35 AM Consult Order PSYCHOTHER APY SOPC OUTPT [facility] Nov 15, 2024 03:14 PM Consult Order COMMUNITY CARE-NEUROLOGY [facility] Lab Results: +/- 30 days of the encounter This section includes the Chemistry and Hematology Lab Results on record with MD for the patient. Radiology Reports and Pathology Reports are provided separately, in subsequent sections. Lab Results This section contains the Chemistry/Hematology Results that were resulted 30 days before or 30 daysafter the date of the Encounter. Date/Time Source Result Type Result - Unit Interpretation Reference Range Specimen Type Comment Nov 15, 2024 12:51 PM [facility] HEMOGLOBIN A1C PANEL BLOOD Specimen Type: BLOOD [...] Nov 15, 2024 10:22 AM Reporting [facility]: [facility] [address] [address] Performing Lab: [facility] [address] [address] HEMOGLOBIN A1C 5.6 4.0-5.6 Nov 15, 2024 12:51 PM [facility] BASIC METABOLIC PANEL (fasting) SERUM Specime n Type: SERUM No comment entered. Ordering Provider: MO ALMARAZ Report Released Date/Time: Nov 15, 2024 10:22 AM Reporting Lab: [facility] [address] [address] Performing Lab: [facility] [address] [address] UREA NITROGEN 33 mg/dL H 7-25 GLUCOSE 89 mg/dL 65-100 SODIUM 144 mmol/L 135-145 POTASSIUM 4.9 mmol/L 3.5-5.0 CHLORIDE 108 mmol/L 100-110 CO2 28 meq/L 20-30 CALCIUM 9.7 mg/dL 8.5-10.2 CREATININE, Serum 1.08 mg/dL 0.50-1.40 eGFR(CKD-EPI 2020) 73 mL/min >60 Nov 15, 2024 12:51 PM [facility] LIPID PANEL FASTING SERUM Specimen Type: SERU M No comment entered. Ordering Provider: MO ALMARAZ Report Released Date/Time: Nov 15, 2024 10:22 AM Reporting Lab: [address] [address] Performing Lab: [address] [address] CHOLESTEROL 184 mg/dL TRIGLYCERIDE 131 mg/dL 0-150 LDL calculated 120 mg/dL 0-129 CHOL/HDL 4.8 HDL CHOLESTEROL 38 mg/dL L 40-60 Nov 15, 2024 12:51 PM [facility] LIVER FUNCTION SERUM Specimen Type: SERUM No comment entered. Ordering Provider: MO ALMARAZ Report Released Date/Time: Nov 15, 2024 10:22 AM Reporting Lab: [address] [address] Performing Lab: [address] [address] PROTEIN,TOTAL 6.8 g/dL 6.0-8.3 ALBUMIN 3.6 g/dL 3.5-5.0 ALKALINE PHOSPHATASE 65 U/L 40-150 AST 14 U/L 5-34 ALT 16 U/L BILIRUBIN, TOTAL 0.4 mg/dL 0.2-1.2 Nov 15, 2024 12:51 PM [facility] TSH SERUM Specimen Type: SERUM No comment entered. Ordering Provider: MO LAMARAZ Report Released Date/Time: Nov 15, 2024 10:22 AM Reporting Lab: [facility] [address] [address] Performing Lab: [facility] [address] [address] TSH 1.83 u[IU]/mL 0.35-5.00 Nov 15, 2024 12:51 PM [facility] CREATININE (eGFR 2020) SERUM Specimen Type: S JALEEL No comment entered. Ordering Provider: MO ALMARAZ Report Released Date/Time: Nov 15, 2024 10:22 AM Reporting Lab: [facility] [address] [address] Performing Lab: [facility] [address] [address] CREATININE, Serum 1.08 mg/dL 0.50-1.40 eGFR(CKD-EPI 2020) 73 mL/min >60 Nov 15, 2024 12:51 PM [facility] MICROALBUMIN CREATININE RATIO PANEL URINE Spe cimen Type: URINE No comment entered. Ordering Provider: MO ALMARAZ Report Released Date/Time: Nov 15, 2024 10:22 AM Reporting Lab: [facility] [address] [address] Performing Lab: [facility] [address] [address] MICROALBUMIN/CREATININE RATIO 78.2 mg/g H 0-29.9 MICROALBUMIN,QUANTITATIVE 6.1 mg/dL RR U NAVAIL CREATININE URINE 78.00 mg/dL Nov 15, 2024 12:51 PM [facility] CBC AND DIFF (AUTO) BLOOD Specimen Type: BLOO D No comment entered. Ordering Provider: MO ALMARAZ Report Released Date/Time: Nov 15, 2024 10:22 AM Reporting Lab: [facility] [address] [address] Performing Lab: [facility] [address] [address] WBC 6.78 10*3/uL 4.50-11.00 RBC 4.60 10*6/uL [...] and tobacco- related health factors from the MD facility where the Encounter took place. Current Smoking Status This section includes the most current smoking, or tobacco-related health factor, from the MD facility where the Encounter took place. Date/Time Current Smoking Status Simon negrete Apr 28, 2024 01:00 PM VA-TOBACCO USER EVERY DAY [facility] Tobacco Use History This section includes a history of the smoking, or tobacco-related health factors, that were collected on or before the date of the Encounter. The data comes from the MD facility where the Encounter took place. Date/Time Smoking Status/Tobacco Use Comment F acility Apr 28, 2024 01:00 PM VA-TOBACCO USE ADVICE [facility] Apr 28, 2024 01:00 PM VA-TOBACCO USE SUPERVISOR PRODUCTION DEPARTMENT NO [facility] Apr 28, 2024 01:00 PM VA-TOBACCO USE MED NO [facility] Apr 28, 2024 01:00 PM VA-TOBACCO USE WI 30 MIN OF WAKEUP [facility] Apr 28, 2024 01:00 PM VA-TOBACCO USER EVERY DAY [facility] Apr 27, 2023 01:30 PM VA-TOBACCO DOESNT USE WI 30 MIN [place] [facility] Apr 27, 2023 01:30 PM VA-TOBACCO USE 30 YEARS OR MORE [facility] Apr 27, 2023 01:30 PM VA-TOBACCO USE ADVICE [facility] Apr 27, 2023 01:30 PM VA-TOBACCO USE SUPERVISOR PRODUCTION DEPARTMENT NO [facility] Apr 27, 2023 01:30 PM VA-TOBACCO USE MED NO [facility] Apr 27, 2023 01:30 PM VA-TOBACCO USER EVERY DAY [facility] Jan 23, 2021 10:30 AM VA-TOBACCO USE 30 YEARS OR MORE [facility] Jan 23, 2021 10:30 AM VA-TOBACCO USE ADVICE [facility] Jan 23, 2021 10:30 AM VA-TOBACCO USE SUPERVISOR PRODUCTION DEPARTMENT NO [facility] Jan 23, 2021 10:30 AM VA-TOBACCO USE MED NO [facility] Jan 23, 2021 10:30 AM VA-TOBACCO USE WI 30 MIN OF [facility] Jan 23, 2021 10:30 AM VA-TOBACCO USER EVERY DAY [facility] Oct 25, 2017 03:23 PM CUR[facility]MO[facility]ER [facility] Oct 25, 2017 03:23 PM V1-PT NOT INTEREST ED IN QUIT TOBACCO USE [facility] Dec 15, 2016 10:59 AM [facility] Dec 15, 2016 10:59 AM V1-PT DECLINES REF TO TOBACCO CESS [facility] Dec 15, 2016 10:59 AM V1-PT THINKING ABO UT QUIT TOBACCO USE [facility] Jun 16, 2016 08:30 AM V1-PT DECLINES REF TO TOBACCO CESS [facility] Jun 16, 2016 08:30 AM V1-PT DECLINES TOB [facility]O [facility] Jun 16, 2016 08:30 AM V1-PT THINKING ABO UT QUIT TOBACCO USE [facility] Dec 17, 2015 09:00 AM CURRENT SMOKER smokes about one ppd of cigaretts. [facility] Dec 17, 2015 09:00 AM V1-PT THINKING ABO UT QUIT TOBACCO USE [facility] Encounter Notes: All associated encounter notes This section contains the clinical notes associated to the Encounter. Date/Time Encounter Note(s) Provider Source Oct 17, 2024 03:23 PM MENTAL HEALTH CONS ULT: LOCAL TITLE: CONSULT REPORT/CRANIAL ELECTROTHERAPY STIMULATION STANDARD TITLE: MENTAL HEALTH CONSULT DATE OF NOTE: OCT 17, 2024@15:23 ENTRY DATE: OCT 17, 2024@15:23:59 AUTHOR: KHALIF ADKINS EXP COSIGNER: URGENCY: STATUS: COMPLETED CONSULT REPORT/CRANIAL ELECTROTHERAPY STIMULATION Has ADDENDA F: Alpha-Stim Trial arrived at clinic re: [...] of anxiety and insomnia. Initial trial Jennifer Vaz suggested that [place] try the Alpha-Stim device for sleep. Eva was informed that the Alpha-Stim is an FDA indicated non-pharmacological therapy that could be helpful for managing/reducing anxiety and depression as well as promoting improved sleep. Eva was also informed that 3 trials are needed prior to being issued an Alpha-Stim device of his own, Eva agrees to trials. Battery Inspector explained what to expect, demonstrated how to [...] way and made a second appointment with automotive service writer to trial the Alpha-Stim again. Eva was encouraged to be mindful of anything he notes good or bad after using the Alpha-Stim and is aware that he may contact automotive service writer to discuss and or we will discuss at next trial. Battery Inspector will order Eva his personal device if [...] 03/23/2025 09:00 CWM/SO/PACT 9 07/31/2025 11:00 NHM/OPTOMETRY/[place] understands how to utilize the Veterans Crisis Line (9-8-8 option 1) and urged to call that number at any time if they have thoughts about suicide and, or to call 911 or go to nearest E.R. if they have suicidal thoughts. RTC 10/24/2024, however [place] is aware that he can call or walk-in at anytime prior to next appointment. was provided with the date/time of next appointment as well as automotive service writer's contact information for use as needed. No barriers; Patient understands and agrees to current treatment plan. If [place] has any questions, concerns, or changes in current health status will call or [facility] to the [facility] 30 minutes spent in patient care and education. /alfred/ YOKO LARRY, RN, CNL MENTAL HEALTH NURSE VALIDATION INTERN Signed: 10/17/2024 15:48 10/20/2024 ADDENDUM STATUS: COMPLETED [place] contacted automotive service writer reporting finding the Alpha-Stim beneficial and is requesting to continue the process of obtaining his own Alpha-Stim. /alfred/ KHALIF ADKINS MSN, RN, CNL MENTAL HEALTH NURSE VALIDATION INTERN Signed: 10/20/2024 09:17 KHALIF ADKINS
--- OUTSIDE RECORDS SUMMARY | 2025-01-23 13:02 | XMS_ITS ---
Author Name [facility] [place] Address [address] [place] [address] Care Team Providers Care Dance Studio Manager Name Role Phone ASHLEIGH FIELDS Primary [...] Policy Rucker MEDICAID MEDICAID [facility] [place] Nov 30, 2019 MEDICAI D [id number] Catrina LEE PATIENT MEDICARE (WNR) MEDICARE (M) PART A January 25, 2018 PART A [id number] Catrina LEE PATIENT MEDICARE (WNR) MEDICARE (M) PART B January 25, 2018 PART B [id number] Catrina LEE PATIENT Selected Encounter This section includes the information on record at [place] for the Encounter. Date/Time Encounter Type Encounter Description Reason Provider Source Nov 28, 2024 10:00 AM OFF/OP EST JANUARY X REQ PHY/QHP PRIMARY CARE/MEDICINE ICD-10-CM I10 Essential (primary) hypertension KEYLA REECE E Encounter Template Text not used by [place] Assessments - Encounter Diagnoses This section includes the primary and secondary diagnoses documented for the Encounter. Date/Time Primary/Secondary Diagnosis Diagnosis Name Provider Source Nov 28, 2024 10:48 AM PRIMARY Essential (primary) hypertension [facility] [place] [facility] Plan of Treatment: Future Appointments (+ 6 months) and Future Tests (+/- 45 days) The Plan of Treatment section includes future care activities for the patient [facility] [place] [facility] This section includes future appointments and future orders which are active, pending or scheduled. Future Appointments This section includes appointments that were scheduled to occur 6 months from the date of the Encounter, up to a maximum of 20 appointments. The data comes from all [place] treatment facilities. Appointment Date/Time Appointment Type Appointme nt Facility Name Nov 30, 2024 10:30 AM AMBULATORY [place] [facility] [place] [facility] Dec 01, 2024 11:30 AM AMBULATORY - NONE [place] [facility] [place] [facility] Dec 05, 2024 09:00 AM AMBULATORY - MEDICINE [place] [facility] [place] [facility] Dec 12, 2024 09:00 AM AMBULATORY - MEDICINE [place] [facility] [place] [facility] Jan 01, 2025 10:30 AM AMBULATORY - PSYCHIATRY [place] [facility] [place] [facility] January 30, 2025 09:30 AM AMBULATORY - MEDICINE [place] [facility] [place] [facility] Mar 19, 2025 10:00 AM [facility]BULATORY - MEDICINE [facility] Active, Pending, and Scheduled Orders This section includes a listing of several types of active, pending, and scheduled orders, including clinic medications orders, diagnostic test orders, procedure orders and consult orders; where the start date of the order is 45 days before the date of the Encounter or 45 days after the date of theEncounter. The data comes from all [place] treatment [facility]. Test Date/Time Test Type Test Details Facility Name Oct 30, 2024 10:35 AM Consult Order PSYCHOTHERAPY SOPC OUTPT Cons Facility Operations Manager's Choice [facility] Nov 15, 2024 03:14 PM Consult Order COMMUNITY CARE-NEUROLOGY Cons Facility Operations Manager's Choice [facility] Dec 12, 2024 12:00 AM Laboratory - Chemistry Order OCCULT BLOOD FIT X1 SCREEN(IN-HOUSE) STOOL FECES SP [facility] Jan 01, 2025 10:39 AM Consult Order BHIP PSYCHIATRIC MEDICATION/SOPC OUTPT Cons Facility Operations Manager's Choice [facility] Lab Results: +/- 30 days of the encounter This section includes the Chemistry and Hematology Lab Results on record with [place] for the patient. Radiology Reports and Pathology Reports are provided separately, in subsequent sections. Lab Results This section contains the Chemistry/Hematology Results that were resulted 30 days before or 30 daysafter the date of the Encounter. Date/Time Source Result Type Result - Unit Interpretation Reference Range Specimen Type Comment Dec 07, 2024 02:16 PM [facility] BASIC METABOLIC PANEL (non-fasting) SERUM Spe cimen Type: SERUM No comment entered. Ordering Provider: IZZY ALMARAZ Report Released Date/Time: Dec 06, 2024 09:00 AM Reporting Lab: [address] [address] Performing Lab: [address] [address] UREA NITROGEN 36 mg/dL H 7-25 GLUCOSE 90 mg/dL 65-100 SODIUM 140 mmol/L 135-145 POTASSIUM 4.4 mmol/L 3.5-5.0 CHLORIDE 110 mmol/L 100-110 CO2 23 meq/L 20-30 CALCIUM 8.7 mg/dL 8.5-10.2 CREATININE, Serum 1.28 mg/dL 0.50-1.40 eGFR(CKD-EPI 2020) 59 mL/min L >60 Dec 05, 2024 08:05 AM [facility] BASIC METABOLIC PANEL (non-fasting) SERUM Spe cimen Type: SERUM No comment entered. Ordering Provider: IZZY ALMARAZ Report Released Date/Time: Nov 28, 2024 03:13 PM Reporting Lab: [facility] [address] [facility] [address] Performing Lab: [address] [address] UREA NITROGEN 39 mg/dL H 7-25 GLUCOSE 106 mg/dL H 65-100 SODIUM 143 mmol/L 135-145 POTASSIUM 5.0 mmol/L 3.5-5.0 CHLORIDE 111 mmol/L H 100-110 CO2 24 meq/L 20-30 CALCIUM 9.2 mg/dL 8.5-10.2 CREATININE, Serum 1.51 mg/dL H 0.50-1.40 eGFR(CKD-EPI 2020) 49 mL/min L >60 Nov 28, 2024 11:05 AM [facility] BASIC METABOLIC PANEL (non-fasting) SERUM Spe cimen Type: SERUM No comment entered. Ordering Provider: IZZY ALMARAZ Report Released Date/Time: Nov 21, 2024 11:50 AM Reporting Lab: [address] [address] Performing Lab: [address] [address] UREA NITROGEN 31 mg/dL H 7-25 GLUCOSE 101 mg/dL H 65-100 SODIUM 141 mmol/L 135-145 POTASSIUM 4.7 mmol/L 3.5-5.0 CHLORIDE 110 mmol/L 100-110 CO2 26 meq/L 20-30 CALCIUM 9.5 mg/dL 8.5-10.2 CREATININE, Serum 1.16 mg/dL 0.50-1.40 eGFR(CKD-EPI 2020) 67 mL/min >60 Nov 15, 2024 12:51 PM [facility] HEMOGLOBIN A1C PANEL BLOOD Specimen Type: BLO [...] Nov 15, 2024 10:22 AM Reporting Lab: [address] [address] Performing Lab: [address] [place] [address] HEMOGLOBIN A1C 5.6 4.0-5.6 Nov 15, 2024 12:51 PM [facility] BASIC METABOLIC PANEL (fasting) SERUM Specime n Type: SERUM No comment entered. Ordering Provider: IZZY ALMARAZ Report Released Date/Time: Nov 15, 2024 10:22 AM Reporting Lab: [address] [address] Performing Lab: [address] [address] UREA NITROGEN 33 mg/dL H 7-25 GLUCOSE 89 mg/dL 65-100 SODIUM 144 mmol/L 135-145 POTASSIUM 4.9 mmol/L 3.5-5.0 CHLORIDE 108 mmol/L 100-110 CO2 28 meq/L 20-30 CALCIUM 9.7 mg/dL 8.5-10.2 CREATININE, Serum 1.08 mg/dL 0.50-1.40 eGFR(CKD-EPI 2020) 73 mL/min >60 Nov 15, 2024 12:51 PM [facility] LIVER FUNCTION SERUM Specimen Type: SERUM No comment entered. Ordering Provider: IZZY ALMARAZ Report Released Date/Time: Nov 15, 2024 10:22 AM Reporting Lab: [address] [address] Performing Lab: [address] [address] PROTEIN,TOTAL 6.8 g/dL 6.0-8.3 ALBUMIN 3.6 g/dL 3.5-5.0 ALKALINE PHOSPHATASE 65 U/L 40-150 AST 14 U/L 5-34 ALT 16 U/L BILIRUBIN, TOTAL 0.4 mg/dL 0.2-1.2 Nov 15, 2024 12:51 PM [facility] LIPID PANEL FASTING SERUM Specimen Type: SERU M No comment entered. Ordering Provider: IZZY ALMARAZ Report Released Date/Time: Nov 15, 2024 10:22 AM Reporting Lab: [facility] [place] [facility] [address] [facility] [address] Performing Lab: [facility] [place] [facility] [address] [facility] [address] CHOLESTEROL 184 mg/dL TRIGLYCERIDE 131 mg/dL 0-150 LDL calculated 120 mg/dL 0-129 CHOL/HDL 4.8 HDL CHOLESTEROL 38 mg/dL L 40-60 Nov 15, 2024 12:51 PM [facility] [place] [facility] TSH SERUM Specimen Type: SERUM No comment entered. Ordering Provider: IZZY ALMARAZ Report Released Date/Time: Nov 15, 2024 10:22 AM Reporting Lab: [facility] [place] [facility] [address] [facility] [address] Performing Lab: [facility] [place] [facility] [address] [facility] [address] TSH 1.83 u[IU]/mL 0.35-5.00 Nov 15, 2024 12:51 PM [facility] CREATININE (eGFR 2020) SERUM Specimen Type: S JALEEL No comment entered. Ordering Provider: IZZY ALMARAZ Report Released Date/Time: Nov 15, 2024 10:22 AM Reporting Lab: [facility] [place] [facility] [address] [facility] [address] Performing Lab: [facility] [place] [facility] [address] [facility] [address] CREATININE, Serum 1.08 mg/dL 0.50-1.40 eGFR(CKD-EPI 2020) 73 mL/min >60 Nov 15, 2024 12:51 PM [facility] [place] [facility] MICROALBUMIN CREATININE RATIO PANEL URINE Spe cimen Type: URINE No comment entered. Ordering Provider: IZZY ALMARAZ Report Released Date/Time: Nov 15, 2024 10:22 AM Reporting Lab: [facility] [place] [facility] [address] [facility] [address] Performing Lab: [facility] [place] [facility] [address] [facility] [address] MICROALBUMIN/CREATININE RATIO 78.2 mg/g H 0-29.9 MICROALBUMIN,QUANTITATIVE 6.1 mg/dL RR U NAVAIL CREATININE URINE 78.00 mg/dL Nov 15, 2024 12:51 PM [facility] CBC AND DIFF (AUTO) BLOOD Specimen Type: BLOO D No comment entered. Ordering Provider: IZZY ALMARAZ Report Released Date/Time: Nov 15, 2024 10:22 AM Reporting Lab: [facility] [address] [facility] [address] Performing Lab: [facility] [address] [facility] [address] WBC 6.78 10*3/uL 4.50-11.00 RBC 4.60 10*6/uL [...] Pain Height Weight Body Mass Index Source Nov 28, 2024 10:15 AM 172[facility] Nov 28, 2024 10:10 AM 64 180/70 [facility] Encounter Notes: All associated encounter notes This section contains the clinical notes associated to the Encounter. Date/Time Encounter Note(s) Provider Source Nov 28, 2024 10:38 AM PRIMARY CARE OUTPA TIENT NOTE: LOCAL TITLE: AMBULATORY/OUTPATIENT CARE NOTE STANDARD TITLE: PRIMARY CARE OUTPATIENT NOTE DATE OF NOTE: NOV 28, 2024@10:38 ENTRY DATE: NOV 28, 2024@10:38:24 AUTHOR: KEYLA REECE COSIGNER: URGENCY: STATUS: COMPLETED AMBULATORY/OUTPATIENT CARE NOTE Has ADDENDA F: Nursing Clinic/Blood pressure check D: [place] presents to the Primary care clinic for a blood pressure check. Vet has history of hypertension. seen on 11/15/24 in sick call due to elevated blood pressure. He is transferring his Primary care from [facility] to [facility]. BLOOD PRESSURE READINGS (Manually) BP- 180/70, 172/70 P- 64 has been checking his blood pressure at home three times a day BLOOD PRESSURE MEDICATIONS: Lisinopril 10 mg 1 PO daily Metoprolol Succinate 25mg 1 PO daily Any changes or additions to allergies/adverse reactions. No Any medication changes since last appointment. Lisinopril increased from 5mg to 10mg 1 PO daily added Patient reports adherence to medication regimen. Yes Patient is currently prescribed blood pressure medication. Date of last dose: 11/27/2024 Approx. time of last dose: 6pm Diet: Decreasing salt Paleo diet Physical Activity: Walks Tobacco: 2 cigarettes a day ETOH: Once a week Caffeine: No [place] started the Lisinopril 5mg 1 PO daily on 11/16/24. He has been monitoring his BP at home- He started the med on 11/16. On 11/21/24 he increased his Lisinopril from 5mg to 10mg. Home readings: 11/25/24: 186/60 P-62 187/71 P-69 191/74 P-68 11/26/24: 182/80 P-62 156/68 P- 69 181/73 P-67 11/27/24: 168/73 P- 63 183/68 P- 73 172/73 P- 77 [place] mentioned that a few hours after taking Viagra (100mg) he has checked his blood pressure and it's almost normal. gets Viagra from a civilian provider. Quantitative Strategy Analyst communicated with JENIFFER Mchugh. Plan- increase Lisinopril to 20mg 1 PO daily, as long as his K+ and renal function are WNL. Repeat blood pressure check in one week with labs. R: RTC 12/05@09:00 /alfred/ KEYLA REECE MSN, RN, CNL PRIMARY CARE TEAM NURSE Signed: 11/28/2024 10:48 Receipt Acknowledged By: 12/04/2024 10:22 /alfred/ IZZY ALMARAZ NP NURSE PRACTITIONER 11/28/2024 ADDENDUM STATUS: COMPLETED Call to [place]. Informed him that his K+ and kidney function is WNL. to increase Lisinopril to 20mg daily (take two 10mg pills), per Izzy Almaraz DNP. to RTC on 12/05@09:00 for a repeat blood pressure check /es/ KEYLA REECE, MSN, RN, CNL PRIMARY CARE TEAM NURSE Signed: 11/28/2024 15:15 KEYLA REECE [facility]
--- OUTSIDE RECORDS SUMMARY | 2025-01-23 13:02 | XMS_ITS | Encounter Summary ---
Author Organization [facility] Address [address] [place] [address] Care Team Providers Care Broodmare Foreman Name Role Phone Renee Nogueira MD Primary Care Provider Rochelle Chandan Ruiz PA-C Primary Care Provider Unavail able Encounter Details Date Type Department Care Team Description 12/12/2018 Casing Trimmer Report Medical Records [address] [place] [id number] Jose Ramon Stovall MD Social History Tobacco [...] on filedocumented in this encounter Care Teams Broodmare Foreman Relationship Specialty Start Date End Date Renee Nogueira MD PCP - General Internal Medicine 06/22/17 Chandan Mayorga PA-C PCP - General Med/Peds 08/11/21 documented as of this encounter
--- OUTSIDE RECORDS SUMMARY | 2025-01-23 13:02 | XMS_ITS | Encounter Summary ---
Author Name [facility] [place] [facility] [place] Address [address] [place] [address] Care Team Providers Care Railroad Police Officer Name Role Phone ASHLEIGH FIELDS Primary Care [...] Patient's Relationship to Policy Rucker MEDICAID MEDICAID [facility] EALTH LILIAM ANIRUDH Nov 30, 2019 MEDICAI D [id number] Catrina LEE PATIENT MEDICARE (WNR) MEDICARE (M) PART A January 25, 2018 PART A [id number] Catrina LEE PATIENT MEDICARE (WNR) MEDICARE (M) PART B January 25, 2018 PART B [id number] Catrina LEE PATIENT Selected Encounter This section includes the information on record at [place] for the Encounter. Date/Time Encounter Type Encounter Description Reason Provider Source Oct 02, 2024 10:00 AM OFF/OP EST JANUARY X REQ PHY/QHP PRIMARY CARE/MEDICINE ICD-10-CM I10 Essential (primary) hypertension [facility] Encounter Template Text not used by [place] Assessments - Encounter Diagnoses This section includes the primary and secondary diagnoses documented for the Encounter. Date/Time Primary/Secondary Diagnosis Diagnosis Name Provider Source Oct 02, 2024 03:59 PM PRIMARY Essential (primary) hypertension [facility] Plan of Treatment: Future Appointments (+ 6 months) and Future Tests (+/- 45 days) The Plan of Treatment section includes future care activities for the patient from all [place] [facility] [place] This section includes future appointments and future orders which are active, pending or scheduled. Future Appointments This section includes appointments that were scheduled to occur 6 months from the date of the Encounter, up to a maximum of 20 appointments. The data comes from all [place] treatment facilities. Appointment Date/Time Appointment Type Appointme nt Facility Name Oct 04, 2024 08:00 AM AMBULATORY - PSYCHIATRY [facility] Oct 17, 2024 03:00 PM AMBULATORY - PSYCHIATRY [facility] Oct 24, 2024 10:00 AM AMBULATORY - NONE [place] [facility] [place] [facility] Oct 24, 2024 10:00 AM AMBULATORY - MEDICINE [facility] Oct 24, 2024 03:00 PM AMBULATORY - PSYCHIATRY [facility] Oct 30, 2024 09:00 AM AMBULATORY - PSYCHIATRY [facility] Nov 15, 2024 01:00 PM AMBULATORY - MEDICINE [place] [facility] Nov 21, 2024 09:00 AM AMBULATORY - MEDICINE [facility] [place] [facility] Nov 28, 2024 10:00 AM AMBULATORY - MEDICINE [place] [facility] [place] [facility] Nov 30, 2024 10:30 AM AMBULATORY - PSYCHIATRY [facility] [place] [facility] Dec 01, 2024 11:30 AM AMBULATORY - NONE [facility] [place] [facility] Dec 05, 2024 09:00 AM AMBULATORY - MEDICINE [facility] [place] [facility] Dec 12, 2024 09:00 AM AMBULATORY - MEDICINE [facility] [place] [facility] Jan 01, 2025 10:30 AM AMBULATORY - PSYCHIATRY [facility] [place] [facility] January 30, 2025 09:30 AM AMBULATORY - MEDICINE [facility] [place] [facility] Mar 19, 2025 10:00 AM AMBULATORY - MEDICINE [facility] [place] [facility] Active, Pending, and Scheduled Orders This section includes a listing of several types of active, pending, and scheduled orders, including clinic medications orders, diagnostic test orders, procedure orders and consult orders; where the start date of the order is 45 days before the date of the Encounter or 45 days after the date of theEncounter. The data comes from all [place] treatment facilities. Test Date/Time Test Type Test Details Facility Name Oct 30, 2024 10:35 AM Consult Order PSYCHOTHER APY SOPC OUTPT Cons Supervisor Lathing's Choice [facility] Nov 15, 2024 03:14 PM Consult Order COMMUNITY CARE-NEUROLOGY Cons Supervisor Lathing's [facility] [place] [facility] Social History: Smoking Status (Most current) and Tobacco Use (All prior to encounter date) This section includes the most current, and the historical, smoking and tobacco- related health factors from the [place] facility where the Encounter took place. Current Smoking Status This section includes the most current smoking, or tobacco-related health factor, from the [place] facility where the Encounter took place. Date/Time Current Smoking Status Comment Facil [facility] Apr 28, 2024 01:00 PM VA-TOBACCO USER EVERY DAY [facility] Tobacco Use History This section includes a history of the smoking, or tobacco-related health factors, that were collected on or before the date of the Encounter. The data comes from the [place] facility where the Encounter took place. 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 [place] Apr 27, 2023 01:30 PM VA-TOBACCO USE MED NO [place] Apr 27, 2023 01:30 PM VA-TOBACCO USER EVERY DAY [facility] Jan 23, 2021 10:30 AM VA-TOBACCO USE 30 YEARS OR MORE [facility] Jan 23, 2021 10:30 AM VA-TOBACCO USE ADVICE [place] Jan 23, 2021 10:30 AM VA-TOBACCO USE 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 NO [place] Jan 23, 2021 10:30 AM VA-TOBACCO USE MED NO [place] Jan 23, 2021 10:30 AM VA-TOBACCO USE WI 30 MIN OF WAKEUP [facility] Jan 23, 2021 10:30 AM VA-TOBACCO USER EVERY DAY [facility] Oct 25, 2017 03:23 PM CURRENT SMOKER DENISE [facility] Oct 25, 2017 03:23 PM V1-PT NOT INTEREST ED IN QUIT TOBACCO USE [place] Dec 15, 2016 10:59 AM CURRENT SMOKER MUKESHI [facility] Dec 15, 2016 10:59 AM V1-PT DECLINES REF TO TOBACCO CESS [facility] Dec 15, 2016 10:59 AM V1-PT THINKING ABO UT QUIT TOBACCO USE [facility] Jun 16, 2016 08:30 AM V1-PT DECLINES REF TO TOBACCO CESS [facility] Jun 16, 2016 08:30 AM V1-PT DECLINES TOB ACCO CESSATION MEDS [facility] Jun 16, 2016 08:30 AM V1-PT THINKING ABO UT QUIT TOBACCO USE [place] Dec 17, 2015 09:00 AM CURRENT SMOKER smokes about one ppd of cigaretts. [facility] Dec 17, 2015 09:00 AM V1-PT THINKING ABO UT QUIT TOBACCO USE [facility] Encounter Notes: All associated encounter notes This [...] is trying to get things in order. [place] is currently eating Paleo diet which was [...] medications. Patient will monitor blood pressure and writer technical publications will discuss readings during our [facility] appt. [...]
--- OUTSIDE RECORDS SUMMARY | 2025-01-23 13:02 | XMS_ITS | Encounter Summary ---
Author Name [facility] [facility] [place] Address [address] [place] [id number] Care Team Providers Care Sales Development Specialist Name Role Phone ASHLEIGH FIELDS Primary Care [...] Patient's Relationship to Policy Rucker MEDICAID MEDICAID [facility] JONNY LILIAM OLEARY Nov 30, 2019 MEDICAI D [id number] Catrina LEE PATIENT MEDICARE (WNR) MEDICARE (M) PART A January 25, 2018 PART A [id number] Catrina LEE PATIENT MEDICARE (WNR) MEDICARE (M) PART B January 25, 2018 PART B [id number] Catrina LEE PATIENT Selected Encounter This section includes the information on record at [place] for the Encounter. Date/Time Encounter Type Encounter Description Reason Provider Source Mar 17, 2024 11:00 AM PSYTX W PT 45 MINUTES PCMHI INDIV ICD-10-CM F43.0 Acute stress reaction BRIDGTETE PHELAN IHWicho Encounter Template Text not used by [facility] Assessments - Encounter Diagnoses This section includes the primary and secondary diagnoses documented for the Encounter. Date/Time Primary/Secondary Diagnosis Diagnosis Name Provider Source Apr 18, 2024 02:43 PM PRIMARY Acute stress reaction BRIDGETTE PHELAN [place] Apr 18, 2024 02:43 PM SECONDARY Anxiety disorder, unspecified BRIDGETTE PHELAN [place] Apr 18, 2024 02:43 PM SECONDARY Malignant neoplasm of prostate BRIDGETTE PHELAN [place] Plan of Treatment: Future Appointments (+ 6 months) and Future Tests (+/- 45 days) The Plan of Treatment section includes future care [facility] for the [facility] [place] [facility] This section includes future appointments and future orders which are active, pending or scheduled. Future Appointments This section includes appointments that were scheduled to occur 6 months from the date of the Encounter, up to a maximum of 20 appointments. The data comes from all [place] treatment facilities. Appointment Date/Time Appointment Type Appointme nt Facility Name Mar 23, 2024 10:30 AM AMBULATORY - MEDICINE [facility] [place] [facility] Mar 24, 2024 09:30 AM AMBULATORY - MEDICINE [facility] [place] [facility] Mar 29, 2024 11:00 AM AMBULATORY - PSYCHIATRY [facility] Apr 17, 2024 11:00 AM AMBULATORY - MEDICINE [facility] [place] [facility] Apr 24, 2024 11:00 AM AMBULATORY - MEDICINE [facility] [place] [facility] Apr 28, 2024 01:00 PM AMBULATORY - MEDICINE [facility] [place] [facility] May 01, 2024 11:00 AM AMBULATORY - MEDICINE [facility] [place] [facility] May 11, 2024 07:30 AM AMBULATORY - NONE [facility] [place] [facility] May 30, 2024 11:00 AM AMBULATORY - MEDICINE [facility] [place] [facility] Jun 21, 2024 01:30 PM AMBULATORY - MEDICINE [facility] [place] [facility] Jun 29, 2024 07:30 AM AMBULATORY - NONE [facility] [place] [facility] Jul 31, 2024 01:30 PM AMBULATORY - MEDICINE [facility] [place] [facility] Aug 16, 2024 08:00 AM AMBULATORY - NONE [facility] [place] [facility] Aug 21, 2024 02:30 PM AMBULATORY - MEDICINE [facility] Sep 14, 2024 07:30 AM AMBULATORY - NONE [facility] [place] Social History: Smoking Status (Most current) and Tobacco Use (All prior to encounter date) This section includes the most current, and the historical, smoking and tobacco- related health factors from the [place] facility where the Encounter took place. Current Smoking Status This section includes the most current smoking, or tobacco-related health factor, from the [place] facility where the Encounter took place. Date/Time Current Smoking Status Comment Facil ity Apr 27, 2023 01:30 PM VA-TOBACCO USER EVERY DAY [place] Tobacco Use History This section includes a history of the smoking, or tobacco-related health factors, that were collected on or before the date of the Encounter. The data comes from the [place] facility where the Encounter took place. 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 NO [place] Jan 23, 2021 10:30 AM VA-TOBACCO USE MED [facility] Jan 23, 2021 10:30 AM VA-TOBACCO USE WI 30 MIN OF WAKEUP [place] Jan 23, 2021 10:30 AM VA-TOBACCO USER EVERY DAY [place] Oct 25, 2017 03:23 PM CURRENT SMOKER [facility] Oct 25, 2017 03:23 PM V1-PT NOT INTEREST ED IN QUIT TOBACCO USE [place] Dec 15, 2016 10:59 AM CURRENT SMOKER [facility] Dec 15, 2016 10:59 AM V1-PT DECLINES REF TO TOBACCO CESS [facility] Dec 15, 2016 10:59 AM V1-PT THINKING ABO UT QUIT TOBACCO USE [place] Jun 16, 2016 08:30 AM V1-PT DECLINES REF TO TOBACCO CESS [facility] Jun 16, 2016 08:30 AM V1-PT DECLINES TOB ACCO CESSATION MEDS [place] Jun 16, 2016 08:30 AM V1-PT THINKING ABO UT QUIT TOBACCO USE [place] Dec 17, 2015 09:00 AM CURRENT SMOKER smokes about one ppd of cigaretts. [place] Dec 17, 2015 09:00 AM V1-PT THINKING ABO UT QUIT TOBACCO USE [place] Encounter Notes: All associated encounter notes This section contains the clinical notes associated to the Encounter. Date/Time Encounter Note(s) Provider Source Mar 17, 2024 02:31 [facility]: LOCAL TITLE: PRIMARY MENTAL HEALTH OUTPATIENT FOLLOW UP NOTE STANDARD TITLE: MENTAL HEALTH OUTPATIENT NOTE DATE OF NOTE: MAR 17, 2024@14:31 ENTRY DATE: MAR 17, 2024@14:31:43 AUTHOR: BRIDGETTE PHELAN EXP COSIGNER: URGENCY: STATUS: COMPLETED VISIT DURATION: 45 min VISIT TYPE: Individual, [id number], follow-up visit PCP: CATHIE WONG DIAGNOSIS: Acute Stress Prostate Cancer Anxiety Disorder, unspecified REASON FOR FOLLOW UP: Stress and Anxiety VET'S STATEMENT OF GOAL AND CONCERNS: I am super stressed . The [place] reports he has been having a difficult [...] issues and buy a beach house in [place]. So much is out of my control [...] referral to Biofeedback for Anxiety group - is agreeable. Consult placed. DIAGNOSTIC IMPRESSIONS/PLAN: is a 69-year-old man self-referred back to [facility] for acute stress related to his health, family, and business. [place] is open to ACT interventions and referral to Biofeedback for Anxiety Group. Plan for [facility] follow-up visit. CURRENT IMPRESSION OF LETHALITY RISK / PLAN FOR RISK MANAGEMENT: presents at low risk of harm to self or others at this time. INTERDICIPLINARY TREATMENT PLANNING INVOLVING: PACT PLAN FOR FOLLOW-UP: Return to [facility] in 2 weeks, f2f. /alfred/ BRIDGETTE PHELAN PSYD CLINICAL PSYCHOLOGIST Signed: 04/18/2024 14:44 BRIDGETTE PHELAN
--- OUTSIDE RECORDS SUMMARY | 2025-01-23 13:02 | XMS_ITS ---
Author Name [facility] [place] Address [address] [place] [address] Care Team Providers Care Photoengraving Machine Operator/Tender Name Role Phone ASHLEIGH FIELDS Primary Care [...] to Policy Rucker MEDICAID MEDICAID [facility] Nov 30, 2019 MEDICAI D [id number] Catrina LEE PATIENT MEDICARE (WNR) MEDICARE (M) PART A January 25, 2018 PART A [id number] Catrina LEE PATIENT MEDICARE (WNR) MEDICARE (M) PART B January 25, 2018 PART B [id number] Catrina LEE PATIENT Selected Encounter This section includes the information on record at [place] for the Encounter. Date/Time Encounter Type Encounter Description Reason Pro vider Source Nov 27, 2024 11:48 AM Outpatient Encounter ADMIN PAT ACTIVTIES (MASNONCT) IHE Encounter Template Text not used by [place] Plan of Treatment: Future Appointments (+ 6 months) and Future Tests (+/- 45 days) The Plan of Treatment section includes future care activities for the patient from all [place] [facility]. This section includes future appointments and future orders which are active, pending or scheduled. Future Appointments This section includes appointments that were scheduled to occur 6 months from the date of the Encounter, up to a maximum of 20 appointments. The data comes from all [facility]. Appointment Date/Time Appointment Type Appointme nt Facility Name Nov 28, 2024 10:00 AM AMBULATORY - MEDICINE [facility] [place] [facility] Nov 30, 2024 10:30 AM AMBULATORY - PSYCHIATRY [facility] [place] [facility] Dec 01, 2024 11:30 AM AMBULATORY - NONE [facility] [place] [facility] Dec 05, 2024 09:00 AM AMBULATORY - MEDICINE [facility] [place] [facility] Dec 12, 2024 09:00 AM AMBULATORY - MEDICINE [facility] [place] [facility] Jan 01, 2025 10:30 AM AMBULATORY - PSYCHIATRY [facility] [place] [facility] January 30, 2025 09:30 AM AMBULATORY - MEDICINE [facility] [place] [facility] Mar 19, 2025 10:00 AM AMBULATORY - MEDICINE [facility] [place] [facility] Active, Pending, and Scheduled Orders This section includes a listing of several types of active, pending, and scheduled orders, including clinic medications orders, diagnostic test orders, procedure orders and consult orders; where the start date of the order is 45 days before the date of the Encounter or 45 days after the date of theEncounter. The data comes from all [facility]. Test Date/Time Test Type Test Details Facility Name Oct 30, 2024 10:35 AM Consult Order PSYCHOTHERAPY SOPC OUTPT Cons [employer] [facility] [place] Nov 15, 2024 03:14 PM Consult Order COMMUNITY CARE-NEUROLOGY Cons [employer] Laborer's Choice [facility] [place] [facility] Dec 12, 2024 12:00 AM Laboratory - Chemistry Order OCCULT BLOOD FIT X1 SCREEN(IN-HOUSE) STOOL FECES SP [facility] [place] [facility] Jan 01, 2025 10:39 AM Consult Order BHIP PSYCHIATRIC MEDICATION/SOPC OUTPT Cons [employer] Laborer's Choice [facility] Lab Results: +/- 30 days of the encounter This section includes the Chemistry and Hematology Lab Results on record with [place] for the patient. Radiology Reports and Pathology Reports are provided separately, in subsequent sections. Lab Results This section contains the Chemistry/Hematology Results that were resulted 30 days before or 30 daysafter the date of the Encounter. Date/Time Source Result Type Result - Unit Interpretation Reference Range Specimen Type Comment Dec 07, 2024 02:16 PM [facility] BASIC METABOLIC PANEL (non-fasting) SERUM Spe cimen Type: SERUM No comment entered. Ordering Provider: MO ALMARAZ Report Released Date/Time: Dec 06, 2024 09:00 AM Reporting Lab: [address] [address] Performing Lab: [address] [address] UREA NITROGEN 36 mg/dL H 7-25 GLUCOSE 90 mg/dL 65-100 SODIUM 140 mmol/L 135-145 POTASSIUM 4.4 mmol/L 3.5-5.0 CHLORIDE 110 mmol/L 100-110 CO2 23 meq/L 20-30 CALCIUM 8.7 mg/dL 8.5-10.2 CREATININE, Serum 1.28 mg/dL 0.50-1.40 eGFR(CKD-EPI 2020) 59 mL/min L >60 Dec 05, 2024 08:05 AM [facility] BASIC METABOLIC PANEL (non-fasting) SERUM Spe cimen Type: SERUM No comment entered. Ordering Provider: MO ALMARAZ Report Released Date/Time: Nov 28, 2024 03:13 PM Reporting Lab: [address] [address] Performing Lab: [address] [address] UREA NITROGEN 39 mg/dL H 7-25 GLUCOSE 106 mg/dL H 65-100 SODIUM 143 mmol/L 135-145 POTASSIUM 5.0 mmol/L 3.5-5.0 CHLORIDE 111 mmol/L H 100-110 CO2 24 meq/L 20-30 CALCIUM 9.2 mg/dL 8.5-10.2 CREATININE, Serum 1.51 mg/dL H 0.50-1.40 eGFR(CKD-EPI 2020) 49 mL/min L >60 Nov 28, 2024 11:05 AM [facility] BASIC METABOLIC PANEL (non-fasting) SERUM Spe cimen Type: SERUM No comment entered. Ordering Provider: MO ALMARAZ Report Released Date/Time: Nov 21, 2024 11:50 AM Reporting Lab: [facility] [address] [address] Performing Lab: [address] [address] UREA NITROGEN 31 mg/dL H 7-25 GLUCOSE 101 mg/dL H 65-100 SODIUM 141 mmol/L 135-145 POTASSIUM 4.7 mmol/L 3.5-5.0 CHLORIDE 110 mmol/L 100-110 CO2 26 meq/L 20-30 CALCIUM 9.5 mg/dL 8.5-10.2 CREATININE, Serum 1.16 mg/dL 0.50-1.40 eGFR(CKD-EPI 2020) 67 mL/min >60 Nov 15, 2024 12:51 PM [facility] HEMOGLOBIN A1C PANEL BLOOD Specimen [...] Nov 15, 2024 10:22 AM Reporting Lab: [address] [address] Performing Lab: [address] [address] HEMOGLOBIN A1C 5.6 4.0-5.6 Nov 15, 2024 12:51 PM [facility] BASIC METABOLIC PANEL (fasting) SERUM Specime n Type: SERUM No comment entered. Ordering Provider: MO ALMARAZ Report Released Date/Time: Nov 15, 2024 10:22 AM Reporting Lab: [facility] [address] [facility] [address] Performing Lab: [facility] [address] [address] UREA NITROGEN 33 mg/dL H 7-25 GLUCOSE 89 mg/dL 65-100 SODIUM 144 mmol/L 135-145 POTASSIUM 4.9 mmol/L 3.5-5.0 CHLORIDE 108 mmol/L 100-110 CO2 28 meq/L 20-30 CALCIUM 9.7 mg/dL 8.5-10.2 CREATININE, Serum 1.08 mg/dL 0.50-1.40 eGFR(CKD-EPI 2020) 73 mL/min >60 Nov 15, 2024 12:51 PM [facility] LIPID PANEL FASTING SERUM Specimen Type: SERU M No comment entered. Ordering Provider: MO ALMARAZ Report Released Date/Time: Nov 15, 2024 10:22 AM Reporting Lab: [facility] [address] [facility] [address] Performing Lab: [facility] [address] [address] CHOLESTEROL 184 mg/dL TRIGLYCERIDE 131 mg/dL 0-150 LDL calculated 120 mg/dL 0-129 CHOL/HDL 4.8 HDL CHOLESTEROL 38 mg/dL L 40-60 Nov 15, 2024 12:51 PM [facility] LIVER FUNCTION SERUM Specimen Type: SERUM No comment entered. Ordering Provider: MO ALMARAZ Report Released Date/Time: Nov 15, 2024 10:22 AM Reporting Lab: [facility] [address] [facility] [address] Performing Lab: [address] [address] PROTEIN,TOTAL 6.8 g/dL 6.0-8.3 ALBUMIN 3.6 g/dL 3.5-5.0 ALKALINE PHOSPHATASE 65 U/L 40-150 AST 14 U/L 5-34 ALT 16 U/L BILIRUBIN, TOTAL 0.4 mg/dL 0.2-1.2 Nov 15, 2024 12:51 PM [facility] [place] [facility] TSH SERUM Specimen Type: SERUM No comment entered. Ordering Provider: MO ALMARAZ Report Released Date/Time: Nov 15, 2024 10:22 AM Reporting Lab: [place] [facility] [place] [facility] [address] [facility] [address] Performing Lab: [place] [facility] [place] [facility] [address] [facility] [address] TSH 1.83 u[IU]/mL 0.35-5.00 Nov 15, 2024 12:51 PM [facility] CREATININE (eGFR 2020) SERUM Specimen Type: S JALEEL No comment entered. Ordering Provider: MO ALMARAZ Report Released Date/Time: Nov 15, 2024 10:22 AM Reporting Lab: [place] [facility] [place] [facility] [address] [facility] [address] Performing Lab: [facility] [address] [address] CREATININE, Serum 1.08 mg/dL 0.50-1.40 eGFR(CKD-EPI 2020) 73 mL/min >60 Nov 15, 2024 12:51 PM [facility] MICROALBUMIN CREATININE RATIO PANEL URINE Spe cimen Type: URINE No comment entered. Ordering Provider: MO ALMARAZ Report Released Date/Time: Nov 15, 2024 10:22 AM Reporting Lab: [facility] [place] [facility] [address] [facility] [facility] [address] Performing Lab: [facility] [place] [place] [address] [address] MICROALBUMIN/CREATININE RATIO 78.2 mg/g H 0-29.9 MICROALBUMIN,QUANTITATIVE 6.1 mg/dL RR U NAVAIL CREATININE URINE 78.00 mg/dL Nov 15, 2024 12:51 PM [facility] CBC AND DIFF (AUTO) BLOOD Specimen Type: BLOO D No comment entered. Ordering Provider: MO ALMARAZ Report Released Date/Time: Nov 15, 2024 10:22 AM Reporting Lab: [facility] [address] [facility] [address] Performing Lab: [facility] [address] [facility] [address] WBC 6.78 10*3/uL 4.50-11.00 RBC 4.60 10*6/uL [...] 0.0 0.0-0.0 NRBC, ABS 0.00 10*3/uL 0.00-0.00 Encounter Notes: All associated encounter notes This section contains the clinical notes associated to the Encounter. Date/Time Encounter Note(s) Provider Source Nov 27, 2024 11:48 AM SLEEP MEDICINE NOT E: LOCAL TITLE: SLEEP DEVICE AND SUPPLY ORDER NOTE STANDARD TITLE: SLEEP MEDICINE NOTE DATE OF NOTE: NOV 27, 2024@11:48 ENTRY DATE: NOV 27, 2024@11:48:20 AUTHOR: JEREMIAH BLAND EXP COSIGNER: URGENCY: STATUS: COMPLETED diagnosed with sleep apnea requested replacement supplies. Equipment will be sent to vet's home address via [employer]. [employer]. Compliance Report Usage 10/28/2024 - 11/26/2024 Usage days 30/30 days (100%) >= 4 hours 23 days (77%) < 4 hours 7 days (23%) Usage hours 140 hours 32 minutes Average usage (total days) 4 hours 41 minutes Average usage (days used) 4 hours 41 minutes Median usage (days used) 4 hours 54 minutes Total used hours (value since last reset - 11/26/2024) 504 hours [employer] 11 AutoSet Serial number [id number] Mode AutoSet Min Pressure 7 cmH2O Max Pressure 20 cmH2O EPR Fulltime EPR level 3 Response Soft Therapy Pressure - cmH2O Median: 9.3 95th percentile: 11.1 Maximum: 11.9 Leaks - L/min Median: 4.7 95th percentile: 27.8 Maximum: 38.0 Events per hour AI: 6.8 HI: 1.1 AHI: 7.9 Apnea Index Central: 2.6 Obstructive: 2.3 Unknown: 1.9 RERA Index 0.1 Gautam-Reyes respiration (average duration per night) 0 minutes (0%) /alfred/ JEREMIAH BLAND RESPIRATORY THERAPIST Signed: 11/27/2024 11:50 JEREMIAH BLAND [place] [facility]
--- OUTSIDE RECORDS SUMMARY | 2025-01-23 13:02 | XMS_ITS ---
Author Name [facility] [place] Organization [place] Address [address] [place] [address] Care Team Providers Care Financial Retirement Plan Specialist Name Role Phone ASHLEIGH FIELDS Primary [...] to Policy [place] MEDICAID MEDICAID [facility] Nov 30, 2019 MEDICAI D [id number] Catrina LEE PATIENT MEDICARE (WNR) MEDICARE (M) PART A January 25, 2018 PART A [id number] Catrina LEE PATIENT MEDICARE (WNR) MEDICARE (M) PART B January 25, 2018 PART B [id number] Catrina LEE PATIENT Selected Encounter This section includes the information on record at [place] for the Encounter. Date/Time Encounter Type Encounter Description Reason Pro vider Source Jan 19, 2025 02:49 PM Outpatient Encounter TELEPHONE PRIMARY CARE IHE Encounter Template Text not used by [place] Plan of Treatment: Future Appointments (+ 6 months) and Future Tests (+/- 45 days) The Plan of Treatment section includes future care activities for the patient from [facility] [place] [facility] This section includes future appointments and future orders which are active, pending or scheduled. Future Appointments This section includes appointments that were scheduled to occur 6 months from the date of the Encounter, up to a maximum of 20 appointments. The data comes from all [facility] facilities. Appointment Date/Time Appointment Type Appointme nt Facility Name January 30, 2025 09:30 AM [facility] Mar 19, 2025 10:00 AM [facility] Active, Pending, and Scheduled Orders This section includes a listing of several types of active, pending, and scheduled orders, including clinic medications orders, diagnostic test orders, procedure orders and consult orders; where the start date of the order is 45 days before the date of the Encounter or 45 days after the date of theEncounter. The data comes from all [facility]. Test Date/Time Test Type Test Details Facility Name Dec 12, 2024 12:00 AM Laboratory - Chemistry Order OCCULT BLOOD FIT X1 SCREEN(IN-HOUSE) STOOL FECES SP [facility] Jan 01, 2025 10:39 AM Consult Order BHIP PSYCHIATRIC MEDICATION/SOPC OUTPT Cons Tube Pusher's Choice [facility] Encounter Notes: All associated encounter notes This section contains the clinical notes associated to the Encounter. Date/Time Encounter Note(s) Provider Source Jan 19, 2025 02:49 PM CARE COORDINATION HOME TELEHEALTH NOTE: LOCAL TITLE: HT NOTE STANDARD TITLE: CARE COORDINATION HOME TELEHEALTH NOTE DATE OF NOTE: JAN 19, 2025@14:49 ENTRY DATE: JAN 19, 2025@14:51:31 AUTHOR: CRISTINA BEE EXP COSIGNER: URGENCY: STATUS: COMPLETED Called and spoke with who was identified by full name and . To assess blood pressure - signs/symptoms/changes in status. Denies new or worsening chest pain/pressure/tightness/ congestion, shortness of breath/dyspnea on exertion, lightheadednessd/dizzine ss, presyncope/syncope, headache, vision changes, nausea, jaw/neck/arm pain, epitaxis, palpitations, activity intolerance, unusual weakness/fatigue. reports feeling in usual state of health. [place] reports has NOT began new amlodipine perscription due to traveling. reports returning home tonight at approximately 22:00 and will begin amlodipine over the weekend. Reviewed adverse reaction/signs/symptoms to seek emergency eval over the weekend. verbalized understanding. Will continue to monitor using HT/RPM services and follow up as indicated. Patient Name: EVA LEE Disease(s): Hypertension Date Range: 12/21/2024-01/19/2025 [facility] Vitals Report Reading Date Sys/Roz BP-HR 01/19/25 207/82 (13:50) 66 (13:50) 01/18/25 184/73 (14:34) 62 (14:34) 01/17/25 155/69 (10:39) 65 (10:39) 01/16/25 157/67 (08:40) 70 (08:40) 01/15/25 180/69 (17:01) 69 (17:01) 01/14/25 169/67 (10:05) 66 (10:05) 01/13/25 161/66 (09:03) 68 (09:03) 01/12/25 170/78 (08:02) 70 (08:02) 01/11/25 184/87 (06:52) 66 (06:52) 01/10/25 168/71 (08:18) 63 (08:18) 01/09/25 148/57 (09:24) 63 (09:24) 01/08/25 165/63 (23:14) 77 (23:14) 01/07/25 184/75 (11:57) 63 (11:57) 01/06/25 178/70 (10:29) 60 (10:29) 01/05/25 170/68 (14:16) 65 (14:16) 01/05/25 156/68 (07:29) 56 (07:29) 01/04/25 204/84 (09:04) 56 (09:04) 01/03/25 182/76 (20:24) 58 (20:24) 12/29/24 158/67 (07:20) 65 (07:20) 12/28/24 174/70 (19:11) 73 (19:11) 12/28/24 173/70 (09:53) 63 (09:53) 12/27/24 192/78 (18:29) 73 (18:29) 12/26/24 167/71 (09:09) 56 (09:09) 12/25/24 160/72 (06:48) 56 (06:48) 12/24/24 173/64 (21:23) 67 (21:23) 12/24/24 168/68 (10:11) 52 (10:11) 12/23/24 153/65 (07:54) 56 (07:54) 12/22/24 160/67 (13:21) 59 (13:21) 12/21/24 174/76 (20:58) 64 (20:58) 12/21/24 160/70 (08:34) 55 (08:34) Blood Pressure Readings: Date 04:00-12:00 12:00-18:00 18:00-04:00 01/19/25 207/82 66(13:50) 01/18/25 184/73 62(14:34) 01/17/25 155/69 65(10:39) 01/16/25 157/67 70(08:40) 01/15/25 180/69 69(17:01) 01/14/25 169/67 66(10:05) 01/13/25 161/66 68(09:03) 01/12/25 170/78 70(08:02) 01/11/25 184/87 66(06:52) 01/10/25 168/71 63(08:18) 01/09/25 148/57 63(09:24) 01/08/25 165/63 77(23:14) 01/07/25 184/75 63(11:57) 01/06/25 178/70 60(10:29) 01/05/25 156/68 56(07:29) 170/68 65(14:16) 01/04/25 204/84 56(09:04) 01/03/25 182/76 58(20:24) 12/29/24 158/67 65(07:20) 12/28/24 173/70 63(09:53) 174/70 73(19:11) 12/27/24 192/78 73(18:29) 12/26/24 167/71 56(09:09) 12/25/24 160/72 56(06:48) 12/24/24 168/68 52(10:11) 173/64 67(21:23) 12/23/24 153/65 56(07:54) 12/22/24 160/67 59(13:21) 12/21/24 160/70 55(08:34) 174/76 64(20:58) [facility] Average Report Sys/Roz BP-HR Average 171/71 63 High 207/87 77 Low 148/57 52 Blood Pressure Summary: 04:00-12:00 12:00-18:00 18:00-04:00 Average 167/71 62 180/72 64 177/71 69 High 204/87 70 207/82 69 192/78 77 Low 148/57 52 160/67 59 165/63 58 /alfred/ CRISTINA BEE RN HOME TELEHEALTH MARKETING RESEARCH COORDINATOR Signed: 01/19/2025 14:55 CRISTINA BEE [facility] [place] [facility]
--- OUTSIDE RECORDS SUMMARY | 2025-01-23 13:02 | XMS_ITS ---
Author Name [facility] [place] Address [address] [place] [address] Care Team Providers Care Desulfurizer Operator Name Role Phone ASHLEIGH FIELDS Primary [...] to Policy Rucker MEDICAID MEDICAID [facility] [place] Nov 30, 2019 MEDICAI D [id number] Catrina LEE PATIENT MEDICARE (WNR) MEDICARE (M) PART A January 25, 2018 PART A [id number] Catrina LEE PATIENT MEDICARE (WNR) MEDICARE (M) PART B January 25, 2018 PART B [id number] Catrina LEE PATIENT Selected Encounter This section includes the information on record at [place] for the Encounter. Date/Time Encounter Type Encounter Description Reason Provider Source Nov 15, 2024 01:00 PM OFFICE O/P EST MOD 30 MIN PRIMARY CARE/MEDICINE ICD-10-CM I10 Essential (primary) hypertension JENAE ALMARAZ Encounter Template Text not used by [place] Assessments - Encounter Diagnoses This section includes the primary and secondary diagnoses documented for the Encounter. Date/Time Primary/Secondary Diagnosis Diagnosis Name Provider Source Nov 15, 2024 03:22 PM PRIMARY Essential (primary) hypertension JENAE ALMARAZ [facility] [place] [facility] Nov 15, 2024 03:22 PM SECONDARY Aneurysm of unspecified site JENAE ALMARAZHRYN [facility] [place] [facility] Nov 15, 2024 03:22 PM SECONDARY Anxiety disorder, unspecified JENAE ALMARAZ [facility] [place] [facility] Nov 15, 2024 03:22 PM SECONDARY Tobacco use JENAE ALMARAZHRYN [facility] [place] [facility] Plan of Treatment: Future Appointments (+ 6 months) and Future Tests (+/- 45 days) The Plan of Treatment section includes future care activities for the patient from all [place] [facility]. This section includes future appointments and future orders which are active, pending or scheduled. Future Appointments This section includes appointments that were scheduled to occur 6 months from the date of the Encounter, up to a maximum of 20 appointments. The data comes from all [place] treatment facilities. Appointment Date/Time Appointment Type Appointme nt Facility Name Nov 21, 2024 09:00 AM AMBULATORY - MEDICINE [facility] [place] [facility] Nov 28, 2024 10:00 AM AMBULATORY - MEDICINE [facility] [place] [facility] Nov 30, 2024 10:30 AM AMBULATORY - PSYCHIATRY [facility] [place] [facility] Dec 01, 2024 11:30 AM AMBULATORY - NONE [facility] [place] [facility] Dec 05, 2024 09:00 AM AMBULATORY - MEDICINE [facility] [place] [facility] Dec 12, 2024 09:00 AM AMBULATORY - MEDICINE [facility] [place] [facility] Jan 01, 2025 10:30 AM AMBULATORY - PSYCHIATRY [facility] [place] [facility] January 30, 2025 09:30 AM AMBULATORY - MEDICINE [facility] [place] [facility] Mar 19, 2025 10:00 AM [facility]AT[facility] [place] Active, Pending, [...] AM Consult Order PSYCHOTHERAPY SOPC OUTPT Cons Vp [facility] Nov 15, 2024 03:14 PM Consult Order COMMUNITY CARE-NEUROLOGY Cons [facility]p [facility] Dec 12, 2024 12:00 AM Laboratory - Chemistry Order OCCULT BLOOD FIT X1 SCREEN(IN-HOUSE) STOOL FECES SP [facility] Lab Results: +/- 30 days of the encounter This section includes the Chemistry and Hematology Lab Results on record with [place] for the patient. Radiology Reports and Pathology Reports are provided separately, in subsequent sections. Lab Results This section contains the Chemistry/Hematology Results that were resulted 30 days before or 30 daysafter the date of the Encounter. Date/Time Source Result Type Result - Unit Interpretation Reference Range Specimen Type Comment Dec 07, 2024 02:16 PM [facility] BASIC METABOLIC PANEL (non-fasting) SERUM Spe cimen Type: SERUM No comment entered. Ordering Provider: MO ALMARAZ Report Released Date/Time: Dec 06, 2024 09:00 AM Reporting Lab: [facility] [address] [facility] [address] Performing Lab: [facility] [address] [facility] [address] UREA NITROGEN 36 mg/dL H 7-25 GLUCOSE 90 mg/dL 65-100 SODIUM 140 mmol/L 135-145 POTASSIUM 4.4 mmol/L 3.5-5.0 CHLORIDE 110 mmol/L 100-110 CO2 23 meq/L 20-30 CALCIUM 8.7 mg/dL 8.5-10.2 CREATININE, Serum 1.28 mg/dL 0.50-1.40 eGFR(CKD-EPI 2020) 59 mL/min L >60 Dec 05, 2024 08:05 AM [facility] BASIC METABOLIC PANEL (non-fasting) SERUM Spe cimen Type: SERUM No comment entered. Ordering Provider: MO ALMARAZ Report Released Date/Time: Nov 28, 2024 03:13 PM Reporting Lab: [facility] [address] [facility] [address] Performing Lab: [address] [address] UREA NITROGEN 39 mg/dL H 7-25 GLUCOSE 106 mg/dL H 65-100 SODIUM 143 mmol/L 135-145 POTASSIUM 5.0 mmol/L 3.5-5.0 CHLORIDE 111 mmol/L H 100-110 CO2 24 meq/L 20-30 CALCIUM 9.2 mg/dL 8.5-10.2 CREATININE, Serum 1.51 mg/dL H 0.50-1.40 eGFR(CKD-EPI 2020) 49 mL/min L >60 Nov 28, 2024 11:05 AM [facility] BASIC METABOLIC PANEL (non-fasting) SERUM Spe cimen Type: SERUM No comment entered. Ordering Provider: MO ALMARAZ Report Released Date/Time: Nov 21, 2024 11:50 AM Reporting Lab: [facility] [address] [facility] [address] Performing Lab: [address] [address] UREA NITROGEN 31 mg/dL H 7-25 GLUCOSE 101 mg/dL H 65-100 SODIUM 141 mmol/L 135-145 POTASSIUM 4.7 mmol/L 3.5-5.0 CHLORIDE 110 mmol/L 100-110 CO2 26 meq/L 20-30 CALCIUM 9.5 mg/dL 8.5-10.2 CREATININE, Serum 1.16 mg/dL 0.50-1.40 eGFR(CKD-EPI 2020) 67 mL/min >60 Nov 15, 2024 12:51 PM [facility] HEMOGLOBIN A1C PANEL BLOOD Specimen Type: [...] Nov 15, 2024 10:22 AM Reporting Lab: [address] [address] Performing Lab: [address] [address] HEMOGLOBIN A1C 5.6 4.0-5.6 Nov 15, 2024 12:51 PM [facility] BASIC METABOLIC PANEL (fasting) SERUM Specime n Type: SERUM No comment entered. Ordering Provider: MO ALMARAZ Report Released Date/Time: Nov 15, 2024 10:22 AM Reporting Lab: [address] [address] Performing Lab: [address] [address] UREA NITROGEN 33 mg/dL H 7-25 GLUCOSE 89 mg/dL 65-100 SODIUM 144 mmol/L 135-145 POTASSIUM 4.9 mmol/L 3.5-5.0 CHLORIDE 108 mmol/L 100-110 CO2 28 meq/L 20-30 CALCIUM 9.7 mg/dL 8.5-10.2 CREATININE, Serum 1.08 mg/dL 0.50-1.40 eGFR(CKD-EPI 2020) 73 mL/min >60 Nov 15, 2024 12:51 PM [facility] LIPID PANEL FASTING SERUM Specimen Type: SERU M No comment entered. Ordering Provider: MO ALMARAZ Report Released Date/Time: Nov 15, 2024 10:22 AM Reporting Lab: [address] [address] Performing Lab: [address] [address] CHOLESTEROL 184 mg/dL TRIGLYCERIDE 131 mg/dL 0-150 LDL calculated 120 mg/dL 0-129 CHOL/HDL 4.8 HDL CHOLESTEROL 38 mg/dL L 40-60 Nov 15, 2024 12:51 PM [facility] LIVER FUNCTION SERUM Specimen Type: SERUM No comment entered. Ordering Provider: MO ALMARAZ Report Released Date/Time: Nov 15, 2024 10:22 AM Reporting Lab: [facility] [address] [facility] [address] Performing Lab: [address] [address] PROTEIN,TOTAL 6.8 g/dL 6.0-8.3 ALBUMIN 3.6 g/dL 3.5-5.0 ALKALINE PHOSPHATASE 65 U/L 40-150 AST 14 U/L 5-34 ALT 16 U/L BILIRUBIN, TOTAL 0.4 mg/dL 0.2-1.2 Nov 15, 2024 12:51 PM [facility] TSH SERUM Specimen Type: SERUM No comment entered. Ordering Provider: MO ALMARAZ Report Released Date/Time: Nov 15, 2024 10:22 AM Reporting Lab: [address] [address] Performing Lab: [address] [address] TSH 1.83 u[IU]/mL 0.35-5.00 Nov 15, 2024 12:51 PM [facility] CREATININE (eGFR 2020) SERUM Specimen Type: S JALEEL No comment entered. Ordering Provider: MO ALMARAZ Report Released Date/Time: Nov 15, 2024 10:22 AM Reporting Lab: [address] [address] Performing Lab: [address] [address] CREATININE, Serum 1.08 mg/dL 0.50-1.40 eGFR(CKD-EPI 2020) 73 mL/min >60 Nov 15, 2024 12:51 PM [facility] MICROALBUMIN CREATININE RATIO PANEL URINE Spe cimen Type: URINE No comment entered. Ordering Provider: MO ALMARAZ Report Released Date/Time: Nov 15, 2024 10:22 AM Reporting Lab: [facility] [address] [facility] [address] Performing [facility]: [facility] [address] [address] MICROALBUMIN/CREATININE RATIO 78.2 mg/g H 0-29.9 MICROALBUMIN,QUANTITATIVE 6.1 mg/dL RR U NAVAIL CREATININE URINE 78.00 mg/dL Nov 15, 2024 12:51 PM [facility] CBC AND DIFF (AUTO) BLOOD Specimen Type: BLOO D No comment entered. Ordering Provider: MO ALMARAZ Report Released Date/Time: Nov 15, 2024 10:22 AM Reporting Lab: [facility] [address] [facility] [address] Performing Lab: [facility] [address] [address] WBC 6.78 10*3/uL 4.50-11.00 RBC 4.60 10*6/uL [...] Height Weight Body Mass Index Source Nov 15, 2024 01:39 PM 182/80 [facility] Nov 15, 2024 01:18 PM 97.1 67 190/80 18 98 175.2 29 [facility] Encounter Notes: All associated encounter notes This section contains the clinical notes associated to the Encounter. Date/Time Encounter Note(s) Provider Source Nov 15, 2024 03:21 PM PRIMARY CARE NURSE PRACTITIONER OUTPATIENT NOTE: LOCAL TITLE: NURSE PRACTITIONER OUTPATIENT NOTE STANDARD TITLE: PRIMARY CARE NURSE PRACTITIONER OUTPATIENT NOTE DATE OF NOTE: NOV 15, 2024@15:21 ENTRY DATE: NOV 15, 2024@15:21:30 AUTHOR: MO ALMARAZ COSIGNER: URGENCY: STATUS: COMPLETED CC Presents today for elevated blood pressure HPI This is a 69 y/o male with history of Active problems - Computerized Problem List is the source for the followin. Diverticular disease of colon 2. History of polyp of colon tubular adenomas with surveillance endoscopy by [facility] 3. Prostate cancer 4. HT - Hypertension change to Lis/HCTZ 21 Nov 2020 5. Osteoarthritis 6. Nicotine dependence 7. Tobacco user PPD 8. Anxiety 9. Sleep apnea (November 2021) trial on APAP 11-18 cm H2 Denies any recent fever, chills, cough, chest pain, sob, dizziness. No recent UC visits or hospitalizations . Vet reports his blood pressure has been elevated for the last several years. He denies any headache, chest pain, sob, dizziness,weakness. No palpitations. Patient was referred to ER for his elevated bp by RN but declined. He still declines. Reports historically his blood pressure was elevated due to stress. He did see MH and was medicated, with improvement in his BPs and sleeping. He stopped the meds 8 or 9 years ago. He is on the wait list for . Cut back on cigarettes, exercsing daily, watching sodium, but BP has not budged. Vet reports stage IV prostate CA. Voids once per night, but voids more frequently during the day. Amanda is particiating in an alternative medication trial from [place]. SOT therapy. Blood pressure was elevated even prior to this treatment. Vet is sleeping at night--has always had sleep issues. He is sleeping a bit better than he ever has. He is using ALpha stim. Compliant with cpap. 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 Following with neuroedovascular, needs f/u [facility] Dr. Perez-- [facility]. ALLERGIES Data on this list may not be complete. Please check JLV. FACILITY ALLERGY/ADR -------- No Remote Allergy/ADR Data available for this patient [facility] No Known Allergies MEDICATIONS: Active and Recently Outpatient Medications (excluding Supplies): Active Outpatient Medications Status 1) BETAMETHASONE DIPROPIONATE 0.05% OINT APPLY SMALL AMOUNT ACTIVE TOPICALLY TWICE DAILY NEEDED FOR ITCHING/RASH Indication: FOR ATOPIC DERMATITIS 2) METOPROLOL SUCCINATE 25MG SA TAB TAKE ONE TABLET BY MOUTH ACTIVE ONCE DAILY FOR BLOOD PRESSURE/HEART Indication: FOR HIGH BLOOD PRESSURE SOCIAL HISTORY Tobacco 2 cigarettes per day Alcohol rarely PE General: RUTH MCKEONLA, EOMIs, no lesions/exudate of posterior pharynx, tongue midline without lesions--possible murmur, systolic, very soft RESP clear to auscultation bilaterally CV RR S1 S2 (-) Pedal Edema NEURO CN II-XII without focal deficit, gait steady without shuffle, MENTAL A&Ox3 Appropriate, Pleasant, Cooperative VITALS 97.1 F [36.2 C] (11/15/2024 13:18) 67 (11/15/2024 13:18) 18 (11/15/2024 13:18) 190/80 (11/15/2024 13:18), manual repeat 182/80 0 (08/21/2024 14:34) 65 in [165.1 cm] (10/02/2024 15:31) 175.2 lb [79.47 kg] (11/15/2024 13:18) BMI: 29.2 A/P HTN -EKG today, NSR -start lisniopril--help with BP and microalbuminuria -consult to Home telehealth -monitor bp daily -return in one week for BP check with pact RN -(requesting to transfer PACT to [facility])f/u with new PCP in one mo, ?Murmur and wide pulse pressure -check ECHO Discussed indications to go to ED including: KIRKPATRICK/cp/sob/dizziness/weakne ss. He verbalized understanding and agreed Unruptured right ICA supracliniod aneurysm. Following with neuroedovascular, needs f/u consult plced. Dr. Perez-- [facility]. -consult placed Tobacco Use Strongly encouraged smoking cessation Anxiety, during the visit, vet was contacted by to schedule with prescriber -shannon [facility] Home Telehealth ([facility]) Referral: [place] referred (Consult) to Home Telehealth Program. Medication Reconciliation: Outpatient: Has the patient been [...] with a VA or non-VA provider. /alfred/ MO ALMARAZ NP NURSE PRACTITIONER Signed: 11/15/2024 15:23 MO ALMARAZ [facility] Nov 15, 2024 02:10 PM CARDIOLOGY DIAGNOSTIC STUDY CONSULT: LOCAL TITLE: CONSULT REPORT/EKG STANDARD TITLE: CARDIOLOGY DIAGNOSTIC STUDY CONSULT DATE OF NOTE: NOV 15, 2024@14:10 ENTRY DATE: NOV 15, 2024@14:11:05 AUTHOR: GRACE STONE EXP COSIGNER: URGENCY: STATUS: COMPLETED EKG tracing was performed for diagnosis of CARDIAC CONCERNS ordered by MO ALMARAZ. /alfred/ GRACE STONE Registered Nurse Signed: 11/15/2024 14:11 GRACE STONE [facility]
--- OUTSIDE RECORDS SUMMARY | 2025-01-23 13:02 | XMS_ITS | Encounter Summary ---
Author Organization [facility] Address [address] [place] [address] Care Team Providers Care Territory Manager General Sales Name Role Phone Renee Nogueira MD Primary Care Provider Rochelle Chandan Ruiz PA-C Primary Care Provider Unavail able Encounter Details Date Type Department Care Team Description 01/09/2019 Cd Reactor Operator Head Report Medical Records [address] [place] [id number] Jose Ramon Stovall MD Social History Tobacco [...] on filedocumented in this encounter Care Teams Territory Manager General Sales Relationship Specialty Start Date End Date Renee Nogueira MD PCP - General Internal Medicine 06/22/17 Chandan Mayorga PA-C PCP - General Med/Peds 08/11/21 documented as of this encounter
--- OUTSIDE RECORDS SUMMARY | 2025-01-23 13:02 | XMS_ITS | Encounter Summary ---
Author Name [facility] [place] [facility] [place] [facility] [place] Address [address] [place] [id number] Care Team Providers Care Magnetic Prospecting Operator Name Role Phone ASHLEIGH FIELDS Primary [...] Patient's Relationship to Policy [place] MEDICAID MEDICAID [facility] Nov 30, 2019 MEDICAI D [id number] Catrina LEE PATIENT MEDICARE (WNR) MEDICARE (M) PART A January 25, 2018 PART A [id number] Catrina LEE PATIENT MEDICARE (WNR) MEDICARE (M) PART B January 25, 2018 PART B [id number] Catrina LEE PATIENT Selected Encounter This section includes the information on record at [place] for the Encounter. Date/Time Encounter Type Encounter Description Reason Provider Source Oct 04, 2024 08:00 AM OFF/OP EST JANUARY X REQ PHY[facility] - IND ICD-10-CM Z71.89 Other specified counseling PRISCA ABERNATHY Encounter Template Text not used by [place] [...] activities for the patient from all [place] [facility]. This section includes future appointments and [...] 17, 2024 03:00 PM AMBULATORY - PSYCHIATRY [facility] Oct 24, 2024 10:00 AM AMBULATORY - NONE [place] [facility] [place] [place] [facility] Oct 24, 2024 10:00 AM AMBULATORY - MEDICINE [facility] [place] [facility] Oct 24, 2024 03:00 PM AMBULATORY - PSYCHIATRY [facility] Oct 30, 2024 09:00 AM AMBULATORY - PSYCHIATRY [facility] Nov 15, 2024 01:00 PM AMBULATORY - MEDICINE [place] [facility] [facility] Nov 21, 2024 09:00 AM AMBULATORY - MEDICINE [facility] [place] [facility] Nov 28, 2024 10:00 AM AMBULATORY - MEDICINE [facility] [place] [place] [facility] Nov 30, 2024 10:30 AM AMBULATORY - PSYCHIATRY [facility] [place] [facility] Dec 01, 2024 11:30 AM AMBULATORY - NONE [facility] [place] [facility] Dec 05, 2024 09:00 AM AMBULATORY - MEDICINE [facility] [place] [facility] Dec 12, 2024 09:00 AM AMBULATORY - MEDICINE [facility] [place] [facility] Jan 01, 2025 10:30 AM AMBULATORY - PSYCHIATRY [facility] [place] [facility] January 30, 2025 09:30 AM AMBULATORY - MEDICINE [facility] [place] [facility] Mar 19, 2025 10:00 AM AMBULATORY - MEDICINE [place] [facility] [place] [facility] Active, Pending, and Scheduled Orders [...] 30, 2024 10:35 AM Consult Order PSYCHOTHER APAlma Rosa SOPC OUTPT [facility] Hoop Riveting Machine Operator [facility] Nov 15, 2024 03:14 PM Consult Order COMMUNITY CARE-NEUROLOGY [facility] Hoop Riveting Machine Operator [facility] [place] [facility] Social History: Smoking Status (Most current) and [...] place. Date/Time Current Smoking Status Comment Facil [facility] Apr 28, 2024 01:00 PM VA-TOBACCO USER EVERY DAY [place] Tobacco Use History This section includes a history of the smoking, or tobacco-related health factors, that were collected on or before the date of the Encounter. The data comes from the [place] facility where the Encounter took place. Date/Time Smoking Status/Tobacco Use Comment F acility Apr 28, 2024 01:00 PM VA-TOBACCO USE ADVICE [place] Apr 28, 2024 01:00 PM VA-TOBACCO USE TAX COMPLIANCE REPRESENTATIVE NO [place] Apr 28, 2024 01:00 PM VA-TOBACCO USE MED NO [place] Apr 28, 2024 01:00 PM VA-TOBACCO USE WI 30 MIN OF WAKEUP [place] Apr 28, 2024 01:00 PM VA-TOBACCO USER EVERY DAY [place] Apr 27, 2023 01:30 PM VA-TOBACCO DOESNT USE WI 30 MIN WAKEUP [place] Apr 27, 2023 01:30 PM VA-TOBACCO USE 30 YEARS OR MORE [place] Apr 27, 2023 01:30 PM VA-TOBACCO USE ADVICE [place] Apr 27, 2023 01:30 PM VA-TOBACCO USE TAX COMPLIANCE REPRESENTATIVE NO [place] Apr 27, 2023 01:30 PM VA-TOBACCO USE MED NO [place] Apr 27, 2023 01:30 PM VA-TOBACCO USER EVERY DAY [place] Jan 23, 2021 10:30 AM VA-TOBACCO USE 30 YEARS OR MORE [place] Jan 23, 2021 10:30 AM VA-TOBACCO USE ADVICE [place] Jan 23, 2021 10:30 AM VA-TOBACCO USE TAX COMPLIANCE REPRESENTATIVE NO [place] Jan 23, 2021 10:30 AM VA-TOBACCO USE MED NO [place] Jan 23, 2021 10:30 AM VA-TOBACCO USE WI 30 MIN OF WAKEUP [place] Jan 23, 2021 10:30 AM VA-TOBACCO USER EVERY DAY [place] Oct 25, 2017 03:23 PM CURRENT SMOKER MUKESHI [facility] Oct 25, 2017 03:23 PM V1-PT NOT INTEREST ED IN QUIT TOBACCO USE [place] Dec 15, 2016 10:59 AM CURRENT SMOKER SPRI [facility] Dec 15, 2016 10:59 AM V1-PT DECLINES REF TO TOBACCO CESS [facility] Dec 15, 2016 10:59 AM V1-PT THINKING ABO UT QUIT TOBACCO USE [place] Jun 16, 2016 08:30 AM V1-PT DECLINES REF TO TOBACCO CESS [facility] Jun 16, 2016 08:30 AM V1-PT DECLINES TOB ACCO CESSATION MEDS [place] Jun 16, 2016 08:30 AM V1-PT THINKING ABO UT QUIT TOBACCO USE [place] Dec 17, 2015 09:00 AM CURRENT SMOKER smokes about one ppd of cigaretts. [place] Dec 17, 2015 09:00 AM V1-PT THINKING ABO UT QUIT TOBACCO USE [place] Encounter Notes: All associated encounter notes This section contains the clinical notes associated to the Encounter. Date/Time Encounter Note(s) Provider Source Oct 04, 2024 01:21 PM SOCIAL WORK NOTE: LOCAL TITLE: SOCIAL WORK NOTE STANDARD TITLE: SOCIAL WORK NOTE DATE OF NOTE: OCT 04, 2024@13:21 ENTRY DATE: OCT 04, 2024@13:21:47 AUTHOR: PRISCA ABERNATHY EXP COSIGNER: URGENCY: STATUS: COMPLETED is seen at his initiation. 69 y/o, w/m, , retired, AF, VN . He is rated 100% for prostate cancer. He was diagnosed w prostate cancer , initially stage 4, aggressive type. He was evaluated by a few large institutions, including [facility]. He didn't agree w any of their treatment options, he then pursued holistic medicine. After extensive research he found a doctor in [place]. At this time he remains under the care of Dr Minkoff, he is on a maintenance chemotherapy and his cancer is in remission, I haven't felt this good in years . He estimates he has already spent about $75K for his treatments, he has no regrets. 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 [place] was cooperative, friendly, slightly anxious, able to express himself well. consults placed. /alfred/ JANE Olvera [employer] ADMINISTRATOR Signed: 10/04/2024 13:51 PRISCA ABERNATHY [place]
--- OUTSIDE RECORDS SUMMARY | 2025-01-23 13:02 | XMS_ITS | Encounter Summary ---
Author Name [facility] [place] [place] [facility] [place] Address [address] [place] [id number] Care Team Providers Care Digital Field Service Technician Name Role Phone ASHLEIGH FIELDS Primary Care [...] [facility] Nov 30, 2019 MEDICAI D [id number] Catrina LEE PATIENT MEDICARE (WNR) MEDICARE (M) PART A January 25, 2018 PART A [id number] Catrina LEE PATIENT MEDICARE (WNR) MEDICARE (M) PART B January 25, 2018 PART B [id number] Catrina LEE PATIENT Selected Encounter This [...] PM PRIMARY Essential (primary) hypertension JOVANA BRUSH [place] May 24, 2024 02:21 PM SECONDARY Anxiety disorder, unspecified MARVINJOVANA Bonds [place] May 24, 2024 02:21 PM SECONDARY Other sleep apnea JOVANA BRUSH [facility] Plan of Treatment: Future Appointments (+ 6 months) and Future Tests (+/- 45 days) The Plan of Treatment section includes future care activities for the patient from all [place] [facility]. This section includes future [...] MEDICINE [facility] [place] [facility] May 11, 2024 07:30 AM AMBULATORY - NONE [facility] [place] [facility] May 30, 2024 11:00 AM AMBULATORY - MEDICINE [facility] [place] [facility] Jun 21, 2024 01:30 PM AMBULATORY - MEDICINE [facility] [place] [facility] Jun 29, 2024 07:30 AM AMBULATORY - NONE [facility] [place] [facility] Jul 31, 2024 01:30 PM AMBULATORY - MEDICINE [facility] [place] [facility] Aug 16, 2024 08:00 AM AMBULATORY - NONE [facility] [place] [facility] Aug 21, 2024 02:30 PM AMBULATORY - MEDICINE [facility] [place] [facility] Sep 14, 2024 07:30 AM AMBULATORY - NONE [facility] [place] [facility] Oct 02, 2024 10:00 AM AMBULATORY - MEDICINE [facility] [place] [facility] Oct 04, 2024 08:00 AM AMBULATORY - PSYCHIATRY [facility] Oct 17, 2024 03:00 PM AMBULATORY - PSYCHIATRY [facility] Oct 24, 2024 10:00 AM AMBULATORY - NONE [facility] [place] [facility] Oct 24, 2024 10:00 AM AMBULATORY - MEDICINE [place] [place] [facility] Oct 24, 2024 03:00 PM AMBULATORY - PSYCHIATRY [facility] Social History: Smoking Status (Most current) and Tobacco Use (All prior to encounter date) This section includes the most current, and the historical, smoking and tobacco- related health factors from the [place] facility where the Encounter took place. Current Smoking Status This section includes the most current smoking, or tobacco-related health factor, from the [place] facility where the Encounter took place. Date/Time Current Smoking Status Comment Facil ity Apr 28, 2024 01:00 PM VA-TOBACCO USER EVERY DAY [place] Tobacco Use History This section includes a history of the smoking, or tobacco-related health factors, that were collected on or before the date of the Encounter. The data comes from the [place] facility where the Encounter took place. Date/Time Smoking Status/Tobacco Use Comment F acility Apr 28, 2024 01:00 PM VA-TOBACCO USE ADVICE [place] Apr 28, 2024 01:00 PM VA-TOBACCO USE FISH STRAIGHTENER NO [place] Apr 28, 2024 01:00 PM VA-TOBACCO USE MED [facility] Apr 28, 2024 01:00 PM VA-TOBACCO USE [place] 30 MIN OF [facility] Apr 28, 2024 01:00 PM VA-TOBACCO USER EVERY DAY [place] Apr 27, 2023 01:30 PM VA-TOBACCO DOESNT USE WI 30 MIN [facility] Apr 27, 2023 01:30 PM VA-TOBACCO USE 30 YEARS OR MORE [place] Apr 27, 2023 01:30 PM VA-TOBACCO USE ADVICE [place] Apr 27, 2023 01:30 PM VA-TOBACCO USE FISH STRAIGHTENER NO [place] Apr 27, 2023 01:30 PM VA-TOBACCO USE MED [facility] Apr 27, 2023 01:30 PM VA-TOBACCO USER EVERY DAY [place] Jan 23, 2021 10:30 AM VA-TOBACCO USE 30 YEARS OR MORE [place] Jan 23, 2021 10:30 AM VA-TOBACCO USE ADVICE [place] Jan 23, 2021 10:30 AM VA-TOBACCO USE FISH STRAIGHTENER NO [place] Jan 23, 2021 10:30 AM VA-TOBACCO USE MED [facility] Jan 23, 2021 10:30 AM VA-TOBACCO USE WI 30 MIN OF [facility] [place] Jan 23, 2021 10:30 AM VA-TOBACCO USER EVERY DAY [place] Oct 25, 2017 03:23 PM CURRENT SMOKER DENISE THAPA Oct 25, 2017 03:23 PM V1-PT NOT INTEREST ED IN QUIT TOBACCO USE [place] Dec 15, 2016 10:59 AM CURRENT SMOKER DENISE [facility] Dec 15, 2016 10:59 AM V1-PT DECLINES REF TO TOBACCO CESS [facility] [place] Dec 15, 2016 10:59 AM V1-PT THINKING ABO UT QUIT TOBACCO USE [place] Jun 16, 2016 08:30 AM V1-PT DECLINES REF TO TOBACCO CESS [facility] [place] Jun 16, 2016 08:30 AM V1-PT DECLINES TOB ACCO CESSATION MEDS [place] Jun 16, 2016 08:30 AM V1-PT THINKING ABO UT QUIT TOBACCO USE [place] Dec 17, 2015 09:00 AM CURRENT SMOKER smokes about one ppd of cigaretts. [place] Dec 17, 2015 09:00 AM V1-PT THINKING ABO UT QUIT TOBACCO USE [place] Encounter Notes: All associated encounter notes This [...] standard clinical care, and in accordance with [facility] policy. Patient information was shared with the PDMP [place]. No prescription(s) for controlled substances outside the [place] were found in the last 90 days. /alfred/ CATHIE BRUSH MD PHYSICIAN Signed: 04/28/2024 13:47 CATHIE BRUSH [place] Apr 28, 2024 01:22 PM PREVENTIVE MEDICIN [...] of his/her rights. Suicide Screen: C-SSRS Screening [place] Suicide Severity Rating Scale (C-SSRS) screener 1. [...] Not worried about housing near future The reports the following: Within the past 12 [...] to protect and improve your health and [place] has the resources to support you. - [...] behavioral changes to help you quit. - [place] has a number of behavioral counseling options to help you with quitting, including: * Provide information about the facility smoking or tobacco use treatment options or clinics * [place]'s national quitline, 3-716-ZUKZ-VET, with counseling available Wednesday-Wednesday The patient was [...] LPN LPN Signed: 04/28/2024 13:30 ALAN ALONSO [place] Apr 28, 2024 08:20 AM PHYSICIAN NOTE: [...] Other aspects of safety use discussed at [facility] on this TMEPORARY medication (not subject to refills). 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 As above use [...] MD PHYSICIAN Signed: 05/24/2024 14:21 CATHIE BRUSH [place]
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
--- OUTSIDE RECORDS SUMMARY | 2025-01-23 13:03 | XMS_ITS | Encounter Summary ---
Author Name [facility] [place] Organization [facility] [place] Address [address] [place] [address] Care Team Providers Care Hard Tile Setter Apprentice Name Role Phone ASHLEIGH FIELDS Primary Care [...] Patient's Relationship to Policy [place] MEDICAID MEDICAID [facility] JONNY LILIAM OLEARY Nov 30, 2019 MEDICAI D [id number] Catrina LEE PATIENT MEDICARE (WNR) MEDICARE (M) PART A January 25, 2018 PART A [id number] Catrina LEE PATIENT MEDICARE (WNR) MEDICARE (M) PART B January 25, 2018 PART B [id number] Catrina LEE PATIENT Selected Encounter This section includes the information on record at [place] for the Encounter. Date/Time Encounter Type Encounter Description Reason Provider Source Mar 29, 2024 11:00 AM PSYTX W PT 30 MINUTES PCMHI INDIV ICD-10-CM F43.0 Acute stress reaction BRIDGETTE PHELAN [place] Encounter Template Text not used by VA [...] care activities for the patient from all [place] [facility]. This section includes future appointments and future orders which are active, pending or scheduled. Future Appointments This section includes appointments that were scheduled to occur 6 months from the date of the Encounter, up to a maximum of 20 appointments. The data comes from all [place] treatment facilities. Appointment Date/Time Appointment Type Appointme nt Facility Name Apr 17, 2024 11:00 AM [place] [facility] [place] [facility] Apr 24, 2024 11:00 AM [facility] [place] [facility] Apr 28, 2024 01:00 PM AMBULATORY - MEDICINE [facility] [place] [facility] May 01, 2024 11:00 AM AMBULATORY - MEDICINE [facility] [place] [facility] May 11, 2024 07:30 AM AMBULATORY - NONE [facility] [place] [facility] May 30, 2024 11:00 AM AMBULATORY - MEDICINE [facility] [place] [facility] Jun 21, 2024 01:30 PM AMBULATORY - MEDICINE [facility] [place] [facility] Jun 29, 2024 07:30 AM AMBULATORY - NONE [facility] [place] [facility] Jul 31, 2024 01:30 PM AMBULATORY - MEDICINE [facility] [place] [facility] Aug 16, 2024 08:00 AM AMBULATORY - NONE [facility] [place] [facility] Aug 21, 2024 02:30 PM AMBULATORY - MEDICINE [facility] [place] [facility] Sep 14, 2024 07:30 AM AMBULATORY - NONE [facility] [place] [facility] Social History: Smoking Status (Most current) and Tobacco Use (All prior to encounter date) This section includes the most current, and the historical, smoking and tobacco- related health factors from the [place] facility where the Encounter took place. Current Smoking Status This section includes the most current smoking, or tobacco-related health factor, from the [place] facility where the Encounter took place. Date/Time Current Smoking Status Comment Dannie negrete Apr 27, 2023 01:30 PM VA-TOBACCO USER EVERY DAY [facility] Tobacco Use History This section includes a history of the smoking, or tobacco-related health factors, that were collected on or before the date of the Encounter. The data comes from the [place] facility where the Encounter took place. Date/Time Smoking Status/Tobacco Use Comment F acility Apr 27, 2023 01:30 PM VA-TOBACCO USE 30 YEARS OR MORE [facility] Apr 27, 2023 01:30 PM VA-TOBACCO USE ADVICE [facility] Apr 27, 2023 01:30 PM VA-TOBACCO USE SUPERVISOR CASE LOADING NO [facility] Apr 27, 2023 01:30 PM VA-TOBACCO USE MED NO [facility] Apr 27, 2023 01:30 PM VA-TOBACCO USER EVERY DAY [facility] Jan 23, 2021 10:30 AM VA-TOBACCO USE 30 YEARS OR MORE [facility] Jan 23, 2021 10:30 AM VA-TOBACCO USE ADVICE [place] Jan 23, 2021 10:30 AM VA-TOBACCO USE SUPERVISOR CASE LOADING NO [facility] Jan 23, 2021 10:30 AM VA-TOBACCO USE MED NO [facility] Jan 23, 2021 10:30 AM VA-TOBACCO USE WI 30 MIN OF WAKEUP [facility] Jan 23, 2021 10:30 AM VA-TOBACCO USER EVERY DAY [facility] Oct 25, 2017 03:23 PM CURRENT SMOKER [facility] Oct 25, 2017 03:23 PM V1-PT NOT INTEREST ED IN QUIT TOBACCO USE [place] Dec 15, 2016 10:59 AM CURRENT SMOKER [facility] Dec 15, 2016 10:59 AM V1-PT DECLINES REF TO TOBACCO CESS [facility] Dec 15, 2016 10:59 AM V1-PT THINKING ABO UT QUIT TOBACCO USE [facility] Jun 16, 2016 08:30 AM V1-PT DECLINES REF TO TOBACCO CESS [facility] Jun 16, 2016 08:30 AM V1-PT DECLINES TOB ACCO CESSATION MEDS [facility] Jun 16, 2016 08:30 AM V1-PT THINKING ABO UT QUIT TOBACCO USE [facility] Dec 17, 2015 09:00 AM CURRENT SMOKER smokes about one ppd of cigaretts. [facility] Dec 17, 2015 09:00 AM V1-PT THINKING ABO UT QUIT TOBACCO USE [facility] Encounter Notes: All associated encounter notes This [...] VISIT DURATION: 30 min VISIT TYPE: Individual, [id number], follow-up visit PCP: CATHIE WONG DIAGNOSIS: Acute Stress Prostate Cancer Anxiety Disorder, unspecified REASON FOR FOLLOW UP: Stress and Anxiety VET'S STATEMENT OF GOAL AND CONCERNS: The Napoleon reports that since previous [facility] visit he has done a lot of thinking. He shares that he received positive news at appointments with his PCP and his urologist and that has alleviated some of his concerns. The Napoleon states he has been trying to remind himself of what he cannot control. When I get emotionally worked up, it affects me physically . The Napoleon reports his sleep is somewhat improved, energy [...] Grounding Exercise' and 'Challenging Negative Thoughts' The Napoleon is scheduled to attend the biofeedback for anxiety group. He will call as needed for a future [facility] appt. DIAGNOSTIC IMPRESSIONS/PLAN: is a 69-year-old man self-referred back to [facility] for acute stress related to his health, family, and business. appears to be benefitting from CBT interventions and is agreeable to referral to Biofeedback for Anxiety Group. CURRENT IMPRESSION OF LETHALITY RISK / PLAN FOR RISK MANAGEMENT: presents at low risk of harm to self or others at this time. INTERDICIPLINARY TREATMENT PLANNING INVOLVING: PACT PLAN FOR FOLLOW-UP: will follow-up with the Biofeedback for Anxiety group and call for [facility] follow-up visit as needed. /alfred/ BRIDGETTE PHELAN PSYD CLINICAL PSYCHOLOGIST Signed: 04/25/2024 22:03 BRIDGETTE PHELAN
--- OUTSIDE RECORDS SUMMARY | 2025-01-23 13:03 | XMS_ITS | Encounter Summary ---
Author Organization [facility] Address [address] [place] [address] Care Team Providers Care Hose Coupling Joiner Name Role Phone Renee Nogueira MD Primary Care Provider Rochelle Chanadn Ruiz PA-C Primary Care Provider Unavail able Encounter Details Date Type Department Care Team Description 10/18/2019 Cell Liner Report Medical Records [address] [place] [id number] Jose Ramon Stovall MD Social History Tobacco [...] on filedocumented in this encounter Care Teams Hose Coupling Joiner Relationship Specialty Start Date End Date Renee Nogueira MD PCP - General Internal Medicine 06/22/17 Chandan Mayorga PA-C PCP - General Med/Peds 08/11/21 documented as of this encounter
--- OUTSIDE RECORDS SUMMARY | 2025-01-23 13:03 | XMS_ITS | Encounter Summary ---
Author Name [facility] [place] [facility] [place] Address [address] [place] [address] Care Team Providers Care Smoking Tobacco Cutter Operator Name Role Phone ASHLEIGH FIELDS Primary [...] LILIYA OLEARY Nov 30, 2019 MEDICAI D [id number] Catrina LEE PATIENT MEDICARE (WNR) MEDICARE (M) PART A January 25, 2018 PART A [id number] Catrina LEE PATIENT MEDICARE (WNR) MEDICARE (M) PART B January 25, 2018 PART B [id number] Catrina LEE PATIENT Selected Encounter This section includes the information on record at [place] for the Encounter. Date/Time Encounter Type Encounter Description Reason Provider Source Oct 24, 2024 03:00 PM CASE MANAGEMENT [facility] - IND ICD-10-CM F41.9 Anxiety disorder, unspecified TIERNEY ADKINS Encounter Template Text not used by [place] Assessments - Encounter Diagnoses This section includes the primary and secondary diagnoses documented for the Encounter. Date/Time Primary/Secondary Diagnosis Diagnosis Name Provider Source Oct 24, 2024 03:12 PM PRIMARY Anxiety disorder, unspecified KHALIF ADKINS Oct 24, 2024 03:12 PM SECONDARY Insomnia, unspecified KHALIF ADKINS Plan of Treatment: Future Appointments (+ 6 months) and Future Tests (+/- 45 days) The Plan of Treatment section includes future care activities for the patient from all [place] [facility]. This section includes future appointments and future orders which are active, pending or scheduled. Future Appointments This section includes appointments that were scheduled to occur 6 months from the date of the Encounter, up to a maximum of 20 appointments. The data comes from all [place] [facility]. Appointment Date/Time Appointment Type Appointme Facility Name Oct 30, 2024 09:00 AM AMBULATORY - PSYCHIATRY [facility] Nov 15, 2024 01:00 PM AMBULATORY - [place]ICINE [place] [facility] [place] [facility] Nov 21, 2024 09:00 AM AM[place]ULATORY [place]ICINE [place] [facility] [place] [facility] Nov 28, 2024 10:00 AM AM[place]ULATORY - [place]ICINE [place] [facility] [place] [facility] Nov 30, 2024 10:30 AM AMBULATORY - [place] [facility] [place] [facility] Dec 01, 2024 11:30 AM AMBULATORY - NONE [facility] [place] [facility] Dec 05, 2024 09:00 AM AMBULATORY - [place]ICINE [place] [facility] [facility] Dec 12, 2024 09:00 AM AMBULATORY - [place]ICINE [place] [facility] [place] [facility] Jan 01, 2025 10:30 AM AMBULATORY - PS[facility]CHIATRY [facility] [place] [facility] January 30, 2025 09:30 AM AMBULATORY - [place]ICINE [place] [facility] [place] [facility] Mar 19, 2025 10:00 AM AMBULATORY - [place]ICINE [place] [facility] [facility] Active, Pending, and Scheduled Orders This [...] 30, 2024 10:35 AM Consult Order PSYCHOTHER RODRIGO SOPC OUTPT Cons Rod Cup Filler's Choice [place] Nov 15, 2024 03:14 PM Consult Order COMMUNITY CARE-NEUROLOGY Cons Rod Cup Filler's Choice [facility] Lab Results: +/- 30 days of [...] Type Comment Nov 15, 2024 12:51 PM [facility] HEMOGLOBIN A1C PANEL BLOOD Specimen Type: [...] Nov 15, 2024 10:22 AM Reporting Lab: [facility] [address] [facility] [phone] Performing Lab: [address] [address] HEMOGLOBIN A1C 5.6 4.0-5.6 Nov 15, 2024 12:51 PM [facility] BASIC METABOLIC PANEL (fasting) SERUM Specime n Type: SERUM No comment entered. Ordering Provider: [place] ALMARAZ Report Released Date/Time: Nov 15, 2024 10:22 AM Reporting Lab: [facility] [address] [facility] [address] Performing Lab: [address] [address] UREA NITROGEN 33 mg/dL H 7-25 GLUCOSE 89 mg/dL 65-100 SODIUM 144 mmol/L 135-145 POTASSIUM 4.9 mmol/L 3.5-5.0 CHLORIDE 108 mmol/L 100-110 CO2 28 meq/L 20-30 CALCIUM 9.7 mg/dL 8.5-10.2 CREATININE, Serum 1.08 mg/dL 0.50-1.40 eGFR(CKD-EPI 2020) 73 mL/min >60 Nov 15, 2024 12:51 PM [facility] LIPID PANEL FASTING SERUM Specimen Type: SERU M No comment entered. Ordering Provider: [place] ALMARAZ Report Released Date/Time: Nov 15, 2024 10:22 AM Reporting Lab: [address] [address] Performing Lab: [address] [address] CHOLESTEROL 184 mg/dL TRIGLYCERIDE 131 mg/dL 0-150 LDL calculated 120 mg/dL 0-129 CHOL/HDL 4.8 HDL CHOLESTEROL 38 mg/dL L 40-60 Nov 15, 2024 12:51 PM [facility] LIVER FUNCTION SERUM Specimen Type: SERUM No comment entered. Ordering Provider: [place] ALMARAZ Report Released Date/Time: Nov 15, 2024 10:22 AM Reporting Lab: [address] [address] Performing Lab: [address] [address] PROTEIN,TOTAL 6.8 g/dL 6.0-8.3 ALBUMIN 3.6 g/dL 3.5-5.0 ALKALINE PHOSPHATASE 65 U/L 40-150 AST 14 U/L 5-34 ALT 16 U/L BILIRUBIN, TOTAL 0.4 mg/dL 0.2-1.2 Nov 15, 2024 12:51 PM [facility] TSH SERUM Specimen Type: SERUM No comment entered. Ordering Provider: [place] ALMARAZ Report Released Date/Time: Nov 15, 2024 10:22 AM Reporting Lab: [address] [address] Performing Lab: [facility] [place] [facility] [address] [facility] [address] TSH 1.83 u[IU]/mL 0.35-5.00 Nov 15, 2024 12:51 PM [facility] [place] [facility] CREATININE (eGFR 2020) SERUM Specimen Type: S JALEEL No comment entered. Ordering Provider: [place] ALMARAZ Report Released Date/Time: Nov 15, 2024 10:22 AM Reporting Lab: [facility] [place] [facility] [address] [facility] [address] Performing Lab: [facility] [place] [facility] [address] [facility] [address] CREATININE, Serum 1.08 mg/dL 0.50-1.40 eGFR(CKD-EPI 2020) 73 mL/min >60 Nov 15, 2024 12:51 PM [facility] [place] [facility] MICROALBUMIN CREATININE RATIO PANEL URINE Spe cimen Type: URINE No comment entered. Ordering Provider: [place] ALMARAZ Report Released Date/Time: Nov 15, 2024 10:22 AM Reporting Lab: [facility] [place] [facility] [address] [facility] [address] Performing Lab: [facility] [place] [facility] [address] [facility] [address] MICROALBUMIN/CREATININE RATIO 78.2 mg/g H 0-29.9 MICROALBUMIN,QUANTITATIVE 6.1 mg/dL RR U NAVAIL CREATININE URINE 78.00 mg/dL Nov 15, 2024 12:51 PM [facility] [place] [facility] CBC AND DIFF (AUTO) BLOOD Specimen Type: BLOO D No comment entered. Ordering Provider: MO ALMARAZ Report Released Date/Time: Nov 15, 2024 10:22 AM Reporting Lab: [facility] [place] [facility] [address] [facility] [address] Performing Lab: [place] [facility] [place] [address] [address] WBC 6.78 10*3/uL 4.50-11.00 RBC 4.60 10*6/uL [...] and tobacco- related health factors from the [place] facility where the Encounter took place. Current Smoking Status This section includes the most current smoking, or tobacco-related health factor, from the [place] facility where the Encounter took place. Date/Time Current Smoking Status Comment Dannie ity Apr 28, 2024 01:00 PM VA-TOBACCO USER EVERY DAY [place] Tobacco Use History This section includes a history of the smoking, or tobacco-related health factors, that were collected on or before the date of the Encounter. The data comes from the [place] facility where the Encounter took place. Date/Time Smoking Status/Tobacco Use Comment F acility Apr 28, 2024 01:00 PM VA-TOBACCO USE ADVICE [place] Apr 28, 2024 01:00 PM VA-TOBACCO USE HEATING ELEMENT WINDER NO [place] Apr 28, 2024 01:00 PM VA-TOBACCO USE MED NO [place] Apr 28, 2024 01:00 PM VA-TOBACCO USE WI 30 MIN OF WAKEUP [place] Apr 28, 2024 01:00 PM VA-TOBACCO USER EVERY DAY [place] Apr 27, 2023 01:30 PM VA-TOBACCO DOESNT USE WI 30 MIN INAVALEUP [place] Apr 27, 2023 01:30 PM VA-TOBACCO USE 30 YEARS OR MORE [place] Apr 27, 2023 01:30 PM VA-TOBACCO USE ADVICE [place] Apr 27, 2023 01:30 PM VA-TOBACCO USE HEATING ELEMENT WINDER NO [place] Apr 27, 2023 01:30 PM VA-TOBACCO USE MED NO [place] Apr 27, 2023 01:30 PM VA-TOBACCO USER EVERY DAY [place] Jan 23, 2021 10:30 AM VA-TOBACCO USE 30 YEARS OR MORE [place] Jan 23, 2021 10:30 AM VA-TOBACCO USE ADVICE [place] Jan 23, 2021 10:30 AM VA-TOBACCO USE HEATING ELEMENT WINDER NO [place] Jan 23, 2021 10:30 AM VA-TOBACCO USE MED NO [place] Jan 23, 2021 10:30 AM VA-TOBACCO USE [place] 30 MIN OF [facility] Jan 23, 2021 10:30 AM VA-TOBACCO USER EVERY DAY [place] Oct 25, 2017 03:23 PM CURRENT SMOKER [facility] Oct 25, 2017 03:23 PM V1-PT NOT INTEREST ED IN QUIT TOBACCO USE [place] Dec 15, 2016 10:59 AM CURRENT SMOKER [facility] Dec 15, 2016 10:59 AM V1-PT DECLINES REF TO TOBACCO CESS [facility] Dec 15, 2016 10:59 AM V1-PT THINKING ABO UT QUIT TOBACCO USE [place] Jun 16, 2016 08:30 AM V1-PT DECLINES REF TO TOBACCO CESS [facility] Jun 16, 2016 08:30 AM V1-PT DECLINES TOB ACCO CESSATION MEDS [place] Jun 16, 2016 08:30 AM V1-PT THINKING ABO UT QUIT TOBACCO USE [place] Dec 17, 2015 09:00 AM CURRENT SMOKER smokes about one ppd of cigaretts. [place] Dec 17, 2015 09:00 AM V1-PT THINKING ABO UT QUIT TOBACCO USE [place] Encounter Notes: All associated encounter notes This section contains the clinical notes associated to the Encounter. Date/Time Encounter Note(s) Provider Source Oct 24, 2024 03:07 PM MENTAL HEALTH CONS ULT: LOCAL TITLE: CONSULT REPORT/CRANIAL ELECTROTHERAPY STIMULATION STANDARD TITLE: MENTAL HEALTH CONSULT DATE OF NOTE: OCT 24, 2024@15:07 ENTRY DATE: OCT 24, 2024@15:07:12 AUTHOR: KHALIF ADKINS EXP COSIGNER: URGENCY: STATUS: COMPLETED F: Alpha-Stim Trial Palo arrived at clinic re: Alpha-Stim Trial # 2 and issued his personal Alpha-Stim. Nancy is known to casualty underwriter and identified himself by name and date [...] PRESSURE/HEART Indication: FOR HIGH BLOOD PRESSURE A/P: Palo is utilizing Alpha-Stim for the diagnoses of [...] and is aware that he may contact casualty underwriter to discuss as needed. Upcoming Appointments: 10/30/2024 09:00 CWM/SO/MHC/[facility] 11/14/2024 11:30 CWM/SO/VVC/PACT NURSING 03/23/2025 09:00 CWM/SO/PACT 9 07/31/2025 11:00 [facility] OPTOMETRY 4 understands how to utilize the Veterans Crisis Line ([id number] option 1) and urged to call that number at any time if they have thoughts about suicide and, or to call 911 or go to nearest E.R. if they have suicidal thoughts. RTC 10/30/2024, however Palo is aware that he can call or walk-in at anytime prior to next appointment. Palo was provided with the date/time of next appointment as well as casualty underwriter's contact information for use as needed. No barriers; Patient understands and agrees to current treatment plan. If Palo has any questions, concerns, or changes in current health status will call or come in to the [facility]. 15 minutes spent in patient care and education. /alfred/ KHALIF ADKINS, MSN, RN, CNL MENTAL HEALTH NURSE DIRECTOR OF CUSTOMER ACQUISITION Signed: 10/24/2024 15:12 KHALIF ADKINS
--- OUTSIDE RECORDS SUMMARY | 2025-01-23 13:03 | XMS_ITS | Encounter Summary ---
Author Name [facility] [place] [facility] [place] [facility] [place] Address [address] [place] [address] Care Team Providers Care Eyeglass Maker Name Role Phone ASHLEIGH FIELDS Primary [...] STAND ANIRUDH Nov 30, 2019 MEDICAI D [id number] Catrina LEE PATIENT MEDICARE (WNR) MEDICARE (M) PART A January 25, 2018 PART A [id number] Catrina LEE PATIENT MEDICARE (WNR) MEDICARE (M) PART B January 25, 2018 PART B [id number] Catrina LEE PATIENT Selected Encounter This section includes the information on record at [place] for the Encounter. Date/Time Encounter Type Encounter Description Reason Provider Source Jan 23, 2025 09:10 AM Outpatient Encounter HT NON-VIDEO MONITORING ICD-10-CM I10 Essential (primary) hypertension DARLENE BEE Encounter Template Text not used by [facility] Assessments - Encounter Diagnoses This section includes the primary and secondary diagnoses documented for the Encounter. Date/Time Primary/Secondary Diagnosis Diagnosis Name Provider Source Jan 23, 2025 09:12 AM PRIMARY Essential (primary) hypertension DARLENE BEE [facility] Plan of Treatment: Future Appointments (+ 6 months) and Future Tests (+/- 45 days) The Plan of Treatment section includes future care activities for the patient from all [place] [facility]. This section includes future appointments and [...] 30, 2025 09:30 AM AMBULATORY - MEDICINE [facility] Mar 19, 2025 10:00 AM AMBULATORY MEDICINE [facility] Active, Pending, and Scheduled Orders This section includes a listing of several types of active, pending, and scheduled orders, including clinic medications orders, diagnostic test orders, procedure orders and consult orders; where the start date of the order is 45 days before the date of the Encounter or 45 days after the date of theEncounter. The data comes from all [facility]. Test Date/Time Test Type Test Details Facility Name Dec 12, 2024 12:00 AM Laboratory - Chemistry Order OCCULT BLOOD FIT X1 SCREEN(IN-HOUSE) STOOL FECES SP [facility] Jan 01, 2025 10:39 AM Consult Order BHIP PSYCHIATRIC MEDICATION/SOPC OUTPT Cons Boiler Room Helper's Choice [facility] Encounter Notes: All associated encounter notes This section contains the clinical notes associated to the Encounter. Date/Time Encounter Note(s) Provider Source Jan 23, 2025 09:10 AM CARE COORDINATION HOME TELEHEALTH SUMMARIZATION NOTE: LOCAL TITLE: HT MONTHLY MONITOR NOTE STANDARD TITLE: CARE COORDINATION HOME TELEHEALTH SUMMARIZATION DATE OF NOTE: JAN 23, 2025@09:10 ENTRY DATE: JAN 23, 2025@09:10:24 AUTHOR: CRISTINA BEE EXP COSIGNER: URGENCY: STATUS: COMPLETED The Roll is enrolled in the Home Telehealth (HT) program and continues to be monitored via HT technology. The data sent by the Roll is reviewed and analyzed by the HT staff, who provide ongoing case management and health education while communicating and collaborating with the health care team as appropriate. This note covers a total of 30 minutes for the month monitored. Month monitored: DECEMBER 2024 Dx: SOLOMON /alfred/ CRISTINA BEE RN HOME TELEHEALTH BIOINFORMATICIAN Signed: 01/23/2025 09:14 CRISTINA BEE [place] [facility]
--- OUTSIDE RECORDS SUMMARY | 2025-01-23 13:03 | XMS_ITS | Encounter Summary ---
Author Name [facility] [place] [facility] [place] Address [address] [place] [id number] Care Team Providers Care Tubular Splitting Machine Tender Name Role Phone ASHLEIGH FIEDLS Primary Care Provider Unavailable Insurance Providers: All [...] LILIAM OLEARY Nov 30, 2019 MEDICAI D [id number] Catrina LEE PATIENT MEDICARE (WNR) MEDICARE (M) PART A January 25, 2018 PART A [id number] Catrina LEE PATIENT MEDICARE (WNR) MEDICARE (M) PART B January 25, 2018 PART B [id number] Catrina LEE PATIENT Selected Encounter This section includes the information on record at [place] for the Encounter. Date/Time Encounter Type Encounter Description Reason Provider Source Jun 21, 2024 01:30 PM OFFICE O/P EST MOD 30 MIN PRIMARY CARE/MEDICINE ICD-10-CM Z63.79 Other stressful life events affecting family and household MARVINJOVANA WONG [facility] Encounter Template Text not used by [facility] Assessments - Encounter Diagnoses This section includes the primary and secondary diagnoses documented for the Encounter. Date/Time Primary/Secondary Diagnosis Diagnosis Name Provider Source Jun 22, 2024 04:33 PM PRIMARY Other stressful life events affecting family and household JOVANA WONG [facility] Jun 22, 2024 04:33 PM SECONDARY Essential (primary) hypertension JOVANA WONG [facility] Jun 22, 2024 04:33 PM SECONDARY Other sleep apnea JOVANA WONG [facility] Jun 22, 2024 04:33 PM SECONDARY Tobacco use JOVANA WONG [facility] Plan of Treatment: Future Appointments (+ 6 months) and Future Tests (+/- 45 days) The Plan of Treatment section includes future care activities for the patient from all [place] [facility] This section includes future appointments and [...] AMBULATORY - NONE [facility] [place] [facility] Jul 31, 2024 01:30 PM AMBULATORY - MEDICINE [place] [facility] [place] [facility] Aug 16, 2024 08:00 AM AMBULATORY - NONE [facility] [place] [facility] Aug 21, 2024 02:30 PM AMBULATORY - MEDICINE [place] [facility] [place] [facility] Sep 14, 2024 07:30 AM AMBULATORY - NONE [facility] [place] [facility] Oct 02, 2024 10:00 AM AMBULATORY - MEDICINE [facility] [place] [facility] Oct 04, 2024 08:00 AM AMBULATORY - PSYCHIATRY [facility] Oct 17, 2024 03:00 PM AMBULATORY - PSYCHIATRY [facility] Oct 24, 2024 10:00 AM AMBULATORY - NONE [facility] [place] [facility] Oct 24, 2024 10:00 AM AMBULATORY - MEDICINE [facility] [place] [facility] Oct 24, 2024 03:00 PM AMBULATORY - PSYCHIATRY [facility] Oct 30, 2024 09:00 AM AMBULATORY - PSYCHIATRY [facility] Nov 15, 2024 01:00 PM AMBULATORY - MEDICINE [facility] [place] [facility] Nov 21, 2024 09:00 AM AMBULATORY - MEDICINE [facility] [place] [facility] Nov 28, 2024 10:00 AM AMBULATORY - MEDICINE [facility] [place] [facility] Nov 30, 2024 10:30 AM AMBULATORY - PSYCHIATRY [facility] [place] [facility] Dec 01, 2024 11:30 AM AMBULATORY - NONE [facility] [place] [facility] Dec 05, 2024 09:00 AM AMBULATORY - MEDICINE [facility] [place] [place] [facility] Dec 12, 2024 09:00 AM AMBULATORY - MEDICINE [facility] [place] [facility] Social History: Smoking Status (Most current) [...] place. Date/Time Current Smoking Status Comment Facil [facility] Apr 28, 2024 01:00 PM VA-TOBACCO USE [place] 30 MIN OF WAKE UP [facility] Tobacco Use History This section includes a history of the smoking, or tobacco-related health factors, that were collected on or before the date of the Encounter. The data comes from the [place] facility where the Encounter took place. Date/Time Smoking Status/Tobacco Use Comment F acility Apr 28, 2024 01:00 PM VA-TOBACCO USE ADVICE [facility] Apr 28, 2024 01:00 PM VA-TOBACCO USE MEDICAL OFFICE SCHEDULER NO [facility] Apr 28, 2024 01:00 PM VA-TOBACCO USE MED NO [facility] Apr 28, 2024 01:00 PM VA-TOBACCO USE WI 30 MIN OF WAKEUP [facility] [facility] Apr 28, 2024 01:00 PM VA-TOBACCO USER EVERY DAY [facility] Apr 27, 2023 01:30 PM VA-TOBACCO DOESNT USE WI 30 MIN [place] [facility] Apr 27, 2023 01:30 PM VA-TOBACCO USE 30 YEARS OR MORE [facility] Apr 27, 2023 01:30 PM VA-TOBACCO USE ADVICE [facility] Apr 27, 2023 01:30 PM VA-TOBACCO USE MEDICAL OFFICE SCHEDULER NO [facility] Apr 27, 2023 01:30 PM VA-TOBACCO USE MED NO [place] Apr 27, 2023 01:30 PM VA-TOBACCO USER EVERY DAY [facility] Jan 23, 2021 10:30 AM VA-TOBACCO USE 30 YEARS OR MORE [place] [facility] Jan 23, 2021 10:30 AM VA-TOBACCO USE ADVICE [facility] Jan 23, 2021 10:30 AM VA-TOBACCO USE MEDICAL OFFICE SCHEDULER NO [facility] Jan 23, 2021 10:30 AM VA-TOBACCO USE MED NO [facility] Jan 23, 2021 10:30 AM VA-TOBACCO USE [place] 30 MIN OF WAKEUP [facility] Jan 23, 2021 10:30 AM VA-TOBACCO USER EVERY DAY [facility] Oct 25, 2017 03:23 PM CURRENT SMOKER [facility] Oct 25, 2017 03:23 PM V1-PT NOT INTEREST ED IN QUIT TOBACCO USE [facility] Dec 15, 2016 10:59 AM CURRENT SMOKER [facility] Dec 15, 2016 10:59 AM V1-PT DECLINES REF TO TOBACCO CESS [facility] Dec 15, 2016 10:59 AM V1-PT THINKING ABO UT QUIT TOBACCO USE [facility] Jun 16, 2016 08:30 AM V1-PT DECLINES REF TO TOBACCO CESS [facility] Jun 16, 2016 08:30 AM V1-PT DECLINES TOB ACCO CESSATION MEDS [facility] Jun 16, 2016 08:30 AM V1-PT THINKING ABO UT QUIT TOBACCO USE [facility] Dec 17, 2015 09:00 AM CURRENT SMOKER smokes about one ppd of cigaretts. [facility] Dec 17, 2015 09:00 AM V1-PT THINKING ABO UT QUIT TOBACCO USE [facility] Encounter Notes: All associated encounter notes This [...] Referral: Patient declines participation in CCHT Program at this time. Pneumococcal Conjugate Vaccine [...] ALAN ALONSO LPN LPN Signed: 06/21/2024 13:37 ALAN ALONSO [facility] Jun 21, 2024 08:20 AM PHYSICIAN NOTE: [...] Appointments: 06/21/2024 13:30 CWM/SO/PACT 9 06/29/2024 07:30 [facility] 2 07/27/2024 07:30 [facility] 2 07/31/2024 13:30 [facility]/OPTOMETRY/[place] 03/23/2025 [...] MD PHYSICIAN Signed: 06/22/2024 16:33 CATHIE WONG [facility]
--- OUTSIDE RECORDS SUMMARY | 2025-01-23 13:03 | XMS_ITS ---
Author Name [facility] [place] [facility] [place] [facility] [place] Address [address] [place] [address] Care Team Providers Care Family Assistant Name Role Phone ASHLEIGH FIELDS Primary Care [...] Patient's Relationship to Policy [place] MEDICAID MEDICAID [facility] [place]H Nov 30, 2019 MEDICAI D [id number] Catrina LEE PATIENT MEDICARE (WNR) MEDICARE (M) PART A January 25, 2018 PART A [id number] Catrina LEE PATIENT MEDICARE (WNR) MEDICARE (M) PART B January 25, 2018 PART B [id number] Catrina LEE PATIENT Selected Encounter This section includes the information on record at [place] for the Encounter. Date/Time Encounter Type Encounter Description Reason Provider Source Dec 05, 2024 09:00 AM OFF/OP EST JANUARY X REQ PHY/QHP PRIMARY CARE/MEDICINE ICD-10-CM I10 Essential (primary) hypertension KEYLA REECE IHE Encounter Template Text not used by [place] Assessments - Encounter Diagnoses This section includes the primary and secondary diagnoses documented for the Encounter. Date/Time Primary/Secondary Diagnosis Diagnosis Name Provider Source Dec 05, 2024 02:12 PM PRIMARY Essential (primary) hypertension KEYLA REECE [facility] Plan of Treatment: Future Appointments (+ 6 months) and Future Tests (+/- 45 days) The Plan of Treatment section includes future care activities for the [facility] [place] [facility] This section includes future appointments and future orders which are active, pending or scheduled. Future Appointments This section includes appointments that were scheduled to occur 6 months from the date of the Encounter, up to a maximum of 20 appointments. The data comes from all [place] treatment facilities. Appointment Date/Time Appointment Type Appointme nt Facility Name Dec 12, 2024 09:00 AM AMBULATORY - MEDICINE [facility] Jan 01, 2025 10:30 AM AMBULATORY - PSYCHIATRY [facility] January 30, 2025 09:30 AM AMBULATORY - MEDICINE [facility] Mar 19, 2025 10:00 AM AMBULATORY MEDICINE [facility] Active, Pending, and Scheduled Orders This section includes a listing of several types of active, pending, and scheduled orders, including clinic medications orders, diagnostic test orders, procedure orders and consult orders; where the start date of the order is 45 days before the date of the Encounter or 45 days after the date of theEncounter. The data comes from all [facility]. Test Date/Time Test Type Test Details Facility Name Oct 30, 2024 10:35 AM Consult Order PSYCHOTHERAPY [facility] OUTPT [facility] Nov 15, 2024 03:14 PM Consult Order COMMUNITY CARE-NEUROLOGY [facility] Dec 12, 2024 12:00 AM Laboratory - Chemistry Order OCCULT BLOOD FIT X1 SCREEN(IN-HOUSE) STOOL [facility] Jan 01, 2025 10:39 AM Consult Order BHIP PSYCHIATRIC MEDICATION/[facility]OPC OUTPT [facility] Lab Results: +/- 30 days of the encounter This section includes the Chemistry and Hematology Lab Results on record with [place] for the patient. Radiology Reports and Pathology Reports are provided separately, in subsequent sections. Lab Results This section contains the Chemistry/Hematology Results that were resulted 30 days before or 30 daysafter the date of the Encounter. Date/Time Source Result Type Result - Unit Interpretation Reference Range Specimen Type Comment Dec 07, 2024 02:16 PM [facility] BASIC METABOLIC PANEL (non-fasting) SERUM Spe cimen Type: SERUM No comment entered. Ordering Provider: IZZY ALMARAZ Report Released Date/Time: Dec 06, 2024 09:00 AM Reporting Lab: [address] [phone] Performing Lab: [address] [address] UREA NITROGEN 36 mg/dL H 7-25 GLUCOSE 90 mg/dL 65-100 SODIUM 140 mmol/L 135-145 POTASSIUM 4.4 mmol/L 3.5-5.0 CHLORIDE 110 mmol/L 100-110 CO2 23 meq/L 20-30 CALCIUM 8.7 mg/dL 8.5-10.2 CREATININE, Serum 1.28 mg/dL 0.50-1.40 eGFR(CKD-EPI 2020) 59 mL/min L >60 Dec 05, 2024 08:05 AM [facility] BASIC METABOLIC PANEL (non-fasting) SERUM Spe cimen Type: SERUM No comment entered. Ordering Provider: IZZY ALMARAZ Report Released Date/Time: Nov 28, 2024 03:13 PM Reporting Lab: [address] [address] Performing Lab: [address] [address] UREA NITROGEN 39 mg/dL H 7-25 GLUCOSE 106 mg/dL H 65-100 SODIUM 143 mmol/L 135-145 POTASSIUM 5.0 mmol/L 3.5-5.0 CHLORIDE 111 mmol/L H 100-110 CO2 24 meq/L 20-30 CALCIUM 9.2 mg/dL 8.5-10.2 CREATININE, Serum 1.51 mg/dL H 0.50-1.40 eGFR(CKD-EPI 2020) 49 mL/min L >60 Nov 28, 2024 11:05 AM [facility] BASIC METABOLIC PANEL (non-fasting) SERUM Spe cimen Type: SERUM No comment entered. Ordering Provider: IZZY ALMARAZ Report Released Date/Time: Nov 21, 2024 11:50 AM Reporting Lab: [facility] [address] [facility] [address] Performing Lab: [address] [address] UREA NITROGEN 31 mg/dL H 7-25 GLUCOSE 101 mg/dL H 65-100 SODIUM 141 mmol/L 135-145 POTASSIUM 4.7 mmol/L 3.5-5.0 CHLORIDE 110 mmol/L 100-110 CO2 26 meq/L 20-30 CALCIUM 9.5 mg/dL 8.5-10.2 CREATININE, Serum 1.16 mg/dL 0.50-1.40 eGFR(CKD-EPI 2020) 67 mL/min >60 Nov 15, 2024 12:51 PM [facility] HEMOGLOBIN A1C PANEL BLOOD Specimen Type: [...] Nov 15, 2024 10:22 AM Reporting Lab: [address] [phone] Performing Lab: [address] [address] HEMOGLOBIN A1C 5.6 4.0-5.6 Nov 15, 2024 12:51 PM [facility] BASIC METABOLIC PANEL (fasting) SERUM Specime n Type: SERUM No comment entered. Ordering Provider: IZZY ALMARAZ Report Released Date/Time: Nov 15, 2024 10:22 AM Reporting Lab: [facility] [address] [facility] [address] Performing Lab: [facility] [address] [facility] [address] UREA NITROGEN 33 mg/dL H 7-25 GLUCOSE 89 mg/dL 65-100 SODIUM 144 mmol/L 135-145 POTASSIUM 4.9 mmol/L 3.5-5.0 CHLORIDE 108 mmol/L 100-110 CO2 28 meq/L 20-30 CALCIUM 9.7 mg/dL 8.5-10.2 CREATININE, Serum 1.08 mg/dL 0.50-1.40 eGFR(CKD-EPI 2020) 73 mL/min >60 Nov 15, 2024 12:51 PM [facility] LIPID PANEL FASTING SERUM Specimen Type: SERU M No comment entered. Ordering Provider: IZZY ALMARAZ Report Released Date/Time: Nov 15, 2024 10:22 AM Reporting Lab: [facility] [address] [facility] [address] Performing Lab: [address] [address] CHOLESTEROL 184 mg/dL TRIGLYCERIDE 131 mg/dL 0-150 LDL calculated 120 mg/dL 0-129 CHOL/HDL 4.8 HDL CHOLESTEROL 38 mg/dL L 40-60 Nov 15, 2024 12:51 PM [facility] LIVER FUNCTION SERUM Specimen Type: SERUM No comment entered. Ordering Provider: IZZY ALMARAZ Report Released Date/Time: Nov 15, 2024 10:22 AM Reporting Lab: [facility] [address] [facility] [address] Performing Lab: [address] [address] PROTEIN,TOTAL 6.8 g/dL 6.0-8.3 ALBUMIN 3.6 g/dL 3.5-5.0 ALKALINE PHOSPHATASE 65 U/L 40-150 AST 14 U/L 5-34 ALT 16 U/L BILIRUBIN, TOTAL 0.4 mg/dL 0.2-1.2 Nov 15, 2024 12:51 PM [facility] [place] [facility] TSH SERUM Specimen Type: SERUM No comment entered. Ordering Provider: IZZY ALMARAZ Report Released Date/Time: Nov 15, 2024 10:22 AM Reporting Lab: [facility] [place] [facility] [address] [facility] [address] Performing Lab: [facility] [place] [facility] [address] [facility] [address] TSH 1.83 u[IU]/mL 0.35-5.00 Nov 15, 2024 12:51 PM [facility] [place] [facility] CREATININE (eGFR 2020) SERUM Specimen Type: S JALEEL No comment entered. Ordering Provider: IZZY ALMARAZ Report Released Date/Time: Nov 15, 2024 10:22 AM Reporting Lab: [place] [facility] [place] [facility] [address] [facility] [address] Performing Lab: [place] [facility] [place] [facility] [address] [facility] [address] CREATININE, Serum 1.08 mg/dL 0.50-1.40 eGFR(CKD-EPI 2020) 73 mL/min >60 Nov 15[facility] 2024 12:51 PM [facility] [place] [facility] MICROALBUMIN CREATININE RATIO PANEL URINE Spe cimen Type: URINE No comment entered. Ordering Provider: IZZY ALMARAZ Report Released Date/Time: Nov 15, 2024 10:22 AM Reporting Lab: [facility] [place] [facility] [address] [facility] [address] Performing Lab: [facility] [place] [address] [address] MICROALBUMIN/CREATININE RATIO 78.2 mg/g H 0-29.9 MICROALBUMIN,QUANTITATIVE 6.1 mg/dL RR U NAVAIL CREATININE URINE 78.00 mg/dL Nov 15, 2024 12:51 PM [facility] [place] [facility] CBC AND DIFF (AUTO) BLOOD Specimen Type: BLOO D No comment entered. Ordering Provider: IZZY ALMARAZ Report Released Date/Time: Nov 15, 2024 10:22 AM Reporting Lab: [place] [facility] [place] [facility] [address] [facility] [address] Performing Lab: [place] [facility] [place] [facility] [address] [facility] [address] WBC 6.78 10*3/uL 4.50-11.00 RBC 4.60 10*6/uL [...] Height Weight Body Mass Index Source Dec 05, 2024 09:20 AM 142/64 [place] [facility] [place] [facility] Dec 05, 2024 09:10 AM 146/68 [place] [facility] [place] [facility] Dec 05, 2024 09:05 AM 64 150/72 [facility] [place] [facility] Encounter Notes: All associated encounter notes This section contains the clinical notes associated to the Encounter. Date/Time Encounter Note(s) Provider Source Dec 05, 2024 09:06 AM PRIMARY CARE OUTPA TIENT NOTE: LOCAL TITLE: AMBULATORY/OUTPATIENT CARE NOTE STANDARD TITLE: PRIMARY CARE OUTPATIENT NOTE DATE OF NOTE: DEC 05, 2024@09:06 ENTRY DATE: DEC 05, 2024@09:06:07 AUTHOR: KEYLA REECE EXP COSIGNER: URGENCY: STATUS: COMPLETED AMBULATORY/OUTPATIENT CARE NOTE Has ADDENDA F: Nursing Clinic/Blood pressure check D: [place] presents to the Primary care clinic for a blood pressure check per Izzy Almaraz DNP. Vet has history of hypertension. BLOOD PRESSURE READINGS (Manually) BP- 150/72 (09:05) 146/68 (09:10) 142/64 (09:20) P- 64 BLOOD PRESSURE MEDICATIONS: Lisinopril 20 mg 1 PO daily Metoprolol Succinate 25 mg 1 PO daily Any changes or additions to allergies/adverse reactions. No Any medication changes since last appointment. Lisinopril increased from 10 to 20 mg daily Patient reports adherence to medication regimen. Yes Patient is currently prescribed blood pressure medication. Date of last dose: 12/04/24 Approx. time of last dose: 8pm Diet: Paleo Physical Activity: Walks Tobacco: 2 cigarettes a day ETOH: Once a week Caffeine: No Communicated with Izzy Almaraz DNP- no changes in medications at this time. R: RTC for PCP appt on 12/12@09:00 /alfred/ KEYLA REECE, MSN, RN, CNL PRIMARY CARE TEAM NURSE Signed: 12/05/2024 14:13 Receipt Acknowledged By: 12/09/2024 16:52 /alfred/ IZZY ALMARAZ NP NURSE PRACTITIONER 12/06/2024 ADDENDUM STATUS: COMPLETED Call back to [place]. Informed him that his labs from yesterday, 12/05/24 show that his renal function is slightly elevated. Per Izzy Almaraz DNP, he is to hydrate and come to the lab, either [facility] or [facility] this or Wednesday to recheck his renal function. agrees with brenna /alrfed/ KEYLA REECE, MSN, RN, CNL PRIMARY CARE TEAM NURSE Signed: 12/06/2024 09:12 12/12/2024 ADDENDUM STATUS: COMPLETED Patient Name: EVA LEE Disease(s): Hypertension Date Range: 12/01/2024-12/12/2024 [facility] Vitals Report Reading Date Sys/Roz BP-HR 12/12/24 184/70 (07:01) 64 (07:01) 12/11/24 179/66 (22:03) 82 (22:03) 12/11/24 179/70 (15:45) 72 (15:45) 12/11/24 185/85 (06:40) 62 (06:40) 12/10/24 212/88 (21:46) 75 (21:46) 12/10/24 198/88 (16:37) 75 (16:37) 12/10/24 167/62 (08:32) 66 (08:32) 12/09/24 143/65 (21:38) 74 (21:38) 12/09/24 173/77 (14:55) 70 (14:55) 12/09/24 191/76 (09:58) 61 (09:58) 12/08/24 186/66 (22:45) 75 (22:45) 12/08/24 166/70 (18:56) 69 (18:56) 12/08/24 174/74 (08:03) 58 (08:03) 12/07/24 184/77 (15:33) 65 (15:33) 12/07/24 173/104 (09:46) 64 (09:46) 12/06/24 136/54 (21:55) 72 (21:55) 12/06/24 179/76 (14:53) 62 (14:53) 12/06/24 151/63 (08:24) 69 (08:24) 12/06/24 162/66 (08:23) 70 (08:23) Blood Pressure Readings: Date 04:00-12:00 12:00-18:00 18:00-04:00 12/12/24 184/70 64(07:01) 03/17/25 185/85 62(06:40) 179/70 72(15:45) 179/66 82(22:03) 12/10/24 167/62 66(08:32) 198/88 75(16:37) 212/88 75(21:46) 12/09/24 191/76 61(09:58) 173/77 70(14:55) 143/65 74(21:38) 12/08/24 174/74 58(08:03) 186/66 75(22:45) 166/70 69(18:56) 12/07/24 173/104 64(09:46) 184/77 65(15:33) 12/06/24 151/63 69(08:24) 179/76 62(14:53) 136/54 72(21:55) 162/66 70(08:23) [facility] Average Report Sys/Roz BP-HR Average 175/74 69 High 212/104 82 Low 136/54 58 Blood Pressure Summary: 04:00-12:00 12:00-18:00 18:00-04:00 Average 173/75 64 183/78 69 170/68 74 High 191/104 70 198/88 75 212/88 82 Low 151/62 58 173/70 62 136/54 69 /es/ CRISTINA BEE RN HOME TELEHEALTH HAIR MIXER Signed: 12/12/2024 08:53 KEYLA REECE [facility]
--- OUTSIDE RECORDS SUMMARY | 2025-01-23 13:03 | XMS_ITS | Encounter Summary ---
Author Organization [facility] Address [address] [place] [address] Care Team Providers Care Surveillance Investigator Name Role Phone Renee Nogueira MD Primary Care Provider Rochelle Chandan Ruiz PA-C Primary Care Provider Unavail able Encounter Details Date Type Department Care Team Description 01/20/2019 X Ray Equipment Mechanic Report Medical Records [address] [place] [id number] Víctor Ray MD Social History Tobacco Use Types Packs/Day [...] on filedocumented in this encounter Care Teams Surveillance Investigator Relationship Specialty Start Date End Date Renee Nogueira MD PCP - General Internal Medicine 06/22/17 Chandan Mayorga PA-C PCP - General Med/Peds 08/11/21 documented as of this encounter
--- OUTSIDE RECORDS SUMMARY | 2025-01-23 13:03 | XMS_ITS ---
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 Date/Time Encounter Type Encounter Description Reason Provider Source Nov 21, 2024 09:00 AM OFF/OP EST JANUARY X REQ PHY/QHP PRIMARY CARE/MEDICINE ICD-10-CM I10 Essential (primary) hypertension KEYLA REECE E Encounter Template Text not used by PA Assessments - Encounter Diagnoses This section includes the primary and secondary diagnoses documented for the Encounter. Date/Time Primary/Secondary Diagnosis Diagnosis Name Provider Source Nov 24, 2024 03:28 PM PRIMARY Essential (primary) hypertension KEYLA REECE [place] [facility] [place] [facility] Plan of Treatment: Future Appointments (+ 6 months) and Future Tests (+/- 45 days) The Plan of Treatment section includes future care activities for the patient [facility] This section includes future appointments and future orders which are active, pending or scheduled. Future Appointments This section includes appointments that were scheduled to occur 6 months from the date of the Encounter, up to a maximum of 20 appointments. The data comes from all [place] treatment [facility]. Appointment Date/Time Appointment Type Appointme nt Facility Name Nov 28, 2024 10:00 AM AMBULATORY - MEDICINE PA C [facility] [place] [facility] Nov 30, 2024 10:30 AM AMBULATORY - PSYCHIATRY [place] [facility] [place] [facility] Dec 01, 2024 11:30 AM AMBULATORY - NONE [place] [facility] [place] [facility] Dec 05, 2024 09:00 AM AMBULATORY - MEDICINE PA C [facility] [place] [facility] Dec 12, 2024 09:00 AM AMBULATORY - MEDICINE PA C [facility] [place] [facility] Jan 01, 2025 10:30 AM AMBULATORY - PSYCHIATRY [place] [facility] [place] [facility] January 30, 2025 09:30 AM AMBULATORY - MEDICINE [facility] [place] [facility] Mar 19, 2025 10:00 AM AMBULATORY - MEDICINE [facility] [place] [facility] Active, Pending, and Scheduled Orders This section includes a listing of several types of active, pending, and scheduled orders, including clinic medications orders, diagnostic test orders, procedure orders and consult orders; where the start date of the order is 45 days before the date of the Encounter or 45 days after the date of theEncounter. The data comes from all [place] treatment [facility]. Test Date/Time Test Type Test Details Facility Name Oct 30, 2024 10:35 AM Consult Order PSYCHOTHERAPY SOPC OUTPT Cons Meat Counter Clerk's Choice [place] Nov 15, 2024 03:14 PM Consult Order COMMUNITY CARE-NEUROLOGY Cons Meat Counter Clerk's Choice [facility] Dec 12, 2024 12:00 AM Laboratory - Chemistry Order OCCULT BLOOD FIT X1 SCREEN(IN-HOUSE) STOOL FECES SP [facility] Jan 01, 2025 10:39 AM Consult Order BHIP PSYCHIATRIC MEDICATION/SOPC OUTPT Cons Meat Counter Clerk's Choice [facility] Lab Results: +/- 30 days of the encounter This section includes the Chemistry and Hematology Lab Results on record with PA for the patient. Radiology Reports and Pathology Reports are provided separately, in subsequent sections. Lab Results This section contains the Chemistry/Hematology Results that were resulted 30 days before or 30 daysafter the date of the Encounter. Date/Time Source Result Type Result - Unit Interpretation Reference Range Specimen Type Comment Dec 07, 2024 02:16 PM [facility] BASIC METABOLIC PANEL (non-fasting) SERUM Spe cimen Type: SERUM No comment entered. Ordering Provider: MO ALMARAZ Report Released Date/Time: Dec 06, 2024 09:00 AM Reporting Lab: [address] [address] Performing Lab: [address] [address] UREA NITROGEN 36 mg/dL H 7-25 GLUCOSE 90 mg/dL 65-100 SODIUM 140 mmol/L 135-145 POTASSIUM 4.4 mmol/L 3.5-5.0 CHLORIDE 110 mmol/L 100-110 CO2 23 meq/L 20-30 CALCIUM 8.7 mg/dL 8.5-10.2 CREATININE, Serum 1.28 mg/dL 0.50-1.40 eGFR(CKD-EPI 2020) 59 mL/min L >60 Dec 05, 2024 08:05 AM [facility] BASIC METABOLIC PANEL (non-fasting) SERUM Spe cimen Type: SERUM No comment entered. Ordering Provider: MO ALMARAZ Report Released Date/Time: Nov 28, 2024 03:13 PM Reporting Lab: [address] [address] Performing Lab: [facility] [address] [facility] [address] UREA NITROGEN 39 mg/dL H 7-25 GLUCOSE 106 mg/dL H 65-100 SODIUM 143 mmol/L 135-145 POTASSIUM 5.0 mmol/L 3.5-5.0 CHLORIDE 111 mmol/L H 100-110 CO2 24 meq/L 20-30 CALCIUM 9.2 mg/dL 8.5-10.2 CREATININE, Serum 1.51 mg/dL H 0.50-1.40 eGFR(CKD-EPI 2020) 49 mL/min L >60 Nov 28, 2024 11:05 AM [facility] BASIC METABOLIC PANEL (non-fasting) SERUM Spe cimen Type: SERUM No comment entered. Ordering Provider: MO ALMARAZ Report Released Date/Time: Nov 21, 2024 11:50 AM Reporting Lab: [address] [address] Performing Lab: [address] [address] UREA NITROGEN 31 mg/dL H 7-25 GLUCOSE 101 mg/dL H 65-100 SODIUM 141 mmol/L 135-145 POTASSIUM 4.7 mmol/L 3.5-5.0 CHLORIDE 110 mmol/L 100-110 CO2 26 meq/L 20-30 CALCIUM 9.5 mg/dL 8.5-10.2 CREATININE, Serum 1.16 mg/dL 0.50-1.40 eGFR(CKD-EPI 2020) 67 mL/min >60 Nov 15, 2024 12:51 PM [facility] HEMOGLOBIN A1C PANEL BLOOD Specimen Type: [...] Nov 15, 2024 10:22 AM Reporting Lab: [address] [place] [address] Performing Lab: [facility] [address] [facility] [address] HEMOGLOBIN A1C 5.6 4.0-5.6 Nov 15, 2024 12:51 PM [facility] BASIC METABOLIC PANEL (fasting) SERUM Specime n Type: SERUM No comment entered. Ordering Provider: MO ALMARAZ Report Released Date/Time: Nov 15, 2024 10:22 AM Reporting Lab: [facility] [address] [facility] [address] Performing Lab: [address] [address] UREA NITROGEN 33 mg/dL H 7-25 GLUCOSE 89 mg/dL 65-100 SODIUM 144 mmol/L 135-145 POTASSIUM 4.9 mmol/L 3.5-5.0 CHLORIDE 108 mmol/L 100-110 CO2 28 meq/L 20-30 CALCIUM 9.7 mg/dL 8.5-10.2 CREATININE, Serum 1.08 mg/dL 0.50-1.40 eGFR(CKD-EPI 2020) 73 mL/min >60 Nov 15, 2024 12:51 PM [facility] LIPID PANEL FASTING SERUM Specimen Type: SERU M No comment entered. Ordering Provider: MO ALMARAZ Report Released Date/Time: Nov 15, 2024 10:22 AM Reporting Lab: [facility] [address] [facility] [address] Performing Lab: [address] [address] CHOLESTEROL 184 mg/dL TRIGLYCERIDE 131 mg/dL 0-150 LDL calculated 120 mg/dL 0-129 CHOL/HDL 4.8 HDL CHOLESTEROL 38 mg/dL L 40-60 Nov 15, 2024 12:51 PM [facility] LIVER FUNCTION SERUM Specimen Type: SERUM No comment entered. Ordering Provider: MO ALMARAZ Report Released Date/Time: Nov 15, 2024 10:22 AM Reporting Lab: [facility] [address] [facility] [address] Performing Lab: [place] [facility] [address] [facility] [address] PROTEIN,TOTAL 6.8 g/dL 6.0-8.3 ALBUMIN 3.6 g/dL 3.5-5.0 ALKALINE PHOSPHATASE 65 U/L 40-150 AST 14 U/L 5-34 ALT 16 U/L BILIRUBIN, TOTAL 0.4 mg/dL 0.2-1.2 Nov 15, 2024 12:51 PM [facility] TSH SERUM Specimen Type: SERUM No comment entered. Ordering Provider: MO ALMARAZ Report Released Date/Time: Nov 15, 2024 10:22 AM Reporting Lab: [facility] [place] [facility] [address] [facility] [address] Performing Lab: [facility] [place] [address] [address] TSH 1.83 u[IU]/mL 0.35-5.00 Nov 15, 2024 12:51 PM [facility] CREATININE (eGFR 2020) SERUM Specimen Type: S JALEEL No comment entered. Ordering Provider: MO ALMARAZ Report Released Date/Time: Nov 15, 2024 10:22 AM Reporting Lab: [place] [facility] [place] [facility] [address] [facility] [address] Performing Lab: [facility] [place] [address] [address] CREATININE, Serum 1.08 mg/dL 0.50-1.40 eGFR(CKD-EPI 2020) 73 mL/min >60 Nov 15, 2024 12:51 PM [facility] MICROALBUMIN CREATININE RATIO PANEL URINE Spe cimen Type: URINE No comment entered. Ordering Provider: MO ALMARAZ Report Released Date/Time: Nov 15, 2024 10:22 AM Reporting Lab: [facility] [place] [address] [address] Performing Lab: [facility] [place] [facility] [address] [facility] [address] MICROALBUMIN/CREATININE RATIO 78.2 mg/g H 0-29.9 MICROALBUMIN,QUANTITATIVE 6.1 mg/dL RR U NAVAIL CREATININE URINE 78.00 mg/dL Nov 15, 2024 12:51 PM [facility] CBC AND DIFF (AUTO) BLOOD Specimen Type: BLOO D No comment entered. Ordering Provider: MO ALMARAZ Report Released Date/Time: Nov 15, 2024 10:22 AM Reporting Lab: [facility] [address] [facility] [address] Performing Lab: [facility] [address] [facility] [address] WBC 6.78 10*3/uL 4.50-11.00 RBC 4.60 10*6/uL [...] Height Weight Body Mass Index Source Nov 21, 2024 09:50 AM 68 152/80 [facility] [place] [facility] Nov 21, 2024 09:49 AM 68 154/78 [facility] Encounter Notes: All associated encounter notes This section contains the clinical notes associated to the Encounter. Date/Time Encounter Note(s) Provider Source Nov 21, 2024 09:35 AM PRIMARY CARE OUTPA TIENT NOTE: LOCAL TITLE: AMBULATORY/OUTPATIENT CARE NOTE STANDARD TITLE: PRIMARY CARE OUTPATIENT NOTE DATE OF NOTE: NOV 21, 2024@09:35 ENTRY DATE: NOV 21, 2024@09:35:34 AUTHOR: KEYLA REECE COSIGNER: URGENCY: STATUS: COMPLETED F: Nursing Clinic/Blood pressure check D: presents to the Primary care clinic for a blood pressure check. Vet has history of hypertension. seen on 11/15/24 in sick call due to elevated blood pressure. He is transferring his Primary care from [facility] to [facility]. BLOOD PRESSURE READINGS (Manually) BP- 154/78- right arm 152/80- left arm P- 68 [place] has been checking his blood pressure at home three times a day BLOOD PRESSURE MEDICATIONS: Lisinopril 5mg 1 PO daily Metoprolol Succinate 25mg 1 PO daily Any changes or additions to allergies/adverse reactions. No Any medication changes since last appointment. Lisinopril 5mg 1 PO daily added Patient reports adherence to medication regimen. Yes Patient is currently prescribed blood pressure medication. Date of last dose: 11/20/24 Approx. time of last dose: 6pm Diet: Decreasing salt Paleo diet Physical Activity: Walks Tobacco: 2 cigarettes a day ETOH: Once a week Caffeine: No started the Lisinopril 5mg 1 PO daily on 11/16/24. He has been monitoring his BP at home- He started the med on 11/16- pressures were 140s/160s/60s but now at home they're increased to 170s-180s/70s. Pulse has been 65-74. Milieu Counselor communicated with JENIFFER Mchugh. Plan- increase Lisinopril to 10mg 1 PO daily, repeat blood pressure check in one week with labs. R: RTC 11/28@10:00 /alfred/ KEYLA REECE, MSN, RN, CNL PRIMARY CARE TEAM NURSE Signed: 11/24/2024 15:28 Receipt Acknowledged By: 11/26/2024 08:31 /alfred/ MO ALMARAZ NP NURSE PRACTITIONER KEYLA REECE [facility]
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
--- OUTSIDE RECORDS SUMMARY | 2025-01-23 13:03 | XMS_ITS | Encounter Summary ---
Author Organization [facility] Address [address] [place] [address] Care Team Providers Care Equipment Cleaner Name Role Phone Renee Nogueira MD Primary Care Provider Rochelle Chandan Ruiz PA-C Primary Care Provider Unavail able Encounter Details Date Type Department Care Team Description 05/25/2019 Loading Inspector Report Medical Records [address] [place] [id number] [place] [address] Social History Tobacco Use Types Packs/Day Years [...] on filedocumented in this encounter Care Teams Equipment Cleaner Relationship Specialty Start Date End Date Renee Nogueira MD PCP - General Internal Medicine 06/22/17 Chandan Mayorga PA-C PCP - General Med/Peds 08/11/21 documented as of this encounter
--- OUTSIDE RECORDS SUMMARY | 2025-01-23 13:03 | XMS_ITS | Clinical Summary ---
Author Organization [facility] Address [address] [place] [address] Care Team Providers Care Systems Security Consultant Name Role Phone Chandan Mayorga PA-C Primary Care Provider Unavail able Allergies No known active allergies Medications Medication Sig Dispensed Refills Start Date End Date Status loratadine (CLARITIN) 10 MG tablet Take 10 mg by mouth daily. 0 Active amlodipine (NORVASC) 5 MG tablet Take 1 Tab by mouth daily for 30 days. 30 Tab 1 11/13/2019 Active Active Problems Problem Noted Date Prostatic adenocarcinoma 01/12/2019 Overview: 11/2018 [facility], Dr. Wilman Ross 06/04 Has been getting various opinions from different specialist sites, pursuing immunotherapy, does not want to have surgery Hyperlipemia 11/08/2017 Overview: ASCVD risk 16.7%, declined statin Essential hypertension 08/12/2017 Erectile dysfunction 08/02/2017 BPH (benign prostatic hyperplasia) 08/02 Hypertriglyceridemia 08/02/2017 Schizoaffective disorder, depressive typ e 08/02/2017 Other stressful life events affecting fa glendy and household 08/02/2017 Overview: with custody of 3 children Cataract 08/02/2017 Overview: Early, bilateral as of March 2017 History of retinal tear 08/02/2017 Overview: OS, s/p laser repair Rosacea 08/02/2017 Allergic rhinitis 07/29/2017 Osteoarthritis Overview: wrist and hands, mild GERTRUDIS (obstructive sleep apnea) Overview: On auto titrating PAP pressure 5-20 cm of H2O Elevated PSA Overview: Dr Tahir Galindo 06/04/17 [facility], referred to [facility] for biopsy Of note; bx done [facility] ( [facility]) negative for malignancy 2017: eval with [facility], Dr. 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 Sex Assigned at Date Recorded Male 10/20/2021 7:[address] Last Filed Vital Signs Vital Sign Reading Time Taken Comments Blood Pressure 152/82 08/04/2019 2:29 PM EST Pulse 72 08/04/2019 2:29 PM EST Temperature 36.4 ??C (97.6 ??F) 03/31/2018 10:56 AM E DT Respiratory Rate 10 08/04/2019 2:29 PM EST Oxygen Saturation 96% 04/13/2018 10:22 AM EDT Inhaled Oxygen Concentration - - Weight 83.9 kg (185 lb) 08/04/2019 2:29 PM EST Height 165.1 cm (5' 5 ) 08/04/2019 2:29 PM EST Body Mass Index 30.79 08/04/2019 2:29 PM EST Plan of Treatment Health Maintenance Due Date Last Done Comments Covid-19 Vaccine (#1) 1955 DTAP/TDAP/TD (1 - Tdap) 02/15/1972 Lung Cancer Screening (Low D ose CT) 02/15/2008 SHINGLES VACCINE (2 of 3) 06/15/2016 04/20/2016 PNEUMOCOCCAL VACCINE (2 - PCV) 2018 04/20/2016 COLON CANCER SCREENING 06/24/2019 6, 06/24/2016 (External Completion), 05/29/2015 (External Completion) DEPRESSION SCREEN 12/23/2019 12/22/2018 FALL RISK ASSESSMENT 12/23/2019 12/22/2018 TOBACCO CHECK/ADVISE 02/08/2020 02/07/2018 (Complete d) CHOLESTEROL SCREENING 07/28/2024 07/28/2019 , 07/29/2017, 03/23/2017 (External Completion) BMI CHECK/ADVISE 09/27/2024 06/27/2019, , 10/18/2018, Additional history exists INFLUENZA (Season Ended) 2025 07/29/2017 (Refu sed) ABDOMINAL AORTIC ANEURYSM (A AA) SCREENING Completed 01/03/2019, 01/03/2019 (Completed) HEPATITIS C SCREENING Completed 07/28/2019 Care Teams Systems Security Consultant Relationship Specialty Start Date End Date Chandan Mayorga PA-C PCP - General Med/Peds 08/11/21
--- OUTSIDE RECORDS SUMMARY | 2025-01-23 13:03 | XMS_ITS | Encounter Summary ---
Author Name [facility] [place] Organization [facility] [place] [facility] [place] Address [address] [place] [id number] Care Team Providers Care Metal Ceiling Hanger Name Role Phone ASHLEIGH FIELDS Primary Care [...] LILIAM OLEARY Nov 30, 2019 MEDICAI D [id number] Catrina LEE PATIENT MEDICARE (WNR) MEDICARE (M) PART A January 25, 2018 PART A [id number] Catrina LEE PATIENT MEDICARE (WNR) MEDICARE (M) PART B January 25, 2018 PART B [id number] Catrina LEE PATIENT Selected Encounter This section includes the information on record at [place] for the Encounter. Date/Time Encounter Type Encounter [...] PM PRIMARY Essential (primary) hypertension JOVANA WONG [facility] [facility] May 24, 2024 02:15 PM SECONDARY Tobacco use JOVANA WONG [place] Plan of Treatment: Future Appointments (+ 6 months) and Future Tests (+/- 45 days) The Plan of Treatment section includes future care activities for the patient from all [place] treatmentfacilities. This section includes future appointments and future orders which are active, pending or scheduled. Future Appointments This section includes appointments that were scheduled to occur 6 months from the date of the Encounter, up to a maximum of 20 appointments. The data comes from all [place] treatment facilities. Appointment Date/Time Appointment Type Appointme nt Facility Name Mar 29, 2024 11:00 AM AMBULATORY - PSYCHIATRY [facility] Apr 17, 2024 11:00 AM [facility] Apr 24, 2024 11:00 AM [facility] Apr 28, 2024 01:00 PM AM[facility]ULATORY [facility] May 01, 2024 11:00 AM [facility] May 11, 2024 07:30 AM AMBULATORY - NONE [facility] May 30, 2024 11:00 AM AM[facility]UL[facility] Jun 21, 2024 01:30 PM AM[facility]UL[facility] Jun 29, 2024 07:30 AM AMBULATORY - NONE [facility] Jul 31, 2024 01:30 PM AM[facility]UL[facility]ORY [facility] Aug 16, 2024 08:00 AM AMBULATORY - NONE [facility] Aug 21, 2024 02:30 PM AM[facility]UL[facility]ORY [facility] Sep 14, 2024 07:30 AM AMBULATORY - NONE [facility] Social History: Smoking Status (Most current) and Tobacco Use (All prior to encounter date) This section includes the most current, and the historical, smoking and tobacco- related health factors from the [place] facility where the Encounter took place. Current Smoking Status This section includes the most current smoking, or tobacco-related health factor, from the [place] facility where the Encounter took place. Date/Time Current Smoking Status Comment Dannie ity Apr 27, 2023 01:30 PM VA-TOBACCO USER EVERY DAY [place] Tobacco Use History This section includes a history of the smoking, or tobacco-related health factors, that were collected on or before the date of the Encounter. The data comes from the [place] facility where the Encounter took place. 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 NO [place] Jan 23, 2021 10:30 AM VA-TOBACCO USE MED NO [place] Jan 23, 2021 10:30 AM VA-TOBACCO USE WI 30 MIN OF WAKEUP [facility] [place] Jan 23, 2021 10:30 AM VA-TOBACCO USER EVERY DAY [place] Oct 25, 2017 03:23 PM CURRENT SMOKER [facility] Oct 25, 2017 03:23 PM V1-PT NOT INTEREST ED IN QUIT TOBACCO USE [place] Dec 15, 2016 10:59 AM CURRENT SMOKER [facility] Dec 15, 2016 10:59 AM V1-PT DECLINES REF TO TOBACCO CESS [facility] Dec 15, 2016 10:59 AM V1-PT THINKING ABO UT QUIT TOBACCO USE [place] Jun 16, 2016 08:30 AM V1-PT DECLINES REF TO [facility]ACCO [facility]ESS [facility] Jun 16, 2016 08:30 AM V1-PT DECLINES TOB ACCO CESSATION MEDS [place] Jun 16, 2016 08:30 AM V1-PT THINKING ABO UT QUIT TOBACCO USE [place] [place] Dec 17, 2015 09:00 AM CURRENT SMOKER smokes about one ppd of cigaretts. [facility] Dec 17, 2015 09:00 AM V1-PT THINKING ABO UT QUIT TOBACCO USE [place] Encounter Notes: All associated encounter notes This section contains the clinical notes associated to the Encounter. Date/Time Encounter Note(s) Provider Source Mar 24, 2024 09:46 AM ADDENDUM: LOCAL TITLE: Addendum STANDARD TITLE: ADDENDUM DATE OF NOTE: MAR 24, 2024@09:46:42 ENTRY DATE: MAR 24, 2024@09:46:43 AUTHOR: ALAN ALONSO EXP COSIGNER: URGENCY: STATUS: COMPLETED Please request last visit note from: Dr. Trevon Brown M.D Address: [address] [place] [address] Thanks! 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 Brown. /alfred/ PETE GIPSON [facility]ILLECammie Signed: 03/24/2024 10:20 ALAN ALONSO [place] Mar 24, 2024 09:42 AM PREVENTIVE MEDICIN [...] note from: Dr. Trevon Brown M.D Address: [address] [place] [address] Thanks! 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 Brown. /alfred/ PETE KAY Signed: 03/24/2024 10:20 ALAN ALONSO [place] Mar 24, 2024 08:34 AM PHYSICIAN NOTE: [...] issues and buy a beach house in [place]. So much is out of my control [...] 9 05/01/2024 11:00 CWM/SO/BIOFEEDBACK GRP 05/11/2024 07:30 [facility] 2 06/21/2024 13:30 CWM/SO/PACT 9 07/31/2024 13:30 [place]/OPTOMETRY/[place] 03/23/2025 09:00 CWM/SO/PACT 9 Med Reconciliation: Active Outpatient Medications (including Supplies): No Medications Found Medication (Local) Status No local medications found. Medication (Remote) Status No remote medications found. /alfred/ CATHIE WONG MD PHYSICIAN Signed: 05/24/2024 14:15 CATHIE WONG [place]
--- OUTSIDE RECORDS SUMMARY | 2025-01-23 13:03 | XMS_ITS | Encounter Summary ---
Author Name [facility] [place] Organization [facility] [place] [facility] [place] Address [address] [place] [id number] Care Team Providers Care Router Operator Name Role Phone ASHLEIGH FIELDS Primary [...] MYRIAMChery OLEARY Nov 30, 2019 MEDICAI D [id number] Catrina LEE PATIENT MEDICARE (WNR) MEDICARE (M) PART A January 25, 2018 PART A [id number] Catrina LEE PATIENT MEDICARE (WNR) MEDICARE (M) PART B January 25, 2018 PART B [id number] Catrina LEE PATIENT Selected Encounter This [...] [facility] [place] [facility] This section includes future appointments and [...] - MEDICINE [place] [facility] [place] [facility] Apr 28, 2024 01:00 PM AMBULATORY - [facility]ICINE [facility] [place] [facility] May 01, 2024 11:00 AM AMBULATORY - [place]ICINE [place] [facility] [place] [facility] May 11, 2024 07:30 AM AMBULATORY - NONE [facility] [place] [facility] May 30, 2024 11:00 AM AMBULATORY - [facility]IC[facility] [place] [facility] Jun 21, 2024 01:30 PM AMBULATORY - [place]ICINE [place] [facility] [place] [facility] Jun 29, 2024 07:30 AM AMBULATORY - NONE [facility] [place] [facility] Jul 31, 2024 01:30 PM AMBULATORY - MEDICINE [facility] [place] [facility] Aug 16, 2024 08:00 AM AMBULATORY - NONE [facility] [place] [facility] Aug 21, 2024 02:30 PM AMBULATORY - [place]ICINE [place] [facility] [place] [facility] Sep 14, 2024 07:30 AM AMBULATORY - NONE [facility] [place] [facility] Oct 02, 2024 10:00 AM AMBULATORY - [place]ICINE [place] [facility] [place] [facility] Oct 04, 2024 08:00 AM AMBULATORY - PSYCHIATRY [facility] Oct 17, 2024 03:00 PM AMBULATORY - PSYCHIATRY [facility] Social History: Smoking Status (Most current) and Tobacco Use (All prior to encounter date) This section includes the most current, and the historical, smoking and tobacco- related health factors from the [place] facility where the Encounter took place. Current Smoking Status This section includes the most current smoking, or tobacco-related health factor, from the [place] facility where the Encounter took place. Date/Time Current Smoking Status Comment Dannie ity Apr 27, 2023 01:30 PM VA-TOBACCO USER EVERY DAY [place] Tobacco Use History This section includes a history of the smoking, or tobacco-related health factors, that were collected on or before the date of the Encounter. The data comes from the [place] facility where the Encounter took place. 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 [place] Jan 23, 2021 10:30 AM VA-TOBACCO USE MED NO [place] Jan 23, 2021 10:30 AM VA-TOBACCO USE WI 30 MIN OF WAKEUP [place] Jan 23, 2021 10:30 AM VA-TOBACCO USER EVERY DAY [place] Oct 25, 2017 03:23 PM CURRENT SMOKER [facility] Oct 25, 2017 03:23 PM V1-PT NOT INTEREST ED IN QUIT TOBACCO USE [place] Dec 15, 2016 10:59 AM CURRENT SMOKER [facility] Dec 15, 2016 10:59 AM V1-PT DECLINES REF TO TOBACCO CESS [facility] Dec 15, 2016 10:59 AM V1-PT THINKING ABO UT QUIT TOBACCO USE [place] Jun 16, 2016 08:30 AM V1-PT DECLINES REF TO [facility]ACCO [facility]ESS [facility] Jun 16, 2016 08:30 AM V1-PT DECLINES TOB ACCO CESSATION MEDS [place] Jun 16, 2016 08:30 AM V1-PT THINKING ABO UT QUIT TOBACCO USE [place] Dec 17, 2015 09:00 AM CURRENT SMOKER smokes about one ppd of cigaretts. [place] Dec 17, 2015 09:00 AM V1-PT THINKING ABO UT QUIT TOBACCO USE [place] Encounter Notes: All associated encounter notes This section contains the clinical notes associated to the Encounter. Date/Time Encounter Note(s) Provider Source Apr 20, 2024 07:19 AM CONSULT: LOCAL TITLE: CONSULT/BIOFEEDBACK STANDARD TITLE: CONSULT DATE OF NOTE: APR 20, 2024@07:19:31 ENTRY DATE: APR 20, 2024@07:19:31 AUTHOR: LAINE DELUNA EXP COSIGNER: URGENCY: STATUS: COMPLETED Assessments were sent to the via text/email. These assessments were completed by [...] to handle personal problems: Almost never 5. [place] that things were going your way: Sometimes [...] Clinical Psychologist Signed: 04/20/2024 08:32 LAINE DELUNA [place] Apr 17, 2024 03:40 PM ADDENDUM: LOCAL [...] NUMBER OF VETS IN GROUP: 5 CPT: 02585 MODALITY OF CARE: (x) Group visit In-person [...] purpose, procedures, and techniques was provided, and [place] offered verbal consent. Orientation to equipment including placement of sensors was reviewed. MEDICAL NECESSITY: is actively engaged in healthcare treatment through this [place] and elects to engage in this group to support overall health improvement. [place] understands this group is not intended to [...] and at-home practice using smart phone apps. [place] engaged in First Guided Practice in the inner balance indira. Risk Assessment: No report or indication of thoughts, intent, or plan of harming self or others today. No imminent risk identified. MSE: sounded alert, oriented, and engaged. Euthymic with appropriate affect expression; Concentration appeared WNL x3, no perceptual, behavioral or thought concerns reported or observed. IMPRESSIONS: [place] was engaged in session. engaged in breathing practice during session. PLAN: 1) [place] will attend Session 2 next week on 04/24. 2) At Home Practice: [place] will engage in practicing with inner balance indira and aim for good coherence. DX: Anxiety /es/ Laine Deluna, PhD Clinical Psychologist Signed: 04/17/2024 15:37 04/18/2024 ADDENDUM STATUS: COMPLETED Retail Warehouse Associate sp appt on 04/24/24 @ 11:00 am 60 mins f2f. /alfred/ PETE GROSSEY ELIZA Signed: 04/18/2024 09:05 LAINE DELUNA MARI[place] Apr 17, 2024 03:28 PM GROUP COUNSELING [...] NUMBER OF VETS IN GROUP: 5 CPT: 04848 MODALITY OF CARE: (x) Group visit In-person REASON FOR ENCOUNTER: attended session 1 of 5 of the biofeedback group. INFORMED CONSENT: Veterans were provided information about the purpose of psychophysiological training and that participation is voluntary. Risk and benefits and limits of confidentiality were discussed during the shared decision-making process, and [place] voluntarily agreed to group participation. Additional overview of biofeedback purpose, procedures, and techniques was provided, and offered verbal consent. Orientation to equipment including placement of sensors was reviewed. MEDICAL NECESSITY: [place] is actively engaged in healthcare treatment through this [place] and elects to engage in this group [...] and at-home practice using smart phone apps. engaged in First Guided Practice in the inner balance indira. Risk Assessment: No report or indication of thoughts, intent, or plan of harming self or others today. No imminent risk identified. MSE: [place] sounded alert, oriented, and engaged. Euthymic with appropriate affect expression; Concentration appeared WNL x3, no perceptual, behavioral or thought concerns reported or observed. IMPRESSIONS: [place] was engaged in session. engaged in breathing practice during session. PLAN: 1) will attend Session 2 next week on [...] 09:05 /aaliyah KAY 04/18/2024 ADDENDUM STATUS: COMPLETED Retail Warehouse Associate sceduled appt on 04/24/24 @ 11:00 am 60 mins f2carlos. /aaliyah KAY Signed: 04/18/2024 09:05 LAINE DELUNA
[2025-01-23 13:13] LABS: Ferritin 288 ng/mL (20-250); Free T4 (Free Thyroxine) 0.93 ng/dL (0.71-1.85); Insulin 9 uU/mL (2-29); Thyroid Stimulating Hormone 1.85 uIU/mL (0.32-4.0); Vitamin D 25-OH Total 27.7 ng/mL (>30)
[2025-01-23 13:15] LABS: Prostate Specific Antigen 67.22 ng/mL (<0.05-4.0); Vitamin B12 436 pg/mL (200-900)
[2025-01-24 09:08] LABS: DHEA Sulfate 61 mcg/dL (3-225); Triiodothyronine T3 Free 3.3 pg/mL (2.3-4.2)
[2025-01-24 17:14] LABS: Homocysteine 10.5 umol/L (<11.4)
[2025-01-25 22:14] LABS: Ceruloplasmin 21 mg/dL (14-30); Thyroid Peroxidase Antibodies <1 IU/mL (<9)
[2025-01-25 23:29] LABS: Copper, serum 84 mcg/dL (70-175)
[2025-01-25 23:48] LABS: Iodine, Serum/Plasma 46 mcg/L (52-109)
[2025-01-26 04:48] LABS: Thyroglobulin Antibodies 1 IU/mL (< or = 1)
[2025-01-27 12:57] LABS: Triiodothyronine T3 Reverse 12 ng/dL (8-25)
[2025-01-28 01:38] LABS: Dihydrotestosterone 24 ng/dL (12-65)
[2025-01-28 22:19] LABS: Apolipoprotein B 94 mg/dL (<90)
[2025-01-30 20:22] LABS: Lipoprotein A 203 nmol/L (<75)
[2025-02-01 19:09] LABS: IGF-1 (Somatomedin C) 95 ng/mL (34-245); IGF-1 Z Score (Male) -0.2 SD (-2.0 - +2.0)
[2025-02-08 00:24] LABS: Estradiol Ultra Sensitive 25 pg/mL (< OR = 29)
[2025-02-14 04:34] LABS: Progesterone <0.1 ng/mL
== END 2025-01-23 11:05 | disposition home or self-care (01) ==
LOC: HO.LAB 11:04
PROVIDERS: Visit Provider Internal Medicine
DX: D49.4 Neoplasm of unspecified behavior of bladder (principal); Z85.46 Personal history of malignant neoplasm of prostate; C61 Malignant neoplasm of prostate; Z12.5 Encounter for screening for malignant neoplasm of prostate; Z13.1 Encounter for screening for diabetes mellitus
CPT/HCPCS: 36415; 80053; 80061; 81001; 82172; 82306; 82390; 82525; 82533; 82607; 82627; 82642; 82670; 82728; 82746; 83036; 83090; 83525; 83540; 83695; 83789; 84144; 84153; 84305; 84402; 84403; 84439; 84443; 84481; 84482; 84550; 85025; 85379; 85384; 86140; 86376; 86800

== ENCOUNTER 2025-02-28 11:31 | Outpatient (REF) | payer MEDICARE, SELFPAY ==
[2025-02-28 13:21] LABS: PSA,Total (Free>4and<10) 65.43 ng/mL (0.00-4.00)
== END 2025-02-28 11:32 | disposition home or self-care (01) ==
LOC: HO.LAB 11:31
PROVIDERS: Visit Provider Urology
DX: C61 Malignant neoplasm of prostate (principal); Z12.5 Encounter for screening for malignant neoplasm of prostate
CPT/HCPCS: 36415; 84153